=== PATIENT | male | born 1930 | race Caucasian/White ===

== ENCOUNTER 2016-12-16 13:28 | Observation (INO) | payer MEDICARE, OTHER ==
[2016-12-16 14:44] LABS: Hematocrit 40 % (42-52); Mean Corpuscular HGB Conc 32 g/dl (31-36); Mean Corpuscular Hemoglobin 30 pg (27-31); Mean Corpuscular Volume 92 fL (80-94); Mean Platelet Volume 9 um3 (7.4-10.4); Red Blood Count 4.38 10^6/ul (4.0-5.4); Red Cell Distribution Width 13 % (10.5-15); White Blood Count 8.2 10^3/ul (3.5-10.8)
[2016-12-16 14:56] LABS: Albumin 3.3 g/dL (3.2-5.2); BUN/Creatinine Ratio 30.3 (8-20); C Reactive Protein 132.52 mg/L (< 5.00); Calcium 9.1 mg/dL (8.6-10.3); EGFR African American 54.8 (>60); EGFR Non-African American 42.6 (>60); Globulin 3.4 g/dL (2-4); Magnesium 2.2 mg/dL (1.9-2.7); Potassium 4.4 mmol/L (3.5-5.0); Total Bilirubin 0.4 mg/dL (0.2-1.0); Total Protein 6.7 g/dL (6.4-8.9)
[2016-12-16 14:58] LABS: Troponin I 0.01 ng/mL (<0.04)
[2016-12-16 15:09] LABS: TSH (Thyroid Stimulating Horm) 2.35 mcIU/mL (0.34-5.60)
--- NOTE | 2016-12-16 15:25 | RAD ---
INDICATION: Bilateral shoulder pain and weakness. COMPARISON: There are no prior studies available for comparison. TECHNIQUE: A portable view of the chest was obtained. FINDINGS: Cardiac and mediastinal contours appear to be within normal limits. There is a dual-chamber transvenous pacemaker present. The lungs are hyperinflated and clear. No pleural effusion is seen. IMPRESSION: NO EVIDENCE FOR ACUTE DISEASE.
[2016-12-16] MEDS ORDERED: Dextrose 50% Syringe 50 ML* 25 GM/50 ML SYRINGE ONE (15:27)
[2016-12-16] MEDS ORDERED: Dextrose 50% Syringe 50 ML* 25 GM/50 ML SYRINGE IV PUSH ONE (15:27)
[2016-12-16 15:37] LABS: Erythrocyte Sed Rate 75 mm/Hr (0-40)
--- NOTE | 2016-12-16 16:31 | ED ---
Sohail Otero Matthew, scribed for Mckay Sanchez MD on 12/16/16 at 1433 . Complex/Multi-Sys Presentation - HPI Summary HPI Summary: An 86 y/o male presents to the ED with constant generalized weakness for the past several weeks. The patient initially developed right shoulder pain ~4 weeks ago, and was seen by his PCP who Dx him with bursitis and give him a cortisone injection. The injection did not relive his shoulder pain. The pain has since spread diffusely throughout his body for the past 3 weeks. Associated symptoms include frequency urination - 7x per night, decreased appetite, general weakness, bilateral shoulder pain, and headache. He denies fever, dysuria, SOB, abdominal pain, back pain, cough, and hip pain. Per the son, the patient is having difficulty standing and pain left buttock pain when sitting. He has no Hx of lower back pain. Per the , when the shoulder pain began the patient began to walk, sit, and sleep differently. - History Of Current Complaint Chief Complaint: EDShoulderClavicleIn Time Seen by Provider: 12/16/16 14:12 Hx Obtained From: Patient, Family/[place] - , Son Onset/Duration: Gradual Onset, Lasting Weeks, Still Present Timing: Constant Severity Currently: Moderate Severity Initially: Moderate Location: Pain At: - Diffuse Associated Signs And Symptoms: Positive: Weakness - generalized, Other - increased urination; decreased appetite; bilateral shoulder pain; diffuse body aches; headache. Negative: SOB, Cough, Chest Pain, Back Pain, Fever - Allergies/Home Medications Allergies/Adverse Reactions: Allergies Allergy/AdvReac Type Severity Reaction Status Date / Time Adhesive Tape Allergy Mild Itching Verified 11/12/16 17:29 Hydralazine Allergy Unknown Unknown Verified 11/12/16 17:29 Reaction Details Ramipril [From Altace] Allergy Unknown Unknown Verified 11/12/16 17:29 Reaction Details Simvastatin [From Zocor] Allergy Unknown Unknown Verified 11/12/16 17:29 Reaction Details Clonidine Allergy Unknown Verified 11/12/16 17:29 Reaction Details Clopidogrel [From Plavix] Allergy Unknown Verified 11/12/16 17:29 Reaction Details Latex Allergy Rash Verified 11/12/16 17:29 Nitroglycerin Allergy See Comment Verified 11/12/16 17:29 [From Nitroglycerin Transdermal System] PMH/Surg Hx/FS Hx/Imm Hx Endocrine/Hematology History: Reports: Hx Blood Disorders - ITP, Hx Diabetes, Other Endocrine/Hematological Disorders - 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, 2001 Denies: Hx Anticoagulant Therapy, Hx Blood Transfusions, Hx Bone Marrow Disease, Hx Systemic Lupus Erythematosus, Hx Sickle Cell Disease, Hx Thyroid Disease, Hx Anemia, Hx Unexplained Bleeding Cardiovascular History: Reports: Hx Angina, Hx Angioplasty, Hx Auto Implanted Cardiovert Defib, Hx Coronary Artery Disease, Hx Hypercholesterolemia, Hx Hypertension, Hx Pacemaker/ICD, Other Cardiovascular Problems/Disorders Denies: Hx Aneurysm, Hx Cardiac Arrest, Hx Cardiomegaly, Hx Congenital Heart Disease, Hx Congestive Heart Failure, Hx Deep Vein Thrombosis, Hx Embolism, Hx Hypotension, Hx Peripheral Vascular Disease, Hx Rheumatic Fever, Hx Syncope, Hx Valvular Heart Disease Respiratory History: Reports: Hx Chronic Obstructive Pulmonary Disease (COPD), Hx Sleep Apnea, Other Respiratory Problems/Disorders - on home O2 Denies: Hx Asthma GI History: Reports: Hx Hiatal Hernia Denies: Hx Ulcer History: Reports: Hx Chronic Renal Failure - CKD stage 3, Hx Renal Disease Musculoskeletal History: Reports: Hx Gout - knee, Hx Orthopedic Injury - L ankle Fx, consequent unsteady gait Denies: Hx Arthritis, Hx Back Problems, Hx Bursitis, Hx Congenital Bone Abnormalities, Hx Fibromyalgia, Hx Osteoporosis, Hx Scoliosis, Hx Tendonitis, Other Musculoskeletal History Sensory History: Reports: Hx Cataracts, Hx Contacts or Glasses Denies: Hx Eye Injury, Hx Eye Prosthesis, Hx Glaucoma, Hx Legally Blind, Hx Macular Degeneration, Hx Vision Problem, Hx Deafness, Hx Hearing Aid, Hx Hearing Problem, Other Sensory Impairments Opthamlomology History: Reports: Hx Cataracts, Hx Contacts or Glasses Denies: Hx Eye Injury, Hx Eye Prosthesis, Hx Glaucoma, Hx Legally Blind, Hx Macular Degeneration, Hx Vision Problem, Other Sensory Impairments Neurological History: Reports: Other Neuro Impairments/Disorders - per family: short-term memory loss Denies: Hx Dementia, Hx Seizures Psychiatric History: Denies: Hx Substance Abuse - Cancer History Cancer Type, Location and Year: 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 5 cardiac stents, cataract surgery, pacer/ICD implant Hx Anesthesia Reactions: No - Immunization History Date of Tetanus Vaccine: unknown Infectious Disease History: No Infectious Disease History: Denies: Hx Hepatitis, Hx Human Immunodeficiency Virus (HIV), Traveled Outside the [place] in Last 30 Days - Family History Known Family History: Positive: Cardiac Disease, Hypertension, Diabetes - Social History Alcohol Use: Rare Substance Use Type: Reports: None Hx Tobacco Use: Yes Smoking Status (MU): Former Smoker Type: Cigarettes Amount Used/How Often: 3 PPD X 40 YEARS Have You Smoked in the Last Year: No Review of Systems Constitutional: Other - decreased appetite Negative: Fever, Chills Eyes: Negative ENT: Negative Cardiovascular: Negative Negative: Chest Pain Respiratory: Negative Negative: Shortness Of Breath, Cough Gastrointestinal: Negative Negative: Abdominal Pain Positive: frequency - increased Positive: Myalgia - bilateral shoulder pain; diffuse body aches Skin: Negative Positive: Headache Psychological: Normal All Other Systems Reviewed And Are Negative: Yes Physical Exam Triage Information Reviewed: Yes Vital Signs On Initial Exam: Initial Vitals Temp Pulse Resp BP Pulse Ox 98.3 F 62 18 161/70 97 12/16/16 13:45 12/16/16 13:45 12/16/16 13:45 12/16/16 13:45 12/16/16 13:45 Vital Signs Reviewed: Yes Appearance: Positive: No Pain Distress Skin: Positive: Warm, Skin Color Reflects Adequate Perfusion, Dry Head/Face: Positive: Normal Head/Face Inspection Eyes: Positive: EOMI, DONTE ENT: Positive: Normal ENT inspection Neck: Positive: Supple, Nontender Respiratory/Lung Sounds: Positive: Clear to Auscultation, Breath Sounds Present Cardiovascular: Positive: RRR Abdomen Description: Positive: Nontender, Soft Bowel Sounds: Positive: Present Musculoskeletal: Positive: Normal, Strength/ROM Intact, Other - Discomfort with movement of the shoulders bilaterally Neurological: Positive: Normal, Sensory/Motor Intact, Alert, Oriented to Person Place, Time Diagnostics - Vital Signs Vital Signs Temp Pulse Resp BP Pulse Ox 12/16/16 13:45 98.3 F 62 18 161/70 97 - Laboratory Lab Results: Lab Results 12/16/16 12/16/16 12/16/16 Range/Units 14:14 14:14 14:14 WBC 8.2 (3.5-10.8) 10^3/ul RBC 4.38 (4.0-5.4) 10^6/ul Hgb 13.0 L (14.0-18.0) g/dl Hct 40 L (42-52) % MCV 92 (80-94) fL MCH 30 (27-31) pg MCHC 32 (31-36) g/dl RDW 13 (10.5-15) % Plt Count 129 L (150-450) 10^3/ul MPV 9 (7.4-10.4) um3 Neut % (Auto) 70.1 (38-83) % Lymph % (Auto) 11.3 L (25-47) % [place] % (Auto) 15.8 H (1-9) % Eos % (Auto) 2.2 (0-6) % Baso % (Auto) 0.6 (0-2) % Absolute Neuts (auto) 5.7 (1.5-7.7) 10^3/ul Absolute Lymphs (auto) 0.9 L (1.0-4.8) 10^3/ul Absolute Monos (auto) 1.3 H (0-0.8) 10^3/ul Absolute Eos (auto) 0.2 (0-0.6) 10^3/ul Absolute Basos (auto) 0 (0-0.2) 10^3/ul Absolute Nucleated RBC 0 10^3/ul Nucleated RBC % 0 ESR 75 H (0-40) mm/Hr INR (Anticoag Therapy) 1.06 (0.89-1.11) APTT 30.4 (26.0-36.3) seconds D-Dimer, Quantitative 565 H (Less Than 230) ng/mL Sodium 137 (133-145) mmol/L Potassium 4.4 (3.5-5.0) mmol/L Chloride 102 (101-111) mmol/L Carbon Dioxide 31 (22-32) mmol/L Anion Gap 4 (2-11) mmol/L BUN 47 H (6-24) mg/dL Creatinine 1.55 H (0.67-1.17) mg/dL Est GFR ( Amer) 54.8 (>60) Est GFR (Non-Af Amer) 42.6 (>60) BUN/Creatinine Ratio 30.3 H (8-20) Glucose 46 L (70-100) mg/dL POC Glucose (mg/dL) (74-106) mg/dL Lactic Acid (0.5-2.0) mmol/L Calcium 9.1 (8.6-10.3) mg/dL Magnesium 2.2 (1.9-2.7) mg/dL Total Bilirubin 0.40 (0.2-1.0) mg/dL AST 25 (13-39) U/L ALT 22 (7-52) U/L Alkaline Phosphatase 72 (34-104) U/L Total Creatine Kinase 31 (10-223) U/L CK-MB (CK-2) 2.3 (0.6-6.3) ng/mL Troponin I 0.01 (<0.04) ng/mL C-Reactive Protein 132.52 H (< 5.00) mg/L B-Natriuretic Peptide ( - 100) pg/mL Total Protein 6.7 (6.4-8.9) g/dL Albumin 3.3 (3.2-5.2) g/dL Globulin 3.4 (2-4) g/dL Albumin/Globulin Ratio 1.0 (1-3) Lipase 20 (11.0-82.0) U/L TSH 2.35 (0.34-5.60) mcIU/mL 12/16/16 12/16/16 12/16/16 Range/Units 14:14 14:14 15:35 WBC (3.5-10.8) 10^3/ul RBC (4.0-5.4) 10^6/ul Hgb (14.0-18.0) g/dl Hct (42-52) % MCV (80-94) fL MCH (27-31) pg MCHC (31-36) g/dl RDW (10.5-15) % Plt Count (150-450) 10^3/ul MPV (7.4-10.4) um3 Neut % (Auto) (38-83) % Lymph % (Auto) (25-47) % [place] % (Auto) (1-9) % Eos % (Auto) (0-6) % Baso % (Auto) (0-2) % Absolute Neuts (auto) (1.5-7.7) 10^3/ul Absolute Lymphs (auto) (1.0-4.8) 10^3/ul Absolute Monos (auto) (0-0.8) 10^3/ul Absolute Eos (auto) (0-0.6) 10^3/ul Absolute Basos (auto) (0-0.2) 10^3/ul Absolute Nucleated RBC 10^3/ul Nucleated RBC % ESR (0-40) mm/Hr INR (Anticoag Therapy) (0.89-1.11) APTT (26.0-36.3) seconds D-Dimer, Quantitative (Less Than 230) ng/mL Sodium (133-145) mmol/L Potassium (3.5-5.0) mmol/L Chloride (101-111) mmol/L Carbon Dioxide (22-32) mmol/L Anion Gap (2-11) mmol/L BUN (6-24) mg/dL Creatinine (0.67-1.17) mg/dL Est GFR ( Amer) (>60) Est GFR (Non-Af Amer) (>60) BUN/Creatinine Ratio (8-20) Glucose (70-100) mg/dL POC Glucose (mg/dL) 244 H (74-106) mg/dL Lactic Acid 0.6 (0.5-2.0) mmol/L Calcium (8.6-10.3) mg/dL Magnesium (1.9-2.7) mg/dL Total Bilirubin (0.2-1.0) mg/dL AST (13-39) U/L ALT (7-52) U/L Alkaline Phosphatase (34-104) U/L Total Creatine Kinase (10-223) U/L CK-MB (CK-2) (0.6-6.3) ng/mL Troponin I (<0.04) ng/mL C-Reactive Protein (< 5.00) mg/L B-Natriuretic Peptide 74 ( - 100) pg/mL Total Protein (6.4-8.9) g/dL Albumin (3.2-5.2) g/dL Globulin (2-4) g/dL Albumin/Globulin Ratio (1-3) Lipase (11.0-82.0) U/L TSH (0.34-5.60) mcIU/mL 12/16/16 12/16/16 Range/Units 15:37 15:59 WBC (3.5-10.8) 10^3/ul RBC (4.0-5.4) 10^6/ul Hgb (14.0-18.0) g/dl Hct (42-52) % MCV (80-94) fL MCH (27-31) pg MCHC (31-36) g/dl RDW (10.5-15) % Plt Count (150-450) 10^3/ul MPV (7.4-10.4) um3 Neut % (Auto) (38-83) % Lymph % (Auto) (25-47) % [place] % (Auto) (1-9) % Eos % (Auto) (0-6) % Baso % (Auto) (0-2) % Absolute Neuts (auto) (1.5-7.7) 10^3/ul Absolute Lymphs (auto) (1.0-4.8) 10^3/ul Absolute Monos (auto) (0-0.8) 10^3/ul Absolute Eos (auto) (0-0.6) 10^3/ul Absolute Basos (auto) (0-0.2) 10^3/ul Absolute Nucleated RBC 10^3/ul Nucleated RBC % ESR (0-40) mm/Hr INR (Anticoag Therapy) (0.89-1.11) APTT (26.0-36.3) seconds D-Dimer, Quantitative (Less Than 230) ng/mL Sodium (133-145) mmol/L Potassium (3.5-5.0) mmol/L Chloride (101-111) mmol/L Carbon Dioxide (22-32) mmol/L Anion Gap (2-11) mmol/L BUN (6-24) mg/dL Creatinine (0.67-1.17) mg/dL Est GFR ( Amer) (>60) Est GFR (Non-Af Amer) (>60) BUN/Creatinine Ratio (8-20) Glucose (70-100) mg/dL POC Glucose (mg/dL) 209 H 137 H (74-106) mg/dL Lactic Acid (0.5-2.0) mmol/L Calcium (8.6-10.3) mg/dL Magnesium (1.9-2.7) mg/dL Total Bilirubin (0.2-1.0) mg/dL AST (13-39) U/L ALT (7-52) U/L Alkaline Phosphatase (34-104) U/L Total Creatine Kinase (10-223) U/L CK-MB (CK-2) (0.6-6.3) ng/mL Troponin I (<0.04) ng/mL C-Reactive Protein (< 5.00) mg/L B-Natriuretic Peptide ( - 100) pg/mL Total Protein (6.4-8.9) g/dL Albumin (3.2-5.2) g/dL Globulin (2-4) g/dL Albumin/Globulin Ratio (1-3) Lipase (11.0-82.0) U/L TSH (0.34-5.60) mcIU/mL Result Diagrams: 12/16/16 14:14 12/16/16 14:14 Lab Statement: Any lab studies that have been ordered have been reviewed, and results considered in the medical decision making process. - Radiology CXR Xray Interpretation: No Acute Changes - IMPRESSION: NO EVIDENCE FOR ACUTE DISEASE. Radiology Interpretation Completed By: Radiologist Complex Multi-Symp Course/Dx Assessment/Plan: BLOOD SUGARS CONTINUE TO DROP IN ED. ADMIT HOSPITALIST STABLE. - Diagnoses Provider Diagnoses: Weakness, Hypoglycemia due to insulin Discharge - Discharge Plan Condition: Stable Disposition: ADMITTED TO [facility] The documentation as recorded by the Sohail webb Matthew accurately reflects the service I personally performed and the decisions made by , Mckay Sanchez MD.
[2016-12-16] MEDS ORDERED: Nitroglycerin TAB 0.4 MG* 0.4 MG TAB PO PRN (17:06)
[2016-12-16] MEDS ORDERED: Polyethylene Glycol 3350* 17 GM PACKET PO PRN (17:06)
[2016-12-16] MEDS ORDERED: Dextrose 50% Syringe 50 ML* 25 GM/50 ML SYRINGE IV PUSH PRN (17:13)
[2016-12-16] MEDS: Insulin LISPRO* 1 UNITS UNIT SUBCUT SCH ×2 (17:21→21:48)
[2016-12-16 17:23] LABS: Urine Bacteria Absent (Absent); Urine Bilirubin Negative (Negative); Urine Glucose Negative (Negative); Urine Nitrite Negative (Negative)
--- NOTE | 2016-12-16 17:23 | ADMNOTE ---
Subjective Date of Service: 12/16/16 Interval History: ADMISSION HISTORY AND PHYSICAL EXAM: Allergies Allergy/AdvReac Type Severity Reaction Status Date / Time Adhesive Tape Allergy Mild Itching Verified 11/12/16 17:29 Hydralazine Allergy Unknown Unknown Verified 11/12/16 17:29 Reaction Details Ramipril [From Altace] Allergy Unknown Unknown Verified 11/12/16 17:29 Reaction Details Simvastatin [From Zocor] Allergy Unknown Unknown Verified 11/12/16 17:29 Reaction Details Clonidine Allergy Unknown Verified 11/12/16 17:29 Reaction Details Clopidogrel [From Plavix] Allergy Unknown Verified 11/12/16 17:29 Reaction Details Latex Allergy Rash Verified 11/12/16 17:29 Nitroglycerin Allergy See Comment Verified 11/12/16 17:29 [From Nitroglycerin Transdermal System] Home Medications Medication Instructions Recorded Confirmed Type Aspirin Low Dose CHEW TAB* 81 mg PO BEDTIME 12/20/14 11/12/16 History [Aspirin Low Dose TAB*] Diltiazem CD CAP* [Cardizem CD 120 mg PO BID 12/20/14 11/12/16 History CAP*] Donepezil TAB* [Aricept TAB*] 10 mg PO BEDTIME 12/20/14 11/12/16 History Insulin Aspart PEN(NF) [Novolog 2 - 10 units SUBCUT AC 12/20/14 11/12/16 History Flexpen(NF)] Nitroglycerin TAB 0.4 MG* 0.4 mg PO Q5M PRN 12/20/14 11/12/16 History Rosuvastatin (NF) [Crestor (NF)] 5 mg PO BEDTIME 12/20/14 11/12/16 History zzInsulin GLARGINE(*) [zzLantus(*)] 55 - 60 unit SUBCUT QAM 12/20/14 11/12/16 History Levalbuterol 0.63MG/3ML NEB* 0.31 mg INH QAM 07/19/15 11/12/16 History [Xopenex 0.63MG/3ML NEB*] Carvedilol TAB* [Coreg TAB*] 12.5 mg PO BID 07/10/16 11/12/16 History HPI: Patient has not gotten out of bed in past few days except to go to the bathroom. This AM he was too weak to get to the car so his son called 911. He has eaten little for the past few days. He has lost 8 lbs since Dec 01. He saw an orthopedist for bilateral shoulder pain R>L. He was given a steroid injection in his R shoulder and prescribed PT. He only went once to PT, did not want to go after that. No benefit from either intervention. Family History: Findings - unremarkable Social History: Findings - Smoked many years ago. No alcohol abuse. Lives with his who is his SDM. Past Medical History: Findings - Atrial fib, CAD with 5 stents, PPM, adrenalectomy, COPD, CKD, DM, PRETTY. Review of Systems - Measurements Intake and Output: Intake and Output Last 24 Hours 12/14/16 12/15/16 12/16/16 12/17/16 06:59 06:59 06:59 06:59 Intake Total 240 Output Total 120 Balance 120 Weight 210 lb Intake: Oral 240 Output: Urine 120 - Review of Systems Constitutional Symptoms: Positive: Weight Gain - 8 lbs in past 2 weeks. Dermatology: Positive: Normal HEENT: Positive: Normal Eyes: Positive: Normal Thyroid: Positive: Normal Pulmonary: Positive: COPD Cardiology: Positive: Other - CAD Gastroenterology: Positive: Anorexia Genital - Urinary: Positive: Nocturia - up to 7-8 times. Musculoskeletal: Positive: Joint Pain - both shoulders Endocrinology: Positive: Diabetes Mellitus Hematologic/Lymphatic: Negative: Anemia, Easy Brusing, Hx Leukemia, Hx Lymphoma, Use of Anticoagulant, Use of Antiplatelet Drugs, Other Neurology: Positive: Change in Memory Psychiatry: Positive: Normal Allergic/Immunologic: Negative: Hx Anaphylaxis, Hx Angioedema, Hx Environmental, Hx Seasonal, Athsma, Hx HIV, Immunocompromise, Swollen Glands LymphNodes, Other Objective Active Medications: Acetaminophen (Tylenol Tab*) 650 mg PO TID [facility] Aspirin (Aspirin Low Dose Tab*) 81 mg PO BEDTIME [facility] Carvedilol (Coreg Tab*) 12.5 mg PO BID [facility] Dextrose (D50w Syringe 50 Ml*) 12.5 gm IV PUSH .FOR FS < 60 - SS PRN PRN Reason: FS < 60 Diltiazem HCl (Cardizem Cd Cap*) 120 mg PO BID [facility] Donepezil HCl (Aricept Tab*) 10 mg PO BEDTIME [facility] Insulin Glargine (Lantus(*)) 30 units SUBCUT Q24H [facility] Insulin Human Lispro (Humalog*) 0 units SUBCUT Q4HR [facility] PRN Reason: Protocol Nitroglycerin (Nitroglycerin Tab 0.4 Mg*) 0.4 mg PO Q5M PRN PRN Reason: PAIN - CHEST Polyethylene Glycol/Electrolytes (Miralax*) 17 gm PO DAILY PRN PRN Reason: CONSTIPATION Prednisone (Deltasone Tab*) 20 mg PO DAILY [facility] Vital Signs 12/16/16 12/16/16 12/16/16 13:45 14:15 15:00 Temperature 98.3 F Pulse Rate 62 60 60 Respiratory 18 18 Rate Blood Pressure 161/70 137/43 (mmHg) O2 Sat by Pulse 97 97 97 Oximetry 12/16/16 12/16/16 12/16/16 15:30 16:00 16:30 Temperature Pulse Rate 63 64 59 Respiratory 17 17 21 Rate Blood Pressure 127/65 142/48 143/56 (mmHg) O2 Sat by Pulse 98 98 98 Oximetry 12/16/16 17:00 Temperature Pulse Rate 65 Respiratory 23 Rate Blood Pressure 161/60 (mmHg) O2 Sat by Pulse 98 Oximetry Oxygen Devices in Use Now: Nasal Cannula Appearance: Alert, partly up in bed. Neutral affect, passive but cooperative. Looks comfortable at rest. Eyes: No Scleral Icterus Ears/Nose/Mouth/Throat: Clear Oropharnyx, Mucous Membranes Moist Neck: NL Appearance and Movements; NL JVP, No Thyroid Enlargement, Masses Respiratory: Symmetrical Chest Expansion and Respiratory Effort, Clear to Auscultation, Clear to Percussion Cardiovascular: NL Sounds; No Murmurs; No JVD, No Edema, - - irreg Extremities: No Edema, No Clubbing, Cyanosis, - - Pain both shoulders with elevation, R>>L. Skin: No Rash or Ulcers, No Nodules or Sclerosis, - Neurological: NL Sensation - Knows his age, thought it was 2016, could not guess the present month. No tremor. Result Diagrams: 12/16/16 14:14 12/16/16 14:14 Additional Lab and Data: Lab Results 12/16/16 12/16/16 12/16/16 Range/Units 14:14 14:14 14:14 WBC 8.2 (3.5-10.8) 10^3/ul RBC 4.38 (4.0-5.4) 10^6/ul Hgb 13.0 L (14.0-18.0) g/dl Hct 40 L (42-52) % MCV 92 (80-94) fL MCH 30 (27-31) pg MCHC 32 (31-36) g/dl RDW 13 (10.5-15) % Plt Count 129 L (150-450) 10^3/ul MPV 9 (7.4-10.4) um3 Neut % (Auto) 70.1 (38-83) % Lymph % (Auto) 11.3 L (25-47) % [place] % (Auto) 15.8 H (1-9) % Eos % (Auto) 2.2 (0-6) % Baso % (Auto) 0.6 (0-2) % Absolute Neuts (auto) 5.7 (1.5-7.7) 10^3/ul Absolute Lymphs (auto) 0.9 L (1.0-4.8) 10^3/ul Absolute Monos (auto) 1.3 H (0-0.8) 10^3/ul Absolute Eos (auto) 0.2 (0-0.6) 10^3/ul Absolute Basos (auto) 0 (0-0.2) 10^3/ul Absolute Nucleated RBC 0 10^3/ul Nucleated RBC % 0 ESR 75 H (0-40) mm/Hr INR (Anticoag Therapy) 1.06 (0.89-1.11) APTT 30.4 (26.0-36.3) seconds D-Dimer, Quantitative 565 H (Less Than 230) ng/mL Sodium 137 (133-145) mmol/L Potassium 4.4 (3.5-5.0) mmol/L Chloride 102 (101-111) mmol/L Carbon Dioxide 31 (22-32) mmol/L Anion Gap 4 (2-11) mmol/L BUN 47 H (6-24) mg/dL Creatinine 1.55 H (0.67-1.17) mg/dL Est GFR ( Amer) 54.8 (>60) Est GFR (Non-Af Amer) 42.6 (>60) BUN/Creatinine Ratio 30.3 H (8-20) Glucose 46 L (70-100) mg/dL POC Glucose (mg/dL) (74-106) mg/dL Lactic Acid (0.5-2.0) mmol/L Calcium 9.1 (8.6-10.3) mg/dL Magnesium 2.2 (1.9-2.7) mg/dL Total Bilirubin 0.40 (0.2-1.0) mg/dL AST 25 (13-39) U/L ALT 22 (7-52) U/L Alkaline Phosphatase 72 (34-104) U/L Total Creatine Kinase 31 (10-223) U/L CK-MB (CK-2) 2.3 (0.6-6.3) ng/mL Troponin I 0.01 (<0.04) ng/mL C-Reactive Protein 132.52 H (< 5.00) mg/L B-Natriuretic Peptide ( - 100) pg/mL Total Protein 6.7 (6.4-8.9) g/dL Albumin 3.3 (3.2-5.2) g/dL Globulin 3.4 (2-4) g/dL Albumin/Globulin Ratio 1.0 (1-3) Lipase 20 (11.0-82.0) U/L TSH 2.35 (0.34-5.60) mcIU/mL 12/16/16 12/16/16 12/16/16 Range/Units 14:14 14:14 15:35 WBC (3.5-10.8) 10^3/ul RBC (4.0-5.4) 10^6/ul Hgb (14.0-18.0) g/dl Hct (42-52) % MCV (80-94) fL MCH (27-31) pg MCHC (31-36) g/dl RDW (10.5-15) % Plt Count (150-450) 10^3/ul MPV (7.4-10.4) um3 Neut % (Auto) (38-83) % Lymph % (Auto) (25-47) % [place] % (Auto) (1-9) % Eos % (Auto) (0-6) % Baso % (Auto) (0-2) % Absolute Neuts (auto) (1.5-7.7) 10^3/ul Absolute Lymphs (auto) (1.0-4.8) 10^3/ul Absolute Monos (auto) (0-0.8) 10^3/ul Absolute Eos (auto) (0-0.6) 10^3/ul Absolute Basos (auto) (0-0.2) 10^3/ul Absolute Nucleated RBC 10^3/ul Nucleated RBC % ESR (0-40) mm/Hr INR (Anticoag Therapy) (0.89-1.11) APTT (26.0-36.3) seconds D-Dimer, Quantitative (Less Than 230) ng/mL Sodium (133-145) mmol/L Potassium (3.5-5.0) mmol/L Chloride (101-111) mmol/L Carbon Dioxide (22-32) mmol/L Anion Gap (2-11) mmol/L BUN (6-24) mg/dL Creatinine (0.67-1.17) mg/dL Est GFR ( Amer) (>60) Est GFR (Non-Af Amer) (>60) BUN/Creatinine Ratio (8-20) Glucose (70-100) mg/dL POC Glucose (mg/dL) 244 H (74-106) mg/dL Lactic Acid 0.6 (0.5-2.0) mmol/L Calcium (8.6-10.3) mg/dL Magnesium (1.9-2.7) mg/dL Total Bilirubin (0.2-1.0) mg/dL AST (13-39) U/L ALT (7-52) U/L Alkaline Phosphatase (34-104) U/L Total Creatine Kinase (10-223) U/L CK-MB (CK-2) (0.6-6.3) ng/mL Troponin I (<0.04) ng/mL C-Reactive Protein (< 5.00) mg/L B-Natriuretic Peptide 74 ( - 100) pg/mL Total Protein (6.4-8.9) g/dL Albumin (3.2-5.2) g/dL Globulin (2-4) g/dL Albumin/Globulin Ratio (1-3) Lipase (11.0-82.0) U/L TSH (0.34-5.60) mcIU/mL 12/16/16 12/16/16 Range/Units 15:37 15:59 WBC (3.5-10.8) 10^3/ul RBC (4.0-5.4) 10^6/ul Hgb (14.0-18.0) g/dl Hct (42-52) % MCV (80-94) fL MCH (27-31) pg MCHC (31-36) g/dl RDW (10.5-15) % Plt Count (150-450) 10^3/ul MPV (7.4-10.4) um3 Neut % (Auto) (38-83) % Lymph % (Auto) (25-47) % [place] % (Auto) (1-9) % Eos % (Auto) (0-6) % Baso % (Auto) (0-2) % Absolute Neuts (auto) (1.5-7.7) 10^3/ul Absolute Lymphs (auto) (1.0-4.8) 10^3/ul Absolute Monos (auto) (0-0.8) 10^3/ul Absolute Eos (auto) (0-0.6) 10^3/ul Absolute Basos (auto) (0-0.2) 10^3/ul Absolute Nucleated RBC 10^3/ul Nucleated RBC % ESR (0-40) mm/Hr INR (Anticoag Therapy) (0.89-1.11) APTT (26.0-36.3) seconds D-Dimer, Quantitative (Less Than 230) ng/mL Sodium (133-145) mmol/L Potassium (3.5-5.0) mmol/L Chloride (101-111) mmol/L Carbon Dioxide (22-32) mmol/L Anion Gap (2-11) mmol/L BUN (6-24) mg/dL Creatinine (0.67-1.17) mg/dL Est GFR ( Amer) (>60) Est GFR (Non-Af Amer) (>60) BUN/Creatinine Ratio (8-20) Glucose (70-100) mg/dL POC Glucose (mg/dL) 209 H 137 H (74-106) mg/dL Lactic Acid (0.5-2.0) mmol/L Calcium (8.6-10.3) mg/dL Magnesium (1.9-2.7) mg/dL Total Bilirubin (0.2-1.0) mg/dL AST (13-39) U/L ALT (7-52) U/L Alkaline Phosphatase (34-104) U/L Total Creatine Kinase (10-223) U/L CK-MB (CK-2) (0.6-6.3) ng/mL Troponin I (<0.04) ng/mL C-Reactive Protein (< 5.00) mg/L B-Natriuretic Peptide ( - 100) pg/mL Total Protein (6.4-8.9) g/dL Albumin (3.2-5.2) g/dL Globulin (2-4) g/dL Albumin/Globulin Ratio (1-3) Lipase (11.0-82.0) U/L TSH (0.34-5.60) mcIU/mL Assess/Plan/Problems-Billing Assessment: - Patient Problems (1) Hypoglycemia Current Visit: Yes Status: Acute Code(s): E16.2 - HYPOGLYCEMIA, UNSPECIFIED SNOMED Code(s): 222835448 Comment: Eating less, lost 8 lbs. Trial Lantus 30 U start 12/17. FS q 4 hr tonight. (2) Atrial fibrillation Current Visit: No Status: Chronic Code(s): I48.91 - UNSPECIFIED ATRIAL FIBRILLATION SNOMED Code(s): 88436994 Comment: Rate controlled. Continue Carvedilol and Diltiazem. Pt is not anticoagulated, family feels benefit doesn't out weight the risks. (3) COPD (chronic obstructive pulmonary disease) Current Visit: Yes Status: Acute Code(s): J44.9 - CHRONIC OBSTRUCTIVE PULMONARY DISEASE, UNSPECIFIED SNOMED Code(s): 65653613 (4) Dementia Current Visit: Yes Status: Acute Code(s): F03.90 - UNSPECIFIED DEMENTIA WITHOUT BEHAVIORAL DISTURBANCE SNOMED Code(s): 18051530 Comment: His underlyng problem, likely causing his decreased eating. I discussed this with and son. (5) Shoulder pain Current Visit: Yes Status: Acute Code(s): M25.519 - PAIN IN UNSPECIFIED SHOULDER SNOMED Code(s): 42691877 Comment: ESR 75. Trial prednisone 20 mg daily for possible PMR. Also start scheduled APAP 650 mg tid. (6) CAD (coronary artery disease) Current Visit: Yes Status: Acute Code(s): I25.10 - ATHSCL HEART DISEASE OF [place] CORONARY ARTERY W/O ANG PCTRS SNOMED Code(s): 93548299 Comment: Resume rosuvastatin at home.
[2016-12-16] MEDS ORDERED: Donepezil TAB* 5 MG PO SCH (21:00)
[2016-12-16] MEDS ORDERED: Aspirin Low Dose CHEW TAB* 81 MG PO SCH (21:00)
[2016-12-16] MEDS: Acetaminophen TAB* 325 MG PO SCH (21:48)
[2016-12-16] MEDS: predniSONE TAB* 20 MG PO SCH (21:48)
[2016-12-16] MEDS: Diltiazem CD CAP* 120 MG PO SCH (21:48)
[2016-12-16] MEDS: Carvedilol TAB* 6.25 MG PO SCH (21:48)
[2016-12-17] MEDS: Insulin LISPRO* 1 UNITS UNIT SUBCUT SCH ×2 (00:54→04:57)
[2016-12-17] MEDS ORDERED: Insulin GLARGINE(*) 1 UNITS UNIT SUBCUT SCH ×2 (09:00→13:00)
--- NOTE | 2016-12-17 09:28 | DCNOTE ---
Subjective Date of Service: 12/17/16 Interval History: No c/o. When asked, his shoulder pain is better. Family History: Findings - unremarkable Social History: Findings - Smoked many years ago. No alcohol abuse. Lives with his who is his SDM. Past Medical History: Findings - Atrial fib, CAD with 5 stents, PPM, adrenalectomy, COPD, CKD, DM, PRETTY. Objective Active Medications: Acetaminophen (Tylenol Tab*) 650 mg PO TID [facility] Last Admin: 12/16/16 21:48 Dose: 650 mg Aspirin (Aspirin Low Dose Tab*) 81 mg PO BEDTIME [facility] Last Admin: 12/16/16 21:48 Dose: 81 mg Carvedilol (Coreg Tab*) 12.5 mg PO BID [facility] Last Admin: 12/16/16 21:48 Dose: 12.5 mg Dextrose (D50w Syringe 50 Ml*) 12.5 gm IV PUSH .FOR FS < 60 - SS PRN PRN Reason: FS < 60 Diltiazem HCl (Cardizem Cd Cap*) 120 mg PO BID [facility] Last Admin: 12/16/16 21:48 Dose: 120 mg Donepezil HCl (Aricept Tab*) 10 mg PO BEDTIME [facility] Last Admin: 12/16/16 21:48 Dose: 10 mg Insulin Glargine (Lantus(*)) 30 units SUBCUT Q24H [facility] Insulin Human Lispro (Humalog*) 0 units SUBCUT ACHS [facility] PRN Reason: Protocol Nitroglycerin (Nitroglycerin Tab 0.4 Mg*) 0.4 mg PO Q5M PRN PRN Reason: PAIN - CHEST Polyethylene Glycol/Electrolytes (Miralax*) 17 gm PO DAILY PRN PRN Reason: CONSTIPATION Prednisone (Deltasone Tab*) 20 mg PO DAILY [facility] Last Admin: 12/16/16 21:48 Dose: 20 mg Vital Signs 12/16/16 12/16/16 12/16/16 17:30 17:34 18:38 Temperature 97.7 F 97.9 F Pulse Rate 60 65 Respiratory 18 22 Rate Blood Pressure 164/60 151/55 (mmHg) O2 Sat by Pulse 100 95 Oximetry 12/17/16 12/17/16 12/17/16 00:24 03:57 07:45 Temperature 98.2 F 98.0 F 98.6 F Pulse Rate 61 60 72 Respiratory 16 16 Rate Blood Pressure 169/55 151/53 152/51 (mmHg) O2 Sat by Pulse 98 99 92 Oximetry Oxygen Devices in Use Now: None Appearance: Alert, sitting on the edge of his bed. In good spirits. Looks comfortable. Eyes: No Scleral Icterus Skin: No Rash or Ulcers, No Nodules or Sclerosis, - Neurological: NL Sensation - More animated today. No tremor. Good verbal skills. He phoned his this AM. Result Diagrams: 12/16/16 14:14 12/16/16 14:14 Additional Lab and Data: Lab Results 12/16/16 12/16/16 12/16/16 Range/Units 14:14 14:14 14:14 WBC 8.2 (3.5-10.8) 10^3/ul RBC 4.38 (4.0-5.4) 10^6/ul Hgb 13.0 L (14.0-18.0) g/dl Hct 40 L (42-52) % MCV 92 (80-94) fL MCH 30 (27-31) pg MCHC 32 (31-36) g/dl RDW 13 (10.5-15) % Plt Count 129 L (150-450) 10^3/ul MPV 9 (7.4-10.4) um3 Neut % (Auto) 70.1 (38-83) % Lymph % (Auto) 11.3 L (25-47) % [place] % (Auto) 15.8 H (1-9) % Eos % (Auto) 2.2 (0-6) % Baso % (Auto) 0.6 (0-2) % Absolute Neuts (auto) 5.7 (1.5-7.7) 10^3/ul Absolute Lymphs (auto) 0.9 L (1.0-4.8) 10^3/ul Absolute Monos (auto) 1.3 H (0-0.8) 10^3/ul Absolute Eos (auto) 0.2 (0-0.6) 10^3/ul Absolute Basos (auto) 0 (0-0.2) 10^3/ul Absolute Nucleated RBC 0 10^3/ul Nucleated RBC % 0 ESR 75 H (0-40) mm/Hr INR (Anticoag Therapy) 1.06 (0.89-1.11) APTT 30.4 (26.0-36.3) seconds D-Dimer, Quantitative 565 H (Less Than 230) ng/mL Sodium 137 (133-145) mmol/L Potassium 4.4 (3.5-5.0) mmol/L Chloride 102 (101-111) mmol/L Carbon Dioxide 31 (22-32) mmol/L Anion Gap 4 (2-11) mmol/L BUN 47 H (6-24) mg/dL Creatinine 1.55 H (0.67-1.17) mg/dL Est GFR ( Amer) 54.8 (>60) Est GFR (Non-Af Amer) 42.6 (>60) BUN/Creatinine Ratio 30.3 H (8-20) Glucose 46 L (70-100) mg/dL POC Glucose (mg/dL) (74-106) mg/dL Lactic Acid (0.5-2.0) mmol/L Calcium 9.1 (8.6-10.3) mg/dL Magnesium 2.2 (1.9-2.7) mg/dL Total Bilirubin 0.40 (0.2-1.0) mg/dL AST 25 (13-39) U/L ALT 22 (7-52) U/L Alkaline Phosphatase 72 (34-104) U/L Total Creatine Kinase 31 (10-223) U/L CK-MB (CK-2) 2.3 (0.6-6.3) ng/mL Troponin I 0.01 (<0.04) ng/mL C-Reactive Protein 132.52 H (< 5.00) mg/L B-Natriuretic Peptide ( - 100) pg/mL Total Protein 6.7 (6.4-8.9) g/dL Albumin 3.3 (3.2-5.2) g/dL Globulin 3.4 (2-4) g/dL Albumin/Globulin Ratio 1.0 (1-3) Lipase 20 (11.0-82.0) U/L TSH 2.35 (0.34-5.60) mcIU/mL 12/16/16 12/16/16 12/16/16 Range/Units 14:14 14:14 15:35 WBC (3.5-10.8) 10^3/ul RBC (4.0-5.4) 10^6/ul Hgb (14.0-18.0) g/dl Hct (42-52) % MCV (80-94) fL MCH (27-31) pg MCHC (31-36) g/dl RDW (10.5-15) % Plt Count (150-450) 10^3/ul MPV (7.4-10.4) um3 Neut % (Auto) (38-83) % Lymph % (Auto) (25-47) % [place] % (Auto) (1-9) % Eos % (Auto) (0-6) % Baso % (Auto) (0-2) % Absolute Neuts (auto) (1.5-7.7) 10^3/ul Absolute Lymphs (auto) (1.0-4.8) 10^3/ul Absolute Monos (auto) (0-0.8) 10^3/ul Absolute Eos (auto) (0-0.6) 10^3/ul Absolute Basos (auto) (0-0.2) 10^3/ul Absolute Nucleated RBC 10^3/ul Nucleated RBC % ESR (0-40) mm/Hr INR (Anticoag Therapy) (0.89-1.11) APTT (26.0-36.3) seconds D-Dimer, Quantitative (Less Than 230) ng/mL Sodium (133-145) mmol/L Potassium (3.5-5.0) mmol/L Chloride (101-111) mmol/L Carbon Dioxide (22-32) mmol/L Anion Gap (2-11) mmol/L BUN (6-24) mg/dL Creatinine (0.67-1.17) mg/dL Est GFR ( Amer) (>60) Est GFR (Non-Af Amer) (>60) BUN/Creatinine Ratio (8-20) Glucose (70-100) mg/dL POC Glucose (mg/dL) 244 H (74-106) mg/dL Lactic Acid 0.6 (0.5-2.0) mmol/L Calcium (8.6-10.3) mg/dL Magnesium (1.9-2.7) mg/dL Total Bilirubin (0.2-1.0) mg/dL AST (13-39) U/L ALT (7-52) U/L Alkaline Phosphatase (34-104) U/L Total Creatine Kinase (10-223) U/L CK-MB (CK-2) (0.6-6.3) ng/mL Troponin I (<0.04) ng/mL C-Reactive Protein (< 5.00) mg/L B-Natriuretic Peptide 74 ( - 100) pg/mL Total Protein (6.4-8.9) g/dL Albumin (3.2-5.2) g/dL Globulin (2-4) g/dL Albumin/Globulin Ratio (1-3) Lipase (11.0-82.0) U/L TSH (0.34-5.60) mcIU/mL 12/16/16 12/16/16 Range/Units 15:37 15:59 WBC (3.5-10.8) 10^3/ul RBC (4.0-5.4) 10^6/ul Hgb (14.0-18.0) g/dl Hct (42-52) % MCV (80-94) fL MCH (27-31) pg MCHC (31-36) g/dl RDW (10.5-15) % Plt Count (150-450) 10^3/ul MPV (7.4-10.4) um3 Neut % (Auto) (38-83) % Lymph % (Auto) (25-47) % [place] % (Auto) (1-9) % Eos % (Auto) (0-6) % Baso % (Auto) (0-2) % Absolute Neuts (auto) (1.5-7.7) 10^3/ul Absolute Lymphs (auto) (1.0-4.8) 10^3/ul Absolute Monos (auto) (0-0.8) 10^3/ul Absolute Eos (auto) (0-0.6) 10^3/ul Absolute Basos (auto) (0-0.2) 10^3/ul Absolute Nucleated RBC 10^3/ul Nucleated RBC % ESR (0-40) mm/Hr INR (Anticoag Therapy) (0.89-1.11) APTT (26.0-36.3) seconds D-Dimer, Quantitative (Less Than 230) ng/mL Sodium (133-145) mmol/L Potassium (3.5-5.0) mmol/L Chloride (101-111) mmol/L Carbon Dioxide (22-32) mmol/L Anion Gap (2-11) mmol/L BUN (6-24) mg/dL Creatinine (0.67-1.17) mg/dL Est GFR ( Amer) (>60) Est GFR (Non-Af Amer) (>60) BUN/Creatinine Ratio (8-20) Glucose (70-100) mg/dL POC Glucose (mg/dL) 209 H 137 H (74-106) mg/dL Lactic Acid (0.5-2.0) mmol/L Calcium (8.6-10.3) mg/dL Magnesium (1.9-2.7) mg/dL Total Bilirubin (0.2-1.0) mg/dL AST (13-39) U/L ALT (7-52) U/L Alkaline Phosphatase (34-104) U/L Total Creatine Kinase (10-223) U/L CK-MB (CK-2) (0.6-6.3) ng/mL Troponin I (<0.04) ng/mL C-Reactive Protein (< 5.00) mg/L B-Natriuretic Peptide ( - 100) pg/mL Total Protein (6.4-8.9) g/dL Albumin (3.2-5.2) g/dL Globulin (2-4) g/dL Albumin/Globulin Ratio (1-3) Lipase (11.0-82.0) U/L TSH (0.34-5.60) mcIU/mL Assess/Plan/Problems-Billing Assessment: - Patient Problems (1) Hypoglycemia Current Visit: Yes Status: Acute Code(s): E16.2 - HYPOGLYCEMIA, UNSPECIFIED SNOMED Code(s): 662203953 Comment: Eating less, lost 8 lbs. Trial Lantus 30 U start 12/17. I will discuss diabetic management at home, aim for 100-200 range. (2) Atrial fibrillation Current Visit: No Status: Chronic Code(s): I48.91 - UNSPECIFIED ATRIAL FIBRILLATION SNOMED Code(s): 62772446 Comment: Rate controlled. Continue Carvedilol and Diltiazem. Pt is not anticoagulated, family feels benefit doesn't out weight the risks. (3) COPD (chronic obstructive pulmonary disease) Current Visit: Yes Status: Acute Code(s): J44.9 - CHRONIC OBSTRUCTIVE PULMONARY DISEASE, UNSPECIFIED SNOMED Code(s): 74421497 (4) Dementia Current Visit: Yes Status: Acute Code(s): F03.90 - UNSPECIFIED DEMENTIA WITHOUT BEHAVIORAL DISTURBANCE SNOMED Code(s): 18138271 Comment: His underlyng problem, likely causing his decreased eating. I discussed this with and son. He ate better today. Hypoglycemia and/or shouder pain may have depressed his appetite. (5) Shoulder pain Current Visit: Yes Status: Acute Code(s): M25.519 - PAIN IN UNSPECIFIED SHOULDER SNOMED Code(s): 54354059 Comment: ESR 75. Trial prednisone 20 mg daily for possible PMR. Also start scheduled APAP 650 mg tid. Continue both at home, change p rednisone to 10 mg daily after 3 more days of [address] mg at [address] Fup Dr. Fuentes. (6) CAD (coronary artery disease) Current Visit: Yes Status: Acute Code(s): I25.10 - ATHSCL HEART DISEASE OF [place] CORONARY ARTERY W/O ANG PCTRS SNOMED Code(s): 02382081 Comment: Resume rosuvastatin at home. Status and Disposition: Discharge now. Fup Dr. Fuentes.
[2016-12-17] MEDS: Acetaminophen TAB* 325 MG PO SCH (09:32)
[2016-12-17] MEDS: predniSONE TAB* 20 MG PO SCH (09:33)
[2016-12-17] MEDS: Diltiazem CD CAP* 120 MG PO SCH (09:33)
[2016-12-17] MEDS: Carvedilol TAB* 6.25 MG PO SCH (09:33)
[2016-12-17] MEDS ORDERED: Insulin LISPRO* 1 UNITS UNIT SUBCUT SCH (11:30)
--- NOTE | 2016-12-17 12:10 | DS ---
CC: Dr. Fuentes DISCHARGE SUMMARY: DATE OF ADMISSION: DATE OF DISCHARGE: 12/17/16 HISTORY: This 86-year-old man presented with weakness, anorexia, weight loss. In the emergency room, he was found to have a blood sugar of 46. He was given extra glucose. His blood sugar came up quite readily. It was checked every 4 hours through the night, it did not get low again. I noted he got his Lantus dose of 55 units the morning before coming to the emergency room, he had even very little breakfast. The patient also complained of shoulder pain for a few weeks, right greater than left. He had seen an orthopedist and got his steroid injection without any significant benefit. He had one physical therapy session. I noted his sed rate was 75. It is possible, the patient has polymyalgia rheumatica. He was given prednisone 20 mg p.o. in the emergency room and we continued on 20 mg daily starting the second hospital day. He did seem to have significant benefit from this. He is also more animated as his blood sugar had not dropped. His appetite seemed to improve. I also had started him on acetaminophen 650 mg t.i.d. on a scheduled basis. I am not sure which of these interventions was the most beneficial; possibly all of them contributed to his improvement. My recommendation is that he take prednisone 10 mg 2 daily for 3 more days at home, then switch to 1 daily, and be maintained on 10 mg daily for a certain period of time at the discretion of the primary care doctor, possibly he can taper to 5 mg or simply stop it to see how he responds. Following the sed rate may be a benefit as well. I instructed the family to continue at 30 units of Lantus, but to increase it to 35 if his blood sugars seemed consistently over 200. Further changes should be through telephone conversations with the primary care office. I have encouraged them to continue on the acetaminophen 650 mg t.i.d. scheduled. DISCHARGE DIAGNOSES: 1. Hypoglycemia due to insulin and poor eating. 2. Shoulder pain, consider polymyalgia rheumatica versus arthritis. 3. Diabetes. 4. Dementia. 5. Atrial fibrillation. DISCHARGE MEDICATIONS: 1. Prednisone 10 mg 2 daily for 3 days, then 1 daily, then taper or stop per PCP. 2. Acetaminophen 650 mg t.i.d. 3. Aspirin 81 mg daily. 4. Rosuvastatin 5 mg h.s. 5. NovoLog per sliding scale. 6. Omeprazole 10 mg h.s. 7. Diltiazem 120 mg b.i.d. 8. Nitroglycerin 0.4 mg sublingual p.r.n. 9. Levalbuterol inhalation every morning. 10. Carvedilol 12.5 mg b.i.d. 11. Glargine insulin 40 units every morning with titration instructions in discharge packet. [id number]/[facility] #: [id number] E.[facility] NOBLE HOSPITALRadames
[2016-12-17] MEDS ORDERED: Insulin GLARGINE(*) 1 UNITS UNIT SUBCUT ONE (12:21)
[2016-12-17 12:26] VITALS: BP 137/55
== END 2016-12-17 13:30 | disposition home or self-care (01) ==
LOC: ED 13:28 → MEDTELE 17:09 → MED 12-17 00:35
PROVIDERS: ADMIT Internal Medicine; ATTEND Internal Medicine
DX: E09.649 Drug or chemical induced diabetes mellitus with hypoglycemia without coma (principal); T38.3X5A Adverse effect of insulin and oral hypoglycemic [antidiabetic] drugs, initial encounter; Z79.4 Long term (current) use of insulin; Y92.9 Unspecified place or not applicable; M25.512 Pain in left shoulder; M25.511 Pain in right shoulder; M35.3 Polymyalgia rheumatica; J44.9 Chronic obstructive pulmonary disease, unspecified; I48.91 Unspecified atrial fibrillation; I25.10 Atherosclerotic heart disease of native coronary artery without angina pectoris; R35.0 Frequency of micturition; F03.90 Unspecified dementia, unspecified severity, without behavioral disturbance, psychotic disturbance, mood disturbance, and anxiety; Z79.899 Other long term (current) drug therapy; Z88.8 Allergy status to other drugs, medicaments and biological substances; Z87.891 Personal history of nicotine dependence
CPT/HCPCS: 36415; 71010; 80053; 81003; 81015; 82533; 82550; 82553; 82803; 82947; 83605; 83690; 83735; 83880; 84443; 84484; 85025; 85379; 85610; 85652; 85730; 86140; 87086; 96360; 96374; 99283; A9270-GY; G0378; G8978-GP-CI; G8979-GP-CI; G8980-GP-CI; J7512

== ENCOUNTER 2016-12-17 20:00 | Emergency (ER) | payer MEDICARE, OTHER ==
[2016-12-17] MEDS ORDERED: NS 0.9% 1000 ML* 1,000 ML IV ONE ×2 (20:45→22:19)
[2016-12-17] MEDS ORDERED: Insulin REGULAR(*) 1 UNITS UNIT IV ONE (20:45)
[2016-12-17 21:12] LABS: Hematocrit 37 % (42-52); Hemoglobin 11.9 g/dl (14.0-18.0); Mean Corpuscular HGB Conc 32 g/dl (31-36); Mean Corpuscular Hemoglobin 30 pg (27-31); Mean Corpuscular Volume 92 fL (80-94); Mean Platelet Volume 9 um3 (7.4-10.4); Red Cell Distribution Width 13 % (10.5-15); White Blood Count 7.8 10^3/ul (3.5-10.8)
[2016-12-17 21:18] LABS: Urine Bilirubin Negative (Negative); Urine Glucose 3+(>=500 mg/dL) (Negative); Urine Nitrite Negative (Negative)
[2016-12-17 21:27] LABS: Albumin 3.3 g/dL (3.2-5.2); BUN/Creatinine Ratio 38.7 (8-20); C Reactive Protein 78.35 mg/L (< 5.00); Calcium 8.4 mg/dL (8.6-10.3); EGFR African American 45.8 (>60); EGFR Non-African American 35.6 (>60); Globulin 3.1 g/dL (2-4); Potassium 5.3 mmol/L (3.5-5.0); Total Bilirubin 0.3 mg/dL (0.2-1.0); Total Protein 6.4 g/dL (6.4-8.9)
[2016-12-17] MEDS ORDERED: Insulin REGULAR(*) 1 UNITS UNIT IV PUSH ONE (22:20)
[2016-12-17] MEDS ORDERED: Insulin REGULAR(*) 1 UNITS UNIT ONE (22:22)
[2016-12-17 22:24] LABS: Venous Bicarbonate HCO3 20.3 mmol/L (24-28)
--- NOTE | 2016-12-17 23:34 | ED ---
Barrett Otero Billy, scribed for Abraham Araya MD on 12/17/16 at 2046 . HPI Diabetic - HPI Summary HPI Summary: Patient is an 86 year-old male coming to [facility] with his and son for complaint of hyperglycemia this evening. He was recently discharged from [facility] this morning after he was treated for a right shoulder complaint as well as hypoglycemia. He was sent home with prednisone, which has significantly improved his right shoulder pain. However, he states that when he was at home tonight, he measured BG at approximately 540. However, he states that he feels asymptomatic at this time; he denies CP, SOB, N/V/D, or abdominal pain. He takes Lantus and Humalog for DM control. - History Of Current Complaint Chief Complaint: EDDiabeticProb Time Seen by Provider: 12/17/16 20:32 Hx Obtained From: Patient Onset/Duration: Gradual Onset, Lasting Hours, Still Present Timing: Constant Severity Initially: Moderate Severity Currently: Moderate Character: Alert Aggravating: Medication Change - prednisone Alleviating: Nothing Associated Signs & Symptoms: Negative - Allergies/Home Medications Allergies/Adverse Reactions: Allergies Allergy/AdvReac Type Severity Reaction Status Date / Time Adhesive Tape Allergy Mild Itching Verified 11/12/16 17:29 Hydralazine Allergy Unknown Unknown Verified 11/12/16 17:29 Reaction Details Ramipril [From Altace] Allergy Unknown Unknown Verified 11/12/16 17:29 Reaction Details Simvastatin [From Zocor] Allergy Unknown Unknown Verified 11/12/16 17:29 Reaction Details Clonidine Allergy Unknown Verified 11/12/16 17:29 Reaction Details Clopidogrel [From Plavix] Allergy Unknown Verified 11/12/16 17:29 Reaction Details Latex Allergy Rash Verified 11/12/16 17:29 Nitroglycerin Allergy See Comment Verified 11/12/16 17:29 [From Nitroglycerin Transdermal System] PMH/Surg Hx/FS Hx/Imm Hx Endocrine/Hematology History: Reports: Hx Blood Disorders - ITP, Hx Diabetes, Other Endocrine/Hematological Disorders - 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, 2001 Denies: Hx Anticoagulant Therapy, Hx Blood Transfusions, Hx Bone Marrow Disease, Hx Systemic Lupus Erythematosus, Hx Sickle Cell Disease, Hx Thyroid Disease, Hx Anemia, Hx Unexplained Bleeding Cardiovascular History: Reports: Hx Angina, Hx Angioplasty, Hx Auto Implanted Cardiovert Defib, Hx Coronary Artery Disease, Hx Hypercholesterolemia, Hx Hypertension, Hx Pacemaker/ICD, Other Cardiovascular Problems/Disorders Denies: Hx Aneurysm, Hx Cardiac Arrest, Hx Cardiomegaly, Hx Congenital Heart Disease, Hx Congestive Heart Failure, Hx Deep Vein Thrombosis, Hx Embolism, Hx Hypotension, Hx Peripheral Vascular Disease, Hx Rheumatic Fever, Hx Syncope, Hx Valvular Heart Disease Respiratory History: Reports: Hx Chronic Obstructive Pulmonary Disease (COPD), Hx Sleep Apnea, Other Respiratory Problems/Disorders - on home O2 Denies: Hx Asthma GI History: Reports: Hx Hiatal Hernia Denies: Hx Ulcer History: Reports: Hx Chronic Renal Failure - CKD stage 3, Hx Renal Disease Musculoskeletal History: Reports: Hx Gout - knee, Hx Orthopedic Injury - L ankle Fx, consequent unsteady gait Denies: Hx Arthritis, Hx Back Problems, Hx Bursitis, Hx Congenital Bone Abnormalities, Hx Fibromyalgia, Hx Osteoporosis, Hx Scoliosis, Hx Tendonitis, Other Musculoskeletal History Sensory History: Reports: Hx Cataracts, Hx Contacts or Glasses Denies: Hx Eye Injury, Hx Eye Prosthesis, Hx Glaucoma, Hx Legally Blind, Hx Macular Degeneration, Hx Vision Problem, Hx Deafness, Hx Hearing Aid, Hx Hearing Problem, Other Sensory Impairments Opthamlomology History: Reports: Hx Cataracts, Hx Contacts or Glasses Denies: Hx Eye Injury, Hx Eye Prosthesis, Hx Glaucoma, Hx Legally Blind, Hx Macular Degeneration, Hx Vision Problem, Other Sensory Impairments Neurological History: Reports: Hx Dementia, Other Neuro Impairments/Disorders - per family: short-term memory loss Denies: Hx Seizures Psychiatric History: Denies: Hx Substance Abuse - Cancer History Cancer Type, Location and Year: 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 5 cardiac stents, cataract surgery, pacer/ICD implant Hx Anesthesia Reactions: No - Immunization History Date of Tetanus Vaccine: unknown Infectious Disease History: No Infectious Disease History: Denies: Hx Hepatitis, Hx Human Immunodeficiency Virus (HIV), Traveled Outside the US in Last 30 Days - Family History Known Family History: Positive: Cardiac Disease, Hypertension, Diabetes - Social History Alcohol Use: Rare Substance Use Type: Reports: None Hx Tobacco Use: Yes Smoking Status (MU): Former Smoker Type: Cigarettes Amount Used/How Often: 3 PPD X 40 YEARS Have You Smoked in the Last Year: No Review of Systems Positive: Other - elevated BG 540 Negative: Chest Pain Negative: Shortness Of Breath Negative: Abdominal Pain, Vomiting, Diarrhea, Nausea All Other Systems Reviewed And Are Negative: Yes Physical Exam - Summary Physical Exam Summary: VITAL SIGNS: Reviewed. GENERAL: Patient is an overweight male who is lying comfortable in the stretcher. Patient is not in any acute respiratory distress. HEAD AND FACE: No signs of trauma. No ecchymosis, hematomas or skull depressions. No sinus tenderness. EYES: PERRLA, EOMI x 2, No injected conjunctiva, no nystagmus. EARS: Hearing grossly intact. Ear canals and tympanic membranes are within normal limits. MOUTH: Oropharynx within normal limits. NECK: Supple, trachea is midline, no adenopathy, no JVD, no carotid bruit, no c- spine tenderness, neck with full ROM. CHEST: Symmetric, no tenderness at palpation LUNGS: Clear to auscultation bilaterally. No wheezing or crackles. CVS: Regular rate and rhythm, S1 and S2 present, no murmurs or gallops appreciated. ABDOMEN: Soft, non-tender. No signs of distention. No rebound no guarding, and no masses palpated. Bowel sounds are normal. EXTREMITIES: FROM in all major joints, no edema, no cyanosis or clubbing. NEURO: Alert and oriented x 3. No acute neurological deficits. Speech is normal and follows commands. SKIN: Dry and warm Triage Information Reviewed: Yes Vital Signs On Initial Exam: Initial Vitals Temp Pulse Resp BP Pulse Ox 98.2 F 60 16 180/66 98 12/17/16 20:24 12/17/16 20:24 12/17/16 20:24 12/17/16 20:24 12/17/16 20:24 Vital Signs Reviewed: Yes - Trupti Coma Scale Coma Scale Total: 15 Diagnostics - Vital Signs Vital Signs Temp Pulse Resp BP Pulse Ox 12/17/16 20:42 61 15 100 12/17/16 20:24 98.2 F 60 16 180/66 98 - Laboratory Lab Results: Lab Results 12/17/16 12/17/16 12/17/16 Range/Units 20:35 20:35 20:35 WBC 7.8 (3.5-10.8) 10^3/ul RBC 4.00 (4.0-5.4) 10^6/ul Hgb 11.9 L (14.0-18.0) g/dl Hct 37 L (42-52) % MCV 92 (80-94) fL MCH 30 (27-31) pg MCHC 32 (31-36) g/dl RDW 13 (10.5-15) % Plt Count 124 L (150-450) 10^3/ul MPV 9 (7.4-10.4) um3 Neut % (Auto) 82.1 (38-83) % Lymph % (Auto) 8.1 L (25-47) % [place] % (Auto) 9.5 H (1-9) % Eos % (Auto) 0.1 (0-6) % Baso % (Auto) 0.2 (0-2) % Absolute Neuts (auto) 6.4 (1.5-7.7) 10^3/ul Absolute Lymphs (auto) 0.6 L (1.0-4.8) 10^3/ul Absolute Monos (auto) 0.7 (0-0.8) 10^3/ul Absolute Eos (auto) 0 (0-0.6) 10^3/ul Absolute Basos (auto) 0 (0-0.2) 10^3/ul Absolute Nucleated RBC 0 10^3/ul Nucleated RBC % 0 Sodium 132 L (133-145) mmol/L Potassium 5.3 H (3.5-5.0) mmol/L Chloride 99 L (101-111) mmol/L Carbon Dioxide 26 (22-32) mmol/L Anion Gap 7 (2-11) mmol/L BUN 70 H (6-24) mg/dL Creatinine 1.81 H (0.67-1.17) mg/dL Est GFR ( Amer) 45.8 (>60) Est GFR (Non-Af Amer) 35.6 (>60) BUN/Creatinine Ratio 38.7 H (8-20) Glucose 424 H (70-100) mg/dL Calcium 8.4 L (8.6-10.3) mg/dL Total Bilirubin 0.30 (0.2-1.0) mg/dL AST 29 (13-39) U/L ALT 32 (7-52) U/L Alkaline Phosphatase 95 (34-104) U/L C-Reactive Protein 78.35 H (< 5.00) mg/L Total Protein 6.4 (6.4-8.9) g/dL Albumin 3.3 (3.2-5.2) g/dL Globulin 3.1 (2-4) g/dL Albumin/Globulin Ratio 1.1 (1-3) Urine Color Straw Urine Appearance Clear Urine pH 5.0 (5-9) Ur Specific [place] 1.010 (1.010-1.030) Urine Protein Negative (Negative) Urine Ketones Negative (Negative) Urine Blood Negative (Negative) Urine Nitrate Negative (Negative) Urine Bilirubin Negative (Negative) Urine Urobilinogen Negative (Negative) Ur Leukocyte Esterase Negative (Negative) Urine Glucose 3+(>=500 mg/dl) H (Negative) Result Diagrams: 12/17/16 20:35 12/17/16 20:35 Lab Statement: Any lab studies that have been ordered have been reviewed, and results considered in the medical decision making process. Diabetic Course/Dx - Course Assessment/Plan: Patient is an 86 year-old male coming to [facility] with his and son for complaint of hyperglycemia this evening. He was recently discharged from [facility] this morning after he was treated for a right shoulder complaint as well as hypoglycemia. He was sent home with prednisone, which has significantly improved his right shoulder pain. However, he states that when he was at home tonight, he measured BG at approximately 540. However, he states that he feels asymptomatic at this time; he denies CP, SOB, N/V/D, or abdominal pain. He takes Lantus and Humalog for DM control. Bloodwork WNL except for normocytic normochromic anemia. CMP sodium of 132 and potassium of 5.3. Glucose of 424. BUN is 70 and creatinine is 1.81. UA is negative for UTI. In the ED course, he was hydrated with IV fluids and was given a total of 18 units of insulin, and his sugar right now is 216. Therefore, at this point, he will be discharged home to follow up with PCP. He was instructed not to take any prednisone until he sees his PCP. The patient will continue monitoring his finger sticks more frequently for the next 24 hours. He is hemodynamically stable, A&Ox3. - Diagnoses Differential Dx: Diabetic Ketoacidosis, Hyperglycemia, Hyperosmolar State Provider Diagnoses: diabetic hyperglycemia Discharge - Discharge Plan Condition: Stable Disposition: HOME Patient Education Materials: Diabetic Hyperglycemia (ED) Referrals: Ngozi Fuentes MD [Primary Care Provider] - The documentation as recorded by the Barrett webb Billy accurately reflects the service I personally performed and the decisions made by me, Abraham Araya MD.
[2016-12-17 23:41] VITALS: BP 164/60
== END 2016-12-17 23:43 | disposition home or self-care (01) ==
LOC: ED 20:00
DX: E11.65 Type 2 diabetes mellitus with hyperglycemia (principal); Z87.891 Personal history of nicotine dependence; I20.9 Angina pectoris, unspecified; Z95.810 Presence of automatic (implantable) cardiac defibrillator; I10 Essential (primary) hypertension; E78.00 Pure hypercholesterolemia, unspecified; J44.9 Chronic obstructive pulmonary disease, unspecified; Z85.828 Personal history of other malignant neoplasm of skin; M25.511 Pain in right shoulder
CPT/HCPCS: 36415; 80053; 81003; 82803; 85025; 86140; 96360; 99283

== ENCOUNTER 2017-01-21 21:44 | Inpatient (IN) | payer MEDICARE, OTHER ==
[2017-01-21] MEDS ORDERED: Ondansetron INJ* 2 MG/ML VIAL IV ONE (22:05)
[2017-01-21] MEDS ORDERED: NS 0.9% 1000 ML* 1,000 ML IV ONE (22:05)
[2017-01-21] MEDS ORDERED: Morphine INJ* 2 MG/ML 1 ML CARPUJECT IV ONE (22:05)
[2017-01-21 22:53] LABS: Hematocrit 38 % (42-52); Hemoglobin 12.3 g/dl (14.0-18.0); Mean Corpuscular HGB Conc 32 g/dl (31-36); Mean Corpuscular Hemoglobin 29 pg (27-31); Mean Corpuscular Volume 90 fL (80-94); Mean Platelet Volume 8 um3 (7.4-10.4); Red Blood Count 4.28 10^6/ul (4.0-5.4); Red Cell Distribution Width 13 % (10.5-15)
--- NOTE | 2017-01-21 23:01 | RAD ---
Indication: Weakness. Single frontal view of the chest performed at 2243 hours was reviewed. Comparison is made with previous exam dated December 16, 2016. No mediastinal shift is noted. Heart is of normal size and configuration. Lung givens appear clear. Pacemaker leads are in place. IMPRESSION: NO ACTIVE CARDIOPULMONARY DISEASE IS NOTED.
[2017-01-21 23:12] LABS: Albumin 3.3 g/dL (3.2-5.2); BUN/Creatinine Ratio 39.3 (8-20); Calcium 9.3 mg/dL (8.6-10.3); EGFR African American 64.3 (>60); Globulin 3.8 g/dL (2-4); Magnesium 1.7 mg/dL (1.9-2.7); Potassium 4.8 mmol/L (3.5-5.0); Total Bilirubin 0.4 mg/dL (0.2-1.0); Total Protein 7.1 g/dL (6.4-8.9)
[2017-01-21 23:14] LABS: Urine Bacteria Absent (Absent); Urine Bilirubin Negative (Negative); Urine Glucose Negative (Negative); Urine Nitrite Negative (Negative)
[2017-01-21 23:14] LABS: Troponin I 0.01 ng/mL (<0.04)
[2017-01-21 23:21] LABS: TSH (Thyroid Stimulating Horm) 3.02 mcIU/mL (0.34-5.60)
[2017-01-21] MEDS ORDERED: Morphine INJ* 4 MG/ML 1 ML CARPUJECT IV ONE (23:25)
--- NOTE | 2017-01-22 00:44 | ED ---
abel Otero Timothy, scribed for Johnny Pacheco on 01/21/17 at 2202 . Upper Extremity Pain - HPI Summary HPI Summary: Mariano Puente is an 86 yo male presenting to [facility] with 10/10 bilateral shoulder pain since 2 weeks ago. He is also weak and unable to feed himself, per his family present in room. His family states that he was here 3 weeks ago for the same problem, at which point he was determined to have low blood sugar whoich was addressed, but the pain was not. His MHx includes CAD, SD, angina, stents x5, pacemaker, HLD, Afib, HTN, dementia, COPD, BiPAP dependent, anorexia nervosa, CKD stage 3, gout, DM, ITP, and tobacco use. - History of Current Complaint Stated Complaint: SHOULDER PAIN Time Seen by Provider: 01/21/17 21:52 Hx Obtained From: Patient, Family/Office Workforce Planner Hx From Patient Unobtainable Due To: Dementia Onset/Duration: Started Weeks Ago, Still Present, Worse Since - now Timing: Constant Severity Initially: Moderate Severity Currently: Moderate Pain Location: Shoulder Aggravating Factor(s): Movement Alleviating Factor(s): Nothing Associated Signs & Symptoms: Positive: Weakness - Allergies/Home Medications Allergies/Adverse Reactions: Allergies Allergy/AdvReac Type Severity Reaction Status Date / Time Adhesive Tape Allergy Mild Itching Verified 11/12/16 17:29 Hydralazine Allergy Unknown Unknown Verified 11/12/16 17:29 Reaction Details Ramipril [From Altace] Allergy Unknown Unknown Verified 11/12/16 17:29 Reaction Details Simvastatin [From Zocor] Allergy Unknown Unknown Verified 11/12/16 17:29 Reaction Details Clonidine Allergy Unknown Verified 11/12/16 17:29 Reaction Details Clopidogrel [From Plavix] Allergy Unknown Verified 11/12/16 17:29 Reaction Details Latex Allergy Rash Verified 11/12/16 17:29 Nitroglycerin Allergy See Comment Verified 11/12/16 17:29 [From Nitroglycerin Transdermal System] PMH/Surg Hx/FS Hx/Imm Hx Endocrine/Hematology History: Reports: Hx Blood Disorders - ITP, Hx Diabetes, Other Endocrine/Hematological Disorders - 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, 2001 Denies: Hx Anticoagulant Therapy, Hx Blood Transfusions, Hx Bone Marrow Disease, Hx Systemic Lupus Erythematosus, Hx Sickle Cell Disease, Hx Thyroid Disease, Hx Anemia, Hx Unexplained Bleeding Cardiovascular History: Reports: Hx Angina, Hx Angioplasty, Hx Auto Implanted Cardiovert Defib, Hx Coronary Artery Disease, Hx Hypercholesterolemia, Hx Hypertension, Hx Pacemaker/ICD, Other Cardiovascular Problems/Disorders Denies: Hx Aneurysm, Hx Cardiac Arrest, Hx Cardiomegaly, Hx Congenital Heart Disease, Hx Congestive Heart Failure, Hx Deep Vein Thrombosis, Hx Embolism, Hx Hypotension, Hx Peripheral Vascular Disease, Hx Rheumatic Fever, Hx Syncope, Hx Valvular Heart Disease Respiratory History: Reports: Hx Chronic Obstructive Pulmonary Disease (COPD), Hx Sleep Apnea, Other Respiratory Problems/Disorders - on home O2 Denies: Hx Asthma GI History: Reports: Hx Hiatal Hernia Denies: Hx Ulcer History: Reports: Hx Chronic Renal Failure - CKD stage 3, Hx Renal Disease Musculoskeletal History: Reports: Hx Gout - knee, Hx Orthopedic Injury - L ankle Fx, consequent unsteady gait Denies: Hx Arthritis, Hx Back Problems, Hx Bursitis, Hx Congenital Bone Abnormalities, Hx Fibromyalgia, Hx Osteoporosis, Hx Scoliosis, Hx Tendonitis, Other Musculoskeletal History Sensory History: Reports: Hx Cataracts, Hx Contacts or Glasses Denies: Hx Eye Injury, Hx Eye Prosthesis, Hx Glaucoma, Hx Legally Blind, Hx Macular Degeneration, Hx Vision Problem, Hx Deafness, Hx Hearing Aid, Hx Hearing Problem, Other Sensory Impairments Opthamlomology History: Reports: Hx Cataracts, Hx Contacts or Glasses Denies: Hx Eye Injury, Hx Eye Prosthesis, Hx Glaucoma, Hx Legally Blind, Hx Macular Degeneration, Hx Vision Problem, Other Sensory Impairments Neurological History: Reports: Hx Dementia, Other Neuro Impairments/Disorders - per family: short-term memory loss Denies: Hx Seizures Psychiatric History: Denies: Hx Substance Abuse - Cancer History Cancer Type, Location and Year: 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 5 cardiac stents, cataract surgery, pacer/ICD implant Hx Anesthesia Reactions: No - Immunization History Date of Tetanus Vaccine: unknown Infectious Disease History: Denies: Hx Hepatitis, Hx Human Immunodeficiency Virus (HIV), Traveled Outside the [place] in Last 30 Days - Family History Known Family History: Positive: Cardiac Disease, Hypertension, Diabetes - Social History Alcohol Use: Rare Substance Use Type: Reports: None Hx Tobacco Use: Yes Smoking Status (MU): Former Smoker Type: Cigarettes Amount Used/How Often: 3 PPD X 40 YEARS Have You Smoked in the Last Year: No Review of Systems Constitutional: Negative Eyes: Negative ENT: Negative Cardiovascular: Negative Respiratory: Negative Gastrointestinal: Negative Genitourinary: Negative Musculoskeletal: Other - shoulder pain Skin: Negative Positive: Weakness Psychological: Normal All Other Systems Reviewed And Are Negative: Yes Physical Exam Triage Information Reviewed: Yes Vital Signs On Initial Exam: Initial Vital Signs Temp 99.3 F 01/21/17 21:51 Pulse 73 01/21/17 21:51 Resp 16 01/21/17 21:51 BP 214/76 01/21/17 21:51 Pulse Ox 99 01/21/17 21:51 Vital Signs Reviewed: Yes Appearance: Positive: No Pain Distress, Ill-Appearing Skin: Positive: Warm, Skin Color Reflects Adequate Perfusion, Dry Head/Face: Positive: Normal Head/Face Inspection Eyes: Positive: EOMI, DONTE ENT: Positive: Normal ENT inspection, Hearing grossly normal. Negative: Muffled /hoarse voice Neck: Positive: Supple, Nontender Respiratory/Lung Sounds: Positive: Clear to Auscultation, Breath Sounds Present Cardiovascular: Positive: RRR, Pulses are Symmetrical in both Upper and Lower Extremities Abdomen Description: Positive: Nontender, Soft Bowel Sounds: Positive: Present Neurological: Positive: Normal, Sensory/Motor Intact, Alert, Oriented to Person Place, Time Psychiatric: Positive: Normal Diagnostics - Laboratory Result Diagrams: 01/21/17 22:45 01/21/17 22:45 Lab Statement: Any lab studies that have been ordered have been reviewed, and results considered in the medical decision making process. - Radiology CXR Xray Interpretation: No Acute Changes - IMPRESSION: NO ACTIVE CARDIOPULMONARY DISEASE IS NOTED. Radiology Interpretation Completed By: Radiologist - EKG 5121 Cardiac Rate: NL EKG Interpretation: NSR @ 77 BPM, no acute changes Re-Evaluation - Re-Evaluation First Eval Re-Evaluation Time: 23:39 Change: Unchanged Comment: Pt was informed of test results and decision to admit to [facility]. Course/Dx - Course Assessment/Plan: Mariano Puente is an 86 yo male presenting to [facility] with bilateral shoulder pain for the past 2 weeks. After review of his imaging studies, EKG, and lab work, and discussion with Dr. Petty, he will be admitted to [facility]. - Diagnoses Provider Diagnoses: Generalized weakness, Chronic renal failure, Unable to ambulate - Physician Notifications Discussed Care Of Patient With: 2302 - Dr. Petty (hospitalist) - discussed Pt condition, recommends further review of lab results as they are processed. 2333 - Dr. Petty (hospitalist) - discussed Pt condition, agrees to admit Pt. Discharge - Discharge Plan Condition: Stable Disposition: ADMITTED TO [facility] Referrals: Ngozi Fuentes MD [Primary Care Provider] - The documentation as recorded by the abel webb Timothy accurately reflects the service I personally performed and the decisions made by , Johnny Pacheco.
[2017-01-22] MEDS ORDERED: Nitroglycerin TAB 0.4 MG* 0.4 MG TAB PO PRN (02:32)
[2017-01-22] MEDS ORDERED: Acetaminophen SUPP* 650 MG SUPP PR PRN (02:34)
[2017-01-22] MEDS ORDERED: Dextrose 50% Syringe 50 ML* 25 GM/50 ML SYRINGE IV PUSH PRN (02:37)
[2017-01-22 02:49] LABS: Erythrocyte Sed Rate 85 mm/Hr (0-40)
[2017-01-22] MEDS ORDERED: HYDROmorphone INJ* 1 MG/ML CARPUJECT SYRINGE ONE (02:51)
[2017-01-22] MEDS: HYDROmorphone INJ* 1 MG/ML CARPUJECT SYRINGE IV SLOW PU PRN ×3 (02:55→20:18)
[2017-01-22] MEDS: Acetaminophen TAB* 325 MG PO PRN (03:34)
[2017-01-22] MEDS: methylPREDNISolone SOD 40 MG* 1 ML VIAL IV SCH (03:35)
[2017-01-22] MEDS: oxyCODONE/Acetamin 5/325 MG* TAB PO PRN ×2 (05:06→09:12)
[2017-01-22] MEDS: Heparin VIAL(*) 5000 UNITS/ML VIAL (FIVE THOUSAND) SUBCUT SCH ×3 (05:08→21:44)
[2017-01-22] MEDS ORDERED: Insulin LISPRO* 1 UNITS UNIT SUBCUT SCH (06:00)
[2017-01-22] MEDS: Insulin LISPRO* 1 UNITS UNIT SUBCUT SCH ×4 (07:32→20:21)
--- NOTE | 2017-01-22 08:48 | HP ---
HISTORY AND PHYSICAL: DATE OF ADMISSION: 01/22/17 CHIEF COMPLAINT: Shoulder pain. HISTORY OF PRESENT ILLNESS: The patient is an 86-year-old gentleman who presents at the [facility] with a chief complaint of bilateral shoulder pain. It has been going on for several weeks. The pain goes from his arms down to his hands. It has gotten to the point where it's excruciating and he can no longer function. In fact, he went to the construction recruiter earlier today and had some blood tests done and is waiting information from them before he begins treatment. He has no problems with his vision, no headache, no jaw claudication. The pain is fairly constant and it is 10/10 in severity. PAST MEDICAL HISTORY: Significant for: 1. Dementia. 2. Insulin-dependent diabetes. 3. Obstructive sleep apnea. 4. Coronary artery disease, status post two prior cardiac catheterizations and five stents. 5. History of ITP. 6. Chronic respiratory failure secondary to COPD, on supplemental home oxygen. 7. Stage 3 chronic kidney disease. 8. Sick sinus syndrome, status post pacemaker placement. 9. AFib, but currently on anticoagulation. PAST SURGICAL HISTORY: 1. Pacemaker placement. 2. Adrenalectomy. 3. Cataracts bilaterally. CURRENT HOME MEDICATIONS: 1. Nitroglycerin 0.4 mg sublingual q.5 minutes as needed for chest pain. 2. Xopenex 0.31 mg inhaled q.a.m. 3. Aspartate insulin subcu a.c. 4. Donepezil 10 mg at bedtime. 5. Diltiazem CD 120 mg twice daily. 6. Torsemide 20 mg daily, Friday, Friday, , and Friday; 10 mg daily Friday, Friday, and Friday. 7. Carvedilol 12.5 mg twice daily. 8. Aspirin 81 mg daily. 9. Tylenol 650 mg 3 times a day. 10. Rosuvastatin 5 mg at bedtime. 11. Lantus insulin 55 units subcu q.a.m. ALLERGIES: He has allergy/adverse reactions to ADHESIVE TAPE, HYDRALAZINE, RAMIPRIL, SIMVASTATIN, CLONIDINE, PLAVIX, LATEX, and NITROGLYCERIN. FAMILY HISTORY: Father had heart disease. Mother of bone cancer. SOCIAL HISTORY: The patient is . Lives at home with his . He does not smoke; he quit 35 years ago. No alcohol or recreational drug use. His son is also involved with his care. His is his health care proxy. REVIEW OF SYSTEMS: A 14-point review of systems is completed with the patient. All pertinent positives and negatives are in the history of present illness, otherwise it is negative. PHYSICAL EXAMINATION GENERAL: A pleasant gentleman sitting up in bed, in no acute distress. VITAL SIGNS: Temperature 99.3, heart rate 80 beats per minute, respiratory rate 20 breaths per minute, pulse ox 97%, blood pressure 170/55. HEENT: Normocephalic and atraumatic. Pupils are equal, round and reactive to light. Moist mucous membranes. NECK: Supple. No JVD, bruits, palpable thyroid or lymphadenopathy. CHEST: Clear to auscultation and percussion bilaterally. CARDIOVASCULAR: S1, S2 appreciated. Regular rate and rhythm. ABDOMEN: Positive bowel sounds in all 4 quadrants. Soft, nontender, and nondistended. EXTREMITIES: No cyanosis, clubbing, but he's got some edema especially in his hands. There is tenderness to palpation along his shoulders extending all the way down to his hands. NEUROLOGIC: Alert and oriented x3. Moves all extremities, but very difficult moving his arms with intense pain. SKIN: No rashes or abnormalities. LABORATORY DATA: White count 12.0, hemoglobin 12.3, hematocrit 38, platelets 134. Sodium 135, potassium 4.8, chloride 102, CO2 29, BUN 53, creatinine 1.35, glucose 80, sedimentation rate 85, INR 0.40. Urinalysis is +1 RBCs. Chest x-ray was interpreted by Radiology as no active cardiopulmonary disease as noted. EKG shows normal sinus rhythm at a rate of 76 beats per minute, normal axis, no acute ST-T wave changes. ASSESSMENT AND PLAN: 1. Polymyalgia rheumatica. I believe this is the most likely diagnosis. I will start him on Solu-Medrol 20 mg IV q. day. I will give him intermittent pain medication with Dilaudid. I expect the pain to start improving with the next 48 to 72 hours. 2. Diabetes mellitus. The last time he did get prednisone; but, unfortunately , his sugars jumped so high the family stopped it immediately. His family is cautioned not to and we'll adjust his insulin accordingly. 3. Hypertension. Poorly controlled right now. Continue current regimen and adjust medications accordingly. 4. Dementia. Stable, continue Aricept. 5. COPD. Continue nebulizer. 6. FEN. Consistent carb diet. 7. DVT prophylaxis. Heparin subcu. 8. The patient is a full code. TIME SPENT: Over 75 minutes were spent on this H and P, more than 40 minutes of which were spent in direct [id number] contact with the patient in evaluation, physical exam, counseling, and coordination of care. CC: Dr. Fuentes; Dr. Cuba* [id number]/CPS #: [id number] MTDD
[2017-01-22] MEDS ORDERED: Acetaminophen TAB* 325 MG PO SCH (09:00)
[2017-01-22] MEDS ORDERED: Torsemide TAB* 20 MG PO SCH ×2 (09:00)
[2017-01-22] MEDS: Insulin GLARGINE(*) 1 UNITS UNIT SUBCUT SCH (09:12)
[2017-01-22] MEDS: Carvedilol TAB* 6.25 MG PO SCH ×2 (09:12→20:21)
[2017-01-22] MEDS: Diltiazem CD CAP* 120 MG PO SCH ×2 (09:12→20:20)
[2017-01-22] MEDS: Levalbuterol 0.63MG/3ML NEB INH SCH (10:11)
[2017-01-22] MEDS: Torsemide TAB* 20 MG PO SCH (14:33)
--- NOTE | 2017-01-22 18:30 | PN ---
Subjective Date of Service: 01/22/17 Interval History: Patient seen and examined at bedside. Pt continues to have pain in his left hip , bilateral shoulders and knees. Pt states that the pain in his shoulder is improving and he is able to move his arms more today without pain. Pt also complains of bilateral hand pain. Denies fever, chills, shortness of breath, chest discomfort, N/V/D. Pt was noted to have a fever of 101.3 overnight, afebrile since. Family History: Unchanged from Admission Social History: Unchanged from Admission Past Medical History: Unchanged from Admission Objective Active Medications: Acetaminophen (Tylenol Supp*) 650 mg AL Q4H PRN Reason: FEVER/PAIN Acetaminophen (Tylenol Tab*) 650 mg PO Q4H PRN Reason: FEVER/PAIN Aspirin (Aspirin Low Dose Tab*) 81 mg PO BEDTIME [facility] Atorvastatin Calcium (Lipitor*) 10 mg PO BEDTIME [facility] Reason: Protocol Carvedilol (Coreg Tab*) 12.5 mg PO BID [facility] Dextrose (D50w Syringe 50 Ml*) 12.5 gm IV PUSH .FOR FS < 60 - SS PRN Reason: FS < 60 Diltiazem HCl (Cardizem Cd Cap*) 120 mg PO BID [facility] Donepezil HCl (Aricept Tab*) 10 mg PO BEDTIME [facility] Heparin Sodium (Porcine) (Heparin Vial(*)) 5,000 units SUBCUT Q8HR [facility] Hydromorphone HCl (Dilaudid Iv*) 1 mg IV SLOW PU Q4H PRN Reason: PAIN Insulin Glargine (Lantus(*)) 55 units SUBCUT QAM [facility] Insulin Human Lispro (Humalog*) 0 units SUBCUT ACHS [facility] Levalbuterol HCl (Xopenex 0.63mg/3ml Neb*) 0.31 mg INH QAM [facility] Methylprednisolone Sodium Succinate (Solu-Medrol*) 20 mg IV 0900 [facility] Nitroglycerin (Nitroglycerin Tab 0.4 Mg*) 0.4 mg PO Q5M PRN Reason: PAIN - CHEST Oxycodone/Acetaminophen (Percocet 5/325 Tab*) 1 tab PO Q4H PRN Reason: PAIN Torsemide (Demadex*) 10 mg PO SuMoFr@0900 [facility] Torsemide (Demadex*) 20 mg PO TuWeThSa@0900,1400 [facility] Vital Signs 01/22/17 01/22/17 01/22/17 02:55 03:00 03:07 Temperature Pulse Rate Respiratory 19 21 21 Rate Blood Pressure 187/57 (mmHg) O2 Sat by Pulse Oximetry 01/22/17 01/22/17 01/22/17 03:20 03:35 03:55 Temperature 101.3 F Pulse Rate Respiratory 20 20 Rate Blood Pressure (mmHg) O2 Sat by Pulse Oximetry 01/22/17 01/22/17 01/22/17 04:00 04:35 04:45 Temperature 99.3 F Pulse Rate 80 Respiratory 20 20 20 Rate Blood Pressure 170/55 (mmHg) O2 Sat by Pulse 97 Oximetry 01/22/17 01/22/17 01/22/17 08:10 08:33 09:12 Temperature 99.1 F Pulse Rate 87 91 Respiratory 16 16 Rate Blood Pressure 219/59 154/59 (mmHg) O2 Sat by Pulse 97 Oximetry 01/22/17 01/22/17 01/22/17 10:14 11:12 11:45 Temperature 100.0 F Pulse Rate 80 76 Respiratory 22 16 14 Rate Blood Pressure 139/52 (mmHg) O2 Sat by Pulse 89 99 Oximetry 01/22/17 15:49 Temperature 98.0 F Pulse Rate 74 Respiratory 18 Rate Blood Pressure 156/46 (mmHg) O2 Sat by Pulse 98 Oximetry Oxygen Devices in Use Now: Nasal Cannula - 3L Appearance: NAD, laying in bed Eyes: No Scleral Icterus, PERRLA Ears/Nose/Mouth/Throat: NL Teeth, Lips, Gums, Mucous Membranes Moist Neck: NL Appearance and Movements; NL JVP, Trachea Midline Respiratory: Symmetrical Chest Expansion and Respiratory Effort, Clear to Auscultation Cardiovascular: NL Sounds; No Murmurs; No JVD, RRR Abdominal: NL Sounds; No Tenderness; No Distention Extremities: No Edema, - - Moves all extremities, but has decreased ROM in UE due to pain with movement Skin: No Rash or Ulcers Neurological: Alert and Oriented x 3, NL Muscle Strength and Tone Lines/Tubes/Other Access: Clean, Dry and Intact Peripheral IV - site benign Nutrition: Taking PO's Result Diagrams: 01/21/17 22:45 01/21/17 22:45 Assess/Plan/Problems-Billing Assessment: Mr. Puente is an 86 yo male with PMH significant for dementia, DM, PRETTY, CAD, ITP, chronic respiratory failure secondary to COPD, CKD, and afib who presented to the emergency room with complaints of bilateral shoulder pain. - Patient Problems (1) PMR (polymyalgia rheumatica) Code(s): M35.3 - POLYMYALGIA RHEUMATICA SNOMED Code(s): 43384000 Comment: - Continue Solu-Medrol - Continue pain medications PRN - Plan to follow with Rheumatology as an outpatient (2) Hypertension Code(s): I10 - ESSENTIAL (PRIMARY) HYPERTENSION SNOMED Code(s): 32990942 Comment: - SBP 130-210's - Suspect elevated SBP related to pain - Continue Carvedilol, Diltiazem and Torsemide - Will adjust medications if continues to have elevated BPs (3) Diabetes mellitus type 2 Code(s): E11.9 - TYPE 2 DIABETES MELLITUS WITHOUT COMPLICATIONS SNOMED Code(s) : 81314888 Comment: - Glucose 300-380's - Suspect elevated d/t steroids - Continue Lantus, Lispro slding scale and glucose checks - Will add Lispro for carb coverage with meals (4) CAD (coronary artery disease) Code(s): I25.10 - ATHSCL HEART DISEASE OF [place] CORONARY ARTERY W/O ANG PCTRS SNOMED Code(s): 77946585 Comment: - Stable - Continue statin, B darryl and ASA (5) COPD (chronic obstructive pulmonary disease) Code(s): J44.9 - CHRONIC OBSTRUCTIVE PULMONARY DISEASE, UNSPECIFIED SNOMED Code(s): 96815128 Comment: - Continue supplemental O2 (6) Dementia Code(s): F03.90 - UNSPECIFIED DEMENTIA WITHOUT BEHAVIORAL DISTURBANCE SNOMED Code(s): 97098150 Comment: - Continue Aricept (7) PRETTY (obstructive sleep apnea) Code(s): G47.33 - OBSTRUCTIVE SLEEP APNEA (ADULT) (PEDIATRIC) SNOMED Code(s): 14189913 Comment: - Continue CPAP (8) DVT prophylaxis Code(s): TEO6951 - SNOMED Code(s): 280262736 Comment: - Continue SQ heparin (9) Full code status Code(s): Z78.9 - OTHER SPECIFIED HEALTH STATUS SNOMED Code(s): 564161594 Status and Disposition: Inpatient. Discharge to home when medically stable.
[2017-01-22] MEDS: Donepezil TAB* 5 MG PO SCH (20:20)
[2017-01-22] MEDS: Atorvastatin* 10 MG TAB PO SCH (20:20)
[2017-01-22] MEDS: Aspirin Low Dose CHEW TAB* 81 MG PO SCH (20:20)
[2017-01-23] MEDS: Heparin VIAL(*) 5000 UNITS/ML VIAL (FIVE THOUSAND) SUBCUT SCH ×3 (05:53→22:35)
[2017-01-23 06:09] LABS: Hematocrit 32 % (42-52); Hemoglobin 10.4 g/dl (14.0-18.0); Mean Corpuscular HGB Conc 33 g/dl (31-36); Mean Corpuscular Hemoglobin 30 pg (27-31); Mean Corpuscular Volume 90 fL (80-94); Mean Platelet Volume 8 um3 (7.4-10.4); Red Cell Distribution Width 13 % (10.5-15); White Blood Count 9.1 10^3/ul (3.5-10.8)
[2017-01-23] MEDS: Insulin LISPRO* 1 UNITS UNIT SUBCUT SCH ×7 (07:44→20:33)
[2017-01-23] MEDS: Levalbuterol 0.63MG/3ML NEB INH SCH (09:19)
[2017-01-23] MEDS: Insulin GLARGINE(*) 1 UNITS UNIT SUBCUT SCH (09:26)
[2017-01-23] MEDS: Diltiazem CD CAP* 120 MG PO SCH ×2 (09:27→20:22)
[2017-01-23] MEDS: methylPREDNISolone SOD 40 MG* 1 ML VIAL IV SCH (09:27)
[2017-01-23] MEDS: Torsemide TAB* 20 MG PO SCH ×2 (09:27→13:08)
[2017-01-23] MEDS: Carvedilol TAB* 6.25 MG PO SCH ×2 (09:27→20:23)
[2017-01-23] MEDS: Acetaminophen TAB* 325 MG PO PRN (09:40)
--- NOTE | 2017-01-23 15:29 | PN ---
Subjective Date of Service: 01/23/17 Interval History: Pt is feeling better. He states he is now able to feed himself some. His pain has improved but is still present. He has not ambulated at all. Objective Active Medications: Acetaminophen (Tylenol Supp*) 650 mg [place] Q4H PRN PRN Reason: FEVER/PAIN Acetaminophen (Tylenol Tab*) 650 mg PO Q4H PRN PRN Reason: FEVER/PAIN Last Admin: 01/23/17 09:40 Dose: 650 mg Aspirin (Aspirin Low Dose Tab*) 81 mg PO BEDTIME [facility] Last Admin: 01/22/17 20:20 Dose: 81 mg Atorvastatin Calcium (Lipitor*) 10 mg PO BEDTIME [facility] PRN Reason: Protocol Last Admin: 01/22/17 20:20 Dose: 10 mg Carvedilol (Coreg Tab*) 12.5 mg PO BID [facility] Last Admin: 01/23/17 09:27 Dose: 12.5 mg Dextrose (D50w Syringe 50 Ml*) 12.5 gm IV PUSH .FOR FS < 60 - SS PRN PRN Reason: FS < 60 Diltiazem HCl (Cardizem Cd Cap*) 120 mg PO BID [facility] Last Admin: 01/23/17 09:27 Dose: 120 mg Donepezil HCl (Aricept Tab*) 10 mg PO BEDTIME [facility] Last Admin: 01/22/17 20:20 Dose: 10 mg Heparin Sodium (Porcine) (Heparin Vial(*)) 5,000 units SUBCUT Q8HR [facility] Last Admin: 01/23/17 13:06 Dose: 5,000 units Hydromorphone HCl (Dilaudid Iv*) 1 mg IV SLOW PU Q4H PRN PRN Reason: PAIN Last Admin: 01/22/17 20:18 Dose: 1 mg Insulin Glargine (Lantus(*)) 55 units SUBCUT QAM [facility] Last Admin: 01/23/17 09:26 Dose: 55 units Insulin Human Lispro (Humalog*) 0 units SUBCUT ACHS [facility] PRN Reason: Protocol Last Admin: 01/23/17 13:07 Dose: 9 units Insulin Human Lispro (Humalog*) 0 units SUBCUT AC [facility] PRN Reason: Protocol Last Admin: 01/23/17 13:07 Dose: 15 units Levalbuterol HCl (Xopenex 0.63mg/3ml Neb*) 0.31 mg INH QAM [facility] Last Admin: 01/23/17 09:19 Dose: 0.31 mg Methylprednisolone Sodium Succinate (Solu-Medrol*) 20 mg IV 0900 [facility] Last Admin: 01/23/17 09:27 Dose: 20 mg Nitroglycerin (Nitroglycerin Tab 0.4 Mg*) 0.4 mg PO Q5M PRN PRN Reason: PAIN - CHEST Oxycodone/Acetaminophen (Percocet 5/325 Tab*) 1 tab PO Q4H PRN PRN Reason: PAIN Last Admin: 01/22/17 09:12 Dose: 1 tab Torsemide (Demadex*) 10 mg PO SuMoFr@0900 [facility] Torsemide (Demadex*) 20 mg PO TuWeThSa@0900,1400 [facility] Last Admin: 01/23/17 13:08 Dose: 20 mg Vital Signs 01/22/17 01/22/17 01/22/17 15:49 19:35 20:00 Temperature 98.0 F 98.7 F Pulse Rate 74 66 Respiratory 18 16 22 Rate Blood Pressure 156/46 174/43 (mmHg) O2 Sat by Pulse 98 100 Oximetry 01/22/17 01/22/17 01/22/17 20:18 21:18 23:43 Temperature 97.9 F Pulse Rate 60 Respiratory 22 18 16 Rate Blood Pressure 141/47 (mmHg) O2 Sat by Pulse 97 Oximetry 01/23/17 01/23/17 01/23/17 04:10 05:32 07:40 Temperature 97.3 F 97.6 F Pulse Rate 60 61 60 Respiratory 18 16 17 Rate Blood Pressure 147/54 158/58 (mmHg) O2 Sat by Pulse 98 98 98 Oximetry 01/23/17 01/23/17 01/23/17 08:00 09:21 14:48 Temperature 98.1 F Pulse Rate 76 64 Respiratory 20 14 16 Rate Blood Pressure 139/42 (mmHg) O2 Sat by Pulse 98 97 Oximetry Oxygen Devices in Use Now: Nasal Cannula - 97%-3L Appearance: Elderly male sitting in a chair, NAD Eyes: No Scleral Icterus Ears/Nose/Mouth/Throat: Mucous Membranes Moist Respiratory: Symmetrical Chest Expansion and Respiratory Effort, Clear to Auscultation - anteriorly Cardiovascular: NL Sounds; No Murmurs; No JVD, RRR, No Edema Abdominal: NL Sounds; No Tenderness; No Distention Extremities: No Clubbing, Cyanosis, - - pt is able to lift hands to face but still limited in ROM Skin: No Rash or Ulcers, No Nodules or Sclerosis Neurological: Alert and Oriented x 3 Result Diagrams: 01/23/17 05:48 01/21/17 22:45 Assess/Plan/Problems-Billing Mr. Puente is an 86 yo male with PMHx significant for dementia, DM, PRETTY, CAD, ITP, chronic respiratory failure secondary to COPD, CKD, and afib who presented to the emergency room with complaints of bilateral shoulder pain. - Patient Problems (1) PMR (polymyalgia rheumatica) Current Visit: Yes Status: Acute Code(s): M35.3 - POLYMYALGIA RHEUMATICA SNOMED Code(s): 35610533 Comment: Pt is feeling improved since admission but still not fully able to complete all tasks. He was seen by Dr. Cuba as an outpatient on 01/17/17 and it was felt he possibly had inflammatory polyarthropathy. Will ask Dr. Cuba to follow up in the hospital after steroids were initiated. The biggest issue with steroids is the patient blood sugars have been out of control. Will need to adjust his diabetes regimen for optimal control. (2) Hypertension Current Visit: Yes Status: Acute Code(s): I10 - ESSENTIAL (PRIMARY) HYPERTENSION SNOMED Code(s): 11050332 Comment: BP is moderately elevated. Continue coreg, diltiazem and torsemide. Will start losartan 25mg daily and monitor his BP. (3) Diabetes mellitus type 2 Current Visit: Yes Status: Chronic Code(s): E11.9 - TYPE 2 DIABETES MELLITUS WITHOUT COMPLICATIONS SNOMED Code(s): 94889794 Comment: Sugars are markedly elevated though his AM sugar is in good range. He has been getting his lantus in the AM. Increase lantus to 60units SQ daily and continue with the sliding scale in insulin to carb ratio. (4) Atrial fibrillation Current Visit: No Status: Chronic Code(s): I48.91 - UNSPECIFIED ATRIAL FIBRILLATION SNOMED Code(s): 10324169 Comment: Rate is controlled. Continue coreg and diltiazem. Pt is not anticoagulated chronically. (5) CAD (coronary artery disease) Current Visit: Yes Status: Acute Code(s): I25.10 - ATHSCL HEART DISEASE OF [place] CORONARY ARTERY W/O ANG PCTRS SNOMED Code(s): 69548571 Comment: No complaints of chest pain. Continue lipitor, coreg and ASA. (6) COPD (chronic obstructive pulmonary disease) Current Visit: Yes Status: Acute Code(s): J44.9 - CHRONIC OBSTRUCTIVE PULMONARY DISEASE, UNSPECIFIED SNOMED Code(s): 88044436 Comment: No signs of exacerbation. Try to wean off O2. (7) Chronic kidney disease Current Visit: Yes Status: Chronic Code(s): N18.9 - CHRONIC KIDNEY DISEASE, UNSPECIFIED SNOMED Code(s): 761000776 Comment: Stage III, Creatinine is at baseline. (8) Dementia Current Visit: Yes Status: Acute Code(s): F03.90 - UNSPECIFIED DEMENTIA WITHOUT BEHAVIORAL DISTURBANCE SNOMED Code(s): 06789993 Comment: Continue Aricept. (9) DVT prophylaxis Current Visit: Yes Status: Acute Onset Date: 12/21/14 Code(s): KFI5374 - SNOMED Code(s): 485454609 Comment: SQ heparin (10) Full code status Current Visit: Yes Status: Acute Priority: Medium Onset Date: 12/21/14 Code(s): Z78.9 - OTHER SPECIFIED HEALTH STATUS SNOMED Code(s): 895365255 Status and Disposition: .
[2017-01-23] MEDS ORDERED: HYDROcodone/ACETAMIN 5-325 MG* 1 TAB PO PRN (15:33)
--- NOTE | 2017-01-23 18:26 | CONSULT ---
Consult Consult: Mr. Puente was admitted with increased shoulder pain and restriction; workup revealed elevated ESR; he has had an improvement with IV Solumedrol. Assessment ) PMR If he is doing well tomorrow, consider changing prednisone to 40mg daily (as he has a severe flare), and then tapering gradually to 10mg daily. Will follow CRP inflammatory markers Consider Bedside PT 2) Elevated ESR Per dictated note
--- NOTE | 2017-01-23 19:22 | CONS ---
CONSULTATION NOTE: DATE OF CONSULT: 01/23/17 CONSULTING PHYSICIAN: Dr. Hahn. REASON FOR CONSULTATION: Evaluate for polymyalgia rheumatica. CHIEF COMPLAINT: Shoulder pain. HISTORY OF PRESENT ILLNESS: The patient is an 86-year-old male with a longstanding history of insulin-dependent diabetes mellitus. He was admitted with progressive shoulder pain, discomfort, and restriction that has worsened over the last several weeks. Workup was notable for elevated inflammatory markers. He was felt to possibly have polymyalgia rheumatica but a workup was being done as an outpatient for possible other causes of inflammatory arthritis , especially given his underlying diabetes. He also has a history of longstanding renal insufficiency. In terms of his symptoms, he noted that the pain went down from his shoulders to his arms to his hands and it was involving the biceps region. It progressed to the point where it was so excruciating he could no longer function and he had some recent blood tests done, some of them are pending but because of the progressive discomfort, it was felt that he was significantly disabled. His elevated inflammatory markers and age as well as symptoms supported the diagnosis of polymyalgia rheumatica. He was started on Solu-Medrol. He has noted a significant improvement in the discomfort and pain that he has been having in his shoulders, although they remain slightly restricted. He denied any headache, changes in his vision, and no jaw pain. The pain initially was 10/10. Since the initiation of Solu-Medrol, the symptoms have definitely improved. Symptoms are worse as the day goes on, lasting several hours, relieved a little bit with rest with no other qualifying or alleviating factors. PAST MEDICAL HISTORY: Includes: 1. Dementia. 2. Insulin-dependent diabetes. He does have a supportive who takes care of him, who monitors his blood sugar. 3. Obstructive sleep apnea. 4. Coronary artery disease, status post 2 prior cardiac catheterizations and prior stents. 5. History of thrombocytopenia. 6. History of chronic respiratory failure secondary to COPD. 7. Chronic stage 3 renal disease. 8. Sick sinus syndrome, status post pacemaker placement. 9. Atrial fibrillation, currently on anticoagulation. PAST SURGICAL HISTORY: Includes: 1. Pacemaker placement. 2. Adrenalectomy. 3. Cataract surgery. MEDICATIONS: At home include: 1. Nitroglycerin 0.4 mg as needed. 2. Xopenex 0.3 mg inhaled every morning. 3. Aspart insulin subcutaneous a.c. 4. Donepezil 10 mg at bedtime. 5. Diltiazem 120 mg b.i.d. 6. Torsemide 20 mg Friday, , Friday, and Friday and 10 mg Friday , Friday, and Friday. 7. Carvedilol 12.5 mg b.i.d. 8. Aspirin 81 mg daily. 9. Tylenol 650 mg daily. 10. Rosuvastatin 5 mg at bedtime. 11. Lantus insulin. ALLERGIES: Include ADHESIVE TAPE, HYDRALAZINE, RAMIPRIL, SIMVASTATIN, CLONIDINE , PLAVIX, LATEX, and NITROGLYCERIN. FAMILY HISTORY: Notable for arthritis, but no rheumatoid arthritis or gout in the family. SOCIAL HISTORY: He does not smoke or drink any alcohol. He has a supportive at home. REVIEW OF SYSTEMS: In general, he complains of generalized shoulder pain and discomfort. HEENT: Denies changes in vision. Pulmonary: Denies acute shortness of breath. Cardiac: Denies chest wall pain. He does have a history of an arrhythmia. GI: Denies nausea or vomiting. : Denies blood in the urine or stool. Skin: Denies any new rash. Endocrine: No glandular swelling. Hematologic: No bruising or bleeding. Other 14-point review of systems were reviewed and were otherwise negative. PHYSICAL EXAM: Temperature is 98, blood pressure 156/46 to 174/43, O2 sat is 97 %, and pulse is 60 irregularly. In general, he is pleasant in no acute distress , sitting up in bed and his was assisting with his eating. Eyes: No scleral icterus. Pupils equal, round, reactive to light and accommodate. Mucous membranes are moist. Respiratory revealed symmetric chest expansion and respiratory effort. Clear to auscultation anteriorly. Cardiovascular exam revealed slight ectopic beats, but otherwise regular. No edema. No murmurs. Normal breath sounds. Abdomen: Positive bowel sounds. No organomegaly. No hepatosplenomegaly. No deep tenderness. Extremities: No cyanosis or clubbing. He had minimal edema in the lower extremities with venous stasis changes. Skin: No rash or ulcers. No nodules or sclerosis. Neurologic: He is alert, but oriented only to place. On musculoskeletal exam, he had mild osteoarthritic deformities in the knees. He had mild restriction of both shoulders, but no synovitis and no warmth of the shoulders. DIAGNOSTIC STUDIES/LAB DATA: On labs, he had a white count of 9.1, hemoglobin of 10.4, BUN 53, creatinine 1.35. ASSESSMENT: He has polymyalgia rheumatica. He is currently on IV Solu-Medrol. He is noticing an improvement in his symptoms. We can follow his inflammatory markers, but his sed rate was 85 and this should improve as we reduce the inflammation. He is currently on methylprednisolone 20 mg daily. I would consider tomorrow if he is doing well, switching to 40 mg daily and then titrating it slowly. We will need to watch his blood sugars closely and continue proton pump inhibitor for GI protection. Also consider bedside physical therapy as he would benefit from bedside mobility and exercises. Would follow the inflammatory markers, especially with C-reactive protein which should waste/materials exchange specialist time and also check vitamin D levels. TIME SPENT: Time spent with the patient and his was greater than 60 minutes with greater than 50% of the time spent counseling the patient and his . [id number]/[facility] #: [id number] DELON
[2017-01-23 19:49] LABS: C Reactive Protein 140.1 mg/L (< 5.00)
[2017-01-23] MEDS: Donepezil TAB* 5 MG PO SCH (20:22)
[2017-01-23] MEDS: Atorvastatin* 10 MG TAB PO SCH (20:22)
[2017-01-23] MEDS: Aspirin Low Dose CHEW TAB* 81 MG PO SCH (20:23)
--- NOTE | 2017-01-23 20:30 | CONS ---
CONSULTATION REPORT: DATE OF CONSULT: 01/23/17 CONSULTING PHYSICIAN: Sera Hahn DO REASON FOR CONSULT: Evaluate for polymyalgia rheumatica. HISTORY OF PRESENT ILLNESS: Mr. Puente is a pleasant 86-year-old male with a history of insulin-dependent diabetes, who has history of elevated inflammatory markers and progressive joint pain and stiffness. In particular, he was admitted with progressive disability with increasing bilateral shoulder discomfort. I had seen him as an initial visit as an outpatient . DICTATION ENDS ABRUPTLY AT THIS POINT [id number]/[facility] #: [id number] MTDD
[2017-01-24] MEDS: Heparin VIAL(*) 5000 UNITS/ML VIAL (FIVE THOUSAND) SUBCUT SCH ×3 (06:03→21:11)
[2017-01-24 06:53] LABS: BUN/Creatinine Ratio 51.9 (8-20); Calcium 8.6 mg/dL (8.6-10.3); EGFR African American 52.1 (>60); EGFR Non-African American 40.5 (>60); Potassium 5.3 mmol/L (3.5-5.0)
[2017-01-24] MEDS ORDERED: Insulin GLARGINE(*) 1 UNITS UNIT SUBCUT SCH (09:00)
[2017-01-24] MEDS: Levalbuterol 0.63MG/3ML NEB INH SCH (09:09)
[2017-01-24] MEDS: Insulin LISPRO* 1 UNITS UNIT SUBCUT SCH ×7 (09:34→21:30)
[2017-01-24] MEDS: methylPREDNISolone SOD 40 MG* 1 ML VIAL IV SCH (09:35)
[2017-01-24] MEDS: Carvedilol TAB* 6.25 MG PO SCH ×2 (09:45→21:06)
[2017-01-24] MEDS: Diltiazem CD CAP* 120 MG PO SCH ×2 (09:45→21:07)
[2017-01-24] MEDS: Torsemide TAB* 20 MG PO SCH (09:45)
--- NOTE | 2017-01-24 15:10 | PN ---
Subjective Date of Service: 01/24/17 Interval History: Pt is feeling better. He ambulated much better than he has in quite a while. He is able to feed himself without difficulty. He had no issues wiping after having BM. Objective Active Medications: Acetaminophen (Tylenol Tab*) 650 mg PO Q4H PRN PRN Reason: FEVER/PAIN Last Admin: 01/23/17 09:40 Dose: 650 mg Aspirin (Aspirin Low Dose Tab*) 81 mg PO BEDTIME [facility] Last Admin: 01/23/17 20:23 Dose: 81 mg Atorvastatin Calcium (Lipitor*) 10 mg PO BEDTIME [facility] PRN Reason: Protocol Last Admin: 01/23/17 20:22 Dose: 10 mg Carvedilol (Coreg Tab*) 12.5 mg PO BID [facility] Last Admin: 01/24/17 09:45 Dose: 12.5 mg Dextrose (D50w Syringe 50 Ml*) 12.5 gm IV PUSH .FOR FS < 60 - SS PRN PRN Reason: FS < 60 Diltiazem HCl (Cardizem Cd Cap*) 120 mg PO BID [facility] Last Admin: 01/24/17 09:45 Dose: 120 mg Donepezil HCl (Aricept Tab*) 10 mg PO BEDTIME [facility] Last Admin: 01/23/17 20:22 Dose: 10 mg Heparin Sodium (Porcine) (Heparin Vial(*)) 5,000 units SUBCUT Q8HR [facility] Last Admin: 01/24/17 13:03 Dose: 5,000 units Insulin Glargine (Lantus(*)) 60 units SUBCUT QAM [facility] Last Admin: 01/24/17 09:33 Dose: 60 units Insulin Human Lispro (Humalog*) 0 units SUBCUT ACHS [facility] PRN Reason: Protocol Last Admin: 01/24/17 13:04 Dose: 6 units Insulin Human Lispro (Humalog*) 5 units SUBCUT AC [facility] Levalbuterol HCl (Xopenex 0.63mg/3ml Neb*) 0.31 mg INH QAM [facility] Last Admin: 01/24/17 09:09 Dose: 0.31 mg Nitroglycerin (Nitroglycerin Tab 0.4 Mg*) 0.4 mg PO Q5M PRN PRN Reason: PAIN - CHEST Oxycodone/Acetaminophen (Percocet 5/325 Tab*) 1 tab PO Q4H PRN PRN Reason: PAIN Last Admin: 01/22/17 09:12 Dose: 1 tab Torsemide (Demadex*) 10 mg PO SuMoFr@0900 [facility] Last Admin: 01/24/17 09:45 Dose: 10 mg Torsemide (Demadex*) 20 mg PO TuWeThSa@0900,1400 [facility] Last Admin: 01/23/17 13:08 Dose: 20 mg Vital Signs 01/23/17 01/23/17 01/23/17 19:13 19:53 23:30 Temperature 98.0 F 98.3 F Pulse Rate 65 59 Respiratory 16 18 16 Rate Blood Pressure 165/49 (mmHg) O2 Sat by Pulse 97 100 Oximetry 01/24/17 01/24/17 01/24/17 00:32 02:12 07:43 Temperature 97.6 F Pulse Rate 60 60 Respiratory 16 Rate Blood Pressure 146/53 (mmHg) O2 Sat by Pulse 100 93 Oximetry 01/24/17 01/24/17 08:00 09:10 Temperature Pulse Rate 60 Respiratory 18 14 Rate Blood Pressure (mmHg) O2 Sat by Pulse 98 Oximetry Oxygen Devices in Use Now: Nasal Cannula - 2L-98% Appearance: Elderly male sitting in a chair, NAD Eyes: No Scleral Icterus Ears/Nose/Mouth/Throat: Mucous Membranes Moist Respiratory: Symmetrical Chest Expansion and Respiratory Effort, Clear to Auscultation Cardiovascular: NL Sounds; No Murmurs; No JVD, RRR, No Edema Abdominal: NL Sounds; No Tenderness; No Distention Extremities: No Clubbing, Cyanosis, - - able to abduct shoulders to 90 degrees bilaterally Skin: No Rash or Ulcers, No Nodules or Sclerosis Neurological: Alert and Oriented x 3 Result Diagrams: 01/23/17 05:48 01/24/17 06:02 Assess/Plan/Problems-Billing Mr. Puente is an 86 yo male with PMHx significant for dementia, DM, PRETTY, CAD, ITP, chronic respiratory failure secondary to COPD, CKD, and afib who presented to the emergency room with complaints of bilateral shoulder pain. - Patient Problems (1) PMR (polymyalgia rheumatica) Current Visit: Yes Status: Acute Code(s): M35.3 - POLYMYALGIA RHEUMATICA SNOMED Code(s): 49192322 Comment: Pt much improved from admission. Appreciate Dr. Cuba's input. Will start prednisone 40mg tomorrow. He will need a slow taper directed by Dr. Cuba as an outpatient. His mobility is much improved and I think he is ready for d/c home however I would like to adjust his insulin regimen for better control of his sugars prior to going home. Likely ready for home tomorrow. (2) Hypertension Current Visit: Yes Status: Acute Code(s): I10 - ESSENTIAL (PRIMARY) HYPERTENSION SNOMED Code(s): 93011932 Comment: BP is under better control though I do not have many data points after initiating losartan. Continue to monitor. (3) Diabetes mellitus type 2 Current Visit: Yes Status: Chronic Code(s): E11.9 - TYPE 2 DIABETES MELLITUS WITHOUT COMPLICATIONS SNOMED Code(s): 91883805 Comment: Sugars are somewhat improved today but still quite elevated. The patient's believes carb counting will be too difficult at home so will start lispro 5 units standing with meals in addition to sliding scale and lantus 60 units SQ daily. (4) Atrial fibrillation Current Visit: Yes Status: Chronic Code(s): I48.91 - UNSPECIFIED ATRIAL FIBRILLATION SNOMED Code(s): 81892522 Comment: Rate is controlled. Continue coreg and diltiazem. Pt is not anticoagulated chronically. (5) CAD (coronary artery disease) Current Visit: Yes Status: Acute Code(s): I25.10 - ATHSCL HEART DISEASE OF [place] CORONARY ARTERY W/O ANG PCTRS SNOMED Code(s): 14417457 Comment: No complaints of chest pain. Continue lipitor, coreg and ASA. (6) COPD (chronic obstructive pulmonary disease) Current Visit: Yes Status: Acute Code(s): J44.9 - CHRONIC OBSTRUCTIVE PULMONARY DISEASE, UNSPECIFIED SNOMED Code(s): 39887875 Comment: No signs of exacerbation. Pt states he uses O2 at home continuously though at times it appears he does not need the supplemental O2. (7) Chronic kidney disease Current Visit: Yes Status: Chronic Code(s): N18.9 - CHRONIC KIDNEY DISEASE, UNSPECIFIED SNOMED Code(s): 989748953 Comment: Stage III, Creatinine is at baseline. (8) Dementia Current Visit: Yes Status: Acute Code(s): F03.90 - UNSPECIFIED DEMENTIA WITHOUT BEHAVIORAL DISTURBANCE SNOMED Code(s): 52329454 Comment: Continue Aricept. (9) DVT prophylaxis Current Visit: Yes Status: Acute Onset Date: 12/21/14 Code(s): ABG3592 - SNOMED Code(s): 443546632 Comment: SQ heparin (10) Full code status Current Visit: Yes Status: Acute Priority: Medium Onset Date: 12/21/14 Code(s): Z78.9 - OTHER SPECIFIED HEALTH STATUS SNOMED Code(s): 156050489 Status and Disposition: .
--- NOTE | 2017-01-24 15:28 | CONSULT ---
Consult Consult: Consult Note Date of note 01/24/2017 Reason for follow up and chief complaint: polymyalgia rheumatica Patient: VANE PUENTE /Age: 07 1930 86 Medical Record#: [id number] Admission Date: 01/22/17 Provider: Dr. Cuba Subjective Date of Service: 01/24/17 Interval History: Mr. Puente overall feels that his shoulders are improving; he has only mild discomfort; but he is able to raise his shoulders and he is feeling better. He ambulated much better than he has in quite a while. He is able to feed himself without difficulty. He has been able to ambulate Objective Active Medications: Acetaminophen (Tylenol Tab*) 650 mg PO Q4H PRN PRN Reason: FEVER/PAIN Last Admin: 01/23/17 09:40 Dose: 650 mg Aspirin (Aspirin Low Dose Tab*) 81 mg PO BEDTIME [facility] Last Admin: 01/23/17 20:23 Dose: 81 mg Atorvastatin Calcium (Lipitor*) 10 mg PO BEDTIME [facility] PRN Reason: Protocol Last Admin: 01/23/17 20:22 Dose: 10 mg Carvedilol (Coreg Tab*) 12.5 mg PO BID [facility] Last Admin: 01/24/17 09:45 Dose: 12.5 mg Dextrose (D50w Syringe 50 Ml*) 12.5 gm IV PUSH .FOR FS < 60 - SS PRN PRN Reason: FS < 60 Diltiazem HCl (Cardizem Cd Cap*) 120 mg PO BID [facility] Last Admin: 01/24/17 09:45 Dose: 120 mg Donepezil HCl (Aricept Tab*) 10 mg PO BEDTIME [facility] Last Admin: 01/23/17 20:22 Dose: 10 mg Heparin Sodium (Porcine) (Heparin Vial(*)) 5,000 units SUBCUT Q8HR [facility] Last Admin: 01/24/17 13:03 Dose: 5,000 units Insulin Glargine (Lantus(*)) 60 units SUBCUT QAM [facility] Last Admin: 01/24/17 09:33 Dose: 60 units Insulin Human Lispro (Humalog*) 0 units SUBCUT ACHS [facility] PRN Reason: Protocol Last Admin: 01/24/17 13:04 Dose: 6 units Insulin Human Lispro (Humalog*) 5 units SUBCUT AC [facility] Levalbuterol HCl (Xopenex 0.63mg/3ml Neb*) 0.31 mg INH QAM [facility] Last Admin: 01/24/17 09:09 Dose: 0.31 mg Nitroglycerin (Nitroglycerin Tab 0.4 Mg*) 0.4 mg PO Q5M PRN PRN Reason: PAIN - CHEST Progress Note VANE PUENTE [id number] 01/22/17 Oxycodone/Acetaminophen (Percocet 5/325 Tab*) 1 tab PO Q4H PRN PRN Reason: PAIN Last Admin: 01/22/17 09:12 Dose: 1 tab Torsemide (Demadex*) 10 mg PO SuMoFr@0900 [facility] Last Admin: 01/24/17 09:45 Dose: 10 mg Torsemide (Demadex*) 20 mg PO TuWeThSa@0900,1400 [facility] Last Admin: 01/23/17 13:08 Dose: 20 mg Vital Signs 01/23/17 01/23/17 19:13 19:53 23:30 Temperature 98.0 F 98.3 F Pulse Rate 65 59 Respiratory 16 18 16 Rate Blood Pressure 165/49 (mmHg) O2 Sat by Pulse 97 100 Oximetry 01/24/17 01/24/17 00:32 02:12 07:43 Temperature 97.6 F Pulse Rate 60 60 Respiratory 16 Rate Blood Pressure 146/53 (mmHg) O2 Sat by Pulse 100 93 Oximetry 01/24/17 01/24/17 08:00 09:10 Temperature Pulse Rate 60 Respiratory 18 14 Rate Blood Pressure (mmHg) O2 Sat by Pulse 98 Oximetry Oxygen Devices in Use Now: Nasal Cannula - 2L-98% Appearance: Elderly male sitting in a chair, NAD Eyes: No Scleral Icterus Ears/Nose/Mouth/Throat: Mucous Membranes Moist Respiratory: Symmetrical Chest Expansion and Respiratory Effort, Clear to Auscultation Cardiovascular: NL Sounds; No Murmurs; No JVD, RRR, No Edema with occasional ectopic beats Abdominal: NL Sounds; No Tenderness; No Distention Extremities: No Clubbing, Cyanosis, - - able to abduct shoulders to 90 degrees bilaterally Skin: No Rash or Ulcers, No Nodules or Sclerosis Neurological: Alert and conversative Result Diagrams: Creatinine 1.62 and hemoglobin of 10.4 Assess/Plan/Problems-Billing Mr. Puente is an 86 yo male with PMHx significant for dementia, DM, PRETTY, CAD, ITP, chronic respiratory failure secondary to COPD, CKD, and afib who presented to the emergency room with complaints of bilateral shoulder pain. He was started on steroids for a flare of polymyalgia rheumatica and he is improved. - Patient Problems (1) PMR (polymyalgia rheumatica) Comment: He is much improved from admission. I agree with starting prednisone 40mg tomorrow. He will need close monitoring as his steroids are tapered and there will be an adjustment of his insulin regimen for better control of his sugars prior to going home. Consider bedside PT. (2) Elevated ESR: likely due to the above as well as renal insufficiency; markedly elevated CRP supports an inflammatory process; continue losartan. Continue to monitor. (3) OA Continue quad exercises
[2017-01-24] MEDS: Aspirin Low Dose CHEW TAB* 81 MG PO SCH (21:05)
[2017-01-24] MEDS: Atorvastatin* 10 MG TAB PO SCH (21:06)
[2017-01-24] MEDS: Donepezil TAB* 5 MG PO SCH (21:14)
[2017-01-25] MEDS: Heparin VIAL(*) 5000 UNITS/ML VIAL (FIVE THOUSAND) SUBCUT SCH ×3 (06:15→21:35)
[2017-01-25 07:12] LABS: BUN/Creatinine Ratio 56.3 (8-20); Calcium 8.8 mg/dL (8.6-10.3); EGFR African American 59.7 (>60); EGFR Non-African American 46.4 (>60); Potassium 5.4 mmol/L (3.5-5.0)
[2017-01-25] MEDS: Insulin LISPRO* 1 UNITS UNIT SUBCUT SCH ×7 (08:51→20:51)
[2017-01-25] MEDS: Insulin GLARGINE(*) 1 UNITS UNIT SUBCUT SCH (08:51)
[2017-01-25] MEDS: Carvedilol TAB* 6.25 MG PO SCH ×2 (08:53→20:48)
[2017-01-25] MEDS: Diltiazem CD CAP* 120 MG PO SCH ×2 (08:54→20:49)
[2017-01-25] MEDS: Torsemide TAB* 20 MG PO SCH ×2 (09:01→13:49)
[2017-01-25] MEDS: Levalbuterol 0.63MG/3ML NEB INH SCH (09:15)
--- NOTE | 2017-01-25 16:14 | PN ---
Subjective Date of Service: 01/25/17 Interval History: Patient has been able to walk to bathroom. Eating OK, and moving bowels. Denies significant muscle pain or weakness. Lives at home with . Family History: Unchanged from Admission Social History: Unchanged from Admission Past Medical History: Unchanged from Admission Objective Active Medications: Acetaminophen (Tylenol Tab*) 650 mg PO Q4H PRN PRN Reason: FEVER/PAIN Last Admin: 01/23/17 09:40 Dose: 650 mg Aspirin (Aspirin Low Dose Tab*) 81 mg PO BEDTIME [facility] Last Admin: 01/24/17 21:05 Dose: 81 mg Atorvastatin Calcium (Lipitor*) 10 mg PO BEDTIME [facility] PRN Reason: Protocol Last Admin: 01/24/17 21:06 Dose: 10 mg Carvedilol (Coreg Tab*) 12.5 mg PO BID [facility] Last Admin: 01/25/17 08:53 Dose: 12.5 mg Dextrose (D50w Syringe 50 Ml*) 12.5 gm IV PUSH .FOR FS < 60 - SS PRN PRN Reason: FS < 60 Diltiazem HCl (Cardizem Cd Cap*) 120 mg PO BID [facility] Last Admin: 01/25/17 08:54 Dose: 120 mg Donepezil HCl (Aricept Tab*) 10 mg PO BEDTIME [facility] Last Admin: 01/24/17 21:14 Dose: 10 mg Heparin Sodium (Porcine) (Heparin Vial(*)) 5,000 units SUBCUT Q8HR [facility] Last Admin: 01/25/17 14:14 Dose: 5,000 units Insulin Glargine (Lantus(*)) 62 units SUBCUT QAM [facility] Last Admin: 01/25/17 08:51 Dose: 62 units Insulin Human Lispro (Humalog*) 0 units SUBCUT ACHS [facility] PRN Reason: Protocol Last Admin: 01/25/17 14:12 Dose: Not Given Insulin Human Lispro (Humalog*) 5 units SUBCUT AC [facility] Last Admin: 01/25/17 14:12 Dose: Not Given Levalbuterol HCl (Xopenex 0.63mg/3ml Neb*) 0.31 mg INH QAM [facility] Last Admin: 01/25/17 09:15 Dose: 0.31 mg Nitroglycerin (Nitroglycerin Tab 0.4 Mg*) 0.4 mg PO Q5M PRN PRN Reason: PAIN - CHEST Oxycodone/Acetaminophen (Percocet 5/325 Tab*) 1 tab PO Q4H PRN PRN Reason: PAIN Last Admin: 01/22/17 09:12 Dose: 1 tab Torsemide (Demadex*) 10 mg PO SuMoFr@0900 [facility] Last Admin: 01/24/17 09:45 Dose: 10 mg Torsemide (Demadex*) 20 mg PO TuWeThSa@0900,1400 [facility] Last Admin: 01/25/17 13:49 Dose: 20 mg Vital Signs 01/25/17 01/25/17 01/25/17 08:00 09:00 09:17 Temperature 36.4 C Pulse Rate 63 62 Respiratory 16 18 16 Rate Blood Pressure 179/62 (mmHg) O2 Sat by Pulse 91 96 Oximetry 01/25/17 14:24 Temperature 36.4 C Pulse Rate 62 Respiratory 18 Rate Blood Pressure 157/58 (mmHg) O2 Sat by Pulse 100 Oximetry Oxygen Devices in Use Now: Nasal Cannula - 2L-98% Eyes: No Scleral Icterus Ears/Nose/Mouth/Throat: Clear Oropharnyx Neck: No Thyroid Enlargement, Masses Respiratory: Symmetrical Chest Expansion and Respiratory Effort, Clear to Auscultation Cardiovascular: NL Sounds; No Murmurs; No JVD Abdominal: NL Sounds; No Tenderness; No Distention, No Hepatosplenomegaly Neurological: Alert and Oriented x 3 Lines/Tubes/Other Access: Clean, Dry and Intact Peripheral IV Result Diagrams: 01/23/17 05:48 01/25/17 06:05 Assess/Plan/Problems-Billing Mr. Puente is an 86 yo male with PMHx significant for dementia, DM, PRETTY, CAD, ITP, chronic respiratory failure secondary to COPD, CKD, and afib who presented to the emergency room with complaints of bilateral shoulder pain, found to have polymyalgia. - Patient Problems (1) PMR (polymyalgia rheumatica) Current Visit: Yes Status: Acute Priority: High Code(s): M35.3 - POLYMYALGIA RHEUMATICA SNOMED Code(s): 54139349 Comment: Patient clearly improved from admission. Appreciate Dr. Cuba's input. Tolerating PO prednisone. His mobility is much improved. Will plan discharge tomorrow. (2) Diabetes type 2, controlled Current Visit: Yes Status: Acute Priority: Medium Code(s): E11.9 - TYPE 2 DIABETES MELLITUS WITHOUT COMPLICATIONS SNOMED Code(s): 35924769 Comment: Sugars have improved, will plan to send home on current regimen. (3) Hypertension Current Visit: Yes Status: Acute Priority: Medium Code(s): I10 - ESSENTIAL (PRIMARY) HYPERTENSION SNOMED Code(s): 22158629 Comment: BP not controlled on carvedilol, CCB, diuretic. Will add losartan, as mentioned but not ordered by Dr. Hahn. (4) DVT prophylaxis Current Visit: Yes Status: Acute Priority: Low Onset Date: 12/21/14 Code (s): IKS8436 - SNOMED Code(s): 040611153 Comment: SQ heparin Status and Disposition: Likely discharge tomorrow if continues to improve.
[2017-01-25] MEDS: Losartan TAB* 25 MG PO SCH (18:23)
[2017-01-25] MEDS: Aspirin Low Dose CHEW TAB* 81 MG PO SCH (20:49)
[2017-01-25] MEDS: Atorvastatin* 10 MG TAB PO SCH (20:49)
[2017-01-25] MEDS: Donepezil TAB* 5 MG PO SCH (20:49)
[2017-01-26] MEDS: Heparin VIAL(*) 5000 UNITS/ML VIAL (FIVE THOUSAND) SUBCUT SCH (05:21)
--- NOTE | 2017-01-26 08:18 | PN ---
Progress Note - Progress Note Note: Cross coverage note: Called this AM for rectal temp 93F Pt seen. Has no complaints OP clear, dry MM rrr, no mrg lung w/distant BS but clear abd soft, Nt, ND ext warm with 2+ peripheral pulses AOX3 Radha hugger blanket placed with no change in core temp after 30 minutes CXR, UA, CBC, blood cultures ordered Additional blankets placed. Holding on med changes until results of above
[2017-01-26 08:33] LABS: Calcium 8.8 mg/dL (8.6-10.3); EGFR African American 64.3 (>60); Potassium 4.6 mmol/L (3.5-5.0)
--- NOTE | 2017-01-26 08:35 | RAD ---
INDICATION: Hypothermia COMPARISON: December 16, 2016 TECHNIQUE: An AP portable view obtained at 0818 hours is submitted. FINDINGS: Bones/Soft Tissues: There are no acute bony findings. There is a left-sided cardiac pacemaker. Cardiomediastinal: The cardiomediastinal silhouette is normal. Lungs: There are no infiltrates. Pleura: There are no pleural effusions. Other: None IMPRESSION: NO ACTIVE DISEASE.
[2017-01-26 09:02] VITALS: BP 152/71
[2017-01-26 09:19] LABS: Hematocrit 36 % (42-52); Hemoglobin 11.8 g/dl (14.0-18.0); Mean Corpuscular HGB Conc 33 g/dl (31-36); Mean Corpuscular Hemoglobin 30 pg (27-31); Mean Corpuscular Volume 90 fL (80-94); Mean Platelet Volume 8 um3 (7.4-10.4); Red Blood Count 3.99 10^6/ul (4.0-5.4); Red Cell Distribution Width 13 % (10.5-15); White Blood Count 6.1 10^3/ul (3.5-10.8)
[2017-01-26] MEDS: Levalbuterol 0.63MG/3ML NEB INH SCH (09:23)
[2017-01-26] MEDS ORDERED: Insulin GLARGINE(*) 1 UNITS UNIT SUBCUT SCH (09:30)
[2017-01-26 10:01] LABS: C Reactive Protein 26.58 mg/L (< 5.00)
[2017-01-26] MEDS: Insulin LISPRO* 1 UNITS UNIT SUBCUT SCH ×2 (10:15)
[2017-01-26 10:41] LABS: Erythrocyte Sed Rate 50 mm/Hr (0-40)
[2017-01-26] MEDS: Torsemide TAB* 20 MG PO SCH (10:45)
[2017-01-26] MEDS: Carvedilol TAB* 6.25 MG PO SCH (10:47)
[2017-01-26] MEDS: Losartan TAB* 25 MG PO SCH (10:47)
[2017-01-26] MEDS: Diltiazem CD CAP* 120 MG PO SCH (10:47)
[2017-01-26] MEDS: Insulin GLARGINE(*) 1 UNITS UNIT SUBCUT SCH (10:52)
--- NOTE | 2017-01-26 21:38 | DS ---
DISCHARGE SUMMARY: DATE OF ADMISSION: 01/22/17 DATE OF DISCHARGE: 01/26/17 PRIMARY DIAGNOSIS: Polymyalgia rheumatica. SECONDARY DIAGNOSES: 1. Type 2 diabetes with poor control due to initiation of corticosteroids. 2. Dementia. 3. Obstructive sleep apnea. 4. Coronary artery disease with history of stenting. 5. History of idiopathic thrombocytopenic purpura. 6. Chronic respiratory failure due to chronic obstructive pulmonary disease, on supplemental oxygen. 7. Chronic kidney disease stage 3. 8. Sick sinus syndrome with pacemaker placement. 9. Atrial fibrillation with rate controlled on anticoagulation. MEDICATIONS ON DISCHARGE: 1. Torsemide 20 mg p.o. b.i.d. on Friday, Friday, and Friday. 2. Torsemide 10 mg daily on Friday, Friday, and Friday. 3. Nitroglycerin sublingual 0.4 mg q.5 minutes x3 p.r.n. 4. Xopenex nebulizer 0.31 mg inhaled daily p.r.n. 5. Insulin NovoLog 2 to 12 units subcutaneous q.a.c. based on sliding scale. 6. Aricept 10 mg p.o. q.h.s. 7. Diltiazem CD 120 mg p.o. b.i.d. 8. Carvedilol 12.5 mg p.o. b.i.d. 9. Aspirin 81 mg p.o. daily. 10. Acetaminophen 650 mg p.o. t.i.d. p.r.n. 11. Crestor 5 mg p.o. q.h.s. 12. Lantus insulin 55 units subcutaneous q.a.m. 13. Prednisone 40 mg p.o. daily 14. Oxycodone 1 tab p.o. q.4 hours p.r.n. for severe shoulder pain. 15. Losartan 50 mg p.o. daily HOSPITAL COURSE: The patient was admitted to the emergency department with bilateral shoulder pain. He had been diagnosed with polymyalgia prior to admission and sent home, but he had hyperglycemia, returned to the emergency department. The patient do not have any signs of temporal arteritis such as visual changes, headache or jaw claudication, but his pain in the shoulder was 10/10. He was seen by Dr. Cuba in consultation who initiated IV Solu-Medrol. The patient had a good response to steroids and was switched over to oral prednisone 40 mg daily on discharge. It was explained to the and son that he will require long taper of prednisone from 40 to 30 to 20 over many weeks or months. He will need to be seen with Dr. Cuba in the next 2 weeks. The patient's diabetes was affected by the initiation of steroids. He has had sugars as high as greater than 444 on the . His Lantus was increased to 62 units per day and his basal bolus insulin was 5 units plus sliding scale with meals. Unfortunately on the morning prior to discharge, his blood sugar was 42 and 39 and he had some stumbling in the bathroom without a fall. The patient was treated with a quarter amp of D50 and delaying his morning Lantus and his sugars have been 160 in the morning, afternoon later on the day of discharge. He also was hypothermic with a rectal temperature down to 34.8 due to hyperglycemia. Other labs tests of interest during the hospital stay are C-reactive protein of 26.6, lactic acid was 0.7, hemoglobin A1c was 9.2. White count was initially 12.0, but decreased to 6.1. Hemoglobin was 38 on admission, 36 on discharge. His sedimentation rate was 85 on admission and 50 on discharge. Chest x-ray was completed on the day of discharge, showed no active disease. DISPOSITION: Home with his . ACTIVITY: As tolerated. DIET: Should be diabetic. The patient was instructed to see Dr. Fuentes within the next 4 to 5 days and should call the nurse if the blood sugars are over 350 to have further titration of insulin over the phone. [id number]/[facility] #: [id number] DELON
[2017-01-27] MEDS ORDERED: predniSONE TAB* 20 MG PO SCH (09:00)
[2017-01-27] MEDS ORDERED: Insulin GLARGINE(*) 1 UNITS UNIT SUBCUT SCH (09:00)
[2017-01-27] MEDS ORDERED: predniSONE TAB* 10 MG PO SCH (09:00)
== END 2017-01-26 16:35 | disposition home or self-care (01) | DRG 546 ==
LOC: ED 21:44 → MED 01-22 02:47
PROVIDERS: ADMIT Internal Medicine; ATTEND Internal Medicine
DX: M35.3 Polymyalgia rheumatica (principal); J96.10 Chronic respiratory failure, unspecified whether with hypoxia or hypercapnia; E11.22 Type 2 diabetes mellitus with diabetic chronic kidney disease; E11.65 Type 2 diabetes mellitus with hyperglycemia; F03.90 Unspecified dementia, unspecified severity, without behavioral disturbance, psychotic disturbance, mood disturbance, and anxiety; I49.5 Sick sinus syndrome; Z99.81 Dependence on supplemental oxygen; I13.10 Hypertensive heart and chronic kidney disease without heart failure, with stage 1 through stage 4 chronic kidney disease, or unspecified chronic kidney disease; N18.3 Chronic kidney disease, stage 3 (moderate); I25.10 Atherosclerotic heart disease of native coronary artery without angina pectoris; G47.33 Obstructive sleep apnea (adult) (pediatric); J44.9 Chronic obstructive pulmonary disease, unspecified; I48.91 Unspecified atrial fibrillation; Z79.01 Long term (current) use of anticoagulants; Z95.5 Presence of coronary angioplasty implant and graft; Z95.0 Presence of cardiac pacemaker; Z79.1 Long term (current) use of non-steroidal anti-inflammatories (NSAID); Z79.82 Long term (current) use of aspirin; Z79.4 Long term (current) use of insulin; Z79.899 Other long term (current) drug therapy; Z91.040 Latex allergy status; Z88.8 Allergy status to other drugs, medicaments and biological substances; Z91.048 Other nonmedicinal substance allergy status; Z82.49 Family history of ischemic heart disease and other diseases of the circulatory system; Z80.8 Family history of malignant neoplasm of other organs or systems; Z87.891 Personal history of nicotine dependence
CPT/HCPCS: 36415; 71010; 72170; 80048; 80053; 81003; 81015; 82030; 82164; 82550; 82607; 82746; 82947; 83036; 83516; 83605; 83735; 83880; 84443; 84484; 84550; 85025; 85610; 85652; 85730; 86038; 86060; 86140; 86431; 86618; 86812; 87040; 87086; 93005; 94640; 94660; 94760; A9270-GY; J1170; J1644; J2270; J2405; J2920

== ENCOUNTER 2017-08-07 20:47 | Emergency (ER) | payer MEDICARE, OTHER ==
[2017-08-07 21:25] VITALS: BP 132/60
--- NOTE | 2017-08-07 22:07 | UC ---
Dizzy HPI HPI Summary: 87 yo male brought to to [facility] because son and were unable to obtain a BP on him He states he currently feels fine They say he was lethargic for a little bit he denies f/c no cp or sob no palpitations - History Of Current Complaint Chief Complaint: UCGeneralIllness Stated Complaint: NEEDS BLOOD PRESSURE READ Time Seen by Provider: 08/07/17 21:16 Hx Obtained From: Patient, Family/Gate Attendant - son and Onset/Duration: Sudden Onset, Lasting Minutes Timing: Constant Severity Initially: Moderate Severity Currently: None Pain Intensity: 0 Pain Scale Used: 0-10 Numeric Aggravating Factor(s): Nothing Alleviating Factor(s): Nothing Associated Signs And Symptoms: Positive: Negative - Allergies/Home Medications Allergies/Adverse Reactions: Allergies Allergy/AdvReac Type Severity Reaction Status Date / Time Adhesive Tape Allergy Mild Itching Verified 11/12/16 17:29 Hydralazine Allergy Unknown Unknown Verified 11/12/16 17:29 Reaction Details Ramipril [From Altace] Allergy Unknown Unknown Verified 11/12/16 17:29 Reaction Details Simvastatin [From Zocor] Allergy Unknown Unknown Verified 11/12/16 17:29 Reaction Details Clonidine Allergy Unknown Verified 11/12/16 17:29 Reaction Details Clopidogrel [From Plavix] Allergy Unknown Verified 11/12/16 17:29 Reaction Details Latex Allergy Rash Verified 11/12/16 17:29 Nitroglycerin Allergy See Comment Verified 08/07/17 21:07 [From Nitroglycerin Transdermal System] PMH/Surg Hx/FS Hx/Imm Hx Endocrine History: Diabetes, Dyslipidemia Cardiovascular History: Cardiac Disease, Hypertension, Pacemaker/ICD Other History Of: Negative For: Anticoagulant Therapy - Surgical History Surgical History: Yes Surgery Procedure, Year, and Place: adrenal gland 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 5 cardiac stents, cataract surgery, pacer/ICD implant - Family History Known Family History: Positive: Cardiac Disease, Hypertension, Diabetes - Social History Alcohol Use: Rare Substance Use Type: None Smoking Status (MU): Former Smoker Type: Cigarettes Amount Used/How Often: 3 PPD X 40 YEARS Have You Smoked in the Last Year: No When Did the Patient Quit Smoking/Using Tobacco: 40 YEARS AGO - Immunization History Most Recent Influenza Vaccination: Fall 2015 Most Recent Tetanus Shot: 08/30/2012 Most Recent Pneumonia Vaccination: 09/29/2001 Review of Systems Constitutional: Negative Skin: Negative Eyes: Negative ENT: Negative Respiratory: Negative Cardiovascular: Negative Gastrointestinal: Negative Genitourinary: Negative Motor: Negative Neurovascular: Negative Musculoskeletal: Negative Neurological: Negative Psychological: Negative Is Patient Immunocompromised?: No All Other Systems Reviewed And Are Negative: Yes Physical Exam Triage Information Reviewed: Yes Appearance: Well-Appearing, No Pain Distress, Well-Nourished Vital Signs: Initial Vital Signs Temp 98.2 F 08/07/17 21:09 Pulse 56 08/07/17 21:09 Resp 16 08/07/17 21:09 BP 132/60 08/07/17 21:09 Pulse Ox 96 08/07/17 21:09 Vital Signs Reviewed: Yes Eyes: Positive: Conjunctiva Clear ENT: Positive: Hearing grossly normal Neck: Positive: Supple, Nontender, No Lymphadenopathy Respiratory: Positive: Lungs clear, Normal breath sounds, No respiratory distress, No accessory muscle use Cardiovascular: Positive: RRR, No Murmur Abdomen Description: Positive: Nontender, No Organomegaly Bowel Sounds: Positive: Present Neurological: Positive: Alert Psychological Exam: Normal Skin Exam: Normal Dizzy Course/Dx - Course Course Of Treatment: Udip-protein. BS 200. He and family refused EKG - Differential Dx/Diagnosis Provider Diagnoses: hypotensive episode of uncertain cause Discharge - Discharge Plan Condition: Stable Disposition: HOME Patient Education Materials: Hypotension (ED) Referrals: Ngozi Fuentes MD [Primary Care Provider] - Additional Instructions: I am unsure of what caused tonight's spell I suggest you get rechecked tomorrow To er if symptoms recur
== END 2017-08-07 22:03 | disposition home or self-care (01) ==
LOC: UCEAST 20:47
DX: I95.9 Hypotension, unspecified (principal); R53.83 Other fatigue; E11.9 Type 2 diabetes mellitus without complications; E78.5 Hyperlipidemia, unspecified; I10 Essential (primary) hypertension; I51.9 Heart disease, unspecified; Z95.5 Presence of coronary angioplasty implant and graft; Z95.0 Presence of cardiac pacemaker; Z88.8 Allergy status to other drugs, medicaments and biological substances; Z91.040 Latex allergy status; Z87.891 Personal history of nicotine dependence; Z91.048 Other nonmedicinal substance allergy status
CPT/HCPCS: 81003; 87086; 99211; G0463

== ENCOUNTER 2017-08-10 09:13 | Inpatient (IN) | payer MEDICARE, OTHER ==
[2017-08-10] MEDS ORDERED: NS 0.9% 1000 ML* 1,000 ML IV SCH ×2 (09:30→11:45)
--- NOTE | 2017-08-10 09:53 | RAD ---
Indication: Shortness of breath. Hypertension, chronic obstructive pulmonary disease. Comparison: No relevant prior exams available on the [facility] [place] PACS for comparison. Technique: Upright AP 0930 hours Report: Elevated lung volumes and both diffuse mild prominence of the interstitial markings and patchy rarefaction of the mid to upper lung zone interstitial markings. Alveolar consolidation at the RIGHT lung base extending to the periphery. Negative for pleural effusion or pneumothorax. Mild cardiomegaly. RIGHT atrial and RIGHT ventricular level pacemaker leads. Prominent central pulmonary vasculature with peripheral attenuation. IMPRESSION: 1. Stigmata of chronic obstructive pulmonary disease and probable pulmonary arterial hypertension. No compelling evidence for pulmonary edema. 2. Mild alveolar consolidation at the RIGHT lung base which may represent atelectasis or pneumonia.
[2017-08-10 10:02] LABS: Hematocrit 32 % (42-52); Hemoglobin 10.4 g/dl (14.0-18.0); Mean Corpuscular HGB Conc 32 g/dl (31-36); Mean Corpuscular Hemoglobin 29 pg (27-31); Mean Corpuscular Volume 89 fL (80-94); Mean Platelet Volume 8 um3 (7.4-10.4); Red Blood Count 3.63 10^6/ul (4.0-5.4); Red Cell Distribution Width 14 % (10.5-15); White Blood Count 8.7 10^3/ul (3.5-10.8)
[2017-08-10] MEDS ORDERED: Albuterol/Ipratropium NEB.SOL* Albuterol 2.5 MG/Ipratropium 0.5 MG 3 ML INH ONE (10:10)
[2017-08-10] MEDS ORDERED: Azithromycin IV(*) 500 MG in NS 0.9% 250 ML* 250 ML IVPB ONE (10:11)
[2017-08-10] MEDS ORDERED: cefTRIAXone(*) 1 GM in NS 0.9% 50 ML* 50 ML IVPB ONE (10:11)
[2017-08-10] MEDS ORDERED: methylPREDNISolone 125 MG* 2 ML VIAL IV ONE (10:12)
[2017-08-10 10:18] LABS: Ammonia 35 mol/L (16-53)
[2017-08-10] MEDS ORDERED: cefTRIAXone(*) 1 GM ADVAN ONE (10:19)
[2017-08-10] MEDS ORDERED: Azithromycin IV* 500 MG ADVAN VIAL IVPB ONE (10:19)
[2017-08-10 10:20] LABS: ALT 44 U/L (7-52); AST 29 U/L (13-39); Albumin 3.2 g/dL (3.2-5.2); Alkaline Phosphatase 68 U/L (34-104); Anion Gap 5 mmol/L (2-11); BUN/Creatinine Ratio 44.1 (8-20); Blood Urea Nitrogen 109 mg/dL (6-24); C Reactive Protein 202.44 mg/L (< 5.00); CO2 Carbon Dioxide 31 mmol/L (22-32); Calcium 8.6 mg/dL (8.6-10.3); Chloride 96 mmol/L (101-111); Creatine Kinase 24 U/L (10-223); EGFR African American 31.9 (>60); EGFR Non-African American 24.8 (>60); Globulin 3.3 g/dL (2-4); Glucose 256 mg/dL (70-100); Lipase 13 U/L (11.0-82.0); Magnesium 2.3 mg/dL (1.9-2.7); Potassium 5.3 mmol/L (3.5-5.0); Sodium 132 mmol/L (133-145); Total Protein 6.5 g/dL (6.4-8.9)
[2017-08-10 10:22] LABS: Troponin I 0.01 ng/mL (<0.04)
[2017-08-10 10:24] LABS: B Type Natriuretic Peptide 350 pg/mL
[2017-08-10 10:36] LABS: Acetaminophen < 15 mcg/mL; Alcohol < 10 mg/dL (<10)
[2017-08-10 10:42] LABS: PCO2 Arterial 68 mmHg (35-45)
[2017-08-10 10:46] LABS: TSH (Thyroid Stimulating Horm) 2.64 mcIU/mL (0.34-5.60)
[2017-08-10] MEDS ORDERED: Ondansetron INJ* 2 MG/ML VIAL IV PRN (11:34)
[2017-08-10] MEDS ORDERED: Acetaminophen TAB* 325 MG PO PRN (11:34)
[2017-08-10] MEDS ORDERED: Dextrose 50% Syringe 50 ML* 25 GM/50 ML SYRINGE IV PUSH PRN (11:38)
[2017-08-10] MEDS ORDERED: Albuterol 2.5 MG/3 ML NEB.SOL* (0.083%) INH PRN (11:41)
[2017-08-10] MEDS: NS 0.9% 1000 ML* 2,000 ML IV ONE ×2 (11:42→14:04)
[2017-08-10] MEDS ORDERED: Albuterol/Ipratropium NEB.SOL* Albuterol 2.5 MG/Ipratropium 0.5 MG 3 ML INH SCH (12:00)
[2017-08-10] MEDS ORDERED: Diltiazem TAB* 60 MG PO SCH (12:00)
[2017-08-10] MEDS ORDERED: Carvedilol TAB* 6.25 MG PO SCH ×2 (12:00)
[2017-08-10 12:19] LABS: Urine Bacteria Absent (Absent)
[2017-08-10 12:21] LABS: Urine Bilirubin Negative (Negative); Urine Glucose Negative (Negative); Urine Nitrite Negative (Negative)
[2017-08-10] MEDS: Insulin LISPRO* 1 UNITS UNIT SUBCUT SCH ×2 (13:10→17:10)
[2017-08-10] MEDS: Heparin VIAL(*) 5000 UNITS/ML VIAL (FIVE THOUSAND) SUBCUT SCH ×2 (14:14→20:57)
--- NOTE | 2017-08-10 14:44 | ED ---
Marry Otero Edward, scribed for Mckay Sanchez MD on 08/10/17 at 0916 . Shortness of Breath - HPI Summary HPI Summary: 87 y/o male BIBA c/o increased SOB for the past three days and acute SOB this morning. The SOB is alleviated with oxygen. Pt denies he has SOB - he supposes he is breathing fine now. Three days ago the pt's HR was 47, per pt's son, and was taken to [facility]. Pt has had increased confusion and has been constantly falling asleep for the past few days as well, per pt's son. Associated sx: severe lower back pain, pedal edema and dry cough (per son). Pt is on home O2 3 L at night 1.5 L during the day for COPD. PMHx HTN, atrial flutter. Pt's son called the ambulance. - History of Current Complaint Chief Complaint: EDShortnessOfBreath Hx Obtained From: Patient Onset/Duration: Lasting Days, Still Present, Worse Since - This morning Alleviating Factors: Oxygen Associated Signs & Symptoms: Cough (Nonproductive), Edema - Allergy/Home Medications Allergies/Adverse Reactions: Allergies Allergy/AdvReac Type Severity Reaction Status Date / Time Adhesive Tape Allergy Mild Itching Verified 08/10/17 10:10 Hydralazine Allergy Unknown Unknown Verified 08/10/17 10:10 Reaction Details Ramipril [From Altace] Allergy Unknown Unknown Verified 08/10/17 10:10 Reaction Details Simvastatin [From Zocor] Allergy Unknown Unknown Verified 08/10/17 10:10 Reaction Details Clonidine Allergy Unknown Verified 08/10/17 10:10 Reaction Details Clopidogrel [From Plavix] Allergy Unknown Verified 08/10/17 10:10 Reaction Details Latex Allergy Rash Verified 08/10/17 10:10 Nitroglycerin Allergy See Comment Verified 08/10/17 10:10 [From Nitroglycerin Transdermal System] PMH/Surg Hx/FS Hx/Imm Hx Previously Healthy: No Endocrine/Hematology History: Reports: Hx Blood Disorders - ITP, Hx Diabetes, Other Endocrine/Hematological Disorders - 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, 2001 Denies: Hx Anticoagulant Therapy, Hx Blood Transfusions, Hx Bone Marrow Disease, Hx Systemic Lupus Erythematosus, Hx Sickle Cell Disease, Hx Thyroid Disease, Hx Anemia, Hx Unexplained Bleeding Cardiovascular History: Reports: Hx Angina, Hx Angioplasty, Hx Auto Implanted Cardiovert Defib, Hx Coronary Artery Disease, Hx Hypercholesterolemia, Hx Hypertension, Hx Pacemaker/ICD, Other Cardiovascular Problems/Disorders Denies: Hx Aneurysm, Hx Cardiac Arrest, Hx Cardiomegaly, Hx Congenital Heart Disease, Hx Congestive Heart Failure, Hx Deep Vein Thrombosis, Hx Embolism, Hx Hypotension, Hx Peripheral Vascular Disease, Hx Rheumatic Fever, Hx Syncope, Hx Valvular Heart Disease Respiratory History: Reports: Hx Chronic Obstructive Pulmonary Disease (COPD), Hx Sleep Apnea - CPAP, Other Respiratory Problems/Disorders - Home O2: 1.5L during day, 3L at night with CPAP Denies: Hx Asthma GI History: Reports: Hx Hiatal Hernia Denies: Hx Ulcer History: Reports: Hx Chronic Renal Failure - CKD stage 3, Hx Renal Disease Musculoskeletal History: Reports: Hx Gout - knee, Hx Orthopedic Injury - L ankle Fx, consequent unsteady gait Denies: Hx Arthritis, Hx Back Problems, Hx Bursitis, Hx Congenital Bone Abnormalities, Hx Fibromyalgia, Hx Osteoporosis, Hx Scoliosis, Hx Tendonitis, Other Musculoskeletal History Sensory History: Reports: Hx Cataracts, Hx Contacts or Glasses Denies: Hx Eye Injury, Hx Eye Prosthesis, Hx Glaucoma, Hx Legally Blind, Hx Macular Degeneration, Hx Vision Problem, Hx Deafness, Hx Hearing Aid, Hx Hearing Problem, Other Sensory Impairments Opthamlomology History: Reports: Hx Cataracts, Hx Contacts or Glasses Denies: Hx Eye Injury, Hx Eye Prosthesis, Hx Glaucoma, Hx Legally Blind, Hx Macular Degeneration, Hx Vision Problem, Other Sensory Impairments Neurological History: Reports: Hx Dementia, Other Neuro Impairments/Disorders - per family: short-term memory loss Denies: Hx Seizures Psychiatric History: Reports: Hx Eating Disorder Denies: Hx Substance Abuse - Cancer History Cancer Type, Location and Year: 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 5 cardiac stents, cataract surgery, pacer/ICD implant Hx Anesthesia Reactions: No - Immunization History Date of Tetanus Vaccine: unknown Infectious Disease History: Denies: Hx Clostridium Difficile, Hx Hepatitis, Hx Human Immunodeficiency Virus (HIV), Hx of Known/Suspected MRSA, Hx Shingles, Hx Tuberculosis, Hx Known/ Suspected VRE, Hx Known/Suspected VRSA, History Other Infectious Disease, Traveled Outside the [place] in Last 30 Days - Family History Known Family History: Positive: Cardiac Disease, Hypertension, Diabetes - Social History Alcohol Use: Rare Substance Use Type: Reports: None Hx Tobacco Use: Yes Smoking Status (MU): Former Smoker Type: Cigarettes Amount Used/How Often: 3 PPD X 40 YEARS Have You Smoked in the Last Year: No Review of Systems Positive: Fatigue - Constantly falling asleep Eyes: Negative ENT: Negative Cardiovascular: Negative Positive: Shortness Of Breath, Cough Gastrointestinal: Negative Genitourinary: Negative Positive: Myalgia - Lower back pain, Edema Skin: Negative Neurological: Other - Increased confusion Psychological: Normal All Other Systems Reviewed And Are Negative: Yes Physical Exam Triage Information Reviewed: Yes Vital Signs On Initial Exam: Initial Vitals Temp Pulse Resp BP Pulse Ox 98.9 F 124 24 148/84 100 08/10/17 09:14 08/10/17 09:14 08/10/17 09:14 08/10/17 09:14 08/10/17 09:14 Vital Signs Reviewed: Yes Appearance: Positive: Well-Appearing, No Pain Distress Skin: Positive: Warm, Skin Color Reflects Adequate Perfusion, Dry Head/Face: Positive: Normal Head/Face Inspection Eyes: Positive: EOMI, DONTE ENT: Positive: Normal ENT inspection Neck: Positive: Supple, Nontender Respiratory/Lung Sounds: Positive: Clear to Auscultation, Breath Sounds Present Cardiovascular: Positive: Tachycardia Abdomen Description: Positive: Nontender, Soft Bowel Sounds: Positive: Present Musculoskeletal: Positive: Strength/ROM Intact, Other - Mild pedal edema Neurological: Positive: Normal, Sensory/Motor Intact, Alert, Oriented to Person Place, Time Psychiatric: Positive: Affect/Mood Appropriate, Other - Pt appears difficulty with memory. Diagnostics - Vital Signs Vital Signs Temp Pulse Resp BP Pulse Ox 08/10/17 11:00 124 97 08/10/17 10:20 123 18 96 08/10/17 10:00 124 96 08/10/17 09:30 133/74 08/10/17 09:24 99 08/10/17 09:18 124 17 100 08/10/17 09:16 145/79 08/10/17 09:14 98.9 F 124 24 148/84 100 - Laboratory Lab Results: Lab Results 08/10/17 08/10/17 08/10/17 Range/Units 09:48 09:48 09:48 WBC (3.5-10.8) 10^3/ul RBC (4.0-5.4) 10^6/ul Hgb (14.0-18.0) g/dl Hct (42-52) % MCV (80-94) fL MCH (27-31) pg MCHC (31-36) g/dl RDW (10.5-15) % Plt Count (150-450) 10^3/ul MPV (7.4-10.4) um3 Neut % (Auto) (38-83) % Lymph % (Auto) (25-47) % Guthrie % (Auto) (1-9) % Eos % (Auto) (0-6) % Baso % (Auto) (0-2) % Absolute Neuts (auto) (1.5-7.7) 10^3/ul Absolute Lymphs (auto) (1.0-4.8) 10^3/ul Absolute Monos (auto) (0-0.8) 10^3/ul Absolute Eos (auto) (0-0.6) 10^3/ul Absolute Basos (auto) (0-0.2) 10^3/ul Absolute Nucleated RBC 10^3/ul Nucleated RBC % INR (Anticoag Therapy) 1.12 H (0.89-1.11) APTT 29.1 (26.0-36.3) seconds D-Dimer, Quantitative 498 H (Less Than 230) ng/mL ABG pH (7.35-7.45) ABG pCO2 (35-45) mmHg ABG pO2 (80-100) mmHg ABG HCO3 (19-31) mmol/L ABG O2 Saturation (95-98) % ABG Base Excess (-2.0-2.0) Sodium 132 L (133-145) mmol/L Potassium 5.3 H (3.5-5.0) mmol/L Chloride 96 L (101-111) mmol/L Carbon Dioxide 31 (22-32) mmol/L Anion Gap 5 (2-11) mmol/L BUN 109 H (6-24) mg/dL Creatinine 2.47 H (0.67-1.17) mg/dL Est GFR ( Amer) 31.9 (>60) Est GFR (Non-Af Amer) 24.8 (>60) BUN/Creatinine Ratio 44.1 H (8-20) Glucose 256 H (70-100) mg/dL Lactic Acid (0.5-2.0) mmol/L Calcium 8.6 (8.6-10.3) mg/dL Magnesium 2.3 (1.9-2.7) mg/dL Total Bilirubin 0.40 (0.2-1.0) mg/dL AST 29 (13-39) U/L ALT 44 (7-52) U/L Alkaline Phosphatase 68 (34-104) U/L Ammonia 35 (16-53) mol/L Total Creatine Kinase 24 (10-223) U/L CK-MB (CK-2) 2.8 (0.6-6.3) ng/mL Troponin I 0.01 (<0.04) ng/mL C-Reactive Protein 202.44 H (< 5.00) mg/L B-Natriuretic Peptide 350 H ( - 100) pg/mL Total Protein 6.5 (6.4-8.9) g/dL Albumin 3.2 (3.2-5.2) g/dL Globulin 3.3 (2-4) g/dL Albumin/Globulin Ratio 1.0 (1-3) Lipase 13 (11.0-82.0) U/L TSH 2.64 (0.34-5.60) mcIU/mL Acetaminophen < 15 mcg/mL Serum Alcohol < 10 (<10) mg/dL 08/10/17 08/10/17 08/10/17 Range/Units 09:48 09:48 10:35 WBC 8.7 (3.5-10.8) 10^3/ul RBC 3.63 L (4.0-5.4) 10^6/ul Hgb 10.4 L (14.0-18.0) g/dl Hct 32 L (42-52) % MCV 89 (80-94) fL MCH 29 (27-31) pg MCHC 32 (31-36) g/dl RDW 14 (10.5-15) % Plt Count 119 L (150-450) 10^3/ul MPV 8 (7.4-10.4) um3 Neut % (Auto) 75.8 (38-83) % Lymph % (Auto) 6.9 L (25-47) % Guthrie % (Auto) 16.4 H (1-9) % Eos % (Auto) 0.6 (0-6) % Baso % (Auto) 0.3 (0-2) % Absolute Neuts (auto) 6.6 (1.5-7.7) 10^3/ul Absolute Lymphs (auto) 0.6 L (1.0-4.8) 10^3/ul Absolute Monos (auto) 1.4 H (0-0.8) 10^3/ul Absolute Eos (auto) 0.1 (0-0.6) 10^3/ul Absolute Basos (auto) 0 (0-0.2) 10^3/ul Absolute Nucleated RBC 0.01 10^3/ul Nucleated RBC % 0.1 INR (Anticoag Therapy) (0.89-1.11) APTT (26.0-36.3) seconds D-Dimer, Quantitative (Less Than 230) ng/mL ABG pH 7.27 L (7.35-7.45) ABG pCO2 68 H (35-45) mmHg ABG pO2 89 (80-100) mmHg ABG HCO3 27.2 (19-31) mmol/L ABG O2 Saturation 96.1 (95-98) % ABG Base Excess 3.0 H (-2.0-2.0) Sodium (133-145) mmol/L Potassium (3.5-5.0) mmol/L Chloride (101-111) mmol/L Carbon Dioxide (22-32) mmol/L Anion Gap (2-11) mmol/L BUN (6-24) mg/dL Creatinine (0.67-1.17) mg/dL Est GFR ( Amer) (>60) Est GFR (Non-Af Amer) (>60) BUN/Creatinine Ratio (8-20) Glucose (70-100) mg/dL Lactic Acid 0.4 L (0.5-2.0) mmol/L Calcium (8.6-10.3) mg/dL Magnesium (1.9-2.7) mg/dL Total Bilirubin (0.2-1.0) mg/dL AST (13-39) U/L ALT (7-52) U/L Alkaline Phosphatase (34-104) U/L Ammonia (16-53) mol/L Total Creatine Kinase (10-223) U/L CK-MB (CK-2) (0.6-6.3) ng/mL Troponin I (<0.04) ng/mL C-Reactive Protein (< 5.00) mg/L B-Natriuretic Peptide ( - 100) pg/mL Total Protein (6.4-8.9) g/dL Albumin (3.2-5.2) g/dL Globulin (2-4) g/dL Albumin/Globulin Ratio (1-3) Lipase (11.0-82.0) U/L TSH (0.34-5.60) mcIU/mL Acetaminophen mcg/mL Serum Alcohol (<10) mg/dL Result Diagrams: 08/10/17 09:48 08/10/17 09:48 Lab Statement: Any lab studies that have been ordered have been reviewed, and results considered in the medical decision making process. - Radiology CXR Xray Interpretation: Positive (See Comments) - 1. Stigmata of chronic obstructive pulmonary disease and probable pulmonary arterial hypertension. No compelling evidence for pulmonary edema. 2. Mild alveolar consolidation at the RIGHT lung base which may represent atelectasis or pneumonia. ED PHYSICIAN AGREEABLE Radiology Interpretation Completed By: Radiologist - Additional Comments Diagnostic Additional Comments: EKG - 09:53 - SINUS TACHYCARDIA @ 123 BPM. R AXIS DEVIATION. NONSPECIFIC T ABNORMALITIES. Course/Dx - Course Course Of Treatment: ADMIT HOSPITALIST. CRITICAL CARE TIME LESS THAN 30 MINUTES. - Diagnoses Provider Diagnoses: Pneumonia, COPD (chronic obstructive pulmonary disease), Hypoxia, Confusion - Physician Notifications Discussed Care of Patient With: Sera Hahn Time Discussed With Above Provider: 10:24 Instructed by Provider To: Admit As Inpatient Discharge - Discharge Plan Condition: Fair Disposition: ADMITTED TO [facility] The documentation as recorded by the Marry webb Edward accurately reflects the service I personally performed and the decisions made by me, Mckay Sanchez MD.
[2017-08-10] MEDS: Albuterol/Ipratropium NEB.SOL* Albuterol 2.5 MG/Ipratropium 0.5 MG 3 ML INH SCH ×3 (14:59→23:20)
--- NOTE | 2017-08-10 16:59 | HP ---
CC: Dr. Ngozi Fuentes * HISTORY AND PHYSICAL: DATE OF ADMISSION: 08/10/17 PRIMARY CARE PROVIDER: Dr. Ngozi Fuentes. ATTENDING PHYSICIAN WHILE IN THE HOSPITAL: Sera Hahn DO * (report dictated by Declan Coleman NP). CHIEF COMPLAINT: 1. Altered mental status. 2. Cough. 3. Back pain. HISTORY OF PRESENTING ILLNESS: Mr. Puente is an 87-year-old male patient. I would like to preface the report by saying that he has a significant amount of underlying dementia and he is really unable to give much history. He comes in today; according to the family, they have noticed the last couple of days he did have progressive worsening shortness of breath. He has been clearing his throat more. There has been no complaints of rhinorrhea or sore throat, but there has been certainly complaints of him having some lower back pain since yesterday and today. This morning, he woke up and he was drenched in sweat, according to the ; he has been more confused. They have noticed that since Friday, his heart rates have been in the 120s. He actually went to the armored cable machine operator's office over the end of the week to be evaluated, but today, he just was not getting any better and they sent him in to the ED. He has been clearing his throat and a cough; it has been productive at times. They do not know what the color of mucus is. There has been no documented fevers. There has been no vomiting or diarrhea. No abdominal pain and no chest pain. There has been no recent trips or travel. He has chronic lower extremity swelling for which he is on diuretics, which he has been taking right along, and his appetite has been down and that was a big clue that there is something was going on with the patient. According to the family, they state his appetite was down and he was not acting himself, so they brought him into the ED. It was noted that his CRP was in the 200s and in addition to this, it was noted that on x-ray he might have had pneumonia. So, the hospitalist service was asked to evaluate for admission. PAST MEDICAL HISTORY: Significant for: 1. Dementia. 2. Diabetes. 3. PRETTY. 4. CAD. 5. ITP. 6. COPD. 7. CKD stage 3. 8. Sick sinus syndrome. 9. AFib. 10. Hypertension. 11. Hyperlipidemia. 12. History of skin cancer. PAST SURGICAL HISTORY: 1. Patient has had a heart catheterization with stents. 2. Pacemaker. 3. Cataracts. 4. He has had adrenalectomy on the right side. HOME MEDICATIONS: According to list that was provided, includes: 1. Coreg 12.5 mg p.o. b.i.d. 2. Aspirin 81 mg daily. 3. Xopenex 0.31 mg inhaled in the morning. 4. NovoLog 2 to 10 units sliding scale a.c. subcu. 5. Aricept 10 mg at bedtime. 6. Diltiazem CD 120 mg p.o. b.i.d. 7. Crestor 5 mg at bedtime. 8. Demadex 20 mg p.o. b.i.d., Friday, Friday, , Friday, and Friday. 9. Demadex 10 mg daily on Friday and Friday. 10. Lantus 55 units subcu daily. 11. Prednisone 40 mg daily. ALLERGIES TO MEDICATIONS: Include TAPE, HYDRALAZINE, RAMIPRIL, SIMVASTATIN, CLONIDINE, PLAVIX, LATEX, and NITRO. FAMILY HISTORY: His mother had a history of bone cancer. Father had a history of heart disease. SOCIAL HISTORY: He is a former smoker, he quit about 40 years ago. Lives with his family. Surrogate decision maker is his . REVIEW OF SYSTEMS: Again, no documented fevers. No significant weight change. No double vision. No ear discharge. No rhinorrhea. No sore throat. No thyroid enlargement. Denied having any chest pain. No orthopnea, no nocturnal dyspnea. There is no abdominal pain, no nausea, no vomiting. There was dyspnea on exertion. No shortness of breath at rest. No dysuria, no frequency. No loss of consciousness. No pruritus and no skin ulceration. Review of 14 systems completed, all others negative. PHYSICAL EXAMINATION GENERAL: At this time, Mr. Puente is an 87-year-old male patient. He appears to be well nourished, well developed. He is sitting on the ER stretcher. He does not appear to be in any acute distress. VITAL SIGNS: Blood pressure 133/74, pulse 124, respirations 18, O2 sat 96% on 3 L, temperature when he came in was 98.9. HEENT: Head is atraumatic. Eyes: EOMs are intact. Sclerae anicteric. Throat : Oral mucosa appears to be dry. No oropharyngeal erythema. NECK: Supple. LUNGS: Diminished at the bases. No wheezes, rales or rhonchi. HEART: Sounds S1 and S2. He is tachycardic, with a regular rate. ABDOMEN: Soft, flat. Nontender. Bowel sounds present. EXTREMITIES: Pulses were 2+ throughout. He had +2 pitting edema bilaterally. NEUROLOGIC: He is drowsy, but he awakens. He does not know the month. He awakens, he follows all commands. He is moving all 4 extremities. His speech is clear. His tongue is midline. He is awake to himself. Oriented to himself and to place, but confused at time. He does not know the month. SKIN: Intact. DIAGNOSTIC STUDIES/LAB DATA: Revealed a WBC of 8.7, RBC of 3.62, hemoglobin of 10.4, hematocrit of 32, platelet count 119. INR of 1.12, PTT at 29.1. D- dimer 498. PH is 7.27 and pCO2 was 68, his bicarb was 27. Sodium is 132, potassium of 5.3, chloride of 96, bicarb of 31, BUN 109, his creatinine was 2.47 , his baseline appears to be right around 1.4 to 1.6. His glucose was 256. His lactic was 0.4, calcium 8.6, total bili 0.4, mag 2.3, AST 29, ALT 44, alk phos 68. Ammonia was 35. CK was 24. His CK-MB was 2.8. Troponin was 0.01 and CRP was 202. His BNP was 350. His albumin was 3.2. TSH was normal. Toxicology was negative. He did have a chest x-ray obtained today and on my review it appears on the right that he has what appears to be infiltrate. Radiology read as stigmata of COPD and probable pulmonary arterial hypertension. No evidence of pulmonary edema. Mild alveolar consolidation at the right lung base, which may represent atelectasis or pneumonia. EKG obtained today shows sinus tachycardia. He has no ST elevation or T-wave inversion. He has a significant amount of artifact, but no significant signs of ischemia were noted. Rate of 123. Previous EKG is similar, but the rate is now new. Old medical records reviewed. He had an EF on an echo a year ago at 55%. ASSESSMENT AND PLAN: Mr. Puente is an 87-year-old male patient coming into the ER today with complaints of cough, worsening back pain, confusion, on evaluation was found to have possible pneumonia. We were asked to evaluate for admission. He will be admitted under inpatient status for: 1. Altered mental status and delirium: I suspect this is related to pneumonia. His CRP is 200. I do note that he does not have a white count, but he is tachycardic. He has clinical signs and x-ray that is concerning. My plan at this point is to put him on Rocephin and azithromycin. Check legionella and Strep pneumo antigen. I am also going to check him for the flu. We will get blood cultures and we will give him 2 L of fluid upfront right now and continue to follow him. 2. Tachycardia: Again, probably secondary to dehydration. He has been taking his Demadex right along. I would like to get a urine on him. His BUN and creatinine are significantly elevated from his baseline. We will get a FENa workup on this and we will hydrate him and hopefully the tachycardia will improve after hydration. 3. Acute on chronic kidney disease: He does have acute kidney injury. I am holding his Demadex. I will get a FENa. We will hydrate him and we will continue to follow this closely and I am placing a Marie as well to monitor his I's and O's closely in the setting of an acute kidney injury. 4. Obstructive sleep apnea: I did order a CPAP. 5. Elevated D-dimer and this was a gradual progression. His Wells' criteria is low. He has no recent surgery. He has swelling on both legs, but this is chronic. He has no recent trips or travel. He is tachycardic, but I have other reasons to suspect that he could be tachycardic. I think at this point, the D- dimer is probably elevated related to other things like his acute renal failure , possibly his pneumonia and an infection. Our plan is to try antibiotics, if he does not improve in 2 to 3 days, then I will consider a V/Q scan, but at this point, I have other causes to explain his shortness of breath and breathing. I do not think we need to francisco javier the D-dimer and frankly he can have a CTA right now, and if we did do a V/Q scan, with the way his chest x-ray looks , we may not have a good quality image anyway and, again, I suspect that this is probably pneumonia and not a pulmonary embolism. 6. Dementia with acute delirium: Continue with supportive care. Treat underlying cause. It appears that he has an infection, probably pneumonia. We will check in the urine as well. 7. Diabetes: Put on lispro sliding scale. I have cut back on his Lantus for the time being as he has not been taking good p.o. and his sugars have been low , in the 60s to 70s, per the family. We can get him back on his home dose when he is more awake and taking better p.o. 8. Coronary artery disease: Continue his aspirin, statin, and beta darryl. 9. History of idiopathic thrombocytopenic purpura: We will monitor this. He does not appear to have any evidence, so I am getting him on heparin and we will just follow the platelet count closely. 10. Chronic obstructive pulmonary disease: Again, I did put him on nebs, standing Dulera and prednisone, particularly in the setting of pneumonia. 11. History of atrial fibrillation: He appears to be in sinus rhythm, we will follow. 12. Hyperlipidemia: Continue statin therapy. 13. Hypertension: Continue his beta darryl and diltiazem with hold parameters. 14. DVT prophylaxis: He is high risk. We will place him on heparin subcu. 15. Code status: He is full code. 16. Fluid, electrolyte, and nutrition: He can have a consistent carb diet. TIME SPENT: Time spent on the admission was 60 minutes, greater than half the time was spent [id number] with the patient obtaining my history and physical, the other half of the time was spent on going over the plan of care with the patient and implementing the place of care. I did discuss the plan of care with my attending, Dr. Hahn, she is in agreement. DECLAN COLEMAN, NEELA [id number]/[facility] #: [id number] DELON
[2017-08-10] MEDS: Diltiazem TAB* 60 MG PO SCH ×2 (18:00→23:56)
[2017-08-10] MEDS: Mometasone/Formoter 200/5 MDI INH SCH (19:21)
[2017-08-10] MEDS: CMC:Rosuvastatin (NF) 5 MG TAB PO SCH (20:53)
[2017-08-10] MEDS: Donepezil TAB* 5 MG PO SCH (20:56)
[2017-08-10] MEDS: Aspirin Low Dose CHEW TAB* 81 MG PO SCH (20:56)
[2017-08-10] MEDS: Carvedilol TAB* 6.25 MG PO SCH (20:56)
[2017-08-11] MEDS: Albuterol/Ipratropium NEB.SOL* Albuterol 2.5 MG/Ipratropium 0.5 MG 3 ML INH SCH ×3 (02:49→11:16)
[2017-08-11 05:44] LABS: Hematocrit 31 % (42-52); Mean Corpuscular HGB Conc 32 g/dl (31-36); Mean Corpuscular Hemoglobin 29 pg (27-31); Mean Corpuscular Volume 90 fL (80-94); Mean Platelet Volume 9 um3 (7.4-10.4); Red Blood Count 3.49 10^6/ul (4.0-5.4); Red Cell Distribution Width 14 % (10.5-15)
[2017-08-11] MEDS: Heparin VIAL(*) 5000 UNITS/ML VIAL (FIVE THOUSAND) SUBCUT SCH ×3 (06:00→21:43)
[2017-08-11] MEDS: Diltiazem TAB* 60 MG PO SCH ×3 (06:00→18:49)
[2017-08-11 06:02] LABS: BUN/Creatinine Ratio 44.6 (8-20); Calcium 8.4 mg/dL (8.6-10.3); EGFR African American 30.1 (>60); EGFR Non-African American 23.4 (>60); Potassium 5.7 mmol/L (3.5-5.0)
[2017-08-11] MEDS: Mometasone/Formoter 200/5 MDI INH SCH ×2 (08:13→21:23)
[2017-08-11] MEDS ORDERED: Insulin GLARGINE(*) 1 UNITS UNIT SUBCUT SCH ×2 (09:00)
[2017-08-11] MEDS ORDERED: predniSONE TAB* 20 MG PO SCH (09:00)
[2017-08-11] MEDS: Insulin LISPRO* 1 UNITS UNIT SUBCUT SCH ×3 (09:23→22:07)
[2017-08-11] MEDS: Carvedilol TAB* 6.25 MG PO SCH ×2 (09:24→21:16)
[2017-08-11] MEDS: cefTRIAXone VIAL(*) 1,000 MG in NS 0.9% 50 ML* 50 ML IVPB SCH (12:35)
[2017-08-11] MEDS: Azithromycin IV(*) 500 MG in NS 0.9% 250 ML* 250 ML IVPB SCH (13:17)
[2017-08-11] MEDS ORDERED: Dextrose 50% Syringe 50 ML* 25 GM/50 ML SYRINGE IV PUSH PRN (13:42)
[2017-08-11] MEDS ORDERED: Insulin LISPRO* 1 UNITS UNIT SUBCUT ONE ×3 (13:42→22:00)
[2017-08-11] MEDS ORDERED: Insulin LISPRO* 1 UNITS UNIT SUBCUT SCH (13:43)
[2017-08-11] MEDS ORDERED: NS 0.9% 1000 ML* 1,000 ML IV SCH (13:45)
--- NOTE | 2017-08-11 14:27 | PN ---
Subjective Date of Service: 08/11/17 Interval History: Patient seen this afternoon with present. He admits to having some memory problems. Says he does not feel SOB at the moment, not much of a cough. Remembers he is in the hospital but cannot recall why. states he had been having significant SOB at home, constantly clearing his throat. Family History: Unchanged from Admission Social History: Unchanged from Admission Past Medical History: Unchanged from Admission Objective Active Medications: Acetaminophen (Tylenol Tab*) 650 mg PO Q4H PRN Albuterol (Ventolin 2.5 Mg/3 Ml Neb.Suha*) 2.5 mg INH Q2H PRN Albuterol/Ipratropium (Duoneb (Albuterol 2.5 Mg/Ipratropium 0.5 Mg)) 1 neb INH Q4H [facility] Aspirin (Aspirin Low Dose Tab*) 81 mg PO BEDTIME [facility] Carvedilol (Coreg Tab*) 12.5 mg PO BID [facility] Dextrose (D50w Syringe 50 Ml*) 12.5 gm IV PUSH .FOR FS < 60 - SS PRN Diltiazem HCl (Cardizem Tab*) 60 mg PO Q6H [facility] Donepezil HCl (Aricept Tab*) 10 mg PO BEDTIME [facility] Heparin Sodium (Porcine) (Heparin Vial(*)) 5,000 units SUBCUT Q8HR [facility] Ceftriaxone Sodium 1,000 mg/ (Sodium Chloride) 50 mls @ 200 mls/hr IVPB Q24H [facility] Azithromycin 500 mg/ Sodium (Chloride) 250 mls @ 250 mls/hr IVPB Q24H [facility] Sodium Chloride (Ns 0.9% 1000 Ml*) 1,000 mls @ 100 mls/hr IV PER RATE [facility] Insulin Glargine (Lantus(*)) 35 units SUBCUT QAM [facility] Insulin Human Lispro (Humalog*) 0 units SUBCUT AC [facility] Mometasone Furoate/Formoterol Fumar (Dulera 200/5 Mdi*) 2 puff INH BID [facility] Ondansetron HCl (Zofran Inj*) 4 mg IV Q6H PRN Prednisone (Deltasone Tab*) 40 mg PO DAILY [facility] Rosuvastatin Calcium (Crestor (Nf)) 5 mg PO BEDTIME [facility] Vital Signs 08/10/17 08/10/17 08/10/17 15:52 19:24 19:50 Temperature 97.9 F 98.6 F Pulse Rate 36 113 118 Respiratory 16 16 20 Rate Blood Pressure 122/70 131/72 (mmHg) O2 Sat by Pulse 93 93 95 Oximetry 08/10/17 08/11/17 08/11/17 23:52 03:07 07:30 Temperature 97.6 F 98.2 F 96.4 F Pulse Rate 27 109 112 Respiratory 16 20 20 Rate Blood Pressure 115/62 116/59 125/68 (mmHg) O2 Sat by Pulse 93 96 92 Oximetry 08/11/17 08/11/17 08/11/17 07:57 08:15 11:18 Temperature 97.3 F Pulse Rate 105 113 Respiratory 20 16 20 Rate Blood Pressure 132/67 (mmHg) O2 Sat by Pulse 93 96 Oximetry Oxygen Devices in Use Now: Nasal Cannula - 3L Appearance: Elderly, M, sitting in chair in NAD Eyes: No Scleral Icterus Ears/Nose/Mouth/Throat: - - Dry MM Neck: NL Appearance and Movements; NL JVP Respiratory: Symmetrical Chest Expansion and Respiratory Effort, Clear to Auscultation Cardiovascular: - - Tachycardia, no m/g/r Abdominal: NL Sounds; No Tenderness; No Distention Lymphatic: No Cervical Adenopathy Extremities: - - Trace LE edema Skin: No Rash or Ulcers Neurological: - - Alert, oriented, no focal deficits Result Diagrams: 08/11/17 04:41 08/11/17 12:55 Additional Lab and Data: Lab Results 08/10/17 08/10/17 08/10/17 Range/Units 09:48 09:48 09:48 WBC (3.5-10.8) 10^3/ul RBC (4.0-5.4) 10^6/ul Hgb (14.0-18.0) g/dl Hct (42-52) % MCV (80-94) fL MCH (27-31) pg MCHC (31-36) g/dl RDW (10.5-15) % Plt Count (150-450) 10^3/ul MPV (7.4-10.4) um3 Neut % (Auto) (38-83) % Lymph % (Auto) (25-47) % [place]as[place] % (Auto) (1-9) % Eos % (Auto) (0-6) % Baso % (Auto) (0-2) % Absolute Neuts (auto) (1.5-7.7) 10^3/ul Absolute Lymphs (auto) (1.0-4.8) 10^3/ul Absolute Monos (auto) (0-0.8) 10^3/ul Absolute Eos (auto) (0-0.6) 10^3/ul Absolute Basos (auto) (0-0.2) 10^3/ul Absolute Nucleated RBC 10^3/ul Nucleated RBC % INR (Anticoag Therapy) 1.12 H (0.89-1.11) APTT 29.1 (26.0-36.3) seconds D-Dimer, Quantitative 498 H (Less Than 230) ng/mL ABG pH (7.35-7.45) ABG pCO2 (35-45) mmHg ABG pO2 (80-100) mmHg ABG HCO3 (19-31) mmol/L ABG O2 Saturation (95-98) % ABG Base Excess (-2.0-2.0) Sodium 132 L (133-145) mmol/L Potassium 5.3 H (3.5-5.0) mmol/L Chloride 96 L (101-111) mmol/L Carbon Dioxide 31 (22-32) mmol/L Anion Gap 5 (2-11) mmol/L BUN 109 H (6-24) mg/dL Creatinine 2.47 H (0.67-1.17) mg/dL Est GFR ( Amer) 31.9 (>60) Est GFR (Non-Af Amer) 24.8 (>60) BUN/Creatinine Ratio 44.1 H (8-20) Glucose 256 H (70-100) mg/dL Lactic Acid (0.5-2.0) mmol/L Calcium 8.6 (8.6-10.3) mg/dL Magnesium 2.3 (1.9-2.7) mg/dL Total Bilirubin 0.40 (0.2-1.0) mg/dL AST 29 (13-39) U/L ALT 44 (7-52) U/L Alkaline Phosphatase 68 (34-104) U/L Ammonia 35 (16-53) mol/L Total Creatine Kinase 24 (10-223) U/L CK-MB (CK-2) 2.8 (0.6-6.3) ng/mL Troponin I 0.01 (<0.04) ng/mL C-Reactive Protein 202.44 H (< 5.00) mg/L B-Natriuretic Peptide 350 H ( - 100) pg/mL Total Protein 6.5 (6.4-8.9) g/dL Albumin 3.2 (3.2-5.2) g/dL Globulin 3.3 (2-4) g/dL Albumin/Globulin Ratio 1.0 (1-3) Lipase 13 (11.0-82.0) U/L TSH 2.64 (0.34-5.60) mcIU/mL Acetaminophen < 15 mcg/mL Serum Alcohol < 10 (<10) mg/dL 08/10/17 08/10/17 08/10/17 Range/Units 09:48 09:48 10:35 WBC 8.7 (3.5-10.8) 10^3/ul RBC 3.63 L (4.0-5.4) 10^6/ul Hgb 10.4 L (14.0-18.0) g/dl Hct 32 L (42-52) % MCV 89 (80-94) fL MCH 29 (27-31) pg MCHC 32 (31-36) g/dl RDW 14 (10.5-15) % Plt Count 119 L (150-450) 10^3/ul MPV 8 (7.4-10.4) um3 Neut % (Auto) 75.8 (38-83) % Lymph % (Auto) 6.9 L (25-47) % [place]as[place] % (Auto) 16.4 H (1-9) % Eos % (Auto) 0.6 (0-6) % Baso % (Auto) 0.3 (0-2) % Absolute Neuts (auto) 6.6 (1.5-7.7) 10^3/ul Absolute Lymphs (auto) 0.6 L (1.0-4.8) 10^3/ul Absolute Monos (auto) 1.4 H (0-0.8) 10^3/ul Absolute Eos (auto) 0.1 (0-0.6) 10^3/ul Absolute Basos (auto) 0 (0-0.2) 10^3/ul Absolute Nucleated RBC 0.01 10^3/ul Nucleated RBC % 0.1 INR (Anticoag Therapy) (0.89-1.11) APTT (26.0-36.3) seconds D-Dimer, Quantitative (Less Than 230) ng/mL ABG pH 7.27 L (7.35-7.45) ABG pCO2 68 H (35-45) mmHg ABG pO2 89 (80-100) mmHg ABG HCO3 27.2 (19-31) mmol/L ABG O2 Saturation 96.1 (95-98) % ABG Base Excess 3.0 H (-2.0-2.0) Sodium (133-145) mmol/L Potassium (3.5-5.0) mmol/L Chloride (101-111) mmol/L Carbon Dioxide (22-32) mmol/L Anion Gap (2-11) mmol/L BUN (6-24) mg/dL Creatinine (0.67-1.17) mg/dL Est GFR ( Amer) (>60) Est GFR (Non-Af Amer) (>60) BUN/Creatinine Ratio (8-20) Glucose (70-100) mg/dL Lactic Acid 0.4 L (0.5-2.0) mmol/L Calcium (8.6-10.3) mg/dL Magnesium (1.9-2.7) mg/dL Total Bilirubin (0.2-1.0) mg/dL AST (13-39) U/L ALT (7-52) U/L Alkaline Phosphatase (34-104) U/L Ammonia (16-53) mol/L Total Creatine Kinase (10-223) U/L CK-MB (CK-2) (0.6-6.3) ng/mL Troponin I (<0.04) ng/mL C-Reactive Protein (< 5.00) mg/L B-Natriuretic Peptide ( - 100) pg/mL Total Protein (6.4-8.9) g/dL Albumin (3.2-5.2) g/dL Globulin (2-4) g/dL Albumin/Globulin Ratio (1-3) Lipase (11.0-82.0) U/L TSH (0.34-5.60) mcIU/mL Acetaminophen mcg/mL Serum Alcohol (<10) mg/dL Microbiology and Other Data: Microbiology 08/10/17 13:22 Aerobic Blood Culture - Preliminary Blood Venous No Growth Day 1 Anaerobic Blood Culture - Preliminary No Growth Day 1 08/10/17 13:17 Aerobic Blood Culture - Preliminary Blood Venous No Growth Day 1 Anaerobic Blood Culture - Preliminary No Growth Day 1 08/10/17 11:54 Urine Culture - Final Urine Legionella Urinary Antigen - Final Negative Legionella Streptococcus pneumoniae Ag Screen - Final Negative S. pneumo Antigen 08/10/17 11:56 Influenza Types A,B Antigen (JESSICA) - Final Nasal Specimen received for Influenza A/B Molecular testing Assess/Plan/Problems-Billing Assessment: CAP, DIONICIO on CKD in an 87 yo M with hx of HTN, HLD, CAD, CKD3, dementia, DM, SSS s/p PPM - Patient Problems (1) CAP (community acquired pneumonia) Current Visit: Yes Comment: Continue CTX/Azithromycin. Urine antigens negative. Continue supplemental O2. Continues to have tachycardia, continue IVF. (2) DIONICIO (acute kidney injury) Current Visit: Yes Comment: on CKD3. Likely due to continue diuretics as outpatient with poor PO intake. FeNa 0.5%. Will give additional IVF, recheck BMP this evening and tomorrow AM. If hyperkalemia worse will get additional EKG and treat. Continue to hold nephrotoxic medications. (3) Diabetes mellitus type 2 Current Visit: No Comment: BGs uncontrolled, likely due to prednisone. Patient is on 4 mg alternative with 3 mg at home, will resume this. Lantus increased to 35 units (still lower than home dose) and HISS increased. Monitor closely. (4) COPD (chronic obstructive pulmonary disease) Current Visit: No Comment: Stop increased steroid dose. Continue Dulera, make nebs prn. (5) Atrial fibrillation Current Visit: No Comment: Rate is rapid. Continue coreg and diltiazem. Pt is not anticoagulated chronically. Has PPM. (6) Hypertension Current Visit: No Comment: Continue Coreg and Diltiazem (7) PMR (polymyalgia rheumatica) Current Visit: No Comment: Continue home prednisone, on long taper (8) DVT prophylaxis Current Visit: No Comment: SQ heparin
[2017-08-11] MEDS ORDERED: Albuterol/Ipratropium NEB.SOL* Albuterol 2.5 MG/Ipratropium 0.5 MG 3 ML INH PRN (14:35)
[2017-08-11 15:23] LABS: BUN/Creatinine Ratio 45.8 (8-20); EGFR African American 29.6 (>60); Potassium 5.7 mmol/L (3.5-5.0)
[2017-08-11] MEDS: Aspirin Low Dose CHEW TAB* 81 MG PO SCH (21:16)
[2017-08-11] MEDS: Donepezil TAB* 5 MG PO SCH (21:16)
[2017-08-11] MEDS: CMC:Rosuvastatin (NF) 5 MG TAB PO SCH (21:16)
[2017-08-12] MEDS: Diltiazem TAB* 60 MG PO SCH ×4 (00:28→18:26)
[2017-08-12 05:10] LABS: Calcium 8.3 mg/dL (8.6-10.3); EGFR Non-African American 18.7 (>60); Magnesium 2.5 mg/dL (1.9-2.7); Potassium 5.8 mmol/L (3.5-5.0)
[2017-08-12 05:53] LABS: BUN/Creatinine Ratio 42.7 (8-20)
[2017-08-12] MEDS: Heparin VIAL(*) 5000 UNITS/ML VIAL (FIVE THOUSAND) SUBCUT SCH ×3 (05:53→22:45)
[2017-08-12] MEDS: Insulin LISPRO* 1 UNITS UNIT SUBCUT SCH ×4 (07:59→20:44)
[2017-08-12] MEDS: Insulin GLARGINE(*) 1 UNITS UNIT SUBCUT SCH (08:00)
[2017-08-12] MEDS: Carvedilol TAB* 6.25 MG PO SCH ×3 (08:00→20:44)
[2017-08-12] MEDS ORDERED: Sodium Polystyrene ORAL.SOL* 15 GM/60 ML BTL PO ONE (08:26)
[2017-08-12] MEDS: Mometasone/Formoter 200/5 MDI INH SCH ×2 (08:27→19:56)
[2017-08-12] MEDS: NS 0.9% 1000 ML* 1,000 ML IV SCH ×2 (09:45→20:11)
[2017-08-12] MEDS: cefTRIAXone VIAL(*) 1,000 MG in NS 0.9% 50 ML* 50 ML IVPB SCH (10:37)
--- NOTE | 2017-08-12 10:45 | PN ---
Subjective Date of Service: 08/12/17 Interval History: Patient seen this morning. As per nursing was somewhat lethargic this AM and stubborn, did not want to do much. Then went for a walk with PT and seems to be better. Has no complaints. Recalls walking this morning, says he is "glad to be back in the chair". No cough, SOB, chest pain. Family History: Unchanged from Admission Social History: Unchanged from Admission Past Medical History: Unchanged from Admission Objective Active Medications: Acetaminophen (Tylenol Tab*) 650 mg PO Q4H PRN PRN Reason: FEVER/PAIN Last Admin: 08/11/17 16:16 Dose: 650 mg Albuterol/Ipratropium (Duoneb (Albuterol 2.5 Mg/Ipratropium 0.5 Mg)) 1 neb INH Q4H PRN PRN Reason: SOB/WHEEZING Aspirin (Aspirin Low Dose Tab*) 81 mg PO BEDTIME [facility] Last Admin: 08/11/17 21:16 Dose: 81 mg Carvedilol (Coreg Tab*) 12.5 mg PO BID [facility] Last Admin: 08/12/17 10:39 Dose: 12.5 mg Dextrose (D50w Syringe 50 Ml*) 12.5 gm IV PUSH .FOR FS < 60 - SS PRN PRN Reason: FS < 60 Diltiazem HCl (Cardizem Tab*) 60 mg PO Q6H [facility] Last Admin: 08/12/17 05:53 Dose: 60 mg Donepezil HCl (Aricept Tab*) 10 mg PO BEDTIME [facility] Last Admin: 08/11/17 21:16 Dose: 10 mg Heparin Sodium (Porcine) (Heparin Vial(*)) 5,000 units SUBCUT Q8HR [facility] Last Admin: 08/12/17 05:53 Dose: 5,000 units Ceftriaxone Sodium 1,000 mg/ (Sodium Chloride) 50 mls @ 200 mls/hr IVPB Q24H [facility] Last Admin: 08/12/17 10:37 Dose: 200 mls/hr Azithromycin 500 mg/ Sodium (Chloride) 250 mls @ 250 mls/hr IVPB Q24H [facility] Last Admin: 08/11/17 13:17 Dose: 250 mls/hr Sodium Chloride (Ns 0.9% 1000 Ml*) 1,000 mls @ 125 mls/hr IV PER RATE [facility] Last Admin: 08/12/17 09:45 Dose: 125 mls/hr Insulin Glargine (Lantus(*)) 55 units SUBCUT QAM [facility] Last Admin: 08/12/17 08:00 Dose: 55 unit Insulin Human Lispro (Humalog*) 0 units SUBCUT ACHS [facility] PRN Reason: Protocol Last Admin: 08/12/17 07:59 Dose: 15 unit Mometasone Furoate/Formoterol Fumar (Dulera 200/5 Mdi*) 2 puff INH BID [facility] Last Admin: 08/12/17 08:27 Dose: Not Given Ondansetron HCl (Zofran Inj*) 4 mg IV Q6H PRN PRN Reason: NAUSEA Prednisone (Deltasone Tab*) 3 mg PO EVERY OTHER DAY [facility] Prednisone (Deltasone Tab*) 4 mg PO EVERY OTHER DAY [facility] Rosuvastatin Calcium (Crestor (Nf)) 5 mg PO BEDTIME [facility] PRN Reason: Protocol Last Admin: 08/11/17 21:16 Dose: 5 mg Vital Signs 08/11/17 08/11/17 08/11/17 11:18 15:37 18:25 Temperature 97.3 F 97.2 F Pulse Rate 113 35 88 Respiratory 20 16 Rate Blood Pressure 132/67 97/51 123/63 (mmHg) O2 Sat by Pulse 96 96 Oximetry 08/11/17 08/11/17 08/11/17 19:30 20:00 23:54 Temperature 97.4 F 97.4 F Pulse Rate 109 107 Respiratory 16 12 22 Rate Blood Pressure 124/95 116/63 (mmHg) O2 Sat by Pulse 94 94 Oximetry 08/12/17 08/12/17 08/12/17 00:21 03:36 07:33 Temperature 97.4 F 96.2 F Pulse Rate 106 36 Respiratory 20 16 Rate Blood Pressure 113/59 106/51 (mmHg) O2 Sat by Pulse 94 92 97 Oximetry 08/12/17 08:00 Temperature Pulse Rate Respiratory 16 Rate Blood Pressure (mmHg) O2 Sat by Pulse Oximetry Oxygen Devices in Use Now: Nasal Cannula - 3L Appearance: Elderly, M, sitting in chair in NAD Eyes: No Scleral Icterus Ears/Nose/Mouth/Throat: Mucous Membranes Moist Neck: NL Appearance and Movements; NL JVP Respiratory: Symmetrical Chest Expansion and Respiratory Effort, - - Some slight end-expiratory wheezing, diminished in bases, no rales appreciated Cardiovascular: - - Mild tachycardia Extremities: - - Mild LE edema to mid-shins B/L Skin: No Rash or Ulcers Neurological: - - Alert, oriented, no focal deficits Lines/Tubes/Other Access: Clean, Dry and Intact Marie Result Diagrams: 08/11/17 04:41 08/12/17 04:20 Additional Lab and Data: Lab Results 08/10/17 08/10/17 08/10/17 Range/Units 09:48 09:48 09:48 WBC (3.5-10.8) 10^3/ul RBC (4.0-5.4) 10^6/ul Hgb (14.0-18.0) g/dl Hct (42-52) % MCV (80-94) fL MCH (27-31) pg MCHC (31-36) g/dl RDW (10.5-15) % Plt Count (150-450) 10^3/ul MPV (7.4-10.4) um3 Neut % (Auto) (38-83) % Lymph % (Auto) (25-47) % [place]rell % (Auto) (1-9) % Eos % (Auto) (0-6) % Baso % (Auto) (0-2) % Absolute Neuts (auto) (1.5-7.7) 10^3/ul Absolute Lymphs (auto) (1.0-4.8) 10^3/ul Absolute Monos (auto) (0-0.8) 10^3/ul Absolute Eos (auto) (0-0.6) 10^3/ul Absolute Basos (auto) (0-0.2) 10^3/ul Absolute Nucleated RBC 10^3/ul Nucleated RBC % INR (Anticoag Therapy) 1.12 H (0.89-1.11) APTT 29.1 (26.0-36.3) seconds D-Dimer, Quantitative 498 H (Less Than 230) ng/mL ABG pH (7.35-7.45) ABG pCO2 (35-45) mmHg ABG pO2 (80-100) mmHg ABG HCO3 (19-31) mmol/L ABG O2 Saturation (95-98) % ABG Base Excess (-2.0-2.0) Sodium 132 L (133-145) mmol/L Potassium 5.3 H (3.5-5.0) mmol/L Chloride 96 L (101-111) mmol/L Carbon Dioxide 31 (22-32) mmol/L Anion Gap 5 (2-11) mmol/L BUN 109 H (6-24) mg/dL Creatinine 2.47 H (0.67-1.17) mg/dL Est GFR ( Amer) 31.9 (>60) Est GFR (Non-Af Amer) 24.8 (>60) BUN/Creatinine Ratio 44.1 H (8-20) Glucose 256 H (70-100) mg/dL Lactic Acid (0.5-2.0) mmol/L Calcium 8.6 (8.6-10.3) mg/dL Magnesium 2.3 (1.9-2.7) mg/dL Total Bilirubin 0.40 (0.2-1.0) mg/dL AST 29 (13-39) U/L ALT 44 (7-52) U/L Alkaline Phosphatase 68 (34-104) U/L Ammonia 35 (16-53) mol/L Total Creatine Kinase 24 (10-223) U/L CK-MB (CK-2) 2.8 (0.6-6.3) ng/mL Troponin I 0.01 (<0.04) ng/mL C-Reactive Protein 202.44 H (< 5.00) mg/L B-Natriuretic Peptide 350 H ( - 100) pg/mL Total Protein 6.5 (6.4-8.9) g/dL Albumin 3.2 (3.2-5.2) g/dL Globulin 3.3 (2-4) g/dL Albumin/Globulin Ratio 1.0 (1-3) Lipase 13 (11.0-82.0) U/L TSH 2.64 (0.34-5.60) mcIU/mL Acetaminophen < 15 mcg/mL Serum Alcohol < 10 (<10) mg/dL 08/10/17 08/10/17 08/10/17 Range/Units 09:48 09:48 10:35 WBC 8.7 (3.5-10.8) 10^3/ul RBC 3.63 L (4.0-5.4) 10^6/ul Hgb 10.4 L (14.0-18.0) g/dl Hct 32 L (42-52) % MCV 89 (80-94) fL MCH 29 (27-31) pg MCHC 32 (31-36) g/dl RDW 14 (10.5-15) % Plt Count 119 L (150-450) 10^3/ul MPV 8 (7.4-10.4) um3 Neut % (Auto) 75.8 (38-83) % Lymph % (Auto) 6.9 L (25-47) % Tyrrell % (Auto) 16.4 H (1-9) % Eos % (Auto) 0.6 (0-6) % Baso % (Auto) 0.3 (0-2) % Absolute Neuts (auto) 6.6 (1.5-7.7) 10^3/ul Absolute Lymphs (auto) 0.6 L (1.0-4.8) 10^3/ul Absolute Monos (auto) 1.4 H (0-0.8) 10^3/ul Absolute Eos (auto) 0.1 (0-0.6) 10^3/ul Absolute Basos (auto) 0 (0-0.2) 10^3/ul Absolute Nucleated RBC 0.01 10^3/ul Nucleated RBC % 0.1 INR (Anticoag Therapy) (0.89-1.11) APTT (26.0-36.3) seconds D-Dimer, Quantitative (Less Than 230) ng/mL ABG pH 7.27 L (7.35-7.45) ABG pCO2 68 H (35-45) mmHg ABG pO2 89 (80-100) mmHg ABG HCO3 27.2 (19-31) mmol/L ABG O2 Saturation 96.1 (95-98) % ABG Base Excess 3.0 H (-2.0-2.0) Sodium (133-145) mmol/L Potassium (3.5-5.0) mmol/L Chloride (101-111) mmol/L Carbon Dioxide (22-32) mmol/L Anion Gap (2-11) mmol/L BUN (6-24) mg/dL Creatinine (0.67-1.17) mg/dL Est GFR ( Amer) (>60) Est GFR (Non-Af Amer) (>60) BUN/Creatinine Ratio (8-20) Glucose (70-100) mg/dL Lactic Acid 0.4 L (0.5-2.0) mmol/L Calcium (8.6-10.3) mg/dL Magnesium (1.9-2.7) mg/dL Total Bilirubin (0.2-1.0) mg/dL AST (13-39) U/L ALT (7-52) U/L Alkaline Phosphatase (34-104) U/L Ammonia (16-53) mol/L Total Creatine Kinase (10-223) U/L CK-MB (CK-2) (0.6-6.3) ng/mL Troponin I (<0.04) ng/mL C-Reactive Protein (< 5.00) mg/L B-Natriuretic Peptide ( - 100) pg/mL Total Protein (6.4-8.9) g/dL Albumin (3.2-5.2) g/dL Globulin (2-4) g/dL Albumin/Globulin Ratio (1-3) Lipase (11.0-82.0) U/L TSH (0.34-5.60) mcIU/mL Acetaminophen mcg/mL Serum Alcohol (<10) mg/dL Microbiology and Other Data: Microbiology 08/10/17 13:22 Aerobic Blood Culture - Preliminary Blood Venous No Growth Day 1 Anaerobic Blood Culture - Preliminary No Growth Day 1 08/10/17 13:17 Aerobic Blood Culture - Preliminary Blood Venous No Growth Day 1 Anaerobic Blood Culture - Preliminary No Growth Day 1 08/10/17 11:54 Urine Culture - Final Urine Legionella Urinary Antigen - Final Negative Legionella Streptococcus pneumoniae Ag Screen - Final Negative S. pneumo Antigen 08/10/17 11:56 Influenza Types A,B Antigen (JESSICA) - Final Nasal Specimen received for Influenza A/B Molecular testing Assess/Plan/Problems-Billing Assessment: CAP, DIONICIO on CKD in an 87 yo M with hx of HTN, HLD, CAD, CKD3, dementia, DM, SSS s/p PPM - Patient Problems (1) CAP (community acquired pneumonia) Current Visit: Yes Comment: Continue CTX/Azithromycin. Urine antigens negative. Continue supplemental O2. Continues to have intermittent tachycardia/ Afib/flutter, continue IVF. (2) DIONICIO (acute kidney injury) Current Visit: Yes Comment: on CKD3. Likely due to continue diuretics as outpatient with poor PO intake. FeNa 0.5%. Continue IVF today, recheck BMP in afternoon. Will give Kayexalate x 1 as hyperkalemia is persisting. Continue to hold nephrotoxic medications. (3) Diabetes mellitus type 2 Current Visit: No Comment: BGs somewhat better this morning. Home dose of Lantus 55 units daily, continue HISS. Monitor closely. (4) COPD (chronic obstructive pulmonary disease) Current Visit: No Comment: Stop increased steroid dose. Continue Dulera, prn nebs. (5) Atrial fibrillation Current Visit: No Comment: Rate is rapid. Continue coreg and diltiazem. Pt is not anticoagulated chronically. Has PPM. (6) Hypertension Current Visit: No Comment: Continue Coreg and Diltiazem (7) PMR (polymyalgia rheumatica) Current Visit: No Comment: Continue home prednisone, on long taper (8) DVT prophylaxis Current Visit: No Comment: SQ heparin
[2017-08-12] MEDS: Azithromycin IV(*) 500 MG in NS 0.9% 250 ML* 250 ML IVPB SCH (12:17)
[2017-08-12 15:57] LABS: CO2 Carbon Dioxide 22 mmol/L (22-32); Calcium 8.1 mg/dL (8.6-10.3); Chloride 98 mmol/L (101-111); EGFR African American 24.5 (>60); Glucose 295 mg/dL (70-100); Sodium 129 mmol/L (133-145)
[2017-08-12 16:02] LABS: Anion Gap 9 mmol/L (2-11)
[2017-08-12 16:19] LABS: Blood Urea Nitrogen 143 mg/dL (6-24)
[2017-08-12] MEDS ORDERED: Diltiazem IV* 5 MG/ML 5 ML VIAL (for loading dose/IV Push) (25 MG) IV SLOW PU ONE (16:20)
[2017-08-12] MEDS: CMC:Rosuvastatin (NF) 5 MG TAB PO SCH (20:44)
[2017-08-12] MEDS: Donepezil TAB* 5 MG PO SCH (20:44)
[2017-08-12] MEDS: Aspirin Low Dose CHEW TAB* 81 MG PO SCH (20:44)
[2017-08-13] MEDS: Diltiazem TAB* 60 MG PO SCH ×2 (00:24→05:45)
[2017-08-13] MEDS: NS 0.9% 1000 ML* 1,000 ML IV SCH ×3 (04:34→17:34)
[2017-08-13] MEDS: Heparin VIAL(*) 5000 UNITS/ML VIAL (FIVE THOUSAND) SUBCUT SCH ×3 (05:45→21:16)
[2017-08-13] MEDS: Mometasone/Formoter 200/5 MDI INH SCH ×2 (07:56→20:10)
[2017-08-13] MEDS: Insulin LISPRO* 1 UNITS UNIT SUBCUT SCH ×4 (08:07→21:16)
[2017-08-13] MEDS: predniSONE TAB* 1 MG PO SCH (08:18)
[2017-08-13] MEDS: Insulin GLARGINE(*) 1 UNITS UNIT SUBCUT SCH (08:19)
[2017-08-13] MEDS: Carvedilol TAB* 6.25 MG PO SCH ×2 (08:19→21:13)
[2017-08-13 09:10] LABS: Calcium 8.1 mg/dL (8.6-10.3); EGFR African American 30.2 (>60); EGFR Non-African American 23.5 (>60); Magnesium 2.2 mg/dL (1.9-2.7); Potassium 4.9 mmol/L (3.5-5.0)
[2017-08-13] MEDS ORDERED: NS 0.9% 1000 ML* 1,000 ML IV SCH (09:33)
[2017-08-13] MEDS ORDERED: Diltiazem TAB* 30 MG PO ONE (09:40)
[2017-08-13 09:44] LABS: BUN/Creatinine Ratio 50.6 (8-20)
[2017-08-13] MEDS: cefTRIAXone VIAL(*) 1,000 MG in NS 0.9% 50 ML* 50 ML IVPB SCH (10:43)
[2017-08-13] MEDS ORDERED: Metoprolol Tartrate IV* 1 MG/ML 5 ML VIAL IV ONE (11:48)
[2017-08-13] MEDS: Azithromycin IV(*) 500 MG in NS 0.9% 250 ML* 250 ML IVPB SCH (12:06)
[2017-08-13] MEDS: Diltiazem TAB* 30 MG PO SCH ×2 (12:07→17:34)
--- NOTE | 2017-08-13 12:30 | PN ---
Subjective Date of Service: 08/13/17 Interval History: Patient seen this morning. Reports feeling a bit better today. Seems more alert , energetic. Says breathing is slightly labored. Swelling in legs is "not too bad". Asking when he can go home. Family History: Unchanged from Admission Social History: Unchanged from Admission Past Medical History: Unchanged from Admission Objective Active Medications: Acetaminophen (Tylenol Tab*) 650 mg PO Q4H PRN Albuterol/Ipratropium (Duoneb (Albuterol 2.5 Mg/Ipratropium 0.5 Mg)) 1 neb INH Q4H PRN Aspirin (Aspirin Low Dose Tab*) 81 mg PO BEDTIME [facility] Carvedilol (Coreg Tab*) 12.5 mg PO BID [facility] Dextrose (D50w Syringe 50 Ml*) 12.5 gm IV PUSH .FOR FS < 60 - SS PRN Diltiazem HCl (Cardizem Tab*) 90 mg PO Q6H [facility] Donepezil HCl (Aricept Tab*) 10 mg PO BEDTIME [facility] Heparin Sodium (Porcine) (Heparin Vial(*)) 5,000 units SUBCUT Q8HR [facility] Ceftriaxone Sodium 1,000 mg/ (Sodium Chloride) 50 mls @ 200 mls/hr IVPB Q24H [facility] Azithromycin 500 mg/ Sodium (Chloride) 250 mls @ 250 mls/hr IVPB Q24H [facility] Sodium Chloride (Ns 0.9% 1000 Ml*) 1,000 mls @ 100 mls/hr IV PER RATE [facility] Insulin Glargine (Lantus(*)) 55 units SUBCUT QAM [facility] Insulin Human Lispro (Humalog*) 0 units SUBCUT ACHS [facility] Mometasone Furoate/Formoterol Fumar (Dulera 200/5 Mdi*) 2 puff INH BID [facility] Ondansetron HCl (Zofran Inj*) 4 mg IV Q6H PRN Prednisone (Deltasone Tab*) 3 mg PO EVERY OTHER DAY [facility] Prednisone (Deltasone Tab*) 4 mg PO EVERY OTHER DAY [facility] Rosuvastatin Calcium (Crestor (Nf)) 5 mg PO BEDTIME [facility] Vital Signs 08/12/17 08/12/17 08/12/17 16:01 19:36 20:00 Temperature 96.0 F 98.1 F Pulse Rate 94 121 Respiratory 20 16 18 Rate Blood Pressure 137/81 137/83 (mmHg) O2 Sat by Pulse 89 98 Oximetry 08/12/17 08/12/17 08/13/17 20:01 23:18 02:30 Temperature 97.4 F 97.6 F Pulse Rate 113 115 120 Respiratory 18 16 20 Rate Blood Pressure 117/72 141/68 (mmHg) O2 Sat by Pulse 95 97 96 Oximetry 08/13/17 08/13/17 08/13/17 08:33 09:50 11:19 Temperature 98.1 F 98.4 F Pulse Rate 122 123 Respiratory 16 24 Rate Blood Pressure 131/64 129/71 (mmHg) O2 Sat by Pulse 93 92 Oximetry Oxygen Devices in Use Now: Nasal Cannula - 3L Appearance: Elderly, M, sitting in chair in NAD Eyes: No Scleral Icterus Ears/Nose/Mouth/Throat: Mucous Membranes Moist Neck: NL Appearance and Movements; NL JVP Respiratory: Symmetrical Chest Expansion and Respiratory Effort, - - Diminished BS in bases Cardiovascular: - - Regular, tachycardic Abdominal: - - Soft, distended, BS+ Extremities: - - Mild LE edema to mid-shins B/L Skin: No Rash or Ulcers Neurological: - - Alert, oriented, no focal deficits Result Diagrams: 08/11/17 04:41 08/13/17 08:42 Assess/Plan/Problems-Billing Assessment: CAP, DIONICIO on CKD in an 87 yo M with hx of HTN, HLD, CAD, CKD3, dementia, DM, SSS s/p PPM - Patient Problems (1) CAP (community acquired pneumonia) Current Visit: Yes Comment: Continue CTX/Azithromycin. Urine antigens negative. Continue supplemental O2. Continues to have intermittent tachycardia/ Afib/flutter, continue IVF at decreased rate. (2) DIONICIO (acute kidney injury) Current Visit: Yes Comment: on CKD3. Likely due to continue diuretics as outpatient with poor PO intake. FeNa 0.5%. Creatinine trending down, decrease IVF due to concerns about fluid overload. K normalized. Continue to hold nephrotoxic medications. (3) Diabetes mellitus type 2 Current Visit: No Comment: Fasting BG low this AM, reduce Lantus to 45 units daily, continue HISS. Monitor closely. (4) COPD (chronic obstructive pulmonary disease) Current Visit: No Comment: Stopped increased steroid dose. Continue Dulera, prn nebs. (5) Atrial fibrillation Current Visit: No Comment: Continues to have rapid heart rate. Increase Cardizem dose, will give IV metoprolol as well as continued Coreg. Pt is not anticoagulated chronically. Has PPM. (6) Hypertension Current Visit: No Comment: Continue Coreg and Diltiazem (7) PMR (polymyalgia rheumatica) Current Visit: No Comment: Continue home prednisone, on long taper (8) DVT prophylaxis Current Visit: No Comment: SQ heparin
[2017-08-13] MEDS: Metoprolol Tartrate IV* 1 MG/ML 5 ML VIAL IV PRN ×2 (17:36→22:29)
[2017-08-13] MEDS: Aspirin Low Dose CHEW TAB* 81 MG PO SCH (21:13)
[2017-08-13] MEDS: Donepezil TAB* 5 MG PO SCH (21:13)
[2017-08-13] MEDS: CMC:Rosuvastatin (NF) 5 MG TAB PO SCH (21:13)
[2017-08-14] MEDS: Diltiazem TAB* 30 MG PO SCH ×5 (00:14→22:50)
[2017-08-14] MEDS: Metoprolol Tartrate IV* 1 MG/ML 5 ML VIAL IV PRN ×5 (04:10→19:55)
[2017-08-14] MEDS: Heparin VIAL(*) 5000 UNITS/ML VIAL (FIVE THOUSAND) SUBCUT SCH ×3 (05:28→22:59)
[2017-08-14 06:24] LABS: BUN/Creatinine Ratio 54.8 (8-20); Calcium 8.4 mg/dL (8.6-10.3); EGFR African American 34.7 (>60); Magnesium 2.5 mg/dL (1.9-2.7); Potassium 4.8 mmol/L (3.5-5.0)
[2017-08-14] MEDS: NS 0.9% 1000 ML* 1,000 ML IV SCH (07:22)
[2017-08-14] MEDS: Mometasone/Formoter 200/5 MDI INH SCH (08:16)
[2017-08-14] MEDS ORDERED: Insulin GLARGINE(*) 1 UNITS UNIT SUBCUT SCH (09:00)
[2017-08-14] MEDS: Insulin LISPRO* 1 UNITS UNIT SUBCUT SCH ×4 (09:37→23:07)
[2017-08-14] MEDS: predniSONE TAB* 1 MG PO SCH (10:10)
[2017-08-14] MEDS: cefTRIAXone VIAL(*) 1,000 MG in NS 0.9% 50 ML* 50 ML IVPB SCH (10:10)
[2017-08-14] MEDS: Carvedilol TAB* 6.25 MG PO SCH ×2 (10:11→22:49)
--- NOTE | 2017-08-14 13:14 | PN ---
Subjective Date of Service: 08/14/17 Interval History: Patient seen this afternoon with present. Had low BGs this morning, responded to dextrose. feels he is "less perky" today which I agree with. Patient has no complaints, says "OK" to all questions. Family History: Unchanged from Admission Social History: Unchanged from Admission Past Medical History: Unchanged from Admission Objective Active Medications: Acetaminophen (Tylenol Tab*) 650 mg PO Q4H PRN Albuterol/Ipratropium (Duoneb (Albuterol 2.5 Mg/Ipratropium 0.5 Mg)) 1 neb INH Q4H PRN Aspirin (Aspirin Low Dose Tab*) 81 mg PO BEDTIME PRICILLA Carvedilol (Coreg Tab*) 18.75 mg PO BID PRICILLA Dextrose (D50w Syringe 50 Ml*) 12.5 gm IV PUSH .FOR FS < 60 - SS PRN Diltiazem HCl (Cardizem Tab*) 90 mg PO Q6H PRICILLA Donepezil HCl (Aricept Tab*) 10 mg PO BEDTIME PRICILLA Heparin Sodium (Porcine) (Heparin Vial(*)) 5,000 units SUBCUT Q8HR PRICILLA Ceftriaxone Sodium 1,000 mg/ (Sodium Chloride) 50 mls @ 200 mls/hr IVPB Q24H PRICILLA Insulin Human Lispro (Humalog*) 0 units SUBCUT ACHS PRICILLA Metoprolol Tartrate (Lopressor Iv*) 5 mg IV Q2H PRN Mometasone Furoate/Formoterol Fumar (Dulera 200/5 Mdi*) 2 puff INH BID PRICILLA Ondansetron HCl (Zofran Inj*) 4 mg IV Q6H PRN Prednisone (Deltasone Tab*) 3 mg PO EVERY OTHER DAY PRICILLA Prednisone (Deltasone Tab*) 4 mg PO EVERY OTHER DAY PRICILLA Rosuvastatin Calcium (Crestor (Nf)) 5 mg PO BEDTIME PRICILLA Vital Signs 08/13/17 08/13/17 08/13/17 15:20 17:33 20:00 Temperature 97.8 F Pulse Rate 119 124 124 Respiratory 16 16 Rate Blood Pressure 141/56 155/71 (mmHg) O2 Sat by Pulse 94 94 Oximetry 08/14/17 08/14/17 08/14/17 00:26 01:41 03:38 Temperature 98.0 F Pulse Rate 125 Respiratory 20 Rate Blood Pressure 136/74 (mmHg) O2 Sat by Pulse 96 96 91 Oximetry 08/14/17 12:02 Temperature 98.1 F Pulse Rate 62 Respiratory 24 Rate Blood Pressure 133/75 (mmHg) O2 Sat by Pulse 96 Oximetry Oxygen Devices in Use Now: Nasal Cannula - 4L Appearance: Elderly, M, laying in bed in NAD Eyes: No Scleral Icterus Ears/Nose/Mouth/Throat: - - Nasal CPAP in place Neck: NL Appearance and Movements; NL JVP Respiratory: Symmetrical Chest Expansion and Respiratory Effort - Diminished BS in B/L bases Cardiovascular: - - IRIR, normal rate Abdominal: - - Soft, distended, non-tender, BS+ Extremities: - - Mild LE pitting edema Neurological: - - Awakens to voice, lethargic Lines/Tubes/Other Access: Clean, Dry and Intact Marie Result Diagrams: 08/11/17 04:41 08/14/17 04:38 Assess/Plan/Problems-Billing Assessment: CAP, DIONICIO on CKD in an 87 yo M with hx of HTN, HLD, CAD, CKD3, dementia, DM, SSS s/p PPM - Patient Problems (1) CAP (community acquired pneumonia) Current Visit: Yes Comment: Continue Ceftriaxone. Completed Azithromycin. Urine antigens negative. Continue supplemental O2. Stop IVF. (2) DIONICIO (acute kidney injury) Current Visit: Yes Comment: on CKD3. Likely due to continue diuretics as outpatient with poor PO intake. FeNa 0.5%. Creatinine continues to slowly improve, now showing more signs of fluid overload, stop IVF. Continue to hold nephrotoxic medications. BMP daily. (3) Chronic diastolic CHF (congestive heart failure) Current Visit: Yes Comment: Now developing worsening fluid overload. Stop IVF. Will need to determine when to resume diuretics, possibly in next 24-48 hours (4) Diabetes mellitus type 2 Current Visit: No Comment: Hypoglycemic this morning. Hold Lantus for now. HISS only. Monitor closely. (5) COPD (chronic obstructive pulmonary disease) Current Visit: No Comment: Stopped increased steroid dose. Continue Dulera, prn nebs. (6) Atrial fibrillation Current Visit: No Comment: HR remained elevated overnight and earlier this morning, despite IV metoprolol, Coreg and Dltiazem. Seems to be better controlled at the moment, continue current regimen. Have asked Cardiology for assistance. Pt is not anticoagulated chronically. Has PPM. (7) Hypertension Current Visit: No Comment: Continue Coreg and Diltiazem (8) PMR (polymyalgia rheumatica) Current Visit: No Comment: Continue home prednisone, on long taper (9) DVT prophylaxis Current Visit: No Comment: SQ heparin
[2017-08-14 15:52] LABS: FIO2 4
[2017-08-14 15:56] LABS: PCO2 Arterial 66 mmHg (35-45)
--- NOTE | 2017-08-14 16:08 | RAD ---
INDICATION: Short of breath COMPARISON: August 10, 2017 TECHNIQUE: An AP portable view obtained at 1552 hours is submitted. FINDINGS: Bones/Soft Tissues: There are no acute bony findings. There is a cardiac pacemaker Cardiomediastinal: The heart is top normal in size. The central pulmonary vessels and interstitium are prominent compatible with mild interstitial congestion. Lungs: There are no focal consolidative changes. There is persistent mild airspace disease in the right chest with interstitial and alveolar change Pleura: Small right-sided effusion. Other: None IMPRESSION: MILD INTERSTITIAL CONGESTION . PERSISTENT FOCAL INTERSTITIAL AND ALVEOLAR CHANGE RIGHT LOWER LOBE.
--- NOTE | 2017-08-14 16:28 | PN ---
Hospitalist Progress Note Patient with some increased WOB throughout the day, seemed to respond to CPAP. Slightly more lethargic. CXR showed some interstitial congestion and ABG shows respiratory acidosis. Will transfer to ICU for BiPAP therapy.
--- NOTE | 2017-08-14 18:19 | CONS ---
CC: Dr. Fuentes; Dr. Gonzalez; Dr. Kirkland; Hospitalist Service * CARDIOLOGY CONSULTATION: DATE OF CONSULT: 08/14/17 HISTORY OF PRESENT ILLNESS: I was asked by Dr. Ward from the hospitalist service to see this 87-year-old male patient, who does have extensive cardiac history and medical comorbidities, hospitalized actually on 08/10/17 with pneumonia. The patient also with history of paroxysmal atrial flutter/ fibrillation. Recently was seen by Dr. Monsalve for atrial flutter with mild tachycardia and his Cardizem was increased. He has been on Cardizem and Coreg for rate control and also on anticoagulation here in the hospital. Cardiology consult was further requested to help in rate controlling the patient. The patient does have extensive cardiac history of including sick sinus syndrome, history of permanent pacemaker implantation, also other comorbidities including stage 3 kidney disease, hypertension, hyperlipidemia, COPD, obstructive sleep apnea, diabetes mellitus, history of dementia as well. He does have also history of coronary artery disease, history of cardiac catheterization most recent in 2011 and was found to have patent proximal stent to the RCA. There was mid 85% stenosis of the RCA, circ has a long 50% stenosis, LAD stent was patent, left main was okay. The patient underwent nondrug-eluting stent to the RCA. When I interviewed the patient, the and the family are in the exam room. He is receiving oxygen treatment. Currently, no active symptoms of chest pain. No orthopnea. No PND. No dizziness. No syncope. No nausea. No vomiting. No fever. No chills. No skin rash. No tremors. No hematochezia is appreciated. Review of all other systems essentially is negative. PAST MEDICAL HISTORY: Very extensive including coronary artery disease, history of myocardial infarction, history of intervention, history of chronic renal insufficiency, history of diabetes mellitus, hypertension, ITP, Dr. Simpson followed up, history of COPD, history of atrial fibrillation and flutter, history of sick sinus syndrome and permanent pacemaker, history of hyperkalemia. PAST SURGICAL HISTORY: Adrenalectomy in 2000, colonoscopy in 2000, catheter removal in 2005, pacemaker in 2012, basal cell cancer in 2016. MEDICATIONS: Medications as an outpatient include: 1. Tylenol 650 mg p.o. q.4 hours p.r.n. for pain. 2. DuoNeb treatment. 3. Aspirin 81 mg daily. 4. Coreg 18.75 mg twice a day. 5. Ceftriaxone 1 g q.24 hours. 6. Diltiazem 90 mg p.o. q.6 hours. 7. Heparin 5000 units subcu q.8 hours. 8. Humalog. 9. Lopressor 5 mg IV q.2 hours p.r.n. for tachycardia. 10. Zofran 4 mg IV q.6 hours p.r.n. for nausea. 11. Prednisone 3 mg every other day. 12. Crestor 5 mg daily. FAMILY HISTORY: Noncontributory at the present time. SOCIAL HISTORY: He is , lives with , retired. Used to smoke 50 packs a year, quit at age 49. Drinks alcohol socially. No history of illicit drug use. REVIEW OF SYSTEMS: Review of all other systems is essentially negative. PHYSICAL EXAMINATION: On exam, awake. He is not in acute distress. Vitals: Blood pressure 133/75, pulse is 110 with AFib, temperature 98.1, respiratory rate 16. Head and Neck Exam: Normocephalic and atraumatic. Head, Ears, Nose, and Throat: Essentially benign. Neck: Supple. JVP is not elevated. No carotid bruits. No masses in the neck is appreciated. Chest: Diminished air entry at the bases. No rales and no wheeze. Heart: Irregularly irregular. S1, S2. No added sounds. No gallops, no rubs. Abdomen: Benign. Positive bowel sounds. Extremities: No edema, no cyanosis, no clubbing. Skin exam is normal. Psych: Normal affect and mood. CLASSROOM ASSISTANT: No focal deficits appreciated. DIAGNOSTIC STUDIES/LAB DATA: White blood cell 6, hemoglobin 10, hematocrit 31, and platelets 114,000. INR 1.12. Sodium 139, potassium 4.8, chloride 107, BUN 126, creatinine 2.30. Chest x-ray that was done on the showed a chronic obstructive pulmonary disease and pulmonary arterial hypertension, right lung base pneumonia. EKG from the showed the patient to be in paced ventricular rhythm and atrial flutter/fibrillation. IMPRESSION: The patient is an 87-year-old male patient with: 1. Presentation with pneumonia and atrial flutter/fibrillation, which is not new. 2. Coronary artery disease with history of myocardial infarction and stenting in the past. Please see full detailed cardiac cath from 2011. 3. Systemic arterial hypertension. 4. Sick sinus syndrome, status post permanent pacemaker implantation. 5. Chronic obstructive pulmonary disease. 6. Sleep apnea. 7. Chronic kidney disease with significantly elevated BUN and creatinine, followed up with Dr. Crawford. 8. Obesity. 9. Abnormal EKG as described. PLAN: The patient is currently on the telemetry floor on medical treatment. Cardiology consult is further requested to assist in controlling his atrial flutter/fibrillation. At the present time, avoid significant alcohol, caffeinated drinks, and stimulants. Stay well hydrated to keep potassium and magnesium within normal limits. I increased his Coreg to 25 mg twice a day. Keep a close eye on BUN and creatinine. Keep potassium and magnesium within normal limits. Followup with kidney status as per you and Dr. Crawford. Any further recommendations would be pending his clinical outcome. I agree with rate controlling and anticoagulation at the present time. TIME SPENT: More than half of at least 60 plus minutes was on the [id number] education and counseling discussing this patient with the hospitalist service and with the and the family members, answering all their concerns and questions up to their satisfaction. [id number]/CPS #: [id number] DELON
[2017-08-14 18:48] LABS: EPAP 8; FIO2 30; IPAP 16; Resp Rate 20
[2017-08-14 18:52] LABS: PCO2 Arterial 59 mmHg (35-45)
[2017-08-14] MEDS: Donepezil TAB* 5 MG PO SCH (22:51)
[2017-08-14] MEDS: Aspirin Low Dose CHEW TAB* 81 MG PO SCH (22:51)
[2017-08-14] MEDS: CMC:Rosuvastatin (NF) 5 MG TAB PO SCH (23:06)
[2017-08-15] MEDS: Mometasone/Formoter 200/5 MDI INH SCH ×3 (01:19→20:20)
[2017-08-15] MEDS ORDERED: LORazepam INJ* 2 MG/ML 1 ML VIAL ONE (01:21)
[2017-08-15 05:14] LABS: BUN/Creatinine Ratio 56.3 (8-20); Calcium 8.6 mg/dL (8.6-10.3); EGFR African American 45.2 (>60); EGFR Non-African American 35.1 (>60); Magnesium 2.3 mg/dL (1.9-2.7); Potassium 5.3 mmol/L (3.5-5.0)
[2017-08-15] MEDS: Diltiazem TAB* 30 MG PO SCH ×3 (05:36→16:24)
[2017-08-15] MEDS: Heparin VIAL(*) 5000 UNITS/ML VIAL (FIVE THOUSAND) SUBCUT SCH ×3 (05:36→21:15)
[2017-08-15] MEDS: Metoprolol Tartrate IV* 1 MG/ML 5 ML VIAL IV PRN ×3 (05:38→16:25)
[2017-08-15] MEDS: Insulin LISPRO* 1 UNITS UNIT SUBCUT SCH ×3 (07:47→18:09)
[2017-08-15] MEDS ORDERED: Carvedilol TAB* 25 MG PO SCH (09:00)
[2017-08-15] MEDS ORDERED: Furosemide IV* 10 MG/ML VIAL (40 MG) IV ONE (09:30)
--- NOTE | 2017-08-15 09:30 | PN ---
Subjective Date of Service: 08/15/17 Interval History: Patient seen this morning, was on BiPAP overnight, did receive 1 dose of Ativan for agitation. Says he feels "groggy" this morning but seems more responsive and alert. Denies pain, no SOB. Says he is thirsty, not hungry. Family History: Unchanged from Admission Social History: Unchanged from Admission Past Medical History: Unchanged from Admission Objective Active Medications: Acetaminophen (Tylenol Tab*) 650 mg PO Q4H PRN Albuterol/Ipratropium (Duoneb (Albuterol 2.5 Mg/Ipratropium 0.5 Mg)) 1 neb INH Q4H PRN Aspirin (Aspirin Low Dose Tab*) 81 mg PO BEDTIME PRICILLA Carvedilol (Coreg Tab*) 25 mg PO BID PRICILLA Dextrose (D50w Syringe 50 Ml*) 12.5 gm IV PUSH .FOR FS < 60 - SS PRN Diltiazem HCl (Cardizem Tab*) 90 mg PO Q6H PRICILLA Donepezil HCl (Aricept Tab*) 10 mg PO BEDTIME PRICILLA Heparin Sodium (Porcine) (Heparin Vial(*)) 5,000 units SUBCUT Q8HR PRICILLA Ceftriaxone Sodium 1,000 mg/ (Sodium Chloride) 50 mls @ 200 mls/hr IVPB Q24H PRICILLA Insulin Human Lispro (Humalog*) 0 units SUBCUT ACHS PRICILLA Metoprolol Tartrate (Lopressor Iv*) 5 mg IV Q2H PRN Mometasone Furoate/Formoterol Fumar (Dulera 200/5 Mdi*) 2 puff INH BID PRICILLA Ondansetron HCl (Zofran Inj*) 4 mg IV Q6H PRN Prednisone (Deltasone Tab*) 3 mg PO EVERY OTHER DAY PRICILLA Prednisone (Deltasone Tab*) 4 mg PO EVERY OTHER DAY PRICILLA Rosuvastatin Calcium (Crestor (Nf)) 5 mg PO BEDTIME [facility] Vital Signs 08/14/17 08/14/17 08/14/17 12:02 16:12 17:21 Temperature 98.1 F 98.4 F 97.7 F Pulse Rate 62 123 122 Respiratory 24 23 26 Rate Blood Pressure 133/75 172/79 146/86 (mmHg) O2 Sat by Pulse 96 98 95 Oximetry 08/14/17 08/14/17 08/14/17 18:30 18:41 18:45 Temperature Pulse Rate 123 124 125 Respiratory 18 17 16 Rate Blood Pressure 148/82 154/89 (mmHg) O2 Sat by Pulse 96 95 96 Oximetry 08/15/17 08/15/17 08/15/17 04:00 04:01 04:22 Temperature 97.5 F Pulse Rate 126 124 Respiratory 15 17 Rate Blood Pressure 152/58 (mmHg) O2 Sat by Pulse 98 97 Oximetry 08/15/17 08/15/17 08/15/17 08:46 09:00 09:01 Temperature Pulse Rate 96 98 98 Respiratory 16 17 17 Rate Blood Pressure 130/83 138/81 (mmHg) O2 Sat by Pulse 96 96 96 Oximetry Oxygen Devices in Use Now: Nasal Cannula Appearance: Elderly, M, laying in bed in NAD Eyes: No Scleral Icterus Ears/Nose/Mouth/Throat: - - Dry MM Neck: NL Appearance and Movements; NL JVP Respiratory: Symmetrical Chest Expansion and Respiratory Effort, - - Diminished BS in B/L bases Cardiovascular: - - IRIR, normal rate Abdominal: - - Obese, soft, distended, BS+ Lymphatic: No Cervical Adenopathy Extremities: - - Diffuse edema Neurological: - - Alert, oriented, no focal deficits Lines/Tubes/Other Access: Clean, Dry and Intact Marie Result Diagrams: 08/11/17 04:41 08/15/17 04:50 Assess/Plan/Problems-Billing Assessment: CAP, DIONICIO on CKD in an 87 yo M with hx of HTN, HLD, CAD, CKD3, dementia, DM, SSS s/p PPM - Patient Problems (1) CAP (community acquired pneumonia) Current Visit: Yes Comment: Continue Ceftriaxone. Completed Azithromycin. Urine antigens negative. Continue supplemental O2. (2) DIONICIO (acute kidney injury) Current Visit: Yes Comment: on CKD3. Likely due to continue diuretics as outpatient with poor PO intake. FeNa 0.5%. Creatinine continues to improve, now showing more signs of fluid overload. Continue to hold nephrotoxic medications. BMP daily. (3) Chronic diastolic CHF (congestive heart failure) Current Visit: Yes Comment: Developing worsening fluid overload. Stopped IVF on 08/14. Will dose with Lasix IV 40 mg once today. (4) Atrial fibrillation Current Visit: No Comment: Appreciate Cardiology assistance. Coreg titrated up yesterday, continued on increased Cardizem. Still with some episodes of uncontrolled flutter, received some additional IV metoprolol. Pt is not anticoagulated chronically. Has PPM. (5) Diabetes mellitus type 2 Current Visit: No Comment: Hypoglycemic this morning. Hold Lantus for now. HISS only. Monitor closely. (6) COPD (chronic obstructive pulmonary disease) Current Visit: No Comment: Stopped increased steroid dose. Continue Dulera, prn nebs. ABG on 08/14 showed acute respiratory acidosis, placed on BiPAP overnight into 08/15 (7) Hypertension Current Visit: No Comment: Continue Coreg and Diltiazem (8) PMR (polymyalgia rheumatica) Current Visit: No Comment: Continue home prednisone, on long taper (9) DVT prophylaxis Current Visit: No Comment: SQ heparin
[2017-08-15] MEDS: predniSONE TAB* 1 MG PO SCH (10:44)
[2017-08-15] MEDS: cefTRIAXone VIAL(*) 1,000 MG in NS 0.9% 50 ML* 50 ML IVPB SCH (11:09)
[2017-08-15] MEDS ORDERED: Digoxin IV* 0.5 MG/2 ML AMP (0.25 MG/ML) IV SLOW PU ONE ×2 (16:42→17:48)
[2017-08-15] MEDS ORDERED: Metoprolol Tartrate IV* 1 MG/ML 5 ML VIAL IV ONE (17:46)
[2017-08-15] MEDS ORDERED: Furosemide IV* 10 MG/ML 10 ML VIAL (100 MG) IV ONE (17:49)
[2017-08-15] MEDS: Diltiazem DRIP* 100 MG/100 ML ADDV.BAG IVPB ONE (18:21)
[2017-08-15] MEDS: CMC:Rosuvastatin (NF) 5 MG TAB PO SCH (21:15)
[2017-08-15] MEDS: Donepezil TAB* 5 MG PO SCH (21:15)
[2017-08-15] MEDS: Carvedilol TAB* 6.25 MG PO SCH (21:15)
[2017-08-15] MEDS: Aspirin Low Dose CHEW TAB* 81 MG PO SCH (21:15)
[2017-08-16] MEDS ORDERED: Diltiazem DRIP* 100 MG/100 ML ADDV.BAG IVPB ONE (05:11)
[2017-08-16] MEDS: Diltiazem DRIP* 100 MG/100 ML ADDV.BAG IVPB ONE (05:14)
[2017-08-16] MEDS: Heparin VIAL(*) 5000 UNITS/ML VIAL (FIVE THOUSAND) SUBCUT SCH ×3 (06:13→21:13)
[2017-08-16] MEDS ORDERED: Digoxin IV* 0.5 MG/2 ML AMP (0.25 MG/ML) IV SLOW PU ONE ×3 (06:39→11:00)
[2017-08-16 07:00] LABS: Calcium 8.7 mg/dL (8.6-10.3); EGFR Non-African American 35.8 (>60); Magnesium 2.1 mg/dL (1.9-2.7)
[2017-08-16 07:52] LABS: Potassium 5.4 mmol/L (3.5-5.0)
[2017-08-16] MEDS: Carvedilol TAB* 6.25 MG PO SCH ×2 (08:02→21:13)
[2017-08-16] MEDS: predniSONE TAB* 1 MG PO SCH (08:03)
--- NOTE | 2017-08-16 09:02 | PN ---
Subjective Date of Service: 08/16/17 Interval History: Patient says he is not really short of breath but feels generally weak and like he can't get moving. Family History: Unchanged from Admission Social History: Unchanged from Admission Past Medical History: Unchanged from Admission Objective Active Medications: Acetaminophen (Tylenol Tab*) 650 mg PO Q4H PRN PRN Reason: FEVER/PAIN Last Admin: 08/11/17 16:16 Dose: 650 mg Albuterol/Ipratropium (Duoneb (Albuterol 2.5 Mg/Ipratropium 0.5 Mg)) 1 neb INH Q4H PRN PRN Reason: SOB/WHEEZING Aspirin (Aspirin Low Dose Tab*) 81 mg PO BEDTIME [facility] Last Admin: 08/15/17 21:15 Dose: 81 mg Carvedilol (Coreg Tab*) 12.5 mg PO BID [facility] Last Admin: 08/16/17 08:02 Dose: 12.5 mg Dextrose (D50w Syringe 50 Ml*) 12.5 gm IV PUSH .FOR FS < 60 - SS PRN PRN Reason: FS < 60 Last Admin: 08/14/17 07:45 Dose: 12.5 gm Donepezil HCl (Aricept Tab*) 10 mg PO BEDTIME [facility] Last Admin: 08/15/17 21:15 Dose: 10 mg Heparin Sodium (Porcine) (Heparin Vial(*)) 5,000 units SUBCUT Q8HR [facility] Last Admin: 08/16/17 06:13 Dose: 5,000 units Ceftriaxone Sodium 1,000 mg/ (Sodium Chloride) 50 mls @ 200 mls/hr IVPB Q24H [facility] Last Admin: 08/15/17 11:09 Dose: 200 mls/hr Diltiazem HCl (Cardizem Iv Advan*) 100 mg in 100 mls @ 15 mls/hr IVPB .PER PARAMETERS PRICILLA PRN Reason: 15 MG/HR Insulin Human Lispro (Humalog*) 0 - 11 units SUBCUT AC [facility] PRN Reason: Protocol Last Admin: 08/15/17 18:09 Dose: 9 units Mometasone Furoate/Formoterol Fumar (Dulera 200/5 Mdi*) 2 puff INH BID [facility] Last Admin: 08/15/17 20:20 Dose: 2 puff Ondansetron HCl (Zofran Inj*) 4 mg IV Q6H PRN PRN Reason: NAUSEA Prednisone (Deltasone Tab*) 3 mg PO EVERY OTHER DAY [facility] Last Admin: 08/15/17 10:44 Dose: 3 mg Prednisone (Deltasone Tab*) 4 mg PO EVERY OTHER DAY [facility] Last Admin: 08/16/17 08:03 Dose: 4 mg Rosuvastatin Calcium (Crestor (Nf)) 5 mg PO BEDTIME [facility] PRN Reason: Protocol Last Admin: 08/15/17 21:15 Dose: 5 mg Vital Signs 08/15/17 08/15/17 08/15/17 09:00 09:01 09:15 Temperature 97.1 F Pulse Rate 98 98 Respiratory 17 17 Rate Blood Pressure 138/81 (mmHg) O2 Sat by Pulse 96 96 93 Oximetry 08/15/17 08/15/17 08/15/17 09:16 09:31 09:54 Temperature Pulse Rate 98 92 93 Respiratory 16 15 14 Rate Blood Pressure 123/87 107/86 116/93 (mmHg) O2 Sat by Pulse 93 97 97 Oximetry 08/15/17 08/15/17 08/15/17 10:00 10:16 10:30 Temperature Pulse Rate 96 94 94 Respiratory 14 19 13 Rate Blood Pressure 127/92 118/92 126/96 (mmHg) O2 Sat by Pulse 96 95 94 Oximetry 08/15/17 08/15/17 08/15/17 11:00 11:32 11:45 Temperature Pulse Rate 106 123 125 Respiratory 18 18 17 Rate Blood Pressure 140/82 140/101 (mmHg) O2 Sat by Pulse 96 95 96 Oximetry 08/15/17 08/15/17 08/15/17 12:00 12:15 12:31 Temperature Pulse Rate 126 125 125 Respiratory 19 19 17 Rate Blood Pressure 148/104 134/81 149/81 (mmHg) O2 Sat by Pulse 97 96 93 Oximetry 08/15/17 08/15/17 08/15/17 12:45 13:00 13:15 Temperature Pulse Rate 112 108 105 Respiratory 14 12 17 Rate Blood Pressure 117/85 114/75 105/76 (mmHg) O2 Sat by Pulse 93 95 95 Oximetry 08/15/17 08/15/17 08/15/17 13:30 13:45 14:00 Temperature Pulse Rate 108 114 104 Respiratory 21 19 12 Rate Blood Pressure 133/81 131/72 116/73 (mmHg) O2 Sat by Pulse 94 91 92 Oximetry 08/15/17 08/15/17 08/15/17 14:15 14:31 14:46 Temperature Pulse Rate 100 95 100 Respiratory 15 14 13 Rate Blood Pressure 93/80 103/81 100/75 (mmHg) O2 Sat by Pulse 94 95 95 Oximetry 08/15/17 08/15/17 08/15/17 15:00 15:01 15:16 Temperature Pulse Rate 104 101 112 Respiratory 15 12 15 Rate Blood Pressure 107/76 126/85 (mmHg) O2 Sat by Pulse 95 96 97 Oximetry 08/15/17 08/15/17 08/15/17 15:30 15:45 16:00 Temperature Pulse Rate 123 124 122 Respiratory 16 15 15 Rate Blood Pressure 147/85 139/91 141/87 (mmHg) O2 Sat by Pulse 95 95 95 Oximetry 08/15/17 08/15/17 08/15/17 16:15 16:28 16:30 Temperature 98.1 F Pulse Rate 123 112 Respiratory 11 20 Rate Blood Pressure 124/84 141/112 (mmHg) O2 Sat by Pulse 95 94 Oximetry 08/15/17 08/15/17 08/15/17 16:45 17:00 17:15 Temperature Pulse Rate 121 119 122 Respiratory 17 16 16 Rate Blood Pressure 121/87 127/85 121/91 (mmHg) O2 Sat by Pulse 93 94 95 Oximetry 08/15/17 08/15/17 08/15/17 17:45 18:00 18:09 Temperature Pulse Rate 123 105 122 Respiratory 21 17 Rate Blood Pressure 122/89 (mmHg) O2 Sat by Pulse 94 93 Oximetry 08/15/17 08/15/17 08/15/17 18:16 18:20 18:30 Temperature Pulse Rate 103 82 86 Respiratory 22 15 Rate Blood Pressure 159/80 151/93 (mmHg) O2 Sat by Pulse 94 94 Oximetry 08/15/17 08/15/17 08/15/17 18:45 19:00 19:02 Temperature Pulse Rate 83 73 79 Respiratory 13 16 14 Rate Blood Pressure 114/91 158/71 (mmHg) O2 Sat by Pulse 94 95 94 Oximetry 08/15/17 08/15/17 08/15/17 19:16 19:30 19:46 Temperature Pulse Rate 82 86 106 Respiratory 14 21 17 Rate Blood Pressure 169/80 165/77 158/74 (mmHg) O2 Sat by Pulse 95 95 95 Oximetry 08/15/17 08/15/17 08/15/17 20:00 20:01 20:15 Temperature 97.3 F Pulse Rate 115 90 Respiratory 19 26 Rate Blood Pressure 150/106 (mmHg) O2 Sat by Pulse 91 94 Oximetry 08/15/17 08/15/17 08/15/17 20:17 20:31 20:46 Temperature Pulse Rate 94 77 88 Respiratory 14 19 15 Rate Blood Pressure 108/84 140/70 139/68 (mmHg) O2 Sat by Pulse 94 92 95 Oximetry 08/15/17 08/15/17 08/15/17 21:00 21:01 21:16 Temperature Pulse Rate 89 88 89 Respiratory 14 16 11 Rate Blood Pressure 143/65 155/71 (mmHg) O2 Sat by Pulse 94 95 94 Oximetry 08/15/17 08/15/17 08/15/17 21:31 21:46 22:00 Temperature Pulse Rate 87 87 84 Respiratory 15 11 15 Rate Blood Pressure 144/96 130/78 (mmHg) O2 Sat by Pulse 93 94 94 Oximetry 08/15/17 08/15/17 08/15/17 22:01 22:16 22:31 Temperature Pulse Rate 86 84 83 Respiratory 14 14 14 Rate Blood Pressure 155/81 129/83 140/73 (mmHg) O2 Sat by Pulse 95 95 94 Oximetry 08/15/17 08/15/17 08/15/17 22:45 22:59 23:00 Temperature Pulse Rate 75 88 Respiratory 16 17 19 Rate Blood Pressure 151/72 (mmHg) O2 Sat by Pulse 95 96 Oximetry 08/15/17 08/15/17 08/15/17 23:01 23:16 23:31 Temperature Pulse Rate 79 82 90 Respiratory 18 21 16 Rate Blood Pressure 146/86 143/89 132/90 (mmHg) O2 Sat by Pulse 96 95 91 Oximetry 08/15/17 08/16/17 08/16/17 23:46 00:00 00:01 Temperature Pulse Rate 89 86 82 Respiratory 20 17 19 Rate Blood Pressure 114/84 156/100 (mmHg) O2 Sat by Pulse 97 96 96 Oximetry 08/16/17 08/16/17 08/16/17 00:06 00:16 00:28 Temperature 97.3 F Pulse Rate 83 87 Respiratory 20 17 Rate Blood Pressure 155/85 (mmHg) O2 Sat by Pulse 96 96 Oximetry 08/16/17 08/16/17 08/16/17 00:31 00:46 01:00 Temperature Pulse Rate 84 87 89 Respiratory 18 28 25 Rate Blood Pressure 139/69 145/70 (mmHg) O2 Sat by Pulse 94 94 95 Oximetry 08/16/17 08/16/17 08/16/17 01:01 01:16 01:30 Temperature Pulse Rate 88 90 98 Respiratory 22 18 18 Rate Blood Pressure 130/95 138/72 164/107 (mmHg) O2 Sat by Pulse 96 92 96 Oximetry 08/16/17 08/16/17 08/16/17 01:45 02:00 02:16 Temperature Pulse Rate 109 103 101 Respiratory 18 20 20 Rate Blood Pressure 157/102 164/93 147/82 (mmHg) O2 Sat by Pulse 94 94 94 Oximetry 08/16/17 08/16/17 08/16/17 02:31 02:46 03:00 Temperature Pulse Rate 100 61 98 Respiratory 15 16 16 Rate Blood Pressure 117/85 134/96 (mmHg) O2 Sat by Pulse 94 91 95 Oximetry 08/16/17 08/16/17 08/16/17 03:01 03:26 03:30 Temperature Pulse Rate 91 91 93 Respiratory 17 18 18 Rate Blood Pressure 126/61 146/96 137/97 (mmHg) O2 Sat by Pulse 94 95 94 Oximetry 08/16/17 08/16/17 08/16/17 03:47 04:00 04:05 Temperature Pulse Rate 103 93 Respiratory 20 20 Rate Blood Pressure 103/76 (mmHg) O2 Sat by Pulse 93 95 95 Oximetry 08/16/17 08/16/17 08/16/17 04:12 04:15 04:31 Temperature Pulse Rate 101 101 89 Respiratory 18 20 20 Rate Blood Pressure 158/108 154/107 150/109 (mmHg) O2 Sat by Pulse 96 94 92 Oximetry 08/16/17 08/16/17 08/16/17 04:45 05:00 05:01 Temperature Pulse Rate 100 119 114 Respiratory 20 18 20 Rate Blood Pressure 160/101 (mmHg) O2 Sat by Pulse 95 94 95 Oximetry 08/16/17 08/16/17 08/16/17 05:06 05:16 05:31 Temperature Pulse Rate 104 106 102 Respiratory 23 16 16 Rate Blood Pressure 138/79 155/100 152/102 (mmHg) O2 Sat by Pulse 95 94 94 Oximetry 08/16/17 08/16/17 08/16/17 06:00 06:26 06:31 Temperature Pulse Rate 105 115 Respiratory 16 15 16 Rate Blood Pressure 154/89 (mmHg) O2 Sat by Pulse 95 96 Oximetry 08/16/17 08/16/17 08/16/17 06:46 07:00 07:01 Temperature Pulse Rate 100 100 118 Respiratory 17 15 18 Rate Blood Pressure 148/68 132/76 (mmHg) O2 Sat by Pulse 94 95 95 Oximetry 08/16/17 08/16/17 08/16/17 07:16 07:32 07:34 Temperature 97.7 F Pulse Rate 98 106 Respiratory 17 20 Rate Blood Pressure 136/93 136/70 (mmHg) O2 Sat by Pulse 96 94 Oximetry 08/16/17 08/16/17 08/16/17 07:46 08:00 08:16 Temperature Pulse Rate 101 115 120 Respiratory 19 20 18 Rate Blood Pressure 151/83 150/90 176/105 (mmHg) O2 Sat by Pulse 92 94 93 Oximetry 08/16/17 08/16/17 08:25 08:30 Temperature Pulse Rate 110 117 Respiratory 17 Rate Blood Pressure 141/99 (mmHg) O2 Sat by Pulse 95 Oximetry Oxygen Devices in Use Now: Nasal Cannula Appearance: Overweight gentleman lying in bed in NAD Eyes: No Scleral Icterus Ears/Nose/Mouth/Throat: NL Teeth, Lips, Gums Neck: No Thyroid Enlargement, Masses Respiratory: Clear to Auscultation, - - Diminished breath sounds Cardiovascular: - - S1S2 lynette Abdominal: NL Sounds; No Tenderness; No Distention, No Hepatosplenomegaly Lymphatic: No Cervical Adenopathy Extremities: No Edema Skin: No Rash or Ulcers Neurological: Alert and Oriented x 3 Result Diagrams: 08/11/17 04:41 08/16/17 06:00 Additional Lab and Data: Lab Results 08/10/17 08/10/17 08/10/17 Range/Units 09:48 09:48 09:48 WBC (3.5-10.8) 10^3/ul RBC (4.0-5.4) 10^6/ul Hgb (14.0-18.0) g/dl Hct (42-52) % MCV (80-94) fL MCH (27-31) pg MCHC (31-36) g/dl RDW (10.5-15) % Plt Count (150-450) 10^3/ul MPV (7.4-10.4) um3 Neut % (Auto) (38-83) % Lymph % (Auto) (25-47) % Haines % (Auto) (1-9) % Eos % (Auto) (0-6) % Baso % (Auto) (0-2) % Absolute Neuts (auto) (1.5-7.7) 10^3/ul Absolute Lymphs (auto) (1.0-4.8) 10^3/ul Absolute Monos (auto) (0-0.8) 10^3/ul Absolute Eos (auto) (0-0.6) 10^3/ul Absolute Basos (auto) (0-0.2) 10^3/ul Absolute Nucleated RBC 10^3/ul Nucleated RBC % INR (Anticoag Therapy) 1.12 H (0.89-1.11) APTT 29.1 (26.0-36.3) seconds D-Dimer, Quantitative 498 H (Less Than 230) ng/mL ABG pH (7.35-7.45) ABG pCO2 (35-45) mmHg ABG pO2 (80-100) mmHg ABG HCO3 (19-31) mmol/L ABG O2 Saturation (95-98) % ABG Base Excess (-2.0-2.0) Sodium 132 L (133-145) mmol/L Potassium 5.3 H (3.5-5.0) mmol/L Chloride 96 L (101-111) mmol/L Carbon Dioxide 31 (22-32) mmol/L Anion Gap 5 (2-11) mmol/L BUN 109 H (6-24) mg/dL Creatinine 2.47 H (0.67-1.17) mg/dL Est GFR ( Amer) 31.9 (>60) Est GFR (Non-Af Amer) 24.8 (>60) BUN/Creatinine Ratio 44.1 H (8-20) Glucose 256 H (70-100) mg/dL Lactic Acid (0.5-2.0) mmol/L Calcium 8.6 (8.6-10.3) mg/dL Magnesium 2.3 (1.9-2.7) mg/dL Total Bilirubin 0.40 (0.2-1.0) mg/dL AST 29 (13-39) U/L ALT 44 (7-52) U/L Alkaline Phosphatase 68 (34-104) U/L Ammonia 35 (16-53) mol/L Total Creatine Kinase 24 (10-223) U/L CK-MB (CK-2) 2.8 (0.6-6.3) ng/mL Troponin I 0.01 (<0.04) ng/mL C-Reactive Protein 202.44 H (< 5.00) mg/L B-Natriuretic Peptide 350 H ( - 100) pg/mL Total Protein 6.5 (6.4-8.9) g/dL Albumin 3.2 (3.2-5.2) g/dL Globulin 3.3 (2-4) g/dL Albumin/Globulin Ratio 1.0 (1-3) Lipase 13 (11.0-82.0) U/L TSH 2.64 (0.34-5.60) mcIU/mL Acetaminophen < 15 mcg/mL Serum Alcohol < 10 (<10) mg/dL 08/10/17 08/10/17 08/10/17 Range/Units 09:48 09:48 10:35 WBC 8.7 (3.5-10.8) 10^3/ul RBC 3.63 L (4.0-5.4) 10^6/ul Hgb 10.4 L (14.0-18.0) g/dl Hct 32 L (42-52) % MCV 89 (80-94) fL MCH 29 (27-31) pg MCHC 32 (31-36) g/dl RDW 14 (10.5-15) % Plt Count 119 L (150-450) 10^3/ul MPV 8 (7.4-10.4) um3 Neut % (Auto) 75.8 (38-83) % Lymph % (Auto) 6.9 L (25-47) % Haines % (Auto) 16.4 H (1-9) % Eos % (Auto) 0.6 (0-6) % Baso % (Auto) 0.3 (0-2) % Absolute Neuts (auto) 6.6 (1.5-7.7) 10^3/ul Absolute Lymphs (auto) 0.6 L (1.0-4.8) 10^3/ul Absolute Monos (auto) 1.4 H (0-0.8) 10^3/ul Absolute Eos (auto) 0.1 (0-0.6) 10^3/ul Absolute Basos (auto) 0 (0-0.2) 10^3/ul Absolute Nucleated RBC 0.01 10^3/ul Nucleated RBC % 0.1 INR (Anticoag Therapy) (0.89-1.11) APTT (26.0-36.3) seconds D-Dimer, Quantitative (Less Than 230) ng/mL ABG pH 7.27 L (7.35-7.45) ABG pCO2 68 H (35-45) mmHg ABG pO2 89 (80-100) mmHg ABG HCO3 27.2 (19-31) mmol/L ABG O2 Saturation 96.1 (95-98) % ABG Base Excess 3.0 H (-2.0-2.0) Sodium (133-145) mmol/L Potassium (3.5-5.0) mmol/L Chloride (101-111) mmol/L Carbon Dioxide (22-32) mmol/L Anion Gap (2-11) mmol/L BUN (6-24) mg/dL Creatinine (0.67-1.17) mg/dL Est GFR ( Amer) (>60) Est GFR (Non-Af Amer) (>60) BUN/Creatinine Ratio (8-20) Glucose (70-100) mg/dL Lactic Acid 0.4 L (0.5-2.0) mmol/L Calcium (8.6-10.3) mg/dL Magnesium (1.9-2.7) mg/dL Total Bilirubin (0.2-1.0) mg/dL AST (13-39) U/L ALT (7-52) U/L Alkaline Phosphatase (34-104) U/L Ammonia (16-53) mol/L Total Creatine Kinase (10-223) U/L CK-MB (CK-2) (0.6-6.3) ng/mL Troponin I (<0.04) ng/mL C-Reactive Protein (< 5.00) mg/L B-Natriuretic Peptide ( - 100) pg/mL Total Protein (6.4-8.9) g/dL Albumin (3.2-5.2) g/dL Globulin (2-4) g/dL Albumin/Globulin Ratio (1-3) Lipase (11.0-82.0) U/L TSH (0.34-5.60) mcIU/mL Acetaminophen mcg/mL Serum Alcohol (<10) mg/dL Microbiology and Other Data: Microbiology 08/10/17 13:22 Aerobic Blood Culture - Preliminary Blood Venous No Growth Day 1 Anaerobic Blood Culture - Preliminary No Growth Day 1 08/10/17 13:17 Aerobic Blood Culture - Preliminary Blood Venous No Growth Day 1 Anaerobic Blood Culture - Preliminary No Growth Day 1 08/10/17 11:54 Urine Culture - Final Urine Legionella Urinary Antigen - Final Negative Legionella Streptococcus pneumoniae Ag Screen - Final Negative S. pneumo Antigen 08/10/17 11:56 Influenza Types A,B Antigen (JESSICA) - Final Nasal Specimen received for Influenza A/B Molecular testing Assess/Plan/Problems-Billing Assessment: CAP, DIONICIO on CKD in an 87 yo M with hx of HTN, HLD, CAD, CKD3, dementia, DM, SSS s/p PPM admitted with presumed PNA - Patient Problems (1) CAP (community acquired pneumonia) Current Visit: Yes Status: Acute Code(s): J18.9 - PNEUMONIA, UNSPECIFIED ORGANISM SNOMED Code(s): 505483073 Comment: Only on 3 liters and CPAP at night . Stable. Transfer to floor this afternoon. PT consult as mostly not motivated and deconditioned. Continue Ceftriaxone. Completed Azithromycin. Urine antigens negative. Continue supplemental O2. (2) DIONICIO (acute kidney injury) Current Visit: Yes Status: Acute Code(s): N17.9 - ACUTE KIDNEY FAILURE, UNSPECIFIED SNOMED Code(s): 56602442 Comment: Continues to improve. Continue to hold nephrotoxic medications.Hold fluids with history of CHF. BMP daily. (3) Chronic diastolic CHF (congestive heart failure) Current Visit: Yes Status: Acute Code(s): I50.32 - CHRONIC DIASTOLIC ( CONGESTIVE) HEART FAILURE SNOMED Code(s): 334819623 Comment: Improved after Lasix IV 120 mg once yesterday. Give another 40 now. Perhaps gut edema is preventing from absorption of negative chronotrops. This should help getting him back on po. (4) Atrial fibrillation Current Visit: No Status: Chronic Code(s): I48.91 - UNSPECIFIED ATRIAL FIBRILLATION SNOMED Code(s): 40595221 Comment: Appreciate Cardiology's input. HR still slightly elevated at about 101. Coreg titrated up two days ago, continued on Cardizem. Pt is not anticoagulated chronically. Has PPM. (5) Diabetes mellitus type 2 Current Visit: No Status: Chronic Code(s): E11.9 - TYPE 2 DIABETES MELLITUS WITHOUT COMPLICATIONS SNOMED Code(s): 28023247 Comment: Stable. HISS only. Monitor closely. Lantus on hold. (6) Hypertension Current Visit: No Status: Chronic Priority: Medium Code(s): I10 - ESSENTIAL (PRIMARY) HYPERTENSION SNOMED Code(s): 47641712 Comment: Slightly high. Continue Coreg and Diltiazem (7) PMR (polymyalgia rheumatica) Current Visit: No Status: Acute Priority: High Code(s): M35.3 - POLYMYALGIA RHEUMATICA SNOMED Code(s): 41297670 Comment: Continue slow taper on Prednisone. Stable. (8) COPD (chronic obstructive pulmonary disease) Current Visit: No Status: Chronic Code(s): J44.9 - CHRONIC OBSTRUCTIVE PULMONARY DISEASE, UNSPECIFIED SNOMED Code(s): 38353192 Comment: Continue Dulera, prn nebs.Continue CPAP at night. (9) DVT prophylaxis Current Visit: No Status: Resolved Priority: Low Onset Date: 12/21/14 Code(s): ZSP2956 - SNOMED Code(s): 198601060 Comment: SQ heparin
[2017-08-16] MEDS ORDERED: Furosemide IV* 10 MG/ML VIAL (40 MG) IV ONE ×2 (09:21)
[2017-08-16] MEDS ORDERED: Furosemide IV* 10 MG/ML VIAL (40 MG) ONE (09:33)
[2017-08-16] MEDS: Mometasone/Formoter 200/5 MDI INH SCH ×2 (09:45→20:45)
[2017-08-16] MEDS ORDERED: NS 0.9% 50 ML* 50 ML ONE (10:03)
[2017-08-16] MEDS: Metoprolol Tartrate IV* 1 MG/ML 5 ML VIAL IV SCH ×4 (10:14→22:38)
[2017-08-16] MEDS: cefTRIAXone VIAL(*) 1,000 MG in NS 0.9% 50 ML* 50 ML IVPB SCH (10:22)
[2017-08-16] MEDS: Insulin LISPRO* 1 UNITS UNIT SUBCUT SCH ×3 (10:28→18:31)
[2017-08-16] MEDS: Diltiazem DRIP* 100 MG/100 ML ADDV.BAG IVPB SCH (12:39)
[2017-08-16] MEDS: CMC:Rosuvastatin (NF) 5 MG TAB PO SCH (21:12)
[2017-08-16] MEDS: Donepezil TAB* 5 MG PO SCH (21:13)
[2017-08-16] MEDS: Aspirin Low Dose CHEW TAB* 81 MG PO SCH (21:13)
[2017-08-17] MEDS: Diltiazem DRIP* 100 MG/100 ML ADDV.BAG IVPB SCH (00:19)
[2017-08-17] MEDS: Metoprolol Tartrate IV* 1 MG/ML 5 ML VIAL IV SCH ×4 (02:31→13:59)
[2017-08-17] MEDS: Heparin VIAL(*) 5000 UNITS/ML VIAL (FIVE THOUSAND) SUBCUT SCH ×3 (06:22→20:12)
[2017-08-17 06:25] LABS: BUN/Creatinine Ratio 49.4 (8-20); Calcium 8.6 mg/dL (8.6-10.3); Digoxin 2.2 ng/ml (0.8-2.0); EGFR African American 53.5 (>60); EGFR Non-African American 41.6 (>60)
[2017-08-17 06:28] LABS: Potassium 5.3 mmol/L (3.5-5.0)
[2017-08-17] MEDS: Mometasone/Formoter 200/5 MDI INH SCH ×2 (07:38→20:43)
[2017-08-17] MEDS: Insulin LISPRO* 1 UNITS UNIT SUBCUT SCH ×3 (08:49→17:21)
[2017-08-17] MEDS: Carvedilol TAB* 6.25 MG PO SCH (08:50)
[2017-08-17] MEDS: predniSONE TAB* 1 MG PO SCH (08:50)
[2017-08-17] MEDS ORDERED: Furosemide IV* 10 MG/ML VIAL (40 MG) IV ONE (10:52)
[2017-08-17] MEDS ORDERED: Carvedilol TAB* 6.25 MG PO ONE (10:55)
[2017-08-17] MEDS: cefTRIAXone VIAL(*) 1,000 MG in NS 0.9% 50 ML* 50 ML IVPB SCH (11:03)
--- NOTE | 2017-08-17 14:42 | ECHO ---
Patient: VANE ADKINS [facility] Rec#: [id number] : 1930 Date: 08/17/2017 Age: 87y Height: 165 cm / 65.0 in Weight: 110 kg / 242.4 lbs Sex: M BSA: 2.2 Room#: ICU 10 Admit Date#: 08/10/2017 Type: Inpatient Referring: Anders Gonzalez MD Reading: Anders Gonzalez MD Inspector Water Pollution Control: Marzena Estevez RN RDCS CC: SAMANTA DENSON Transthoracic Echocardiogram Indication: CHF, A. fib BP: 153/75 HR: 78 Rhythm: A-Fib Findings History: CAD, PCI, HTN, DM, A. fib, pacemaker, COPD, PRETTY, CKD, ITP, obesity, former smoker Technical Comments: The study quality is fair. The study is technically limited due to patient body habitus. The study is technically limited due to the patient's history of COPD. Completed at 1230. Left Ventricle: The left ventricular chamber size is normal. Mild concentric left ventricular hypertrophy is observed.with a sigmoid septum. Global left ventricular wall motion and contractility are within normal limits. There is normal left ventricular systolic function. The estimated ejection fraction is 55-60%. The assessment of diastolic function is non-diagnostic. Left Atrium: The left atrium is mild to moderately dilated. Right Ventricle: The right ventricle wall thickness is moderately increased. The right ventricle is slightly dilated. The right ventricular global systolic function is normal. A pacemaker wire is visualized in the right ventricle. Right Atrium: The right atrium is mild to moderately dilated. A pacemaker wire is visualized in the right atrium. Aortic Valve: The aortic valve is trileaflet. The aortic valve leaflets are mildly thickened. There is no evidence of aortic regurgitation. There is no evidence of aortic stenosis. Mitral Valve: The mitral valve leaflets are mildly thickened. There is mild to moderate mitral regurgitation. The MR varies from beat to beat in AFib. There is no evidence of mitral stenosis. Tricuspid Valve: The tricuspid valve leaflets are normal. There is mild tricuspid regurgitation. There is evidence of mild to moderate pulmonary hypertension. There is no tricuspid stenosis. Pulmonic Valve: The pulmonic valve structure is not well visualized. There is a trace pulmonic regurgitation. There is no pulmonic stenosis. Pericardium: There is no significant pericardial effusion. A pericardial fat pad is visualized. Aorta: The ascending aorta is not well visualized. The aortic arch is not well visualized. There is no dilation of the aortic root. Pulmonary Artery: The main pulmonary artery is not well visualized. Venous: The inferior vena cava is dilated. There is a greater than 50% respiratory change in the inferior vena cava dimension. Conclusions The study is technically limited due to patient body habitus. AFlutter or AFib with deman pacing during the study. The left atrium is mild to moderately dilated. The right atrium is mild to moderately dilated. There is mild to moderate mitral regurgitation. The MR varies from beat to beat in AFib. There is mild tricuspid regurgitation. There is evidence of mild to moderate pulmonary hypertension. Moderate RVH and mild RV enlargement. Similar to the prior study of 2016 except for the afib. Measurements Name Value Normal Range RVIDd (AP) 2D 3.7 cm (0.9 - 2.6) RVDdMajor (2D) 4.4 cm (2.2 - 4.4) RVAW (2D) 1 cm (0.2 - 0.5) RAd ISD 4CH 5.9 cm (3.4 - 4.9) RA (A4C)W 4.8 cm (2.9 - 4.6) IVSd (2D) 1.2 cm (0.6 - 1) LVPWd (2D) 1.2 cm (0.6 - 1) LVIDd (2D) 4.1 cm (3.6 - 5.4) LVIDs (2D) 3.1 cm - LV FS (2D) 24 % (25 - 45) Aortic Annulus 2 cm (1.4 - 2.6) Ao root diameter (2D) 3.4 cm (2.1 - 3.5) LA dimension (AP) 2D 3.4 cm (2.3 - 3.8) LAd ISD 4CH 5.9 cm (2.9 - 5.3) LA ISD 4CH W 4.4 cm (2.5 - 4.5) Name Value Normal Range LA ESV SP 4CH (A/L) 92.1 ml - LA ESV SP 2CH (A/L) 73.5 ml - LA ESV BP (A/L) 87.3 ml - LA ESV BP (A/L) index 40.6 ml/m2 - LA ESV SP 4CH (MOD) 85.8 ml - LA ESV SP 2CH (MOD) 73.5 ml - Name Value Normal Range MV E-wave Vmax 0.89 m/sec - MV deceleration time 192 msec - LV septal e' Vmax 0.12 m/sec - LV lateral e' Vmax 0.1 m/sec - LV E:e' septal ratio 7.4 ratio - LV E:e' lateral ratio 8.9 ratio - Name Value Normal Range AV Vmax 1.2 m/sec - AV VTI 24.8 cm - AV peak gradient 5.6 mmHg - AV mean gradient 3.9 mmHg - LVOT Vmax 1 m/sec - LVOT VTI 18.5 cm - LVOT peak gradient 4.3 mmHg - LVOT mean gradient 2.5 mmHg - Name Value Normal Range TR Vmax 3.1 m/sec - TR peak gradient 38 mmHg - RAP 8 mmHg - RVSP 46 mmHg - IVC diameter 2.2 cm - Name Value Normal Range PV Vmax 1.2 m/sec -
--- NOTE | 2017-08-17 14:46 | PN ---
Subjective Date of Service: 08/17/17 Interval History: Patient is feeling better today. Still weak but no other complaints. Family History: Unchanged from Admission Social History: Unchanged from Admission Past Medical History: Unchanged from Admission Objective Active Medications: Acetaminophen (Tylenol Tab*) 650 mg PO Q4H PRN PRN Reason: FEVER/PAIN Last Admin: 08/11/17 16:16 Dose: 650 mg Albuterol/Ipratropium (Duoneb (Albuterol 2.5 Mg/Ipratropium 0.5 Mg)) 1 neb INH Q4H PRN PRN Reason: SOB/WHEEZING Aspirin (Aspirin Low Dose Tab*) 81 mg PO BEDTIME [facility] Last Admin: 08/16/17 21:13 Dose: 81 mg Carvedilol (Coreg Tab*) 25 mg PO BID [facility] Dextrose (D50w Syringe 50 Ml*) 12.5 gm IV PUSH .FOR FS < 60 - SS PRN PRN Reason: FS < 60 Last Admin: 08/14/17 07:45 Dose: 12.5 gm Diltiazem HCl (Cardizem Tab*) 30 mg PO Q6HR PRIC[facility]A Donepezil HCl (Aricept Tab*) 10 mg PO BEDTIME [facility] Last Admin: 08/16/17 21:13 Dose: 10 mg Heparin Sodium (Porcine) (Heparin Vial(*)) 5,000 units SUBCUT Q8HR [facility] Last Admin: 08/17/17 13:58 Dose: 5,000 units Ceftriaxone Sodium 1,000 mg/ (Sodium Chloride) 50 mls @ 200 mls/hr IVPB Q24H [facility] Last Admin: 08/17/17 11:03 Dose: 200 mls/hr Insulin Human Lispro (Humalog*) 0 - 11 units SUBCUT AC [facility] PRN Reason: Protocol Last Admin: 08/17/17 12:37 Dose: 7 units Metoprolol Tartrate (Lopressor Iv*) 5 mg IV Q4H [facility] Last Admin: 08/17/17 13:59 Dose: 5 mg Mometasone Furoate/Formoterol Fumar (Dulera 200/5 Mdi*) 2 puff INH BID [facility] Last Admin: 08/17/17 07:38 Dose: 2 puff Ondansetron HCl (Zofran Inj*) 4 mg IV Q6H PRN PRN Reason: NAUSEA Prednisone (Deltasone Tab*) 3 mg PO EVERY OTHER DAY [facility] Last Admin: 08/17/17 08:50 Dose: 3 mg Prednisone (Deltasone Tab*) 4 mg PO EVERY OTHER DAY [facility] Last Admin: 08/16/17 08:03 Dose: 4 mg Rosuvastatin Calcium (Crestor (Nf)) 5 mg PO BEDTIME [facility] PRN Reason: Protocol Last Admin: 08/16/17 21:12 Dose: 5 mg Vital Signs 08/16/17 08/16/17 08/16/17 15:00 16:00 16:37 Temperature Pulse Rate 78 88 82 Respiratory 27 20 24 Rate Blood Pressure 182/70 (mmHg) O2 Sat by Pulse 96 94 95 Oximetry 08/16/17 08/16/17 08/16/17 17:00 17:01 17:31 Temperature Pulse Rate 93 87 55 Respiratory 17 18 18 Rate Blood Pressure 171/71 152/88 (mmHg) O2 Sat by Pulse 96 97 96 Oximetry 08/16/17 08/16/17 08/16/17 18:00 18:01 18:31 Temperature Pulse Rate 90 86 101 Respiratory 14 17 20 Rate Blood Pressure 150/59 157/101 (mmHg) O2 Sat by Pulse 96 97 91 Oximetry 08/16/17 08/16/17 08/16/17 19:00 19:01 19:31 Temperature 98.2 F Pulse Rate 85 84 84 Respiratory 12 16 15 Rate Blood Pressure 183/55 159/77 (mmHg) O2 Sat by Pulse 95 96 97 Oximetry 08/16/17 08/16/17 08/16/17 20:00 20:01 20:31 Temperature Pulse Rate 73 80 74 Respiratory 14 14 14 Rate Blood Pressure 172/64 172/76 (mmHg) O2 Sat by Pulse 97 97 97 Oximetry 08/16/17 08/16/17 08/16/17 20:44 21:00 21:20 Temperature Pulse Rate 80 73 Respiratory 15 16 14 Rate Blood Pressure (mmHg) O2 Sat by Pulse 97 97 Oximetry 08/16/17 08/16/17 08/16/17 21:32 22:00 22:01 Temperature Pulse Rate 75 73 71 Respiratory 14 16 13 Rate Blood Pressure 174/57 153/81 (mmHg) O2 Sat by Pulse 96 97 96 Oximetry 08/16/17 08/16/17 08/16/17 22:31 22:33 22:34 Temperature Pulse Rate 70 70 Respiratory 25 19 19 Rate Blood Pressure 170/69 (mmHg) O2 Sat by Pulse 96 96 Oximetry 08/16/17 08/16/17 08/16/17 22:41 23:00 23:01 Temperature Pulse Rate 70 70 Respiratory 20 20 Rate Blood Pressure 172/68 (mmHg) O2 Sat by Pulse 96 96 97 Oximetry 08/16/17 08/17/17 08/17/17 23:31 00:00 00:01 Temperature Pulse Rate 70 70 72 Respiratory 21 20 23 Rate Blood Pressure 161/65 151/68 (mmHg) O2 Sat by Pulse 94 95 95 Oximetry 08/17/17 08/17/17 08/17/17 00:31 01:00 01:01 Temperature Pulse Rate 77 78 72 Respiratory 17 17 17 Rate Blood Pressure 184/74 176/67 (mmHg) O2 Sat by Pulse 98 96 97 Oximetry 08/17/17 08/17/17 08/17/17 01:09 01:31 02:00 Temperature Pulse Rate 85 93 Respiratory 17 17 14 Rate Blood Pressure 179/65 (mmHg) O2 Sat by Pulse 97 93 Oximetry 08/17/17 08/17/17 08/17/17 02:01 02:32 03:00 Temperature Pulse Rate 96 90 92 Respiratory 16 17 18 Rate Blood Pressure 183/71 185/53 (mmHg) O2 Sat by Pulse 95 94 97 Oximetry 08/17/17 08/17/17 08/17/17 03:02 03:31 03:53 Temperature 99.9 F Pulse Rate 91 101 Respiratory 18 18 Rate Blood Pressure 189/53 162/92 (mmHg) O2 Sat by Pulse 95 95 Oximetry 08/17/17 08/17/17 08/17/17 04:00 04:01 04:31 Temperature Pulse Rate 100 93 98 Respiratory 23 18 22 Rate Blood Pressure 162/93 153/75 (mmHg) O2 Sat by Pulse 97 96 93 Oximetry 08/17/17 08/17/17 08/17/17 05:00 05:32 06:00 Temperature Pulse Rate 102 97 98 Respiratory 19 16 19 Rate Blood Pressure 141/75 (mmHg) O2 Sat by Pulse 96 96 95 Oximetry 08/17/17 08/17/17 08/17/17 06:02 06:31 07:00 Temperature Pulse Rate 95 93 89 Respiratory 22 17 20 Rate Blood Pressure 168/90 163/51 (mmHg) O2 Sat by Pulse 96 94 95 Oximetry 08/17/17 08/17/17 08/17/17 07:01 07:30 07:31 Temperature Pulse Rate 92 90 96 Respiratory 19 17 16 Rate Blood Pressure 153/65 147/75 (mmHg) O2 Sat by Pulse 95 95 96 Oximetry 08/17/17 08/17/17 08/17/17 08:00 08:02 08:26 Temperature Pulse Rate 90 Respiratory 18 18 21 Rate Blood Pressure 140/71 (mmHg) O2 Sat by Pulse 95 Oximetry 08/17/17 08/17/17 08/17/17 08:32 09:00 09:19 Temperature Pulse Rate 99 109 46 Respiratory 20 19 16 Rate Blood Pressure 93/56 162/46 (mmHg) O2 Sat by Pulse 95 97 96 Oximetry 08/17/17 08/17/17 08/17/17 10:00 10:02 11:00 Temperature Pulse Rate 92 91 85 Respiratory 18 22 18 Rate Blood Pressure 154/69 (mmHg) O2 Sat by Pulse 96 96 97 Oximetry 08/17/17 08/17/17 08/17/17 11:01 11:42 12:00 Temperature 98.5 F Pulse Rate 85 97 Respiratory 16 17 Rate Blood Pressure 145/57 148/82 (mmHg) O2 Sat by Pulse 98 96 Oximetry 08/17/17 08/17/17 08/17/17 13:00 13:02 14:00 Temperature Pulse Rate 120 86 92 Respiratory 20 26 22 Rate Blood Pressure 151/45 (mmHg) O2 Sat by Pulse 93 96 96 Oximetry Oxygen Devices in Use Now: Nasal Cannula Appearance: Elderly gentleman sitting up in bed in NAD Eyes: No Scleral Icterus Ears/Nose/Mouth/Throat: NL Teeth, Lips, Gums Neck: No Thyroid Enlargement, Masses Respiratory: Clear to Auscultation Cardiovascular: - - S1S2 lynette Abdominal: NL Sounds; No Tenderness; No Distention, No Hepatosplenomegaly Lymphatic: No Cervical Adenopathy Extremities: No Clubbing, Cyanosis Skin: No Rash or Ulcers Neurological: Alert and Oriented x 3 Result Diagrams: 08/11/17 04:41 08/17/17 06:00 Additional Lab and Data: Lab Results 08/10/17 08/10/17 08/10/17 Range/Units 09:48 09:48 09:48 WBC (3.5-10.8) 10^3/ul RBC (4.0-5.4) 10^6/ul Hgb (14.0-18.0) g/dl Hct (42-52) % MCV (80-94) fL MCH (27-31) pg MCHC (31-36) g/dl RDW (10.5-15) % Plt Count (150-450) 10^3/ul MPV (7.4-10.4) um3 Neut % (Auto) (38-83) % Lymph % (Auto) (25-47) % [place] % (Auto) (1-9) % Eos % (Auto) (0-6) % Baso % (Auto) (0-2) % Absolute Neuts (auto) (1.5-7.7) 10^3/ul Absolute Lymphs (auto) (1.0-4.8) 10^3/ul Absolute Monos (auto) (0-0.8) 10^3/ul Absolute Eos (auto) (0-0.6) 10^3/ul Absolute Basos (auto) (0-0.2) 10^3/ul Absolute Nucleated RBC 10^3/ul Nucleated RBC % INR (Anticoag Therapy) 1.12 H (0.89-1.11) APTT 29.1 (26.0-36.3) seconds D-Dimer, Quantitative 498 H (Less Than 230) ng/mL ABG pH (7.35-7.45) ABG pCO2 (35-45) mmHg ABG pO2 (80-100) mmHg ABG HCO3 (19-31) mmol/L ABG O2 Saturation (95-98) % ABG Base Excess (-2.0-2.0) Sodium 132 L (133-145) mmol/L Potassium 5.3 H (3.5-5.0) mmol/L Chloride 96 L (101-111) mmol/L Carbon Dioxide 31 (22-32) mmol/L Anion Gap 5 (2-11) mmol/L BUN 109 H (6-24) mg/dL Creatinine 2.47 H (0.67-1.17) mg/dL Est GFR ( Amer) 31.9 (>60) Est GFR (Non-Af Amer) 24.8 (>60) BUN/Creatinine Ratio 44.1 H (8-20) Glucose 256 H (70-100) mg/dL Lactic Acid (0.5-2.0) mmol/L Calcium 8.6 (8.6-10.3) mg/dL Magnesium 2.3 (1.9-2.7) mg/dL Total Bilirubin 0.40 (0.2-1.0) mg/dL AST 29 (13-39) U/L ALT 44 (7-52) U/L Alkaline Phosphatase 68 (34-104) U/L Ammonia 35 (16-53) mol/L Total Creatine Kinase 24 (10-223) U/L CK-MB (CK-2) 2.8 (0.6-6.3) ng/mL Troponin I 0.01 (<0.04) ng/mL C-Reactive Protein 202.44 H (< 5.00) mg/L B-Natriuretic Peptide 350 H ( - 100) pg/mL Total Protein 6.5 (6.4-8.9) g/dL Albumin 3.2 (3.2-5.2) g/dL Globulin 3.3 (2-4) g/dL Albumin/Globulin Ratio 1.0 (1-3) Lipase 13 (11.0-82.0) U/L TSH 2.64 (0.34-5.60) mcIU/mL Acetaminophen < 15 mcg/mL Serum Alcohol < 10 (<10) mg/dL 08/10/17 08/10/17 08/10/17 Range/Units 09:48 09:48 10:35 WBC 8.7 (3.5-10.8) 10^3/ul RBC 3.63 L (4.0-5.4) 10^6/ul Hgb 10.4 L (14.0-18.0) g/dl Hct 32 L (42-52) % MCV 89 (80-94) fL MCH 29 (27-31) pg MCHC 32 (31-36) g/dl RDW 14 (10.5-15) % Plt Count 119 L (150-450) 10^3/ul MPV 8 (7.4-10.4) um3 Neut % (Auto) 75.8 (38-83) % Lymph % (Auto) 6.9 L (25-47) % [place] % (Auto) 16.4 H (1-9) % Eos % (Auto) 0.6 (0-6) % Baso % (Auto) 0.3 (0-2) % Absolute Neuts (auto) 6.6 (1.5-7.7) 10^3/ul Absolute Lymphs (auto) 0.6 L (1.0-4.8) 10^3/ul Absolute Monos (auto) 1.4 H (0-0.8) 10^3/ul Absolute Eos (auto) 0.1 (0-0.6) 10^3/ul Absolute Basos (auto) 0 (0-0.2) 10^3/ul Absolute Nucleated RBC 0.01 10^3/ul Nucleated RBC % 0.1 INR (Anticoag Therapy) (0.89-1.11) APTT (26.0-36.3) seconds D-Dimer, Quantitative (Less Than 230) ng/mL ABG pH 7.27 L (7.35-7.45) ABG pCO2 68 H (35-45) mmHg ABG pO2 89 (80-100) mmHg ABG HCO3 27.2 (19-31) mmol/L ABG O2 Saturation 96.1 (95-98) % ABG Base Excess 3.0 H (-2.0-2.0) Sodium (133-145) mmol/L Potassium (3.5-5.0) mmol/L Chloride (101-111) mmol/L Carbon Dioxide (22-32) mmol/L Anion Gap (2-11) mmol/L BUN (6-24) mg/dL Creatinine (0.67-1.17) mg/dL Est GFR ( Amer) (>60) Est GFR (Non-Af Amer) (>60) BUN/Creatinine Ratio (8-20) Glucose (70-100) mg/dL Lactic Acid 0.4 L (0.5-2.0) mmol/L Calcium (8.6-10.3) mg/dL Magnesium (1.9-2.7) mg/dL Total Bilirubin (0.2-1.0) mg/dL AST (13-39) U/L ALT (7-52) U/L Alkaline Phosphatase (34-104) U/L Ammonia (16-53) mol/L Total Creatine Kinase (10-223) U/L CK-MB (CK-2) (0.6-6.3) ng/mL Troponin I (<0.04) ng/mL C-Reactive Protein (< 5.00) mg/L B-Natriuretic Peptide ( - 100) pg/mL Total Protein (6.4-8.9) g/dL Albumin (3.2-5.2) g/dL Globulin (2-4) g/dL Albumin/Globulin Ratio (1-3) Lipase (11.0-82.0) U/L TSH (0.34-5.60) mcIU/mL Acetaminophen mcg/mL Serum Alcohol (<10) mg/dL Microbiology and Other Data: Microbiology 08/10/17 13:22 Aerobic Blood Culture - Preliminary Blood Venous No Growth Day 1 Anaerobic Blood Culture - Preliminary No Growth Day 1 08/10/17 13:17 Aerobic Blood Culture - Preliminary Blood Venous No Growth Day 1 Anaerobic Blood Culture - Preliminary No Growth Day 1 08/10/17 11:54 Urine Culture - Final Urine Legionella Urinary Antigen - Final Negative Legionella Streptococcus pneumoniae Ag Screen - Final Negative S. pneumo Antigen 08/10/17 11:56 Influenza Types A,B Antigen (JESSICA) - Final Nasal Specimen received for Influenza A/B Molecular testing Assess/Plan/Problems-Billing Assessment: CAP, DIONICIO on CKD in an 87 yo M with hx of HTN, HLD, CAD, CKD3, dementia, DM, SSS s/p PPM admitted with presumed PNA - Patient Problems (1) CAP (community acquired pneumonia) Current Visit: Yes Status: Acute Code(s): J18.9 - PNEUMONIA, UNSPECIFIED ORGANISM SNOMED Code(s): 734467541 Comment: Doing better on 3 liters and CPAP at night . Stable. Keep in ICU one more day as he decompensates easily. PT consult. Continue Ceftriaxone. Completed Azithromycin. Urine antigens negative. Continue supplemental O2. (2) DIONICIO (acute kidney injury) Current Visit: Yes Status: Acute Code(s): N17.9 - ACUTE KIDNEY FAILURE, UNSPECIFIED SNOMED Code(s): 01490479 Comment: Continues to improve. Continue to hold nephrotoxic medications.Hold fluids with history of CHF. BMP daily. (3) Chronic diastolic CHF (congestive heart failure) Current Visit: Yes Status: Acute Code(s): I50.32 - CHRONIC DIASTOLIC ( CONGESTIVE) HEART FAILURE SNOMED Code(s): 209443234 Comment: Improved after Lasix IV 80 mg once yesterday. Perhaps gut edema is preventing from absorption of negative chronotrops. He certainly appears to be diuresing. This should help getting him back on po. (4) Atrial fibrillation Current Visit: No Status: Chronic Code(s): I48.91 - UNSPECIFIED ATRIAL FIBRILLATION SNOMED Code(s): 67961699 Comment: Appreciate Cardiology's input. HR still slightly around 80 now. Coreg titrated up to 25 bid, swich to po cardizem. Pt is not anticoagulated chronically. Has PPM. (5) Diabetes mellitus type 2 Current Visit: No Status: Chronic Code(s): E11.9 - TYPE 2 DIABETES MELLITUS WITHOUT COMPLICATIONS SNOMED Code(s): 32026519 Comment: Stable. HISS only. Monitor closely. Lantus on hold. (6) Hypertension Current Visit: No Status: Chronic Priority: Medium Code(s): I10 - ESSENTIAL (PRIMARY) HYPERTENSION SNOMED Code(s): 43627955 Comment: Slightly high. Continue Coreg and Diltiazem (7) PMR (polymyalgia rheumatica) Current Visit: No Status: Acute Priority: High Code(s): M35.3 - POLYMYALGIA RHEUMATICA SNOMED Code(s): 66676606 Comment: Continue slow taper on Prednisone. Stable. (8) COPD (chronic obstructive pulmonary disease) Current Visit: No Status: Chronic Code(s): J44.9 - CHRONIC OBSTRUCTIVE PULMONARY DISEASE, UNSPECIFIED SNOMED Code(s): 96027538 Comment: Continue Dulera, prn nebs.Continue CPAP at night. (9) DVT prophylaxis Current Visit: No Status: Resolved Priority: Low Onset Date: 12/21/14 Code(s): HVA0894 - SNOMED Code(s): 544781752 Comment: SQ heparin
[2017-08-17] MEDS: Diltiazem CD CAP* 120 MG PO SCH (15:26)
[2017-08-17] MEDS ORDERED: Diltiazem TAB* 30 MG PO SCH (18:00)
[2017-08-17] MEDS: Aspirin Low Dose CHEW TAB* 81 MG PO SCH (20:10)
[2017-08-17] MEDS: Donepezil TAB* 5 MG PO SCH (20:11)
[2017-08-17] MEDS: Carvedilol TAB* 25 MG PO SCH (20:11)
[2017-08-17] MEDS: CMC:Rosuvastatin (NF) 5 MG TAB PO SCH (20:15)
[2017-08-18] MEDS: Heparin VIAL(*) 5000 UNITS/ML VIAL (FIVE THOUSAND) SUBCUT SCH ×3 (05:48→21:29)
[2017-08-18] MEDS: Diltiazem CD CAP* 120 MG PO SCH (08:09)
[2017-08-18] MEDS: Carvedilol TAB* 25 MG PO SCH ×2 (08:10→20:14)
[2017-08-18] MEDS: predniSONE TAB* 1 MG PO SCH (08:10)
[2017-08-18] MEDS: Mometasone/Formoter 200/5 MDI INH SCH ×2 (08:18→21:26)
[2017-08-18 08:21] LABS: Hematocrit 32 % (42-52); Hemoglobin 10.1 g/dl (14.0-18.0); Mean Corpuscular HGB Conc 32 g/dl (31-36); Mean Corpuscular Hemoglobin 28 pg (27-31); Mean Corpuscular Volume 88 fL (80-94); Mean Platelet Volume 8 um3 (7.4-10.4); Red Cell Distribution Width 14 % (10.5-15); White Blood Count 6.3 10^3/ul (3.5-10.8)
[2017-08-18 08:22] LABS: Comments Flag Yes
--- NOTE | 2017-08-18 08:52 | RAD ---
INDICATION: Pulmonary edema COMPARISON: Most recent comparison chest x-rays dated August 14, 2017 TECHNIQUE: Single AP portable view of the chest was obtained. FINDINGS: Image quality is compromised due to the relative inferiority of a portable chest x-ray. Again seen is mild cardiomegaly and a 2-lead cardiac pacemaker. There is faint calcification overlying the arch of the aorta. The left lung is adequately aerated with an adequately defined left costophrenic angle in the AP projection. There is density obscuring the right lung base as well as obscuring the right hemidiaphragm and costophrenic angle. Aeration at the right lung base is worse when compared to the previous chest x-ray. IMPRESSION: Chest x-ray findings indicate worsening right lower lobe aeration potentially with right lung base pleural effusion when compared to the most recent August 14, 2017 chest x-ray.
[2017-08-18 08:56] LABS: BUN/Creatinine Ratio 44.7 (8-20); EGFR African American 55.9 (>60); EGFR Non-African American 43.5 (>60); Potassium 4.8 mmol/L (3.5-5.0)
[2017-08-18] MEDS: Furosemide IV* 10 MG/ML VIAL (40 MG) IV SCH ×2 (09:35→16:58)
[2017-08-18] MEDS: Insulin LISPRO* 1 UNITS UNIT SUBCUT SCH ×3 (09:35→16:57)
--- NOTE | 2017-08-18 10:08 | PN ---
Subjective Date of Service: 08/18/17 Interval History: This is an 87 yo male with PMR and COPD who was admitted with PNA and DIONICIO who was later transferred to ICU for tx of acute resp failure secondary to fluid overload requiring BiPAP. Patient is now oxygenating well on 3L via NC. He reportedly refused BiPAP last night which pt doesn't recall. His stay has been complicated by afib, with rates occasionally difficult to control. This morning, patient reports that he is generally feeling well. Denies any acute complaints. Specifically denies dyspnea or CP. Continues to diuress well. Objective Active Medications: Acetaminophen (Tylenol Tab*) 650 mg PO Q4H PRN PRN Reason: FEVER/PAIN Last Admin: 08/11/17 16:16 Dose: 650 mg Albuterol/Ipratropium (Duoneb (Albuterol 2.5 Mg/Ipratropium 0.5 Mg)) 1 neb INH Q4H PRN PRN Reason: SOB/WHEEZING Aspirin (Aspirin Low Dose Tab*) 81 mg PO BEDTIME [facility] Last Admin: 08/17/17 20:10 Dose: 81 mg Carvedilol (Coreg Tab*) 25 mg PO BID [facility] Last Admin: 08/18/17 08:10 Dose: 25 mg Dextrose (D50w Syringe 50 Ml*) 12.5 gm IV PUSH .FOR FS < 60 - SS PRN PRN Reason: FS < 60 Last Admin: 08/14/17 07:45 Dose: 12.5 gm Diltiazem HCl (Cardizem Cd Cap*) 120 mg PO DAILY [facility] Last Admin: 08/18/17 08:09 Dose: 120 mg Donepezil HCl (Aricept Tab*) 10 mg PO BEDTIME [facility] Last Admin: 08/17/17 20:11 Dose: 10 mg Furosemide (Lasix Iv*) 40 mg IV 0800,1700 [facility] Last Admin: 08/18/17 09:35 Dose: 40 mg Heparin Sodium (Porcine) (Heparin Vial(*)) 5,000 units SUBCUT Q8HR [facility] Last Admin: 08/18/17 05:48 Dose: 5,000 units Ceftriaxone Sodium 1,000 mg/ (Sodium Chloride) 50 mls @ 200 mls/hr IVPB Q24H [facility] Last Admin: 08/17/17 11:03 Dose: 200 mls/hr Insulin Human Lispro (Humalog*) 0 - 11 units SUBCUT AC [facility] PRN Reason: Protocol Last Admin: 08/18/17 09:35 Dose: 7 units Mometasone Furoate/Formoterol Fumar (Dulera 200/5 Mdi*) 2 puff INH BID [facility] Last Admin: 08/18/17 08:18 Dose: 2 puff Ondansetron HCl (Zofran Inj*) 4 mg IV Q6H PRN PRN Reason: NAUSEA Prednisone (Deltasone Tab*) 3 mg PO EVERY OTHER DAY [facility] Last Admin: 08/17/17 08:50 Dose: 3 mg Prednisone (Deltasone Tab*) 4 mg PO EVERY OTHER DAY [facility] Last Admin: 08/18/17 08:10 Dose: 4 mg Rosuvastatin Calcium (Crestor (Nf)) 5 mg PO BEDTIME [facility] PRN Reason: Protocol Last Admin: 08/17/17 20:15 Dose: 5 mg Vital Signs: Temp Pulse Resp BP Pulse Ox 98.2 F 80 15 137/63 97 08/18/17 07:57 08/18/17 09:01 08/18/17 09:01 08/18/17 09:01 08/18/17 09:01 Oxygen Devices in Use Now: Nasal Cannula Appearance: Chronically ill, but generally well appearing elderly gentleman in NAD Respiratory: Symmetrical Chest Expansion and Respiratory Effort, - - reduced BS in RLL, remainder of lung givens are clear Cardiovascular: NL Sounds; No Murmurs; No JVD, RRR Abdominal: NL Sounds; No Tenderness; No Distention Extremities: - - 1+ pitting edema diffusely Skin: No Rash or Ulcers Neurological: Alert and Oriented x 3 Result Diagrams: 08/18/17 08:05 08/18/17 08:05 Additional Lab and Data: . Microbiology and Other Data: Microbiology 08/10/17 13:22 Aerobic Blood Culture - Preliminary Blood Venous No Growth Day 1 Anaerobic Blood Culture - Preliminary No Growth Day 1 08/10/17 13:17 Aerobic Blood Culture - Preliminary Blood Venous No Growth Day 1 Anaerobic Blood Culture - Preliminary No Growth Day 1 08/10/17 11:54 Urine Culture - Final Urine Legionella Urinary Antigen - Final Negative Legionella Streptococcus pneumoniae Ag Screen - Final Negative S. pneumo Antigen 08/10/17 11:56 Influenza Types A,B Antigen (JESSICA) - Final Nasal Specimen received for Influenza A/B Molecular testing Diagnostic Imaging: CXR 08/18 - R pleural effusion, moderate size which is new compared to 08/14, improved aeration in L lung field Echo - mild LVH and mod RVH with LVEF 55-60%, mild to mod pulm HTN, assessment of diastolic fxn was non-diagnostic, no severe valvular abnormalities Assess/Plan/Problems-Billing Assessment: CAP, DIONICIO on CKD in an 87 yo M with hx of HTN, HLD, CAD, CKD3, dementia, DM, SSS s/p PPM admitted with presumed PNA - Patient Problems (1) Acute respiratory failure Comment: Secondary to pulm edema related to acute diastolic HF Now improved with diuresis Stable on 3.5L NC (2) CAP (community acquired pneumonia) Comment: Improving Cont ceftriaxone, completed azithro Cultures neg (3) Chronic diastolic CHF (congestive heart failure) Comment: Acute on chronic Improving with diuresis Still appears to be hypervolemic R pleural effusion noted on CXR today Cont diuresis with IV Lasix at this time (4) DIONICIO (acute kidney injury) Comment: Continues to improve. Continue to hold nephrotoxic medications. Hold fluids with history of CHF. BMP daily. (5) PMR (polymyalgia rheumatica) Comment: Continue prednisone Stable (6) Atrial fibrillation Comment: Appreciate Cardiology's input. HR still slightly around 80 now. Coreg titrated up to 25 bid, on oral cardizem Pt is not anticoagulated chronically, clarify recommendations with cardiology (7) CAD (coronary artery disease) Comment: Stable Cont med management (8) COPD (chronic obstructive pulmonary disease) Comment: Continue Dulera, prn nebs.Continue CPAP at night. (9) Diabetes mellitus type 2 Comment: Mild hyperglycemia Resume Lantus Cont mealtime SS coverage with Humalog (10) Hypertension Comment: Normotensive on average Continue Coreg and Diltiazem (11) PRETTY (obstructive sleep apnea) Comment: Continue CPAP (12) Full code status (13) DVT prophylaxis Comment: SQ heparin Status and Disposition: Inpatient. Appropriate for transfer from ICU to telemetry unit.
[2017-08-18] MEDS: cefTRIAXone VIAL(*) 1,000 MG in NS 0.9% 50 ML* 50 ML IVPB SCH (12:26)
[2017-08-18] MEDS: Insulin GLARGINE(*) 1 UNITS UNIT SUBCUT SCH (12:40)
[2017-08-18] MEDS: CMC:Rosuvastatin (NF) 5 MG TAB PO SCH (20:14)
[2017-08-18] MEDS: Donepezil TAB* 5 MG PO SCH (20:14)
[2017-08-18] MEDS: Aspirin Low Dose CHEW TAB* 81 MG PO SCH (20:14)
[2017-08-19] MEDS: amLODIPine TAB* 5 MG PO SCH ×2 (00:08→08:31)
[2017-08-19] MEDS: Heparin VIAL(*) 5000 UNITS/ML VIAL (FIVE THOUSAND) SUBCUT SCH ×3 (05:24→20:37)
[2017-08-19] MEDS: Carvedilol TAB* 25 MG PO SCH ×3 (06:54→20:37)
[2017-08-19] MEDS: Mometasone/Formoter 200/5 MDI INH SCH ×2 (07:47→20:29)
[2017-08-19] MEDS: predniSONE TAB* 1 MG PO SCH (08:32)
[2017-08-19] MEDS: Insulin LISPRO* 1 UNITS UNIT SUBCUT SCH ×3 (08:32→17:09)
[2017-08-19] MEDS: Diltiazem CD CAP* 120 MG PO SCH ×2 (08:32→20:37)
[2017-08-19] MEDS: Furosemide IV* 10 MG/ML VIAL (40 MG) IV SCH ×2 (08:32→17:09)
[2017-08-19 09:46] LABS: BUN/Creatinine Ratio 38.8 (8-20); Calcium 8.4 mg/dL (8.6-10.3); EGFR African American 50.9 (>60); EGFR Non-African American 39.6 (>60); Magnesium 1.7 mg/dL (1.9-2.7); Potassium 4.5 mmol/L (3.5-5.0)
[2017-08-19] MEDS: cefTRIAXone VIAL(*) 1,000 MG in NS 0.9% 50 ML* 50 ML IVPB SCH (11:52)
[2017-08-19] MEDS ORDERED: Magnesium Sulfate 2 GM IV* 2 GM/50 ML BAG IVPB ONE (12:15)
[2017-08-19] MEDS: Insulin GLARGINE(*) 1 UNITS UNIT SUBCUT SCH (12:32)
--- NOTE | 2017-08-19 12:48 | PN ---
Subjective Date of Service: 08/19/17 Interval History: Patient reports continued improvement in his dyspnea. He is able to ambulate to the restroom. Cont with good output from Lasix therapy. Noted mild tachy this am with rates up to 120 bpm prior to am meds, now improved. No change in symptoms with increased rate. Denies CP, n/v/d. Objective Active Medications: Acetaminophen (Tylenol Tab*) 650 mg PO Q4H PRN PRN Reason: FEVER/PAIN Last Admin: 08/11/17 16:16 Dose: 650 mg Albuterol/Ipratropium (Duoneb (Albuterol 2.5 Mg/Ipratropium 0.5 Mg)) 1 neb INH Q4H PRN PRN Reason: SOB/WHEEZING Amlodipine Besylate (Norvasc Tab*) 5 mg PO DAILY [facility] Last Admin: 08/19/17 08:31 Dose: 5 mg Aspirin (Aspirin Low Dose Tab*) 81 mg PO BEDTIME [facility] Last Admin: 08/18/17 20:14 Dose: 81 mg Carvedilol (Coreg Tab*) 25 mg PO BID [facility] Last Admin: 08/19/17 07:23 Dose: Not Given Dextrose (D50w Syringe 50 Ml*) 12.5 gm IV PUSH .FOR FS < 60 - SS PRN PRN Reason: FS < 60 Last Admin: 08/14/17 07:45 Dose: 12.5 gm Diltiazem HCl (Cardizem Cd Cap*) 120 mg PO DAILY [facility] Last Admin: 08/19/17 08:32 Dose: 120 mg Donepezil HCl (Aricept Tab*) 10 mg PO BEDTIME [facility] Last Admin: 08/18/17 20:14 Dose: 10 mg Furosemide (Lasix Iv*) 40 mg IV 0800,1700 [facility] Last Admin: 08/19/17 08:32 Dose: 40 mg Heparin Sodium (Porcine) (Heparin Vial(*)) 5,000 units SUBCUT Q8HR [facility] Last Admin: 08/19/17 05:24 Dose: 5,000 units Ceftriaxone Sodium 1,000 mg/ (Sodium Chloride) 50 mls @ 200 mls/hr IVPB Q24H [facility] Last Admin: 08/19/17 11:52 Dose: 200 mls/hr Magnesium Sulfate (Magnesium Sulfate 2 Gm Iv*) 2 gm in 50 mls @ 50 mls/hr IVPB ONCE ONE Stop: 08/19/17 13:14 Last Admin: 08/19/17 12:31 Dose: 50 mls/hr Insulin Glargine (Lantus(*)) 40 units SUBCUT Q24H [facility] Last Admin: 08/19/17 12:32 Dose: 40 units Insulin Human Lispro (Humalog*) 0 - 11 units SUBCUT AC [facility] PRN Reason: Protocol Last Admin: 08/19/17 12:32 Dose: 5 units Mometasone Furoate/Formoterol Fumar (Dulera 200/5 Mdi*) 2 puff INH BID [facility] Last Admin: 08/19/17 07:47 Dose: 2 puff Ondansetron HCl (Zofran Inj*) 4 mg IV Q6H PRN PRN Reason: NAUSEA Last Admin: 08/19/17 05:24 Dose: 4 mg Prednisone (Deltasone Tab*) 3 mg PO EVERY OTHER DAY [facility] Last Admin: 08/19/17 08:32 Dose: 3 mg Prednisone (Deltasone Tab*) 4 mg PO EVERY OTHER DAY [facility] Last Admin: 08/18/17 08:10 Dose: 4 mg Rosuvastatin Calcium (Crestor (Nf)) 5 mg PO BEDTIME [facility] PRN Reason: Protocol Last Admin: 08/18/17 20:14 Dose: 5 mg Vital Signs: Temp Pulse Resp BP Pulse Ox 97.8 F 43 20 151/56 100 08/19/17 11:51 08/19/17 11:51 08/19/17 11:51 08/19/17 11:51 08/19/17 11:51 Oxygen Devices in Use Now: Nasal Cannula Appearance: Elderly gentleman accompanied by his and son in NAD Respiratory: Symmetrical Chest Expansion and Respiratory Effort, Clear to Auscultation Cardiovascular: NL Sounds; No Murmurs; No JVD, - - irreg rhythm Extremities: - - 1-2+ LE edema Neurological: Alert and Oriented x 3 Result Diagrams: 08/18/17 08:05 08/19/17 08:56 Additional Lab and Data: . Microbiology and Other Data: Microbiology 08/10/17 13:22 Aerobic Blood Culture - Preliminary Blood Venous No Growth Day 1 Anaerobic Blood Culture - Preliminary No Growth Day 1 08/10/17 13:17 Aerobic Blood Culture - Preliminary Blood Venous No Growth Day 1 Anaerobic Blood Culture - Preliminary No Growth Day 1 08/10/17 11:54 Urine Culture - Final Urine Legionella Urinary Antigen - Final Negative Legionella Streptococcus pneumoniae Ag Screen - Final Negative S. pneumo Antigen 08/10/17 11:56 Influenza Types A,B Antigen (JESSICA) - Final Nasal Specimen received for Influenza A/B Molecular testing Diagnostic Imaging: CXR 08/18 - R pleural effusion, moderate size which is new compared to 08/14, improved aeration in L lung field Echo - mild LVH and mod RVH with LVEF 55-60%, mild to mod pulm HTN, assessment of diastolic fxn was non-diagnostic, no severe valvular abnormalities Assess/Plan/Problems-Billing Assessment: CAP, DIONICIO on CKD in an 87 yo M with hx of HTN, HLD, CAD, CKD3, dementia, DM, SSS s/p PPM admitted with presumed PNA - Patient Problems (1) Acute respiratory failure Comment: Secondary to pulm edema related to acute diastolic HF Now improved with diuresis Stable on 3L NC (2) CAP (community acquired pneumonia) Comment: Improving Cont ceftriaxone, completed azithro Cultures neg (3) Chronic diastolic CHF (congestive heart failure) Comment: Acute on chronic Improving with diuresis Still appears to be hypervolemic R pleural effusion noted on CXR Cont diuresis with IV Lasix at this time (4) DIONICIO (acute kidney injury) Comment: Cr appears to have returned to near baseline, stable at ~1.6 Continue to hold nephrotoxic medications. Hold fluids with history of CHF. BMP daily. (5) PMR (polymyalgia rheumatica) Comment: Continue prednisone Stable (6) Atrial fibrillation Comment: Appreciate Cardiology's input. HR fairly stable near 80 bpm now. Coreg titrated up to 25 bid Pt is not anticoagulated chronically, clarify recommendations with cardiology, call in to his primary grounds person (7) CAD (coronary artery disease) Comment: Stable Cont med management (8) COPD (chronic obstructive pulmonary disease) Comment: Continue Dulera, prn nebs.Continue CPAP at night. (9) Diabetes mellitus type 2 Comment: Mild hyperglycemia Lantus restarted, and will cont to titrate up Cont mealtime SS coverage with Humalog (10) Hypertension Comment: Normotensive on average Continue Coreg and Diltiazem (11) PRETTY (obstructive sleep apnea) Comment: Continue CPAP (12) Full code status (13) DVT prophylaxis Comment: SQ heparin Status and Disposition: Inpatient. Interested in [facility]. Anticipate dc in ~2d
[2017-08-19] MEDS: Donepezil TAB* 5 MG PO SCH (20:37)
[2017-08-19] MEDS: Aspirin Low Dose CHEW TAB* 81 MG PO SCH (20:37)
[2017-08-19] MEDS: CMC:Rosuvastatin (NF) 5 MG TAB PO SCH (20:37)
[2017-08-20 05:03] LABS: BUN/Creatinine Ratio 38.7 (8-20); Calcium 8.4 mg/dL (8.6-10.3); EGFR African American 48.2 (>60); EGFR Non-African American 37.5 (>60); Potassium 4.7 mmol/L (3.5-5.0)
[2017-08-20] MEDS: Heparin VIAL(*) 5000 UNITS/ML VIAL (FIVE THOUSAND) SUBCUT SCH ×2 (05:46→13:39)
[2017-08-20] MEDS: Insulin LISPRO* 1 UNITS UNIT SUBCUT SCH ×3 (07:59→16:52)
[2017-08-20] MEDS: predniSONE TAB* 1 MG PO SCH (08:03)
[2017-08-20] MEDS: Carvedilol TAB* 25 MG PO SCH ×2 (08:03→20:25)
[2017-08-20] MEDS: Diltiazem CD CAP* 120 MG PO SCH ×2 (08:03→20:24)
[2017-08-20] MEDS: amLODIPine TAB* 5 MG PO SCH (08:04)
[2017-08-20] MEDS: Furosemide IV* 10 MG/ML VIAL (40 MG) IV SCH (08:04)
[2017-08-20] MEDS: Mometasone/Formoter 200/5 MDI INH SCH ×2 (09:29→20:46)
[2017-08-20] MEDS: cefTRIAXone VIAL(*) 1,000 MG in NS 0.9% 50 ML* 50 ML IVPB SCH (10:37)
[2017-08-20] MEDS ORDERED: Insulin GLARGINE(*) 1 UNITS UNIT SUBCUT SCH (12:30)
--- NOTE | 2017-08-20 14:01 | PN ---
Subjective Date of Service: 08/20/17 Interval History: Patient reports continued improvement. No dyspnea with ambulation to the bathroom, but nurse noted he desaturated when on 1L with ambulation. Denies CP , palpitations. Objective Active Medications: Acetaminophen (Tylenol Tab*) 650 mg PO Q4H PRN PRN Reason: FEVER/PAIN Last Admin: 08/11/17 16:16 Dose: 650 mg Albuterol/Ipratropium (Duoneb (Albuterol 2.5 Mg/Ipratropium 0.5 Mg)) 1 neb INH Q4H PRN PRN Reason: SOB/WHEEZING Amlodipine Besylate (Norvasc Tab*) 5 mg PO DAILY [facility] Last Admin: 08/20/17 08:04 Dose: 5 mg Aspirin (Aspirin Low Dose Tab*) 81 mg PO BEDTIME [facility] Last Admin: 08/19/17 20:37 Dose: 81 mg Carvedilol (Coreg Tab*) 25 mg PO BID [facility] Last Admin: 08/20/17 08:03 Dose: 25 mg Dextrose (D50w Syringe 50 Ml*) 12.5 gm IV PUSH .FOR FS < 60 - SS PRN PRN Reason: FS < 60 Last Admin: 08/14/17 07:45 Dose: 12.5 gm Diltiazem HCl (Cardizem Cd Cap*) 120 mg PO BID [facility] Last Admin: 08/20/17 08:03 Dose: 120 mg Donepezil HCl (Aricept Tab*) 10 mg PO BEDTIME [facility] Last Admin: 08/19/17 20:37 Dose: 10 mg Furosemide (Lasix Iv*) 40 mg IV 0800 [facility] Last Admin: 08/20/17 08:04 Dose: 40 mg Insulin Glargine (Lantus(*)) 50 units SUBCUT Q24H [facility] Last Admin: 08/20/17 12:26 Dose: 50 units Insulin Human Lispro (Humalog*) 0 - 11 units SUBCUT AC [facility] PRN Reason: Protocol Last Admin: 08/20/17 12:26 Dose: 3 units Mometasone Furoate/Formoterol Fumar (Dulera 200/5 Mdi*) 2 puff INH BID [facility] Last Admin: 08/20/17 09:29 Dose: 2 puff Ondansetron HCl (Zofran Inj*) 4 mg IV Q6H PRN PRN Reason: NAUSEA Last Admin: 08/19/17 05:24 Dose: 4 mg Prednisone (Deltasone Tab*) 3 mg PO EVERY OTHER DAY [facility] Last Admin: 08/19/17 08:32 Dose: 3 mg Prednisone (Deltasone Tab*) 4 mg PO EVERY OTHER DAY [facility] Last Admin: 08/20/17 08:03 Dose: 4 mg Rivaroxaban (Xarelto(*)) 15 mg PO DAILY [facility] Rosuvastatin Calcium (Crestor (Nf)) 5 mg PO BEDTIME [facility] PRN Reason: Protocol Last Admin: 08/19/17 20:37 Dose: 5 mg Vital Signs: Temp Pulse Resp BP Pulse Ox 98.1 F 70 16 146/56 96 08/20/17 11:41 08/20/17 11:41 08/20/17 11:41 08/20/17 11:41 08/20/17 11:41 Oxygen Devices in Use Now: Nasal Cannula Appearance: Elderly gentleman in NAD Respiratory: Symmetrical Chest Expansion and Respiratory Effort, Clear to Auscultation Cardiovascular: NL Sounds; No Murmurs; No JVD, RRR Abdominal: NL Sounds; No Tenderness; No Distention Extremities: - - improved UE edema, 2+ LE edema Skin: - - multiple areas of ecchymosis Neurological: Alert and Oriented x 3 Result Diagrams: 08/18/17 08:05 08/20/17 04:20 Additional Lab and Data: . Microbiology and Other Data: Microbiology 08/10/17 13:22 Aerobic Blood Culture - Preliminary Blood Venous No Growth Day 1 Anaerobic Blood Culture - Preliminary No Growth Day 1 08/10/17 13:17 Aerobic Blood Culture - Preliminary Blood Venous No Growth Day 1 Anaerobic Blood Culture - Preliminary No Growth Day 1 08/10/17 11:54 Urine Culture - Final Urine Legionella Urinary Antigen - Final Negative Legionella Streptococcus pneumoniae Ag Screen - Final Negative S. pneumo Antigen 08/10/17 11:56 Influenza Types A,B Antigen (JESSICA) - Final Nasal Specimen received for Influenza A/B Molecular testing Diagnostic Imaging: CXR 08/18 - R pleural effusion, moderate size which is new compared to 08/14, improved aeration in L lung field Echo - mild LVH and mod RVH with LVEF 55-60%, mild to mod pulm HTN, assessment of diastolic fxn was non-diagnostic, no severe valvular abnormalities Repeat CXR 08/20 - improved R pleural effusion Assess/Plan/Problems-Billing Assessment: CAP, DIONICIO on CKD in an 87 yo M with hx of HTN, HLD, CAD, CKD3, dementia, DM, SSS s/p PPM admitted with presumed PNA - Patient Problems (1) Acute respiratory failure Comment: Secondary to pulm edema related to acute diastolic HF Now improved with diuresis (2) CAP (community acquired pneumonia) Comment: Improving Completed 10d of ceftriaxone/azithro Cultures neg (3) Atrial fibrillation Comment: Appreciate Cardiology's input. HR fairly stable near 80 bpm now. Coreg titrated up to 25 bid and diltiazem to 120mg bid Spoke with primary forensic audit expert, Dr Gonzalez regarding anticoagulation recommendations He has a CHADSVASC score of 6, placing him at an annual stroke risk of 9.8% Anticoagulation was not immediately started due to h/o ITP and chronic mild thrombocytopenia This was discussed with heme/onc Dr Simpson who previously saw him for the ITP who suggested anticoagulation would be appropriate if plt count is >50K, he seems to avg 100K Start renally adjusted dose of Xarelto (4) Chronic diastolic CHF (congestive heart failure) Comment: Acute on chronic Improving with diuresis Still appears to be mildly hypervolemic R pleural effusion noted on CXR, improved on repeat study Cont diuresis with IV Lasix at this time (5) DIONICIO (acute kidney injury) Comment: Cr appears to have returned to near baseline, stable at ~1.6 Continue to hold nephrotoxic medications. Hold fluids with history of CHF. BMP daily. (6) PMR (polymyalgia rheumatica) Comment: Continue prednisone Stable (7) CAD (coronary artery disease) Comment: Stable Cont med management (8) COPD (chronic obstructive pulmonary disease) Comment: Continue Dulera, prn nebs.Continue CPAP at night. (9) Diabetes mellitus type 2 Comment: Mild hyperglycemia Lantus restarted, and will cont to titrate up Cont mealtime SS coverage with Humalog (10) Hypertension Comment: Normotensive on average Continue Coreg and Diltiazem (11) PRETTY (obstructive sleep apnea) Comment: Continue CPAP (12) Full code status (13) DVT prophylaxis Comment: Xarelto Status and Disposition: Inpatient. Interested in [facility]. Anticipate dc tomorrow
--- NOTE | 2017-08-20 14:21 | RAD ---
HISTORY: Follow-up effusion COMPARISONS: August 18, 2017 VIEWS: 4: Frontal dual-energy and lateral views of the chest. FINDINGS: CARDIOMEDIASTINAL SILHOUETTE: The cardiomediastinal silhouette is normal. JOSE MANUEL: The jose manuel are normal. PLEURA: There is a small right pleural effusion, decreased from the August 18, 2017 examination. LUNG PARENCHYMA: The lungs are clear. ABDOMEN: The upper abdomen is clear. There is no subphrenic gas. BONES AND SOFT TISSUES: No bone or soft tissue abnormalities are noted. OTHER: A left-sided pacemaker is noted IMPRESSION: PERSISTENT BUT DECREASED RIGHT PLEURAL EFFUSION
[2017-08-20] MEDS: Rivaroxaban TAB(*) 15 MG PO SCH (14:27)
[2017-08-20] MEDS: Aspirin Low Dose CHEW TAB* 81 MG PO SCH (20:24)
[2017-08-20] MEDS: CMC:Rosuvastatin (NF) 5 MG TAB PO SCH (20:24)
[2017-08-20] MEDS: Donepezil TAB* 5 MG PO SCH (20:25)
[2017-08-21 06:06] LABS: BUN/Creatinine Ratio 36.6 (8-20); Calcium 8.3 mg/dL (8.6-10.3); EGFR African American 51.2 (>60); EGFR Non-African American 39.8 (>60); Potassium 4.6 mmol/L (3.5-5.0)
[2017-08-21 07:39] VITALS: BP 155/61
[2017-08-21] MEDS: Insulin LISPRO* 1 UNITS UNIT SUBCUT SCH (07:39)
[2017-08-21] MEDS: Furosemide IV* 10 MG/ML VIAL (40 MG) IV SCH (07:40)
[2017-08-21] MEDS: Mometasone/Formoter 200/5 MDI INH SCH (08:02)
[2017-08-21] MEDS: Diltiazem CD CAP* 120 MG PO SCH (10:11)
[2017-08-21] MEDS: Carvedilol TAB* 25 MG PO SCH (10:11)
[2017-08-21] MEDS: amLODIPine TAB* 5 MG PO SCH (10:11)
[2017-08-21] MEDS: predniSONE TAB* 1 MG PO SCH (10:11)
[2017-08-21] MEDS: Rivaroxaban TAB(*) 15 MG PO SCH (10:33)
--- NOTE | 2017-08-21 10:38 | DS ---
CC: Dr. Fuentes; Dr. Gonzalez; [facility]* DATE OF ADMISSION: 08/10/2017. DATE OF DISCHARGE: 08/21/2017. PRIMARY CARE PROVIDER: Dr. Fuentes. PRIMARY CONTRACT CLERK: Dr. Gonzalez. DISCHARGING PROVIDER: RL Bellamy. SUPERVISING PHYSICIAN: Dr. Jeanette Tapia* (dictated by RL Bellamy). PRIMARY DISCHARGE DIAGNOSIS: 1. Acute respiratory failure secondary to acute diastolic heart failure exacerbation. 2. Community-acquired pneumonia. 3. Atrial fibrillation with rapid ventricular rate - the patient's family elected not to anticoagulate at this time. 4. Acute kidney injury. SECONDARY DISCHARGE DIAGNOSES: 1. Chronic diastolic heart failure. 2. Polymyalgia rheumatica, on chronic steroid therapy. 3. Coronary artery disease. 4. COPD without acute exacerbation. 5. Insulin dependent diabetes. 6. Hypertension. 7. Obstructive sleep apnea. 8. Chronic oxygen therapy with 1.5 liters during daytime hours and 3 liters at night with his CPAP. 9. Mild dementia. DISCHARGE MEDICATIONS: 1. Aspirin 81 mg p.o. at bedtime. 2. Coreg 25 mg p.o. twice daily. 3. Cardizem 120 mg p.o. twice daily. 4. Aricept 10 mg p.o. at bedtime. 5. NovoLog on a sliding scale with mealtime 2 to 10 units with each meal. 6. Levalbuterol inhaled q.6 hours prn shortness of breath. 7. Magnesium Chloride 64 mg p.o. twice daily. 8. Potassium chloride 20 mEq p.o. daily. 9. Crestor 5 mg p.o. at bedtime. 10. Torsemide 20 mg p.o. twice daily. 11. Prednisone 4 mg alternating with 3 mg every other day. 12. Lantus 55 units subcu daily. Medication changes: 1. Increase Coreg. 2. Start magnesium and potassium supplementation. 3. Increase home Torsemide dose. HOSPITAL IMAGIN. Chest x-ray, 08/10/2017, demonstrates stigmata of COPD and mild consolidation at the right lung base which may represent atelectasis or pneumonia. 2. Chest x-ray, 08/14/2017, shows mild interstitial congestion and persistent focal interstitial and alveolar change in the right lower lobe. 3. Chest x-ray, 08/18/2017, demonstrates worsening right lower lobe aeration with associated pleural effusion of moderate size. 4. Chest x-ray, 08/20/2017, shows improvement in right pleural effusion. 5. Transthoracic echocardiogram, 08/16/2017, demonstrates a mild to moderate mitral regurgitation, mild to moderate pulmonary hypertension, some moderate RVH and RV enlargement with a normal appearing left ventricle with an EF of 55 to 60 percent without wall motion variation. HOSPITAL COURSE: This is an 87-year-old gentleman with a history of PMR, COPD, chronic diastolic heart failure, chronic kidney disease, atrial fibrillation, sick sinus syndrome, hypertension, hyperlipidemia, remote history of idiopathic thrombocytopenic purpura, and coronary artery disease who presented to the emergency department with altered mental status and complaints of a cough. The patient lives with his and son who had noticed over the last couple of days prior to admission he had had increasing shortness of breath and seemed to be more confused than what was typical for him. They also noted that he was tachycardic and subsequently presented to the emergency department for evaluation. He was afebrile at the time of initial evaluation without significant leukocytosis. His initial labs did demonstrate an element of acute kidney injury with baseline BUN around 60 to 70, which almost doubled up to 110 , and his baseline creatinine about 1.6 or so, also jumped up to 2.6. His CRP was significantly elevated at 202 and he did have a right lower lobe infiltrate and was subsequently admitted for a community acquired pneumonia. The patient subsequently developed pulmonary edema likely secondary to rapid atrial fibrillation and required extensive diuresis and rescue BiPAP for which he was transferred to the ICU on 08/14/2017. The patient improved significantly with IV Lasix and was freed from BiPAP and eventually transferred back to the telemetry floor. Heart rates were controlled with Coreg and Diltiazem, and echocardiogram demonstrated normal ejection fraction and heart failure exacerbation was felt to be diastolic in nature driven by his rapid atrial fibrillation, which is likely related to his acute infectious process. The patient's renal function returned to baseline. He was diuresed nearly 12 kg from his maximum weight recorded in the hospital and appears to be near dry weight at the time of discharge. He does have a persistent small pleural effusion on repeat chest x-ray the day prior to discharge, but his oxygen needs have returned to baseline and he denies any feelings of dyspnea. He does have approximately 1 to 2+ lower extremity edema which is chronic for him at the time of discharge. Discussed anticoagulation at length with the patient's family, Cardiology and Hematology. There has been some hesitation to anticoagulate him for his known atrial fibrillation due to his history of ITP. This was discussed with Hem/Onc specialist, Dr. Simpson, who has previously treated for his ITP and suggested that as long as his platelet count is greater than 50,000, then anticoagulation is not contraindicated. Review of recent labs show that the patient has been averaging between 80 and 100,000 platelet count. He does have CHADS-VASC score of 6, placing him at approximately 10 percent annual stroke risk and this was discussed with the patient's family at length, but they were quite resistant to initiate anticoagulation due to his extensive comorbid conditions and elected not to begin oral anticoagulation at the time of discharge. DISCHARGE PLAN AND DISPOSITION: The patient is being discharged for subacute rehab to [facility] with medication list as described above. He has a follow-up scheduled with Dr. Gonzalez in approximately ten days which he is encouraged to keep. Recommend follow-up with primary care in one to two weeks. The patient should maintain continuous supplemental O2 at 1.5 to 2 liters during daytime hours and 3 liters with the use of CPAP at night. RL BELLAMY [id number]/[facility] #: [id number] DELON
== END 2017-08-21 12:00 | DRG 190 ==
LOC: ED 09:13 → MEDTELE 11:32 → ICU 08-14 16:22 → MEDTELE 08-18 09:13
PROVIDERS: ADMIT Hospitalist; ATTEND Internal Medicine
PROC: 5A09457 Assistance with Respiratory Ventilation, 24-96 Consecutive Hours, Continuous Positive Airway Pressure (ICD-10-PCS; principal; 2017-08-15)
DX: J44.0 Chronic obstructive pulmonary disease with (acute) lower respiratory infection (principal); J18.9 Pneumonia, unspecified organism; J96.01 Acute respiratory failure with hypoxia; I50.33 Acute on chronic diastolic (congestive) heart failure; N17.9 Acute kidney failure, unspecified; E87.2 Acidosis; E11.22 Type 2 diabetes mellitus with diabetic chronic kidney disease; I13.0 Hypertensive heart and chronic kidney disease with heart failure and stage 1 through stage 4 chronic kidney disease, or unspecified chronic kidney disease; F03.90 Unspecified dementia, unspecified severity, without behavioral disturbance, psychotic disturbance, mood disturbance, and anxiety; D69.6 Thrombocytopenia, unspecified; I48.92 Unspecified atrial flutter; I27.2 Other secondary pulmonary hypertension; F50.9 Eating disorder, unspecified; I48.91 Unspecified atrial fibrillation; N18.3 Chronic kidney disease, stage 3 (moderate); Z88.8 Allergy status to other drugs, medicaments and biological substances; Z91.040 Latex allergy status; Z95.5 Presence of coronary angioplasty implant and graft; Z95.810 Presence of automatic (implantable) cardiac defibrillator; I25.10 Atherosclerotic heart disease of native coronary artery without angina pectoris; E78.00 Pure hypercholesterolemia, unspecified; M10.9 Gout, unspecified; E11.36 Type 2 diabetes mellitus with diabetic cataract; Z82.49 Family history of ischemic heart disease and other diseases of the circulatory system; Z83.3 Family history of diabetes mellitus; Z87.891 Personal history of nicotine dependence; M35.3 Polymyalgia rheumatica; G47.33 Obstructive sleep apnea (adult) (pediatric); I25.2 Old myocardial infarction; E66.9 Obesity, unspecified; R94.31 Abnormal electrocardiogram [ECG] [EKG]; Z79.82 Long term (current) use of aspirin; Z79.52 Long term (current) use of systemic steroids; Z79.4 Long term (current) use of insulin; I34.0 Nonrheumatic mitral (valve) insufficiency; Z68.37 Body mass index [BMI] 37.0-37.9, adult
CPT/HCPCS: 36415; 36600; 71010; 71020; 80048; 80053; 80162; 80320; 80329; 81003; 81015; 82140; 82550; 82553; 82570; 82803; 82947; 83036; 83605; 83690; 83735; 83880; 84300; 84443; 84484; 85025; 85379; 85610; 85730; 86140; 87040; 87086; 87502; 87899; 93005; 93306; 94640; 94660; 94760; 99211; A9270-GY; G0463; G0480; J0456; J0696; J1160; J1644; J1940; J2060; J2405; J2930; J3475; J7512

== ENCOUNTER 2017-09-18 12:04 | Observation (INO) | payer MEDICARE, OTHER ==
[2017-09-18] MEDS ORDERED: Aspirin Low Dose CHEW TAB* 81 MG PO ONE ×2 (12:11→12:15)
[2017-09-18 12:40] LABS: Comments Flag Yes; Hematocrit 30 % (42-52); Hemoglobin 9.5 g/dl (14.0-18.0); Mean Corpuscular HGB Conc 32 g/dl (31-36); Mean Corpuscular Hemoglobin 27 pg (27-31); Mean Corpuscular Volume 84 fL (80-94); Mean Platelet Volume 8 um3 (7.4-10.4); Red Blood Count 3.52 10^6/ul (4.0-5.4); Red Cell Distribution Width 16 % (10.5-15); White Blood Count 7.6 10^3/ul (3.5-10.8)
[2017-09-18 12:41] LABS: Add Diff/Slide Review? Slide Review Added
--- NOTE | 2017-09-18 12:55 | RAD ---
INDICATION: Short of breath August 20, 2017 COMPARISON: August 20, 2017 TECHNIQUE: An AP portable view obtained at 1226 hours is submitted. FINDINGS: Bones/Soft Tissues: There are no acute bony findings. There is a left-sided cardiac pacemaker. Cardiomediastinal: The cardiomediastinal silhouette is normal. Lungs: There are no infiltrates. There is increased prominence of interstitium compatible with interval development of mild interstitial congestion. There are mild chronic pleural changes in the right lung base Pleura: There are no pleural effusions. Other: None IMPRESSION: MILD INTERSTITIAL CONGESTION. MILD CHRONIC PLEURAL CHANGES RIGHT LUNG BASE.
[2017-09-18 13:16] LABS: Albumin 3.3 g/dL (3.2-5.2); BUN/Creatinine Ratio 48.8 (8-20); Calcium 8.2 mg/dL (8.6-10.3); EGFR African American 38.3 (>60); EGFR Non-African American 29.8 (>60); Globulin 2.8 g/dL (2-4); Magnesium 2.4 mg/dL (1.9-2.7); Potassium 4.2 mmol/L (3.5-5.0); Total Bilirubin 0.5 mg/dL (0.2-1.0); Total Protein 6.1 g/dL (6.4-8.9)
[2017-09-18 13:19] LABS: Troponin I 0.02 ng/mL (<0.04)
[2017-09-18 15:35] LABS: Troponin I 0.02 ng/mL (<0.04)
[2017-09-18] MEDS ORDERED: Morphine INJ* 2 MG/ML 1 ML SYRINGE (TWO MG - NEW SYRINGE VERSION) IV PRN (17:18)
[2017-09-18] MEDS ORDERED: Acetaminophen TAB* 325 MG PO PRN (17:18)
[2017-09-18] MEDS ORDERED: Dextrose 50% Syringe 50 ML* 25 GM/50 ML SYRINGE IV PUSH PRN (17:25)
--- NOTE | 2017-09-18 17:45 | RAD ---
Indication: Hypoxia. Ventilation and perfusion lung scan was performed. Ventilation scan was performed after air is visualized xenon-133 was given. 6.72 mCi was used. 6.4 mCi of technetium 99m macroaggregated albumin was injected for the perfusion portion of the study. Ventilation scan demonstrates areas of decreased ventilation in the right lower lobe in a linear pattern. This appears to correspond to a nonsegmental perfusion defect in the right lung as well as in the left lung. These are matched perfusion defects and this is consistent with regional ventilatory impairment. This is a low probability scan for pulmonary embolus. IMPRESSION: Areas of matching defects in a nonsegmental distribution suggestive of regional ventilatory impairment. This is a low probability scan for pulmonary embolus.
[2017-09-18] MEDS ORDERED: Torsemide TAB* 20 MG PO SCH (18:00)
[2017-09-18] MEDS ORDERED: predniSONE TAB* 5 MG PO ONE (18:01)
[2017-09-18 18:02] LABS: C Reactive Protein 82.89 mg/L (< 5.00)
[2017-09-18] MEDS ORDERED: Furosemide IV* 10 MG/ML VIAL (40 MG) IV ONE (18:03)
[2017-09-18] MEDS ORDERED: Albuterol/Ipratropium NEB.SOL* Albuterol 2.5 MG/Ipratropium 0.5 MG 3 ML INH PRN (18:09)
[2017-09-18] MEDS ORDERED: Donepezil TAB* 5 MG PO SCH (21:00)
[2017-09-18] MEDS ORDERED: Aspirin Low Dose CHEW TAB* 81 MG PO SCH (21:00)
[2017-09-18] MEDS: Senna TAB PO SCH (22:06)
[2017-09-18] MEDS: Docusate CAP* 100 MG PO SCH (22:06)
[2017-09-18] MEDS: Heparin VIAL(*) 5000 UNITS/ML VIAL (FIVE THOUSAND) SUBCUT SCH (22:06)
[2017-09-18] MEDS: Diltiazem CD CAP* 120 MG PO SCH (22:06)
[2017-09-18] MEDS: Carvedilol TAB* 25 MG PO SCH (22:07)
--- NOTE | 2017-09-19 00:53 | HP ---
CC: Dr. Cuba; Dr. Gonzalez; Dr. Rivas; Dr. Fuentes* HISTORY AND PHYSICAL: DATE OF ADMISSION: 09/18/17 PRIMARY CARE PROVIDER: Dr. Fuentes. CHIEF COMPLAINT: Shortness of breath and chest pain. HISTORY OF PRESENT ILLNESS: Mariano Puente is an 87-year-old male who was discharged from our facility on 08/21/17 with diagnosis of pneumonia and COPD exacerbation. The patient also was diagnosed with polymyalgia rheumatica at some point and was weaned off prednisone within the past week. Within the past week, the also noted that the patient has worsening dyspnea on exertion. Today, when he was going to Dr. Rivas's office on his way in the car, he complained of upper chest pressure. The patient's stated that it lasted "not that long." The patient admitted himself due to his dementia, has no recollection of the event and he could not specify the pain further. Apparently was just one episode and he has not had any chest pains prior to that. The patient had a V/Q scan in the emergency department, which was negative for low probability for PE. It appears that his shortness of breath and hypoxemia is mostly related to the COPD and due to that he was taken off prednisone recently. Nevertheless, he is going to be placed on overnight observation and have the stress test in the morning. PAST MEDICAL HISTORY: 1. Dementia. 2. History of diabetes. 3. Obstructive sleep apnea, on CPAP. 4. Coronary artery disease, status post 5 stents in the past. 5. History of ITP. 6. COPD on oxygen at 1.5 L during the daytime and 3 L at night. 7. Chronic kidney disease, stage 3. 8. Sick sinus syndrome, status post pacemaker placement. 9. History of atrial fibrillation, not on anticoagulation. 10. Hypertension. 11. Hyperlipidemia. 12. History of cataract surgery bilaterally. 13. History of adrenalectomy on the right. 14. History of skin cancer. MEDICATIONS AT HOME: Includes: 1. Zaroxolyn 5 mg by mouth every day for increase of weight above 216. The patient had been getting that dose for the past week. 2. Tylenol on a p.r.n. basis. 3. Insulin NovoLog sliding scale. 4. Xopenex nebulizer on a p.r.n. basis. 5. Cardizem CD 120 mg b.i.d. 6. Aspirin 81 mg daily. 7. Torsemide 40 mg 5 times a week and then 1 tablet which is 20 mg on Mondays and Fridays. 8. Crestor 5 mg daily. 9. CPAP at night. 10. Lantus 55 units in the morning. 11. Aricept 10 mg at bedtime. 12. Coreg 25 mg b.i.d. ALLERGIES: Include TAPE, HYDRALAZINE, RAMIPRIL, SIMVASTATIN, CLONIDINE, PLAVIX , LATEX, and NITRO. FAMILY HISTORY: Positive for mother with history of brain cancer and father with history of heart disease. SOCIAL HISTORY: The patient has a history of 50-pack year smoking and he quit 40 years ago. He lives with his and his is his surrogate decision maker. He wishes to be a full code. REVIEW OF SYSTEMS: Please see history of present illness. In addition to the above mentioned, the patient stated that his legs have been swollen for quite sometime and his edema is actually improved. All the remaining 12 systems were reviewed with the patient and the patient's and were otherwise negative. PHYSICAL EXAMINATION GENERAL: This is a pleasant 87-year-old male, who is in no acute distress. The patient is alert and oriented x2. He does not know the current date or season. VITAL SIGNS: Blood pressure of 118/62, heart rate of 73 and regular, respiratory rate 16, oxygen saturation 96% on 3 L of oxygen nasal cannula, temperature of 97.7. HEENT: Head: Atraumatic, normocephalic. Eyes: Pupils are equal, reactive to light and accommodation. Oropharynx clear. Mucosa moist. NECK: Supple. No JVD. No bruits bilaterally. RESPIRATORY: Distant breath sounds bilaterally with very scant wheezes. CARDIOVASCULAR: Regular rate and rhythm. No murmur. ABDOMEN: Protuberant, soft and nontender. Bowel sounds are present in all 4 quadrants. EXTREMITIES: There is +1 pitting pedal edema. Pulses are +2 bilaterally. No clubbing or cyanosis. NEURO EVALUATION: Speech clear. Cranial nerves II through XII are grossly intact. Motor strength is 5/5 bilaterally. SKIN: On evaluation of the skin, the patient has venous stasis skin discoloration and hardening of bilateral distal lower extremities. No other rashes noted. DIAGNOSTIC STUDIES/LAB DATA: Showed white blood cell count of 7.6, hemoglobin of 9.5, hematocrit of 30, and platelets of 95. Sodium was 134, potassium 4.2, chloride 94, carbon dioxide 135, BUN 103, creatinine of 2.1. Liver function tests unremarkable. C-reactive protein of 82. Brain natriuretic peptide was 262. TSH of 4. Lactic acid of 0.3. Troponin of 0.02. V/Q scan showed areas of matching defects in a nonsegmental distribution suggestive of regional ventilatory impairment. This is a low probability scan for pulmonary embolism. The patient's portable chest x-ray: Impression: "Moderate residual congestion with chronic pulmonary changes, right lung base." The patient's EKG show intermittently paced atrial sensed ventricularly paced complexes with no evidence of acute ST changes and no specific ST depressions in the lateral leads. ASSESSMENT AND PLAN: 1. In regards to the patient's chest pain. Once again, the specifics of the chest pain were not known. It was accompanied by worsening hypoxemia. At this point, the patient has history of 5 stents in the past. The patient's family agrees to adenosine cardiac stress test in the morning, which is going to be performed. 2. In regards to worsening hypoxemia. It coincided with the patient being weaning off prednisone. The patient has a history of chronic obstructive pulmonary disease, which is oxygen dependent and I suspect that he will need the prednisone for the anti-inflammatory properties and chronic obstructive pulmonary disease. I will place the patient back on prednisone 5 mg daily. The patient is also going to be continued on the inhalers as previously taken. I also start the patient on nebulizer on a p.r.n. basis. 3. In regards to hypoxemia, it is also possible that the patient is slightly vascularly congested again. I have administered the patient one dose of Lasix and continue torsemide and metolazone as previously taken. 4. For the patient's diabetes, the patient is going to be placed on insulin sliding scale and low dose of insulin Lantus once in the hospital. 5. For DVT prophylaxis, the patient is going to be placed on heparin subcutaneously. 6. For his history of atrial fibrillation. Currently, the patient is in a paced rhythm. Cardizem is going to be continued. 7. The patient's code status is full and is going to be continued. 8. For history of polymyalgia rheumatica. The patient was weaned off prednisone by Dr. Cuba. I will reinstitute prednisone for the patient's chronic obstructive pulmonary disease exacerbation. 9. For the patient's dementia, Aricept is going to be continued. 10. The patient's acute kidney injury on chronic kidney disease. The patient' s creatinine is close to baseline that may improve after today's diuretic dose. TIME SPENT: Approximately 78 minutes were spent on admission of this patient, more than half that time was spent [id number] with the patient during the interview and physical exam. [id number]/[facility] #: [id number] MTDD
[2017-09-19 05:22] LABS: Hematocrit 30 % (42-52); Hemoglobin 9.8 g/dl (14.0-18.0); Mean Corpuscular HGB Conc 33 g/dl (31-36); Mean Corpuscular Hemoglobin 27 pg (27-31); Mean Corpuscular Volume 84 fL (80-94); Mean Platelet Volume 9 um3 (7.4-10.4); Red Blood Count 3.58 10^6/ul (4.0-5.4); Red Cell Distribution Width 16 % (10.5-15); White Blood Count 6.9 10^3/ul (3.5-10.8)
[2017-09-19 05:25] LABS: Comments Flag Yes
[2017-09-19 05:34] LABS: BUN/Creatinine Ratio 47.5 (8-20); Calcium 8.6 mg/dL (8.6-10.3); EGFR African American 35.9 (>60); EGFR Non-African American 27.9 (>60); Potassium 4.3 mmol/L (3.5-5.0)
[2017-09-19] MEDS: Heparin VIAL(*) 5000 UNITS/ML VIAL (FIVE THOUSAND) SUBCUT SCH (06:03)
[2017-09-19] MEDS: Carvedilol TAB* 25 MG PO SCH (08:48)
[2017-09-19] MEDS: Senna TAB PO SCH (08:48)
[2017-09-19] MEDS: Docusate CAP* 100 MG PO SCH (08:48)
[2017-09-19] MEDS: Diltiazem CD CAP* 120 MG PO SCH (08:48)
[2017-09-19] MEDS: Insulin LISPRO* 1 UNITS UNIT SUBCUT SCH ×2 (08:49→11:58)
[2017-09-19] MEDS ORDERED: predniSONE TAB* 5 MG PO SCH (09:00)
[2017-09-19] MEDS ORDERED: Insulin GLARGINE(*) 1 UNITS UNIT SUBCUT SCH (09:00)
[2017-09-19] MEDS ORDERED: Metolazone TAB* 5 MG PO SCH (09:00)
[2017-09-19 13:24] VITALS: BP 131/66
--- NOTE | 2017-09-19 19:04 | ED ---
Garth Otero Angela, scribed for Abraham Araya MD on 09/18/17 at 1235 . 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 Per son, pt has been SOB for the past couple of days. Son states the pt was on his way to see Dr. Rivas for his SOB when he began to experience chest pain. Per triage note, his chest pain lasted 5 minutes. Pt describes his chest pain as mid sternal and dull in character. He states his pain spontaneously resolved without NTG. Pt notes having a headache now. He denies palpitations, dizziness, diaphoresis. Son states that the pt is on CPAP every night but 2 days ago the pt didn't use his CPAP at night for 7-8 hours. Son reports the pt was on O2 sat of around 70% and since then the pt has been struggling to keep his oxygen up in the 90's%. PMHx: COPD, DM, mild heart attack. His last stress test was in 2014. 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 Negative: Palpitations - Additional Pertinent History Primary Care Physician: [id number] - Allergy/Home Medications Allergies/Adverse Reactions: Allergies Allergy/AdvReac Type Severity Reaction Status Date / Time Adhesive Tape Allergy Mild Itching Verified 08/10/17 10:10 Hydralazine Allergy Unknown Unknown Verified 08/10/17 10:10 Reaction Details Ramipril [From Altace] Allergy Unknown Unknown Verified 08/10/17 10:10 Reaction Details Simvastatin [From Zocor] Allergy Unknown Unknown Verified 08/10/17 10:10 Reaction Details Clonidine Allergy Unknown Verified 08/10/17 10:10 Reaction Details Clopidogrel [From Plavix] Allergy Unknown Verified 08/10/17 10:10 Reaction Details Latex Allergy Rash Verified 08/10/17 10:10 Nitroglycerin Allergy See Comment Verified 08/10/17 10:10 [From Nitroglycerin Transdermal System] Home Medications: Home Medications Torsemide TAB* [Demadex 20 MG*] 20 mg PO SUMO 09/18/17 [History Confirmed ] Torsemide TAB* [Demadex 20 MG*] 40 mg PO TUWETHSA 09/18/17 [History Confirmed ] PMH/Surg Hx/FS Hx/Imm Hx Endocrine/Hematology History: Reports: Hx Blood Disorders - ITP, Hx Diabetes, Other Endocrine/Hematological Disorders - 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, 2001 Denies: Hx Anticoagulant Therapy, Hx Blood Transfusions, Hx Bone Marrow Disease, Hx Systemic Lupus Erythematosus, Hx Sickle Cell Disease, Hx Thyroid Disease, Hx Anemia, Hx Unexplained Bleeding Cardiovascular History: Reports: Hx Angina, Hx Angioplasty, Hx Auto Implanted Cardiovert Defib, Hx Coronary Artery Disease, Hx Hypercholesterolemia, Hx Hypertension, Hx Pacemaker/ICD, Other Cardiovascular Problems/Disorders Denies: Hx Aneurysm, Hx Cardiac Arrest, Hx Cardiomegaly, Hx Congenital Heart Disease, Hx Congestive Heart Failure, Hx Deep Vein Thrombosis, Hx Embolism, Hx Hypotension, Hx Peripheral Vascular Disease, Hx Rheumatic Fever, Hx Syncope, Hx Valvular Heart Disease Respiratory History: Reports: Hx Chronic Obstructive Pulmonary Disease (COPD), Hx Sleep Apnea - CPAP, Other Respiratory Problems/Disorders - Home O2: 1.5L during day, 3L at night with CPAP Denies: Hx Asthma GI History: Reports: Hx Hiatal Hernia, Other GI Disorders - HIATAL HERNIA Denies: Hx Ulcer History: Reports: Hx Chronic Renal Failure - CKD stage 3, Hx Renal Disease Musculoskeletal History: Reports: Hx Gout - knee, Hx Orthopedic Injury - L ankle Fx, consequent unsteady gait Denies: Hx Arthritis, Hx Back Problems, Hx Bursitis, Hx Congenital Bone Abnormalities, Hx Fibromyalgia, Hx Osteoporosis, Hx Scoliosis, Hx Tendonitis, Other Musculoskeletal History Sensory History: Reports: Hx Cataracts, Hx Contacts or Glasses Denies: Hx Eye Injury, Hx Eye Prosthesis, Hx Glaucoma, Hx Legally Blind, Hx Macular Degeneration, Hx Vision Problem, Hx Deafness, Hx Hearing Aid, Hx Hearing Problem, Other Sensory Impairments Opthamlomology History: Reports: Hx Cataracts, Hx Contacts or Glasses Denies: Hx Eye Injury, Hx Eye Prosthesis, Hx Glaucoma, Hx Legally Blind, Hx Macular Degeneration, Hx Vision Problem, Other Sensory Impairments Neurological History: Reports: Hx Dementia, Other Neuro Impairments/Disorders - per family: short-term memory loss Denies: Hx Seizures Psychiatric History: Reports: Hx Eating Disorder Denies: Hx Substance Abuse - Cancer History Cancer Type, Location and Year: 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 5 cardiac stents, cataract surgery, pacer/ICD implant Hx Anesthesia Reactions: No - Immunization History Date of Tetanus Vaccine: unknown Infectious Disease History: No Infectious Disease History: Denies: Hx Clostridium Difficile, Hx Hepatitis, Hx Human Immunodeficiency Virus (HIV), Hx of Known/Suspected MRSA, Hx Shingles, Hx Tuberculosis, Hx Known/ Suspected VRE, Hx Known/Suspected VRSA, History Other Infectious Disease, Traveled Outside the [place] in Last 30 Days - Family History Known Family History: Positive: Cardiac Disease, Hypertension, Diabetes - Social History Alcohol Use: Rare Substance Use Type: Reports: None Hx Tobacco Use: Yes Smoking Status (MU): Former Smoker Type: Cigarettes Amount Used/How Often: 3 PPD X 40 YEARS Have You Smoked in the Last Year: No Review of Systems Negative: Fever, Chills, Skin Diaphoresis Eyes: Negative Positive: Chest Pain - now resolved. Negative: Palpitations Positive: Shortness Of Breath Neurological: Negative - dizziness Positive: Headache All Other Systems Reviewed And Are Negative: Yes Physical Exam - Summary Physical Exam Summary: VITAL SIGNS: Reviewed. GENERAL: Patient is a well-developed and nourished male who is lying comfortable in the stretcher. Patient is not in any acute respiratory distress. HEAD AND FACE: No signs of trauma. No ecchymosis, hematomas or skull depressions. No sinus tenderness. EYES: PERRLA, EOMI x 2, No injected conjunctiva, no nystagmus. EARS: Hearing grossly intact. Ear canals and tympanic membranes are within normal limits. MOUTH: Oropharynx within normal limits. NECK: Supple, trachea is midline, no adenopathy, no JVD, no carotid bruit, no c- spine tenderness, neck with full ROM. CHEST: Symmetric, no tenderness at palpation LUNGS: Clear to auscultation bilaterally. No wheezing or crackles. CVS: Regular rate and rhythm, S1 and S2 present, no murmurs or gallops appreciated. ABDOMEN: Soft, non-tender. No signs of distention. No rebound no guarding, and no masses palpated. Bowel sounds are normal. EXTREMITIES: FROM in all major joints, no edema, no cyanosis or clubbing. NEURO: Alert and oriented x 3. No acute neurological deficits. Speech is normal and follows commands. SKIN: Dry and warm Triage Information Reviewed: Yes Vital Signs On Initial Exam: Initial Vitals Temp Pulse Resp BP Pulse Ox 97.6 F 112 22 117/62 96 09/18/17 12:06 09/18/17 12:06 09/18/17 12:06 09/18/17 12:06 09/18/17 12:06 Vital Signs Reviewed: Yes Diagnostics - Vital Signs Vital Signs Temp Pulse Resp BP Pulse Ox 09/18/17 12:06 97.6 F 112 22 117/62 96 - Laboratory Lab Results: Lab Results 09/18/17 09/18/17 09/18/17 Range/Units 12:31 12:31 12:31 WBC 7.6 (3.5-10.8) 10^3/ul RBC 3.52 L (4.0-5.4) 10^6/ul Hgb 9.5 L (14.0-18.0) g/dl Hct 30 L (42-52) % MCV 84 (80-94) fL MCH 27 (27-31) pg MCHC 32 (31-36) g/dl RDW 16 H (10.5-15) % Plt Count 95 L (150-450) 10^3/ul MPV 8 (7.4-10.4) um3 Neut % (Auto) 75.1 (38-83) % Lymph % (Auto) 8.3 L (25-47) % [place] % (Auto) 15.1 H (1-9) % Eos % (Auto) 1.1 (0-6) % Baso % (Auto) 0.4 (0-2) % Absolute Neuts (auto) 5.7 (1.5-7.7) 10^3/ul Absolute Lymphs (auto) 0.6 L (1.0-4.8) 10^3/ul Absolute Monos (auto) 1.2 H (0-0.8) 10^3/ul Absolute Eos (auto) 0.1 (0-0.6) 10^3/ul Absolute Basos (auto) 0 (0-0.2) 10^3/ul Absolute Nucleated RBC 0.01 10^3/ul Nucleated RBC % 0.1 Hem Pathologist Commnt INR (Anticoag Therapy) (0.89-1.11) Sodium 134 (133-145) mmol/L Potassium 4.2 (3.5-5.0) mmol/L Chloride 94 L (101-111) mmol/L Carbon Dioxide 35 H (22-32) mmol/L Anion Gap 5 (2-11) mmol/L BUN 103 H (6-24) mg/dL Creatinine 2.11 H (0.67-1.17) mg/dL Est GFR ( Amer) 38.3 (>60) Est GFR (Non-Af Amer) 29.8 (>60) BUN/Creatinine Ratio 48.8 H (8-20) Glucose 106 H (70-100) mg/dL POC Glucose (mg/dL) (70-100) mg/dL Lactic Acid (0.5-2.0) mmol/L Calcium 8.2 L (8.6-10.3) mg/dL Magnesium 2.4 (1.9-2.7) mg/dL Total Bilirubin 0.50 (0.2-1.0) mg/dL AST 25 (13-39) U/L ALT 29 (7-52) U/L Alkaline Phosphatase 60 (34-104) U/L Total Creatine Kinase 26 (10-223) U/L CK-MB (CK-2) 2.9 (0.6-6.3) ng/mL Troponin I 0.02 (<0.04) ng/mL C-Reactive Protein (< 5.00) mg/L B-Natriuretic Peptide 262 H ( - 100) pg/mL Total Protein 6.1 L (6.4-8.9) g/dL Albumin 3.3 (3.2-5.2) g/dL Globulin 2.8 (2-4) g/dL Albumin/Globulin Ratio 1.2 (1-3) TSH (0.34-5.60) mcIU/mL 09/18/17 09/18/17 09/18/17 Range/Units 12:31 12:31 12:31 WBC (3.5-10.8) 10^3/ul RBC (4.0-5.4) 10^6/ul Hgb (14.0-18.0) g/dl Hct (42-52) % MCV (80-94) fL MCH (27-31) pg MCHC (31-36) g/dl RDW (10.5-15) % Plt Count (150-450) 10^3/ul MPV (7.4-10.4) um3 Neut % (Auto) (38-83) % Lymph % (Auto) (25-47) % [place] % (Auto) (1-9) % Eos % (Auto) (0-6) % Baso % (Auto) (0-2) % Absolute Neuts (auto) (1.5-7.7) 10^3/ul Absolute Lymphs (auto) (1.0-4.8) 10^3/ul Absolute Monos (auto) (0-0.8) 10^3/ul Absolute Eos (auto) (0-0.6) 10^3/ul Absolute Basos (auto) (0-0.2) 10^3/ul Absolute Nucleated RBC 10^3/ul Nucleated RBC % Hem Pathologist Commnt INR (Anticoag Therapy) 1.10 (0.89-1.11) Sodium (133-145) mmol/L Potassium (3.5-5.0) mmol/L Chloride (101-111) mmol/L Carbon Dioxide (22-32) mmol/L Anion Gap (2-11) mmol/L BUN (6-24) mg/dL Creatinine (0.67-1.17) mg/dL Est GFR ( Amer) (>60) Est GFR (Non-Af Amer) (>60) BUN/Creatinine Ratio (8-20) Glucose (70-100) mg/dL POC Glucose (mg/dL) (70-100) mg/dL Lactic Acid 0.3 L (0.5-2.0) mmol/L Calcium (8.6-10.3) mg/dL Magnesium (1.9-2.7) mg/dL Total Bilirubin (0.2-1.0) mg/dL AST (13-39) U/L ALT (7-52) U/L Alkaline Phosphatase (34-104) U/L Total Creatine Kinase (10-223) U/L CK-MB (CK-2) (0.6-6.3) ng/mL Troponin I (<0.04) ng/mL C-Reactive Protein (< 5.00) mg/L B-Natriuretic Peptide ( - 100) pg/mL Total Protein (6.4-8.9) g/dL Albumin (3.2-5.2) g/dL Globulin (2-4) g/dL Albumin/Globulin Ratio (1-3) TSH 4.00 (0.34-5.60) mcIU/mL 09/18/17 09/18/17 Range/Units 13:02 15:10 WBC (3.5-10.8) 10^3/ul RBC (4.0-5.4) 10^6/ul Hgb (14.0-18.0) g/dl Hct (42-52) % MCV (80-94) fL MCH (27-31) pg MCHC (31-36) g/dl RDW (10.5-15) % Plt Count (150-450) 10^3/ul MPV (7.4-10.4) um3 Neut % (Auto) (38-83) % Lymph % (Auto) (25-47) % [place] % (Auto) (1-9) % Eos % (Auto) (0-6) % Baso % (Auto) (0-2) % Absolute Neuts (auto) (1.5-7.7) 10^3/ul Absolute Lymphs (auto) (1.0-4.8) 10^3/ul Absolute Monos (auto) (0-0.8) 10^3/ul Absolute Eos (auto) (0-0.6) 10^3/ul Absolute Basos (auto) (0-0.2) 10^3/ul Absolute Nucleated RBC 10^3/ul Nucleated RBC % Hem Pathologist Commnt INR (Anticoag Therapy) (0.89-1.11) Sodium (133-145) mmol/L Potassium (3.5-5.0) mmol/L Chloride (101-111) mmol/L Carbon Dioxide (22-32) mmol/L Anion Gap (2-11) mmol/L BUN (6-24) mg/dL Creatinine (0.67-1.17) mg/dL Est GFR ( Amer) (>60) Est GFR (Non-Af Amer) (>60) BUN/Creatinine Ratio (8-20) Glucose (70-100) mg/dL POC Glucose (mg/dL) 132 H (70-100) mg/dL Lactic Acid (0.5-2.0) mmol/L Calcium (8.6-10.3) mg/dL Magnesium (1.9-2.7) mg/dL Total Bilirubin (0.2-1.0) mg/dL AST (13-39) U/L ALT (7-52) U/L Alkaline Phosphatase (34-104) U/L Total Creatine Kinase (10-223) U/L CK-MB (CK-2) (0.6-6.3) ng/mL Troponin I 0.02 (<0.04) ng/mL C-Reactive Protein 82.89 H (< 5.00) mg/L B-Natriuretic Peptide ( - 100) pg/mL Total Protein (6.4-8.9) g/dL Albumin (3.2-5.2) g/dL Globulin (2-4) g/dL Albumin/Globulin Ratio (1-3) TSH (0.34-5.60) mcIU/mL Result Diagrams: 09/19/17 04:46 09/19/17 04:46 Lab Statement: Any lab studies that have been ordered have been reviewed, and results considered in the medical decision making process. - Radiology Chest XR Xray Interpretation: Positive (See Comments) - IMPRESSION: Mild interstitial congestion. Mild chronic pleural changes right lung base. ED physician has reviewed this radiology report and agrees. Radiology Interpretation Completed By: Radiologist - EKG 1217 Cardiac Rate: Other Rate - ventricular paced at 93 bpm EKG Comparison: No Significant Change - to prior EKG on 08/11/17. 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 Per son, pt has been SOB for the past couple of days. Son states the pt was on his way to see Dr. Rivas for his SOB when he began to experience chest pain. Per triage note , his chest pain lasted 5 minutes. Pt describes his chest pain as mid sternal and dull in character. He states his pain spontaneously resolved without NTG. Pt notes having a headache now. He denies palpitations, dizziness, diaphoresis. Son states that the pt is on CPAP every night but 2 days ago the pt didn't use his CPAP at night for 7-8 hours. Son reports the pt was on O2 sat of around 70% and since then the pt has been struggling to keep his oxygen up in the 90's%. PMHx: COPD, DM, mild heart attack. His last stress test was in 2014. Test results shows chronic anemia, worsening renal failure, BNP of 262. Chest XR shows mild interstitial congestion. Mild chronic pleural changes right lung base. In the ED, the pt got up from stretcher to go to the bathroom and the nurse noticed the pt was saturated to 70s even with 3 L of O2, therefore, we have to rule out PE. Since the pt has a renal failure I decided to do a VQ lung scan. I discussed with Dr. Hammond, who accepted the pt for admission. The VQ lung scan will be followed up by Dr. Hammond, for further management and treatment. - Chest Pain Differential Diagnosis/HQI/PQRI: ACS, CHF, Lower Respiratory Infection, Pulmonary Edema, Pulmonary Embolism - Diagnoses Provider Diagnoses: Hypoxia, Chest pain - Provider Notifications Discussed Care Of Patient With: Nadia Hammond Time Discussed With Above Provider: 16:32 Instructed by Provider To: Other - I discussed the pt's case with Dr. Hammond. She has accepted the pt for admission. Discharge - Discharge Plan Condition: Improved Disposition: ADMITTED TO [facility] The documentation as recorded by the Garth webb Angela accurately reflects the service I personally performed and the decisions made by me, Abraham Araya MD.
--- NOTE | 2017-09-20 01:35 | DS ---
CC: Dr. Fuentes; Dr. Rivas; Dr. Gonzalez; Dr. Cuba* DISCHARGE SUMMARY: DATE OF ADMISSION: 09/18/17 DATE OF DISCHARGE: 09/19/17 PRIMARY CARE PROVIDER: Dr. Fuentes. DISCHARGE DIAGNOSES: 1. Shortness of breath with exertion, most likely due to combination of chronic diastolic congestive heart failure and chronic obstructive pulmonary disease in a patient who was taken off prednisone within the past week. It is also suspect that the patient has chronic natural progression of his chronic obstructive pulmonary disease. 2. Chest pain. Further unspecified. The patient has no recollection of the event. The patient's troponin is ruled out acute coronary syndrome. Due to that, the patient had a V/Q scan performed on the day of admission and he would have to wait 3 days to have nuclear cardiac stress test done and the patient elected to have it done as an outpatient and that is going to be ordered and set up with her cardiac stress test lab. SECONDARY DIAGNOSES: 1. Dementia. 2. Diabetes. 3. Obstructive sleep apnea, on CPAP. 4. Coronary artery disease, status post 5 stents in the past. 5. History of immune thrombocytopenic purpura. 6. History of chronic obstructive pulmonary disease, on oxygen. The patient was instructed to increase his oxygen to 2.5 L during the daytime and continue to 3 L at night. 7. Chronic kidney disease stage 3. 8. History of sick sinus syndrome, status post pacemaker. 9. History of atrial fibrillation, not anticoagulated. 10. Hypertension. 11. Hyperlipidemia. 12. Cataract surgery bilaterally. 13. Adrenalectomy on the right. 14. History of skin cancer. MEDICATIONS AT DISCHARGE: Includes: 1. Zaroxolyn 5 mg by mouth every day for the times when the patient has weight above 216. 2. Tylenol on a p.r.n. basis. 3. Insulin NovoLog sliding scale. 4. Xopenex nebulizer on a p.r.n. basis. 5. Cardizem CD 120 mg b.i.d. 6. Aspirin 81 mg daily. 7. Torsemide 40 mg 5 times a week and 20 mg on Mondays and Fridays. 8. Crestor 5 mg daily. 9. CPAP at night. 10. Lantus insulin 55 units in the morning. 11. Aricept 10 mg at bedtime. 12. Coreg 25 mg b.i.d. 13. Prednisone 5 mg a day that was restarted. LABORATORY DATA DURING THE HOSPITAL STAY: Included: On 09/19/17, sodium of 136, potassium 4.3, chloride 94, carbon dioxide 36, BUN 106, creatinine 2.2. Troponins had been 0.02 throughout the patient's hospital stay. CBC: White blood cell count of 6.9, hemoglobin 9.8, hematocrit of 30, and platelets of 97. The patient had a V/Q scan obtained on 09/18/17, impression: "Areas of matching defects in the nonsegmental distribution suggestive of regional ventilatory impairment. This is a low probability scan for pulmonary embolism. " HOSPITALIZATION COURSE: Mariano Puente is an 87-year-old male with a history of paroxysmal atrial flutter, for which he elected not to be anticoagulated as well as pacemaker for sick sinus syndrome, carotid disease with 5 stents in the past and COPD, oxygen dependent at 3 L, who was recently diagnosed with polymyalgia rheumatica and spent last 8 months on tapering down his prednisone. His prednisone was tapered down to nothing within the past week. Within the past week, the patient also noted more dyspnea on exertion and feeling overall poorly. He also had an episode of further undescribed due to the patient not remembering chest pain that occurred on 09/18/[address] Rivas's office. The patient was placed on overnight observation. His troponin is continued to be negative throughout his hospital stay. The patient did receive 20 mg of IV Lasix in the emergency department in an attempt to see if that improves his respiratory status. He did not have a significant urinary output from that, although his weight improved from 221 pounds to 217 pounds on the day of discharge. It was speculated that the patient was taken off prednisone and felt poorly due to that. It could have been that the anti-inflammatory properties of prednisone kept the patient's COPD in check. I discussed the case with the patient and the patient's family and elected to restart the patient's prednisone on the day of admission. By the time of discharge, the patient felt much better. He had better air entry on auscultation of his lungs. He is going to be also discharged with increase of his oxygen at home 2.5 L. I also educated the that the patient can increase his oxygen supplementation levels to 3 or 4 L if that is needed with exertion. Due to the patient not being able to have a repeat nuclear test which will be the stress test after a V/Q scan obtained within 24 hours. The patient would have to wait over the weekend for the cardiac stress test on Friday. The patient and the patient's elected not to wait over the weekend and they are planning to have an outpatient cardiac stress test done. Cardiac stress test was ordered as an outpatient and the labs from Cardiology is going to call the patient to set up an appointment next week. I also discussed the case with Dr. Gonzalez, who is aware of the patient's hospitalization. The patient is also recommended to follow up with Dr. Rivas and Dr. Fuentes. PHYSICAL EXAM AT THE TIME DISCHARGE: Blood pressure of 140/67, heart rate of 97 and irregular, respiratory rate 20, oxygen saturation 98% on 2.5 L of nasal cannula, temperature 97.4. General: The patient is a very pleasant 87-year- old male, who is in no acute distress. The patient is alert and oriented x2. He does not remember the time or the season of the year. HEENT: Head: Atraumatic, normocephalic. Eyes: Pupils are equal, reactive to light and accommodation. Oropharynx is clear. Mucosa moist. Neck: Supple. No JVD. No bruits bilaterally. Cardiovascular: Irregular rate. No murmur. Respiratory: Clear breath sounds bilaterally. Abdomen: Soft, nontender. Bowel sounds present in all 4 quadrants. Extremities: There is +1 pitting pedal edema with venous stasis changes and skin discoloration of bilateral lower extremities. There is no clubbing or cyanosis. Neuro Evaluation: Speech clear. Cranial nerves II through XII grossly intact. Motor strength is 5/5 bilaterally. Please note that this is a short summary of the patient's hospital stay. Please refer to further medical records for details. [id number] #: [id number] MTDD
[2017-09-21] MEDS ORDERED: Torsemide TAB* 20 MG PO SCH (09:00)
== END 2017-09-19 13:11 | disposition home or self-care (01) ==
LOC: ED 12:04 → MEDTELE 17:08
PROVIDERS: ADMIT Internal Medicine; ATTEND Internal Medicine
DX: R06.02 Shortness of breath (principal); J44.9 Chronic obstructive pulmonary disease, unspecified; R07.9 Chest pain, unspecified; I25.10 Atherosclerotic heart disease of native coronary artery without angina pectoris; I13.0 Hypertensive heart and chronic kidney disease with heart failure and stage 1 through stage 4 chronic kidney disease, or unspecified chronic kidney disease; N18.3 Chronic kidney disease, stage 3 (moderate); E11.22 Type 2 diabetes mellitus with diabetic chronic kidney disease; I50.32 Chronic diastolic (congestive) heart failure; Z95.5 Presence of coronary angioplasty implant and graft; Z79.4 Long term (current) use of insulin; F03.90 Unspecified dementia, unspecified severity, without behavioral disturbance, psychotic disturbance, mood disturbance, and anxiety; G47.33 Obstructive sleep apnea (adult) (pediatric); D69.3 Immune thrombocytopenic purpura; Z95.0 Presence of cardiac pacemaker; E78.5 Hyperlipidemia, unspecified; Z79.899 Other long term (current) drug therapy; Z88.8 Allergy status to other drugs, medicaments and biological substances
CPT/HCPCS: 36415; 71010; 78582; 80048; 80053; 82550; 82553; 83605; 83735; 83880; 84443; 84484; 85025; 85060; 85610; 86140; 93005; 96372; 96374; A9270-GY; A9540; A9558; G0378; J1644; J1940; J7512

== ENCOUNTER 2017-11-06 18:38 | Inpatient (IN) | payer MEDICARE, OTHER ==
[2017-11-06 19:34] LABS: Urine Bilirubin Negative (Negative); Urine Glucose Negative (Negative); Urine Nitrite Negative (Negative)
--- NOTE | 2017-11-06 19:34 | RAD ---
Indication: Confusion. Single frontal view of the chest performed at 1918 hours was reviewed. Comparison is made with previous exam dated September 18, 2017. No mediastinal shift is noted. Cardiomegaly is noted. Increased density in the right base may represent right basilar infiltrate. Pacemaker leads are in place. IMPRESSION: SUGGESTION OF RIGHT BASILAR INFILTRATE.
[2017-11-06 19:38] LABS: Hematocrit 29 % (42-52); Hemoglobin 9.1 g/dl (14.0-18.0); Mean Corpuscular HGB Conc 31 g/dl (31-36); Mean Corpuscular Hemoglobin 25 pg (27-31); Mean Corpuscular Volume 80 fL (80-94); Mean Platelet Volume 8 um3 (7.4-10.4); Red Blood Count 3.63 10^6/ul (4.0-5.4); Red Cell Distribution Width 18 % (10.5-15); White Blood Count 7.4 10^3/ul (3.5-10.8)
[2017-11-06 19:52] LABS: Albumin 3.4 g/dL (3.2-5.2); Ammonia 41 mol/L (16-53); BUN/Creatinine Ratio 57.3 (8-20); Calcium 9.1 mg/dL (8.6-10.3); EGFR Non-African American 31.9 (>60); Globulin 2.8 g/dL (2-4); Magnesium 2.5 mg/dL (1.9-2.7); Potassium 4.6 mmol/L (3.5-5.0); Total Bilirubin 0.5 mg/dL (0.2-1.0); Total Protein 6.2 g/dL (6.4-8.9)
[2017-11-06 19:53] LABS: Carbon Monoxide < 4 % (<4.0); Venous Bicarbonate HCO3 33.5 mmol/L (24-28)
[2017-11-06 19:54] LABS: Troponin I 0.03 ng/mL (<0.04)
[2017-11-06 19:56] LABS: B Type Natriuretic Peptide 360 pg/mL
--- NOTE | 2017-11-06 20:10 | RAD ---
Indication: Confusion. CT of the brain was performed without IV contrast. Ventricular structures are midline. No midline shift is noted. The extraction spaces are unremarkable. There is no evidence of intracranial mass or hemorrhage. No other high or low density lesions are identified. Mastoid air cells and paranasal sinuses are unremarkable. IMPRESSION: No intracranial mass or hemorrhage is noted.
[2017-11-06 20:22] LABS: TSH (Thyroid Stimulating Horm) 2.66 mcIU/mL (0.34-5.60)
[2017-11-06] MEDS ORDERED: cefTRIAXone(*) 1 GM in NS 0.9% 50 ML* 50 ML IVPB ONE (20:39)
[2017-11-06] MEDS ORDERED: Azithromycin IV(*) 500 MG in NS 0.9% 250 ML* 250 ML IVPB ONE (20:39)
[2017-11-06] MEDS ORDERED: NS 0.9% 1000 ML* 1,000 ML IV SCH ×2 (20:45→21:30)
--- NOTE | 2017-11-06 21:09 | ED ---
Mannie Otero Gabriel, scribed for Mckay Sanchez MD on 11/06/17 at 1902 . Altered Mental Status - HPI Summary HPI Summary: This patient is a 87 year old M BIBA to [facility] accompanied by and son with a chief complaint of AMS since 1729. Patient denies pain. Pts family reports that recently has been having low respiratory rate and tonight he would only respond with yes when questioned. This episode resolved spontaneously by the time the ambulance arrived. The patient has dementia and has been taking his oxygen off recently causing him to pass out. His is at 94% O2 sat while at rest on 3.5L NC but drops to 81% O2 sat on exertion. He took a diuretic yesterday and lost four pounds over night due to that. Patient is severely demented and does not answer many questions and does not recall the episode where he could not remember his son or . - History Of Current Complaint Chief Complaint: EDGeneral Stated Complaint: GENERAL ILLNESS Time Seen by Provider: 11/06/17 18:46 Hx Obtained From: Family/Soda Tester Hx From Patient Unobtainable Due To: Dementia Onset/Duration: Resolved, Suddenly - 1729 Severity Initially: Moderate Severity Currently: None Character: Confusion Alleviating Factor(s): Other - spontaneous - Allergies/Home Medications Allergies/Adverse Reactions: Allergies Allergy/AdvReac Type Severity Reaction Status Date / Time Adhesive Tape Allergy Mild Itching Verified 08/10/17 10:10 Hydralazine Allergy Unknown Unknown Verified 08/10/17 10:10 Reaction Details Ramipril [From Altace] Allergy Unknown Unknown Verified 08/10/17 10:10 Reaction Details Simvastatin [From Zocor] Allergy Unknown Unknown Verified 08/10/17 10:10 Reaction Details Clonidine Allergy Unknown Verified 08/10/17 10:10 Reaction Details Clopidogrel [From Plavix] Allergy Unknown Verified 08/10/17 10:10 Reaction Details Latex Allergy Rash Verified 08/10/17 10:10 Nitroglycerin Allergy See Comment Verified 08/10/17 10:10 [From Nitroglycerin Transdermal System] PMH/Surg Hx/FS Hx/Imm Hx Previously Healthy: No Endocrine/Hematology History: Reports: Hx Blood Disorders - ITP, Hx Diabetes, Other Endocrine/Hematological Disorders - 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, 2001 Denies: Hx Anticoagulant Therapy, Hx Blood Transfusions, Hx Bone Marrow Disease, Hx Systemic Lupus Erythematosus, Hx Sickle Cell Disease, Hx Thyroid Disease, Hx Anemia, Hx Unexplained Bleeding Cardiovascular History: Reports: Hx Angina, Hx Angioplasty, Hx Coronary Artery Disease, Hx Hypercholesterolemia, Hx Hypertension, Hx Pacemaker/ICD, Other Cardiovascular Problems/Disorders Denies: Hx Aneurysm, Hx Auto Implanted Cardiovert Defib, Hx Cardiac Arrest, Hx Cardiomegaly, Hx Congenital Heart Disease, Hx Congestive Heart Failure, Hx Deep Vein Thrombosis, Hx Embolism, Hx Hypotension, Hx Peripheral Vascular Disease, Hx Rheumatic Fever, Hx Syncope, Hx Valvular Heart Disease Respiratory History: Reports: Hx Chronic Obstructive Pulmonary Disease (COPD), Hx Sleep Apnea, Other Respiratory Problems/Disorders - POSSIBLE COPD. ON HOME O2 Denies: Hx Asthma GI History: Reports: Hx Hiatal Hernia, Other GI Disorders - HIATAL HERNIA Denies: Hx Ulcer History: Reports: Hx Chronic Renal Failure - CKD stage 3, Hx Renal Disease Musculoskeletal History: Reports: Hx Gout - knee, Hx Orthopedic Injury - L ankle Fx, consequent unsteady gait Denies: Hx Arthritis, Hx Back Problems, Hx Bursitis, Hx Congenital Bone Abnormalities, Hx Fibromyalgia, Hx Osteoporosis, Hx Scoliosis, Hx Tendonitis, Other Musculoskeletal History Sensory History: Reports: Hx Cataracts, Hx Contacts or Glasses Denies: Hx Eye Injury, Hx Eye Prosthesis, Hx Glaucoma, Hx Legally Blind, Hx Macular Degeneration, Hx Vision Problem, Hx Deafness, Hx Hearing Aid, Hx Hearing Problem, Other Sensory Impairments Opthamlomology History: Reports: Hx Cataracts, Hx Contacts or Glasses Denies: Hx Eye Injury, Hx Eye Prosthesis, Hx Glaucoma, Hx Legally Blind, Hx Macular Degeneration, Hx Vision Problem, Other Sensory Impairments Neurological History: Reports: Other Neuro Impairments/Disorders - per family: short-term memory loss Denies: Hx Dementia, Hx Seizures Psychiatric History: Reports: Hx Eating Disorder Denies: Hx Substance Abuse - Cancer History Cancer Type, Location and Year: 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 5 cardiac stents, cataract surgery, pacer/ICD implant Hx Anesthesia Reactions: No - Immunization History Date of Tetanus Vaccine: unknown Infectious Disease History: No Infectious Disease History: Denies: Hx Clostridium Difficile, Hx Hepatitis, Hx Human Immunodeficiency Virus (HIV), Hx of Known/Suspected MRSA, Hx Shingles, Hx Tuberculosis, Hx Known/ Suspected VRE, Hx Known/Suspected VRSA, History Other Infectious Disease, Traveled Outside the [place] in Last 30 Days - Family History Known Family History: Positive: Cardiac Disease, Hypertension, Diabetes - Social History Alcohol Use: Rare Substance Use Type: Reports: None Hx Tobacco Use: Yes Smoking Status (MU): Former Smoker Type: Cigarettes Amount Used/How Often: 3 PPD X 40 YEARS Have You Smoked in the Last Year: No Review of Systems Negative: Fever Positive: Other - AMS All Other Systems Reviewed And Are Negative: Yes Physical Exam - Summary Physical Exam Summary: General: elderly, no pain distress Skin: warm, color reflects adequate perfusion, dry Head: normal Eyes: EOMI, DONTE ENT: normal Neck: supple, nontender Respiratory: CTA, breath sounds present Cardiovascular: RRR Abdomen: soft, nontender Bowel: present Musculoskeletal: normal, strength/ROM intact, some edema Neurological: normal, sensory/motor intact, Oriented to self and place but not date, slow to respond. No focal or neurological deficits. Psychological: affect/mood appropriate Triage Information Reviewed: Yes Vital Signs On Initial Exam: Initial Vitals Temp Pulse Resp BP Pulse Ox 97.2 F 72 13 147/55 96 11/06/17 18:50 11/06/17 18:50 11/06/17 18:50 11/06/17 18:50 11/06/17 18:50 Vital Signs Reviewed: Yes Diagnostics - Vital Signs Vital Signs Temp Pulse Resp BP Pulse Ox 11/06/17 18:50 97.2 F 72 13 147/55 96 - Laboratory Lab Results: Lab Results 11/06/17 11/06/17 11/06/17 Range/Units 19:16 19:20 19:20 WBC (3.5-10.8) 10^3/ul RBC (4.0-5.4) 10^6/ul Hgb (14.0-18.0) g/dl Hct (42-52) % MCV (80-94) fL MCH (27-31) pg MCHC (31-36) g/dl RDW (10.5-15) % Plt Count (150-450) 10^3/ul MPV (7.4-10.4) um3 Neut % (Auto) (38-83) % Lymph % (Auto) (25-47) % Barton % (Auto) (1-9) % Eos % (Auto) (0-6) % Baso % (Auto) (0-2) % Absolute Neuts (auto) (1.5-7.7) 10^3/ul Absolute Lymphs (auto) (1.0-4.8) 10^3/ul Absolute Monos (auto) (0-0.8) 10^3/ul Absolute Eos (auto) (0-0.6) 10^3/ul Absolute Basos (auto) (0-0.2) 10^3/ul Absolute Nucleated RBC 10^3/ul Nucleated RBC % INR (Anticoag Therapy) 1.10 H (0.77-1.02) APTT 30.3 (26.0-36.3) seconds VBG pH (7.33-7.43) VBG pCO2 (41-51) mmHg VBG pO2 (35-45) mmHg VBG HCO3 (24-28) mmol/L VBG O2 Saturation (70-80) % VBG Base Excess (0-4) Carbon Monoxide Screen (<4.0) % Sodium (133-145) mmol/L Potassium (3.5-5.0) mmol/L Chloride (101-111) mmol/L Carbon Dioxide (22-32) mmol/L Anion Gap (2-11) mmol/L BUN (6-24) mg/dL Creatinine (0.67-1.17) mg/dL Est GFR ( Amer) (>60) Est GFR (Non-Af Amer) (>60) BUN/Creatinine Ratio (8-20) Glucose (70-100) mg/dL Lactic Acid (0.5-2.0) mmol/L Calcium (8.6-10.3) mg/dL Magnesium (1.9-2.7) mg/dL Total Bilirubin (0.2-1.0) mg/dL AST (13-39) U/L ALT (7-52) U/L Alkaline Phosphatase (34-104) U/L Ammonia 41 (16-53) mol/L Total Creatine Kinase (10-223) U/L CK-MB (CK-2) (0.6-6.3) ng/mL Troponin I (<0.04) ng/mL C-Reactive Protein (< 5.00) mg/L B-Natriuretic Peptide 360 H ( - 100) pg/mL Total Protein (6.4-8.9) g/dL Albumin (3.2-5.2) g/dL Globulin (2-4) g/dL Albumin/Globulin Ratio (1-3) Lipase (11.0-82.0) U/L TSH (0.34-5.60) mcIU/mL Urine Color Straw Urine Appearance Clear Urine pH 5.0 (5-9) Ur Specific [place] 1.009 L (1.010-1.030) Urine Protein Negative (Negative) Urine Ketones Negative (Negative) Urine Blood Negative (Negative) Urine Nitrate Negative (Negative) Urine Bilirubin Negative (Negative) Urine Urobilinogen Negative (Negative) Ur Leukocyte Esterase Negative (Negative) Urine Glucose Negative (Negative) 11/06/17 11/06/17 11/06/17 Range/Units 19:20 19:20 19:20 WBC 7.4 (3.5-10.8) 10^3/ul RBC 3.63 L (4.0-5.4) 10^6/ul Hgb 9.1 L (14.0-18.0) g/dl Hct 29 L (42-52) % MCV 80 (80-94) fL MCH 25 L (27-31) pg MCHC 31 (31-36) g/dl RDW 18 H (10.5-15) % Plt Count 103 L (150-450) 10^3/ul MPV 8 (7.4-10.4) um3 Neut % (Auto) 80.7 (38-83) % Lymph % (Auto) 6.7 L (25-47) % Barton % (Auto) 11.7 H (1-9) % Eos % (Auto) 0.5 (0-6) % Baso % (Auto) 0.4 (0-2) % Absolute Neuts (auto) 6.0 (1.5-7.7) 10^3/ul Absolute Lymphs (auto) 0.5 L (1.0-4.8) 10^3/ul Absolute Monos (auto) 0.9 H (0-0.8) 10^3/ul Absolute Eos (auto) 0 (0-0.6) 10^3/ul Absolute Basos (auto) 0 (0-0.2) 10^3/ul Absolute Nucleated RBC 0.01 10^3/ul Nucleated RBC % 0.1 INR (Anticoag Therapy) (0.77-1.02) APTT (26.0-36.3) seconds VBG pH (7.33-7.43) VBG pCO2 (41-51) mmHg VBG pO2 (35-45) mmHg VBG HCO3 (24-28) mmol/L VBG O2 Saturation (70-80) % VBG Base Excess (0-4) Carbon Monoxide Screen (<4.0) % Sodium 137 (133-145) mmol/L Potassium 4.6 (3.5-5.0) mmol/L Chloride 96 L (101-111) mmol/L Carbon Dioxide 35 H (22-32) mmol/L Anion Gap 6 (2-11) mmol/L BUN 114 H (6-24) mg/dL Creatinine 1.99 H (0.67-1.17) mg/dL Est GFR ( Amer) 41.0 (>60) Est GFR (Non-Af Amer) 31.9 (>60) BUN/Creatinine Ratio 57.3 H (8-20) Glucose 124 H (70-100) mg/dL Lactic Acid 0.4 L (0.5-2.0) mmol/L Calcium 9.1 (8.6-10.3) mg/dL Magnesium 2.5 (1.9-2.7) mg/dL Total Bilirubin 0.50 (0.2-1.0) mg/dL AST 24 (13-39) U/L ALT 31 (7-52) U/L Alkaline Phosphatase 73 (34-104) U/L Ammonia (16-53) mol/L Total Creatine Kinase 21 (10-223) U/L CK-MB (CK-2) 3.5 (0.6-6.3) ng/mL Troponin I 0.03 (<0.04) ng/mL C-Reactive Protein 51.00 H (< 5.00) mg/L B-Natriuretic Peptide ( - 100) pg/mL Total Protein 6.2 L (6.4-8.9) g/dL Albumin 3.4 (3.2-5.2) g/dL Globulin 2.8 (2-4) g/dL Albumin/Globulin Ratio 1.2 (1-3) Lipase 22 (11.0-82.0) U/L TSH 2.66 (0.34-5.60) mcIU/mL Urine Color Urine Appearance Urine pH (5-9) Ur Specific [place] (1.010-1.030) Urine Protein (Negative) Urine Ketones (Negative) Urine Blood (Negative) Urine Nitrate (Negative) Urine Bilirubin (Negative) Urine Urobilinogen (Negative) Ur Leukocyte Esterase (Negative) Urine Glucose (Negative) 11/06/17 Range/Units 19:44 WBC (3.5-10.8) 10^3/ul RBC (4.0-5.4) 10^6/ul Hgb (14.0-18.0) g/dl Hct (42-52) % MCV (80-94) fL MCH (27-31) pg MCHC (31-36) g/dl RDW (10.5-15) % Plt Count (150-450) 10^3/ul MPV (7.4-10.4) um3 Neut % (Auto) (38-83) % Lymph % (Auto) (25-47) % Barton % (Auto) (1-9) % Eos % (Auto) (0-6) % Baso % (Auto) (0-2) % Absolute Neuts (auto) (1.5-7.7) 10^3/ul Absolute Lymphs (auto) (1.0-4.8) 10^3/ul Absolute Monos (auto) (0-0.8) 10^3/ul Absolute Eos (auto) (0-0.6) 10^3/ul Absolute Basos (auto) (0-0.2) 10^3/ul Absolute Nucleated RBC 10^3/ul Nucleated RBC % INR (Anticoag Therapy) (0.77-1.02) APTT (26.0-36.3) seconds VBG pH 7.34 (7.33-7.43) VBG pCO2 73 H (41-51) mmHg VBG pO2 36 (35-45) mmHg VBG HCO3 33.5 H (24-28) mmol/L VBG O2 Saturation 69.8 L (70-80) % VBG Base Excess 11.6 H (0-4) Carbon Monoxide Screen < 4 (<4.0) % Sodium (133-145) mmol/L Potassium (3.5-5.0) mmol/L Chloride (101-111) mmol/L Carbon Dioxide (22-32) mmol/L Anion Gap (2-11) mmol/L BUN (6-24) mg/dL Creatinine (0.67-1.17) mg/dL Est GFR ( Amer) (>60) Est GFR (Non-Af Amer) (>60) BUN/Creatinine Ratio (8-20) Glucose (70-100) mg/dL Lactic Acid (0.5-2.0) mmol/L Calcium (8.6-10.3) mg/dL Magnesium (1.9-2.7) mg/dL Total Bilirubin (0.2-1.0) mg/dL AST (13-39) U/L ALT (7-52) U/L Alkaline Phosphatase (34-104) U/L Ammonia (16-53) mol/L Total Creatine Kinase (10-223) U/L CK-MB (CK-2) (0.6-6.3) ng/mL Troponin I (<0.04) ng/mL C-Reactive Protein (< 5.00) mg/L B-Natriuretic Peptide ( - 100) pg/mL Total Protein (6.4-8.9) g/dL Albumin (3.2-5.2) g/dL Globulin (2-4) g/dL Albumin/Globulin Ratio (1-3) Lipase (11.0-82.0) U/L TSH (0.34-5.60) mcIU/mL Urine Color Urine Appearance Urine pH (5-9) Ur Specific [place] (1.010-1.030) Urine Protein (Negative) Urine Ketones (Negative) Urine Blood (Negative) Urine Nitrate (Negative) Urine Bilirubin (Negative) Urine Urobilinogen (Negative) Ur Leukocyte Esterase (Negative) Urine Glucose (Negative) Result Diagrams: 11/06/17 19:20 11/06/17 19:20 Lab Statement: Any lab studies that have been ordered have been reviewed, and results considered in the medical decision making process. - CT CT Head CT Interpretation Completed By: Radiologist - No intracranial mass or hemorrhage is noted. ED physician has reviewed this radiology report and agrees. - EKG 20:44 Cardiac Rate: NL EKG Rhythm: Atrial Flutter - at 70 BPM EKG Interpretation: ventricular paced complexes Altered Mental Statu Course/Dx - Course Course Of Treatment: ADMIT HOSPITALIST. NO CRITICAL CARE TIME. - Diagnoses Discharge Diagnoses: Pneumonia, Hypoxia, Altered mental state - Provider Notifications Discussed Care Of Patient With: Chidi Redman Time Discussed With Above Provider: 20:34 Instructed by Provider To: Admit As Inpatient Discharge - Discharge Plan Condition: Stable Disposition: ADMITTED TO [facility] Referrals: Ngozi Fuentes MD [Primary Care Provider] - The documentation as recorded by the Mannie webb Gabriel accurately reflects the service I personally performed and the decisions made by me, Mckay Sanchez MD.
[2017-11-06] MEDS ORDERED: Ondansetron INJ* 2 MG/ML VIAL IV PRN (21:25)
[2017-11-06] MEDS ORDERED: Acetaminophen TAB* 325 MG PO PRN (21:25)
[2017-11-06] MEDS ORDERED: Albuterol 2.5 MG/3 ML NEB.SOL* (0.083%) INH PRN (21:25)
[2017-11-06] MEDS ORDERED: Dextrose 50% Syringe 50 ML* 25 GM/50 ML SYRINGE IV PUSH PRN (21:32)
[2017-11-06 22:05] LABS: Digoxin 1.8 ng/ml (0.8-2.0)
[2017-11-06] MEDS: predniSONE TAB* 20 MG PO SCH (23:25)
[2017-11-06] MEDS: Heparin VIAL(*) 5000 UNITS/ML VIAL (FIVE THOUSAND) SUBCUT SCH (23:26)
[2017-11-06] MEDS: Albuterol/Ipratropium NEB.SOL* Albuterol 2.5 MG/Ipratropium 0.5 MG 3 ML INH SCH (23:52)
--- NOTE | 2017-11-07 00:04 | HP ---
CC: Dr. Fuentes; Dr. Rivas * HISTORY AND PHYSICAL: DATE OF ADMISSION: 11/06/17 PRIMARY CARE PROVIDER: Dr. Ngozi Fuentes. ATTENDING PHYSICIAN WHILE IN THE HOSPITAL: Chidi Redman MD (report dictated by Declan Coleman NP). CHIEF COMPLAINT: Altered mental status. HISTORY OF PRESENT ILLNESS: Mr. Puente is an 87-year-old male patient with multiple medical problems. He has a history of dementia, diabetes, PRETTY on CPAP , CAD, ITP, COPD, CKD, sick sinus syndrome, status post pacemaker, AFib, hypertension, hyperlipidemia, history of skin cancer. He comes into the ER today stating that this patient really cannot give much history because of the underlying dementia. He says he is feeling well. His son says that the last couple of weeks he has noticed that his dad has been more congest and coughing, bringing up clear sputum and they have noticed that he has had difficult time to get up and walk around. He is ambulatory. He is becoming hypoxic. He is dipped down in the low 80s today. There were concern because he had an episode where he just would answer any question yes, so the son asked dad what you are doing here, he just say yes, dad what is you name, he would say yes. He was very confused. He was presumably hypoxic. When the EMS got there, his O2 sats were 88% and they had called 911. Because of this worsening confusion, brought him in the ED. The time he got to the ED after receiving treatment here appeared to be improved. There has been no reports of vomiting or diarrhea. No reports of fever, but there has been a cough. There has been more shortness of breath particularly with exertion and increasing O2 demand. This is the third time in the last 3 months that he has been hospitalized per respiratory complaints. There has been no change and the only change in meds is he has been added on a nitroglycerin and apparently his Demadex has changed, but they do not know the dosing, we will need to clarify this and he also has a new nebulizer but again we do not know the name of that new nebulizer. They have been trying the nebs, trying to treat him at home, but he just continued to fail , more weak, hypoxic, and then brought him in the ED. He came in the ED. It was noted that he appeared to have an early infiltrate in the right base and we were asked to evaluate for admission. PAST MEDICAL HISTORY: Significant for: 1. Dementia. 2. Diabetes. 3. PRETTY. 4. CAD. 5. ITP. 6. COPD. 7. CKD. 8. Sick sinus syndrome, status post pacemaker. 9. AFib. 10. Hypertension. 11. Hyperlipidemia. 12. Skin cancer. PAST SURGICAL HISTORY: The patient has had a heart catheterization with 5 stents. He has had pacemaker placement. He has had cataracts extraction and he has had an adrenal gland removal. HOME MEDICATIONS: According to the previous discharge summary and what the patient can recall, we really should clarify this with the primary PCP tomorrow or his pharmacy when they are open, but the list I was able to ascertain include : 1. Nitro patch 0.2 mg one patch topically daily. 2. Digoxin one tablet p.o. every 48 hours. 3. Xopenex 1.25 mg inhaler every 4 hours as needed. 4. NovoLog 2 to 10 units subcu t.i.d. a.c. 5. Aricept 10 mg daily at bedtime. 6. Carvedilol 25 mg p.o. b.i.d. 7. Aspirin 81 mg daily. 8. Tylenol 325 mg p.o. every 4 hours as needed. 9. Lantus 55 units subcu q.a.m. 10. Zaroxolyn 5 mg p.o. daily as needed. 11. Demadex 40 mg Friday, Friday, , Friday. 12. Demadex 20 mg on Sundays and Mondays. 13. Crestor 5 mg daily. ALLERGIES TO MEDICATIONS: Include TAPE, HYDRALAZINE, RAMIPRIL, SIMVASTATIN, CLONIDINE, PLAVIX, and LATEX. FAMILY HISTORY: Mother had a history of bone cancer. Father had a history of heart disease. SOCIAL HISTORY: He is a former smoker. He does not drink alcohol. Surrogate decision maker is his . REVIEW OF SYSTEMS: There is no documented fever. There is a 4-pound weight loss. There is no significant weight change. There is no double vision, no ear discharge, no rhinorrhea, no sore throat, no thyroid enlargement. Denied having any chest pain. No orthopnea and there is dyspnea on exertion. No abdominal pain. No nausea, no vomiting, no dysuria, no frequency. There is no seizure. No loss of consciousness, no pruritus, and no skin ulcerations. Review of 14 systems completed, all others negative. PHYSICAL EXAMINATION GENERAL: At this time, Mr. Puente is an 87-year-old male patient. He is sitting in the ED stretcher. He does not appear to be in any acute distress. VITAL SIGNS: Blood pressure 147/55, pulse 72, respirations 13, O2 sat 96%, temperature 97.2. HEENT: Head: Atraumatic. Eyes: EOMs intact. Sclerae anicteric, not pale. Throat: Oral mucosa appears to be moist. No oropharyngeal erythema. NECK: Supple. LUNGS: He did have some wheezing noted in the right middle base. He had equal diaphragmatic expansion. HEART: Sounds S1, S2. Regular rate and rhythm. No murmurs, rubs, or gallops. ABDOMEN: Soft, flat, nontender. Bowel sounds present. EXTREMITIES: Pulses were 2+ throughout. No peripheral edema. He had 5/5 strength. NEUROLOGIC: The patient is awake. He is alert to himself. He is oriented to place and self. He is confused at time. His speech was clear. His tongue was midline. He had no facial drooping. He had no gross obvious focal deficits. SKIN: Intact. DIAGNOSTIC STUDIES/LAB DATA: WBC is 7.4, RBC of 3.63, hemoglobin of 9.1, hematocrit 29, platelet count of 103. INR 1.10. PTT of 30.3. Blood gas, pH 7.34, pCO2 73, pO2 of 36, this was a VBG. Bicarb of 33. Sodium 137, potassium 4.6, chloride 96, bicarb 34, BUN 14. Creatinine 1.99, slightly elevated, his baseline appears to be rated around 1.7. His glucose 124, lactate 0.4, calcium 9.1. Total bili is 0.5, mag 2.5, AST 24, ALT 31, alk phos 73. Ammonia 41. CK 21, CK-MB 3.5, troponin 0.03. CRP 51. BNP of 360. TSH normal. Lipase 22. Urine was negative. Chest x-ray, impression: Suggestion of right basal infiltrate. EKG showed AFib , flutter with ventricular paced complex with rate of 70. Brain CT obtained today, which revealed no intracranial mass or hemorrhage. Old medical records were reviewed. ASSESSMENT AND PLAN: Mr. Puente is an 87-year-old male patient coming into the ED today with complaints of cough, shortness of breath, just not feeling well, increasing confusion over the last 2 weeks. He will be admitted under inpatient status for: 1. Pneumonia with chronic obstructive pulmonary disease exacerbation. At this point, I suspect he has an early onset pneumonia. Again, we will put him on Rocephin and azithromycin. In addition to this, we also placed him on nebs and steroids. Check flu swab, blood cultures. Lactate was normal. We will check Legionella and Strep pneumo antigens. Continue with aggressive pulmonary toileting and try to get a sputum culture if possible. The bigger picture he has always the family is requesting that they need some help at home. This is his third visit in the last 3 months and he does have severe chronic obstructive pulmonary disease. I think it is warrant to get a hospice consult and a palliative care consult. The family was interested in this and I have also ordered a social work consult to see if we can get the patient help at home. They are open to help at home, open the hospice. There are not thrilled with going back to longterm facility because they had a poor experience previously at [facility]. We will treat the current exacerbation and we will try to come up the long-term plan for the patient. 2. Dementia with acute delirium. Continue with supportive care. I suspect the confusion he had made from hypoxia and the pneumonia. We will follow. 3. History of diabetes. Lispro sliding scale. 4. Obstructive sleep apnea. We will order CPAP. 5. Coronary artery disease. He is on aspirin, statin, beta-darryl continue. 6. History of immune thrombocytopenic purpura. We will follow that platelet count. I did put him on heparin subcu for DVT prophylaxis. We will monitor that platelet count closely. 7. Chronic obstructive pulmonary disease again with exacerbation. Continue with steroids, nebs for the time being. 8. Chronic kidney disease. Creatinine is up a little bit. We will hydrate him. Repeat in the morning. If it becomes an issue, we will check a FENa. 9. Sick sinus syndrome. He has a pacemaker. Continue with this. 10. Atrial fibrillation. Continue meds as prescribed. 11. Hypertension. Continue his current medical regimen. 12. Hyperlipidemia. Continue statin therapy. 13. Skin cancer. Follow with primary. 14. DVT prophylaxis, high risk. He will be placed on heparin subcu. 15. Code status. He wishes to be a do not resuscitate. 16. Fluids, electrolytes, and nutrition. He can have a consistent carb diet. TIME SPENT: On admission 60 minutes, greater than half the time spent face-to- face with the patient, obtaining my history and physical, other half of the time was spent going over the plan of care with the patient and implementing plan of care. I did discuss the plan of care with my attending, Dr. Redman; he is in agreement. DECLAN COLEMAN, NEELA [id number]/CPS #: [id number] DELON
--- NOTE | 2017-11-07 01:50 | HP ---
H&P (Free Text) History and Physical: Mr Puente is a demented 87M presenting with confusion and hypoxia found to have pneumonia and a COPD exacerbation for which he will be admitted, given IV ABX, IVFs, albuterol, and close monitoring.
[2017-11-07] MEDS: Albuterol/Ipratropium NEB.SOL* Albuterol 2.5 MG/Ipratropium 0.5 MG 3 ML INH SCH ×4 (03:26→20:04)
[2017-11-07] MEDS: Heparin VIAL(*) 5000 UNITS/ML VIAL (FIVE THOUSAND) SUBCUT SCH ×3 (05:37→21:08)
[2017-11-07] MEDS: Mometasone/Formoter 200/5 MDI INH SCH ×2 (07:47→20:00)
[2017-11-07 07:48] LABS: Hematocrit 31 % (42-52); Hemoglobin 9.3 g/dl (14.0-18.0); Mean Corpuscular HGB Conc 31 g/dl (31-36); Mean Corpuscular Hemoglobin 25 pg (27-31); Mean Corpuscular Volume 81 fL (80-94); Mean Platelet Volume 8 um3 (7.4-10.4); Red Blood Count 3.76 10^6/ul (4.0-5.4); Red Cell Distribution Width 18 % (10.5-15); White Blood Count 5.4 10^3/ul (3.5-10.8)
[2017-11-07] MEDS: Insulin GLARGINE(*) 1 UNITS UNIT SUBCUT SCH (08:07)
[2017-11-07] MEDS: Insulin LISPRO* 1 UNITS UNIT SUBCUT SCH ×3 (08:08→17:55)
[2017-11-07] MEDS: predniSONE TAB* 20 MG PO SCH (08:09)
[2017-11-07] MEDS: Nitroglycerin 0.2 MG/HR PATCH* (5 MG) TRANSDERM SCH (08:09)
[2017-11-07] MEDS: Carvedilol TAB* 25 MG PO SCH ×2 (08:09→21:07)
[2017-11-07] MEDS: Diltiazem CD CAP* 120 MG PO SCH ×2 (08:10→21:06)
[2017-11-07 08:20] LABS: BUN/Creatinine Ratio 59.9 (8-20); Calcium 8.5 mg/dL (8.6-10.3); EGFR African American 46.9 (>60); EGFR Non-African American 36.5 (>60)
--- NOTE | 2017-11-07 10:37 | PN ---
Subjective Date of Service: 11/07/17 Interval History: This is an 87 yo male with COPD, PRETTY and multiple other co-morbidities who presented with c/o cough and confusion. He was found to be hypoxic at home. There was an infiltrate in the RLL and patient was admitted for PNA and COPD exacerbation. This am, patient reports feeling better. Denies dyspnea at rest. Cough improved. No complaints. Objective Active Medications: Acetaminophen (Tylenol Tab*) 650 mg PO Q4H PRN PRN Reason: FEVER/PAIN Albuterol (Ventolin 2.5 Mg/3 Ml Neb.Suha*) 2.5 mg INH Q2H PRN PRN Reason: SOB/WHEEZING Albuterol/Ipratropium (Duoneb (Albuterol 2.5 Mg/Ipratropium 0.5 Mg)) 1 neb INH [id number] AWAKE [facility] Aspirin (Aspirin Low Dose Tab*) 81 mg PO BEDTIME PRICILLA Atorvastatin Calcium (Lipitor*) 10 mg PO BEDTIME PRICILLA PRN Reason: Protocol Carvedilol (Coreg Tab*) 25 mg PO BID [facility] Last Admin: 11/07/17 08:09 Dose: 25 mg Dextrose (D50w Syringe 50 Ml*) 12.5 gm IV PUSH .FOR FS < 60 - SS PRN PRN Reason: FS < 60 Digoxin (Lanoxin Tab*) 0.125 mg PO Q48HR [facility] Diltiazem HCl (Cardizem Cd Cap*) 120 mg PO BID [facility] Last Admin: 11/07/17 08:10 Dose: 120 mg Donepezil HCl (Aricept Tab*) 10 mg PO BEDTIME [facility] Heparin Sodium (Porcine) (Heparin Vial(*)) 5,000 units SUBCUT Q8HR [facility] Last Admin: 11/07/17 05:37 Dose: 5,000 units Sodium Chloride (Ns 0.9% 1000 Ml*) 1,000 mls @ 150 mls/hr IV PER RATE [facility] Last Admin: 11/06/17 21:04 Dose: 150 mls/hr Azithromycin 250 mg/ Sodium (Chloride) 250 mls @ 250 mls/hr IVPB Q24H [facility] Sodium Chloride (Ns 0.9% 1000 Ml*) 1,000 mls @ 100 mls/hr IV PER RATE [facility] Last Admin: 11/07/17 03:57 Dose: 100 mls/hr Insulin Glargine (Lantus(*)) 55 units SUBCUT QAM [facility] Last Admin: 11/07/17 08:07 Dose: 55 units Insulin Human Lispro (Humalog*) 0 units SUBCUT AC [facility] PRN Reason: Protocol Last Admin: 11/07/17 08:08 Dose: 9 units Mometasone Furoate/Formoterol Fumar (Dulera 200/5 Mdi*) 2 puff INH BID [facility] Last Admin: 11/07/17 07:47 Dose: 2 puff Nitroglycerin (Nitroglycerin 5 Mg Patch*) 1 patch TRANSDERM DAILY [facility] Last Admin: 11/07/17 08:09 Dose: 1 patch Ondansetron HCl (Zofran Inj*) 4 mg IV Q6H PRN PRN Reason: NAUSEA Pharmacy Profile Note (Nitro Patch/Oint Remove*) 1 note PATCH OFF 2100 [facility] Prednisone (Deltasone Tab*) 60 mg PO DAILY [facility] Last Admin: 11/07/17 08:09 Dose: 60 mg Torsemide (Demadex*) 40 mg PO TuWeThSa@0900 [facility] Torsemide (Demadex*) 20 mg PO SuMo@0900 [facility] Vital Signs: Temp Pulse Resp BP Pulse Ox 98.0 F 74 16 151/52 100 11/07/17 07:17 11/07/17 08:00 11/07/17 07:53 11/07/17 08:00 11/07/17 08:00 Oxygen Devices in Use Now: CPAP Appearance: Elderly male, resting on CPAP with nasal mask. NAD. No faily present Respiratory: Symmetrical Chest Expansion and Respiratory Effort, Clear to Auscultation Cardiovascular: NL Sounds; No Murmurs; No JVD, RRR Abdominal: NL Sounds; No Tenderness; No Distention Extremities: - - trace LE edema Skin: No Rash or Ulcers Neurological: Alert and Oriented x 3 Result Diagrams: 11/07/17 07:21 11/07/17 07:21 Additional Lab and Data: . Microbiology and Other Data: Microbiology 11/07/17 00:13 Legionella Urinary Antigen - Final Urine Negative Legionella Streptococcus pneumoniae Ag Screen - Final Negative S. pneumo Antigen 11/06/17 22:20 Influenza Types A,B Antigen (JESSICA) - Final Nasal Specimen received for Influenza A/B Molecular testing Diagnostic Imaging: CXR - R basilar infiltrate CT brain - NAD Assess/Plan/Problems-Billing Assessment: This is an 87 yo male with dementia, DM, PRETTY, CAD, h/o ITP, COPD, CKD, sick sinus syndrome s/p pacer, afib, HTN and HLD who presented with cough, confusion and hypoxia admitted with PNA and COPD exacerbation - Patient Problems (1) CAP (community acquired pneumonia) Comment: Cont ceftriaxone/azithromycin No fever/leukocytosis RLL infiltrate on CXR (2) COPD exacerbation Comment: With associated PNA Cont inhaled medications and corticosteroids (3) Atrial fibrillation Comment: Rate controlled No AC (4) CAD (coronary artery disease) Comment: Stable Cont med management (5) Chronic kidney disease Comment: Acute on chronic injury Stage III at baseline Cont to monitor Cr (6) Dementia Comment: Moderate, no behavioral concerns Continue Aricept. (7) Diabetes mellitus type 2 Comment: Cont home Lantus dosing with SS Humalog coverage Anticipate some hyperglycemia with corticosteroid use (8) Hypertension Comment: Normotensive on average Continue home medications (9) PRETTY (obstructive sleep apnea) Comment: Continue CPAP (10) Sick sinus syndrome Comment: Pacemaker in place (11) DVT prophylaxis Comment: SQ heparin (12) DNR (do not resuscitate) Status and Disposition: Inpatient. Anticipate dc home 1-2d. Family interested in palliative consultation
--- NOTE | 2017-11-07 14:20 | CONS ---
CC: Dr. Fuentes; Dr. Rivas * PALLIATIVE CARE CONSULTATION: DATE OF CONSULT: 11/07/17 PRIMARY CARE PHYSICIAN: Dr. Fuentes. THERMOGRAPH OPERATOR: Dr. Rivas. REFERRING PHYSICIAN: Declan Coleman NP. REASON FOR CONSULT: Evaluation for hospice. HOSPITAL COURSE: This is an 87-year-old male with a past medical history of dementia, COPD, and obstructive sleep apnea on 2 L of oxygen continuously at home, who presented to the emergency room on the 7th with altered mental status. On admission, patient was found to have pneumonia with COPD exacerbation. He was started on broad-spectrum antibiotics, IV fluids, and steroid treatment. The family has been interested in a hospice consult, as they feel they need to get more help at home. They were not thrilled with him going back to a retirement. They did not have a good experience with [facility]. On my encounter with the patient, he is resting comfortably. He states his breathing is better. He says his appetite is good. He states he is relatively independent at home. He lives with his and his son, Jimmy, who help care for him. However, he states he ambulates independently. He has no falls. He is independent in the bathroom with bathing and dressing. He does state his makes his meals for him. He states that he does not need more assistance at home, but he states that his family is interested in getting more help. He denies any chest pain. No abdominal pain. No nausea, vomiting, or diarrhea. No constipation. Otherwise, review of systems is negative. We did review his MOLST form and he is interested in being a DNR/DNI. PAST MEDICAL HISTORY: 1. Dementia. 2. Diabetes. 3. Obstructive sleep apnea on CPAP. 4. CAD. 5. History of ITP. 6. COPD on 2 L continuous. 7. CKD. 8. History of sick sinus syndrome status post pacemaker. 9. Atrial fibrillation. 10. Hypertension. 11. Hyperlipidemia. 12. History of skin cancer. INPATIENT MEDICATIONS: 1. Tylenol 650 mg every 4 hours as needed. 2. Albuterol 2.5 q. 2 hours as needed. 3. DuoNeb q. 6 hours. 4. Aspirin 81 mg daily. 5. Lipitor 10 mg daily. 6. Azithromycin 250 mg q. 24 hours. 7. Carvedilol 25 mg p.o. b.i.d. 8. Digoxin 0.125 mg p.o. q. 48 hours. 9. Diltiazem CD 120 mg p.o. b.i.d. 10. Donepezil 10 mg at bedtime. 11. Heparin 5000 units subcu t.i.d. 12. Lantus 55 units in the morning. 13. Lispro sliding scale. 14. Mometasone/formoterol 2 puffs inhaled b.i.d. 15. Nitro patch. 16. IV fluids 100 cc an hour. 17. Zofran 4 mg IV q. 6 hours. 18. Prednisone 60 mg daily. 19. Ceftriaxone 1 g daily. 20. Torsemide 40 mg Friday, Friday, , Friday, 20 mg Friday and Friday. ALLERGIES: ADHESIVE TAPE, HYDRALAZINE, RAMIPRIL, SIMVASTATIN, CLONIDINE, CLOPIDOGREL, LATEX, NITRO. FAMILY HISTORY: Mother from bone cancer. Father from heart disease. SOCIAL HISTORY: As mentioned, the patient lives with his Alexis, and his son Jimmy, who help care for him. He is independent of his ADLs. He is a former smoker. No alcohol or illicit drug use. His code status is a DNR/DNI. MOLST form has been completed. REVIEW OF SYSTEMS: A 14-point review of systems reviewed. Pertinent positives and negatives as mentioned in the HPI, otherwise negative. PHYSICAL EXAM: Vitals: Temp 98, pulse rate of 74, respiratory rate 16, oxygen saturation 100% on CPAP with oxygen rate of 3 L, blood pressure 151/52. General : No acute distress, resting comfortably. HEENT: Head: Normocephalic. Pupils are equal and reactive, anicteric. Oropharynx, mucous membranes moist. Neck: Supple. No lymphadenopathy. Cardiac: Regular rate and rhythm. Soft systolic murmur heard throughout. Respiratory: Diminished breath sounds. No wheezes, rhonchi, or rales. No increased work of breathing. Abdomen: Mild distension, soft, nontender. Extremities: Trace pretibial edema. +1 DPs. Neurologic: Alert and oriented x3. No focal neurologic deficits. DIAGNOSTIC STUDIES/LAB DATA: White count 5.4, hemoglobin 9.3, hematocrit 31, platelets 103. INR is 1.12. Sodium 129, potassium 5, chloride 101, bicarb 29, BUN 106, creatinine 1.77, glucose 234, albumin is 3.4. CRP is 51. RADIOGRAPHIC DATA: Chest x-ray, suggestion of a right basal infiltrate. ASSESSMENT: This is an 87-year-old male with a past medical history of chronic obstructive sleep apnea, obstructive sleep apnea, chronic kidney disease, and mild dementia, who presented to the emergency room with altered mental status, was found to have right lower lobe pneumonia, who is clinically improving. I did speak with him regarding hospice and that he is not eligible for hospice, but that he could be referred be to the palliative care [facility] program which he is interested in. He would like to get back home and go back living with his and his son. However, there is some concern with the family, has increased needs of care. I am going to follow up and touch base with his as she is going to be arriving here shortly to address her concerns and see if more resources can be placed in the home. His MOLST form has been completed. As mentioned, he is a DNR/DNI. Thank you for this consultation. I will follow along with you. PATIENT TIME SPENT: Greater than 60 minutes were spent doing this consultation , more than half the time was spent in direct patient contact. [id number]/CPS #: [id number]
[2017-11-07] MEDS: cefTRIAXone(*) 1 GM in D5W 50 ML BAG* 50 ML IVPB SCH (21:02)
[2017-11-07] MEDS: Donepezil TAB* 5 MG PO SCH (21:06)
[2017-11-07] MEDS: Atorvastatin* 10 MG TAB PO SCH (21:07)
[2017-11-07] MEDS: Aspirin Low Dose CHEW TAB* 81 MG PO SCH (21:07)
[2017-11-07] MEDS: Nitro Patch/OINT Remove PATCH OFF SCH (21:10)
[2017-11-07] MEDS: Azithromycin IV* 250 MG in NS 0.9% 250 ML* 250 ML IVPB SCH (21:41)
[2017-11-08] MEDS: Albuterol/Ipratropium NEB.SOL* Albuterol 2.5 MG/Ipratropium 0.5 MG 3 ML INH SCH ×3 (02:30→13:27)
[2017-11-08] MEDS: Heparin VIAL(*) 5000 UNITS/ML VIAL (FIVE THOUSAND) SUBCUT SCH ×3 (05:33→20:47)
[2017-11-08] MEDS: Mometasone/Formoter 200/5 MDI INH SCH ×2 (08:10→19:55)
[2017-11-08] MEDS: Insulin LISPRO* 1 UNITS UNIT SUBCUT SCH ×3 (08:40→17:39)
[2017-11-08] MEDS: Insulin GLARGINE(*) 1 UNITS UNIT SUBCUT SCH (08:41)
[2017-11-08] MEDS: Nitroglycerin 0.2 MG/HR PATCH* (5 MG) TRANSDERM SCH (08:41)
[2017-11-08] MEDS: Diltiazem CD CAP* 120 MG PO SCH ×2 (08:44→20:46)
[2017-11-08] MEDS: predniSONE TAB* 20 MG PO SCH (08:44)
[2017-11-08] MEDS: Carvedilol TAB* 25 MG PO SCH ×2 (08:44→20:46)
[2017-11-08] MEDS ORDERED: Torsemide TAB* 20 MG PO SCH (09:00)
[2017-11-08] MEDS ORDERED: Digoxin TAB* 0.125 MG PO SCH (09:00)
--- NOTE | 2017-11-08 09:49 | PN ---
Subjective Date of Service: 11/08/17 Interval History: Patient reports feeling better this am. Little to no dyspnea at rest or with minimal exertion. Little cough. No new complaints. Objective Active Medications: Acetaminophen (Tylenol Tab*) 650 mg PO Q4H PRN PRN Reason: FEVER/PAIN Albuterol (Ventolin 2.5 Mg/3 Ml Neb.Suha*) 2.5 mg INH Q2H PRN PRN Reason: SOB/WHEEZING Albuterol/Ipratropium (Duoneb (Albuterol 2.5 Mg/Ipratropium 0.5 Mg)) 1 neb INH [id number] AWAKE [facility] Last Admin: 11/08/17 08:07 Dose: 1 neb Aspirin (Aspirin Low Dose Tab*) 81 mg PO BEDTIME [facility] Last Admin: 11/07/17 21:07 Dose: 81 mg Atorvastatin Calcium (Lipitor*) 10 mg PO BEDTIME [facility] PRN Reason: Protocol Last Admin: 11/07/17 21:07 Dose: 10 mg Carvedilol (Coreg Tab*) 25 mg PO BID [facility] Last Admin: 11/08/17 08:44 Dose: 25 mg Dextrose (D50w Syringe 50 Ml*) 12.5 gm IV PUSH .FOR FS < 60 - SS PRN PRN Reason: FS < 60 Digoxin (Lanoxin Tab*) 0.125 mg PO Q48HR [facility] Last Admin: 11/08/17 08:42 Dose: 0.125 mg Diltiazem HCl (Cardizem Cd Cap*) 120 mg PO BID [facility] Last Admin: 11/08/17 08:44 Dose: 120 mg Donepezil HCl (Aricept Tab*) 10 mg PO BEDTIME [facility] Last Admin: 11/07/17 21:06 Dose: 10 mg Heparin Sodium (Porcine) (Heparin Vial(*)) 5,000 units SUBCUT Q8HR [facility] Last Admin: 11/08/17 05:33 Dose: 5,000 units Azithromycin 250 mg/ Sodium (Chloride) 250 mls @ 250 mls/hr IVPB Q24H [facility] Last Admin: 11/07/17 21:41 Dose: 250 mls/hr Ceftriaxone Sodium 1 gm/ (Dextrose) 50 mls @ 200 mls/hr IVPB Q24H [facility] Last Admin: 11/07/17 21:02 Dose: 200 mls/hr Insulin Glargine (Lantus(*)) 55 units SUBCUT QAM [facility] Last Admin: 11/08/17 08:41 Dose: 55 units Insulin Human Lispro (Humalog*) 0 units SUBCUT AC [facility] PRN Reason: Protocol Last Admin: 11/08/17 08:40 Dose: 9 units Mometasone Furoate/Formoterol Fumar (Dulera 200/5 Mdi*) 2 puff INH BID [facility] Last Admin: 11/08/17 08:10 Dose: 2 puff Nitroglycerin (Nitroglycerin 5 Mg Patch*) 1 patch TRANSDERM DAILY [facility] Last Admin: 11/08/17 08:41 Dose: 1 patch Ondansetron HCl (Zofran Inj*) 4 mg IV Q6H PRN PRN Reason: NAUSEA Pharmacy Profile Note (Nitro Patch/Oint Remove*) 1 note PATCH OFF 2100 [facility] Last Admin: 11/07/17 21:10 Dose: 1 patch Prednisone (Deltasone Tab*) 40 mg PO DAILY [facility] Last Admin: 11/08/17 08:44 Dose: 40 mg Torsemide (Demadex*) 40 mg PO TuWeThSa@0900 [facility] Last Admin: 11/08/17 09:21 Dose: 40 mg Torsemide (Demadex*) 20 mg PO SuMo@0900 [facility] Vital Signs: Temp Pulse Resp BP Pulse Ox 98.0 F 72 18 147/60 100 11/08/17 04:11 11/08/17 08:42 11/08/17 08:00 11/08/17 04:11 11/08/17 04:11 Oxygen Devices in Use Now: Nasal Cannula Appearance: Well appearing 87 yo male sitting comfortably in NAD Respiratory: Symmetrical Chest Expansion and Respiratory Effort, Clear to Auscultation Cardiovascular: NL Sounds; No Murmurs; No JVD, RRR Abdominal: NL Sounds; No Tenderness; No Distention Extremities: - - trace to 1+ pitting LE edema Skin: No Rash or Ulcers Neurological: Alert and Oriented x 3 Result Diagrams: 11/07/17 07:21 11/07/17 07:21 Additional Lab and Data: . Microbiology and Other Data: Microbiology 11/07/17 00:13 Legionella Urinary Antigen - Final Urine Negative Legionella Streptococcus pneumoniae Ag Screen - Final Negative S. pneumo Antigen 11/06/17 22:20 Influenza Types A,B Antigen (JESSICA) - Final Nasal Specimen received for Influenza A/B Molecular testing Diagnostic Imaging: CXR - R basilar infiltrate CT brain - NAD Assess/Plan/Problems-Billing Assessment: This is an 87 yo male with dementia, DM, PRETTY, CAD, h/o ITP, COPD, CKD, sick sinus syndrome s/p pacer, afib, HTN and HLD who presented with cough, confusion and hypoxia admitted with PNA and COPD exacerbation - Patient Problems (1) CAP (community acquired pneumonia) Comment: Improving Cont ceftriaxone/azithromycin No fever/leukocytosis RLL infiltrate on CXR (2) COPD exacerbation Comment: With associated PNA Cont inhaled medications and corticosteroids, start to taper steroid (3) Atrial fibrillation Comment: Rate controlled No AC (4) CAD (coronary artery disease) Comment: Stable Cont med management (5) Chronic kidney disease Comment: Acute on chronic injury Improved Stage III at baseline Cont to monitor Cr (6) Dementia Comment: Moderate, no behavioral concerns Continue Aricept. (7) Diabetes mellitus type 2 Comment: Cont home Lantus dosing with SS Humalog coverage Anticipate some hyperglycemia with corticosteroid use (8) Hypertension Comment: Normotensive on average Continue home medications (9) PRETTY (obstructive sleep apnea) Comment: Continue CPAP (10) Sick sinus syndrome Comment: Pacemaker in place (11) DVT prophylaxis Comment: SQ heparin (12) DNR (do not resuscitate) Status and Disposition: Inpatient. Anticipate dc home tomorrow. Palliative consult appreciated. He does not qualify for Hospice but interested in PATH referral. Patient's family requires more assistance at home, they have been in touch with [facility] and are hoping they will start Friday.
[2017-11-08] MEDS: Aspirin Low Dose CHEW TAB* 81 MG PO SCH (20:46)
[2017-11-08] MEDS: Atorvastatin* 10 MG TAB PO SCH (20:46)
[2017-11-08] MEDS: Donepezil TAB* 5 MG PO SCH (20:46)
[2017-11-08] MEDS: cefTRIAXone(*) 1 GM in D5W 50 ML BAG* 50 ML IVPB SCH (20:46)
[2017-11-08] MEDS: Azithromycin IV* 250 MG in NS 0.9% 250 ML* 250 ML IVPB SCH (21:19)
[2017-11-08] MEDS: Nitro Patch/OINT Remove PATCH OFF SCH (21:20)
[2017-11-09] MEDS: Heparin VIAL(*) 5000 UNITS/ML VIAL (FIVE THOUSAND) SUBCUT SCH (05:38)
[2017-11-09 05:45] LABS: Hematocrit 27 % (42-52); Hemoglobin 8.4 g/dl (14.0-18.0); Mean Corpuscular HGB Conc 31 g/dl (31-36); Mean Corpuscular Hemoglobin 25 pg (27-31); Mean Corpuscular Volume 80 fL (80-94); Mean Platelet Volume 8 um3 (7.4-10.4); Red Blood Count 3.37 10^6/ul (4.0-5.4); Red Cell Distribution Width 18 % (10.5-15); White Blood Count 8.1 10^3/ul (3.5-10.8)
[2017-11-09 05:54] LABS: BUN/Creatinine Ratio 51.1 (8-20); Calcium 8.3 mg/dL (8.6-10.3); EGFR African American 47.2 (>60); EGFR Non-African American 36.7 (>60); Potassium 4.4 mmol/L (3.5-5.0)
[2017-11-09] MEDS: Mometasone/Formoter 200/5 MDI INH SCH (08:26)
[2017-11-09] MEDS ORDERED: Torsemide TAB* 20 MG PO SCH (09:00)
[2017-11-09 09:15] VITALS: BP 156/63
[2017-11-09] MEDS: Diltiazem CD CAP* 120 MG PO SCH (09:15)
[2017-11-09] MEDS: predniSONE TAB* 20 MG PO SCH (09:15)
[2017-11-09] MEDS: Carvedilol TAB* 25 MG PO SCH (09:15)
[2017-11-09] MEDS: Insulin LISPRO* 1 UNITS UNIT SUBCUT SCH (09:16)
[2017-11-09] MEDS: Nitroglycerin 0.2 MG/HR PATCH* (5 MG) TRANSDERM SCH (09:16)
[2017-11-09] MEDS: Insulin GLARGINE(*) 1 UNITS UNIT SUBCUT SCH (09:16)
--- NOTE | 2017-11-10 04:14 | DS ---
CC: Dr. Fuentes* DISCHARGE SUMMARY: DATE OF ADMISSION: 11/06/17 DATE OF DISCHARGE: 11/09/17 PRIMARY CARE PROVIDER: Dr. Fuentes. CONSULTING PALLIATIVE PHYSICIAN: Nohemi Mederos MD DISCHARGING PROVIDER: RL Bellamy SUPERVISING PHYSICIAN: Sera Hahn DO * (DICTATED BY RL BELLAMY) PRIMARY DISCHARGE DIAGNOSES: Pneumonia with chronic obstructive pulmonary disease exacerbation. SECONDARY DISCHARGE DIAGNOSES: 1. Atrial fibrillation without anticoagulation. 2. Coronary artery disease without evidence of acute coronary syndrome. 3. Stage 3 chronic kidney disease at baseline. 4. Mild to moderate dementia without acute behavioral concerns. 5. Insulin-dependent diabetes with some hyperglycemia likely steroid induced. 6. Hypertension. 7. Obstructive sleep apnea. 8. Sick sinus syndrome with pacemaker in place. DISCHARGE MEDICATIONS: 1. DuoNeb 1 neb inhaled every 4 hours as needed for shortness of breath. 2. Aspirin 81 mg p.o. at bedtime. 3. Azithromycin 250 mg p.o. daily x3 days. 4. Carvedilol 25 mg p.o. twice daily. 5. Cefuroxime 250 mg p.o. twice daily x7 days. 6. Digoxin 125 mcg p.o. every other day. 7. Diltiazem 120 mg p.o. twice daily. 8. Donepezil 10 mg p.o. at bedtime. 9. NovoLog on a sliding scale at mealtime. 10. Nitroglycerin 0.3 mg per hour patch apply topically daily. 11. Prednisone 40 mg x2 days, then 20 days x3 days, then 10 mg x3 days, then resume prior dose of 5 mg daily. 12. Crestor 5 mg p.o. at bedtime. 13. Torsemide 40 mg alternating with 20 mg daily. 14. Zaroxolyn 5 mg p.o. daily as needed when weight exceeds 216 pounds. 15. Lantus 65 units subcu daily. Medications changes: 1. Start p.r.n. DuoNebs. 2. Azithromycin x3 days. 3. Ceftin x7 days. 4. Prednisone at a tapering dose. HOSPITAL IMAGIN. CT brain shows no acute process. 2. Chest x-ray showed suggestion of a right basilar infiltrates. HOSPITAL COURSE: This is an 87-year-old gentleman who resides at home with his and son with COPD, atrial fibrillation, [id number] dementia, obstructive sleep apnea, hypertension, hyperlipidemia, history of coronary artery disease who presented with complaints of a cough and confusion. The patient's symptoms have been ongoing for several days prior to admission and the patient had refused medical care until he became more severely hypoxic with some increased confusion and was transported by EMS to the emergency department. The patient is noted to be 88% on his usual 3 L when EMS arrived at his home. He did not have leukocytosis at the time of admission and no fever. Chemistries were unremarkable including a normal lactic acid. CRP was moderately elevated at 51. Chest x-ray suggested a possible right lower lobe infiltrate and the patient was subsequently admitted for pneumonia and associated COPD exacerbation. The patient was treated with ceftriaxone and azithromycin as well as IV and eventual oral corticosteroids and as- needed nebulized therapies. The patient's mental status improved rather quickly and his oxygen requirements returned to baseline within 24 hours of admission. He remains afebrile and repeat labs continued to show no leukocytosis. The patient 's cough improved and he had no significant complaints of dyspnea. The patient's family was concerned about their ability to continue to care for him at home. The patient sees no reason for concern and believes that the current living situation is appropriate. His who is 90 years old, does the majority of his care taking. Hospice was consulted and he met with Dr. Mederos, palliative care physician during his hospitalization. He does not qualify for hospice but offer was made for a palliative referral which the patient and his family accepted. They did not wish for chcf placement but would like some additional assistance in the home. They had already made contact with [facility] for home services and are in the process of getting that set up. DISPOSITION AND FOLLOWUP PLAN: The patient is being discharged to home with his and son as discussed above. Referral initiated to the PATH program for palliative services. The patient's family will follow up with [facility]. He requires antibiotics and prednisone in a tapering dose as described above. Recommend close followup with primary care provider within a week of discharge. Depending on the frequency of his COPD exacerbation, the patient may benefit from maximizing his inhaled therapies as it appears that he is just using p.r.n. DuoNebs at home at this time. RL BELLAMY [id number]/[facility] #: [id number] DELON
== END 2017-11-09 11:45 | disposition home or self-care (01) | DRG 190 ==
LOC: ED 18:38 → MED 21:22
PROVIDERS: ADMIT Hospitalist; ATTEND Hospitalist
DX: J44.1 Chronic obstructive pulmonary disease with (acute) exacerbation (principal); J18.9 Pneumonia, unspecified organism; I48.91 Unspecified atrial fibrillation; E11.22 Type 2 diabetes mellitus with diabetic chronic kidney disease; E11.65 Type 2 diabetes mellitus with hyperglycemia; N18.3 Chronic kidney disease, stage 3 (moderate); I49.5 Sick sinus syndrome; I25.10 Atherosclerotic heart disease of native coronary artery without angina pectoris; I13.10 Hypertensive heart and chronic kidney disease without heart failure, with stage 1 through stage 4 chronic kidney disease, or unspecified chronic kidney disease; Z79.4 Long term (current) use of insulin; F03.90 Unspecified dementia, unspecified severity, without behavioral disturbance, psychotic disturbance, mood disturbance, and anxiety; G47.33 Obstructive sleep apnea (adult) (pediatric); Z95.0 Presence of cardiac pacemaker; E78.5 Hyperlipidemia, unspecified; Z85.828 Personal history of other malignant neoplasm of skin; Z95.5 Presence of coronary angioplasty implant and graft; Z79.1 Long term (current) use of non-steroidal anti-inflammatories (NSAID); Z79.82 Long term (current) use of aspirin; Z79.899 Other long term (current) drug therapy; Z91.040 Latex allergy status; Z88.8 Allergy status to other drugs, medicaments and biological substances; Z91.048 Other nonmedicinal substance allergy status; Z80.8 Family history of malignant neoplasm of other organs or systems; Z82.49 Family history of ischemic heart disease and other diseases of the circulatory system; Z87.891 Personal history of nicotine dependence; R41.0 Disorientation, unspecified; Z66 Do not resuscitate
CPT/HCPCS: 36415; 70450; 71010; 80048; 80053; 80162; 81003; 82140; 82272; 82375; 82550; 82553; 82803; 82947; 83605; 83690; 83735; 83880; 84443; 84484; 85025; 85610; 85730; 86140; 87040; 87502; 87899; 93005; 94640; 94760; A9270-GY; J0456; J0696; J1644; J7512

== ENCOUNTER 2017-12-15 12:28 | Inpatient (IN) | payer MEDICARE, OTHER ==
[2017-12-15 13:33] LABS: Hematocrit 29 % (42-52); Hemoglobin 8.8 g/dl (14.0-18.0); Mean Corpuscular HGB Conc 30 g/dl (31-36); Mean Corpuscular Hemoglobin 23 pg (27-31); Mean Corpuscular Volume 78 fL (80-94); Mean Platelet Volume 9 um3 (7.4-10.4); Platelet Count 63 10^3/ul (150-450); Red Blood Count 3.77 10^6/ul (4.0-5.4); Red Cell Distribution Width 19 % (10.5-15); White Blood Count 8.3 10^3/ul (3.5-10.8)
--- NOTE | 2017-12-15 13:44 | RAD ---
HISTORY: Shortness of breath, cough COMPARISONS: January 19, 2017 VIEWS: 1: frontal portable view of the chest at 12:55 PM FINDINGS: LINES AND TUBES: A left-sided pacemaker is noted. CARDIOMEDIASTINAL SILHOUETTE: The cardiomediastinal silhouette is stable. PLEURA: The costophrenic angles are sharp. No pleural abnormalities are noted. LUNG PARENCHYMA: There is prominence of the central pulmonary vasculature. There is mild diffuse reticular pattern of opacification. ABDOMEN: The upper abdomen is clear. There is no subphrenic gas. BONES AND SOFT TISSUES: No bone or soft tissue abnormalities are noted. IMPRESSION: PULMONARY VASCULAR CONGESTION WITH MILD PULMONARY INTERSTITIAL EDEMA
[2017-12-15 13:46] LABS: EGFR Non-African American 29.8 (>60); INR 1.06 (0.77-1.02)
[2017-12-15] MEDS ORDERED: Furosemide IV* 10 MG/ML VIAL (40 MG) IV SLOW PU ONE (13:57)
[2017-12-15] MEDS ORDERED: Albuterol/Ipratropium NEB.SOL* Albuterol 2.5 MG/Ipratropium 0.5 MG 3 ML INH PRN (15:26)
[2017-12-15] MEDS ORDERED: Metolazone TAB* 5 MG PO PRN (15:26)
[2017-12-15] MEDS ORDERED: Ferric Gluconate IV* 25 MG in NS 0.9% 50 ML* 50 ML IVPB ONE (15:31)
[2017-12-15] MEDS ORDERED: Dextrose 50% Syringe 50 ML* 25 GM/50 ML SYRINGE IV PUSH PRN (15:36)
[2017-12-15] MEDS ORDERED: Digoxin TAB* 0.25 MG PO SCH (16:00)
[2017-12-15] MEDS: Nitroglycerin 0.2 MG/HR PATCH* (5 MG) TRANSDERM SCH (18:18)
[2017-12-15] MEDS ORDERED: Heparin VIAL(*) 5000 UNITS/ML VIAL (FIVE THOUSAND) SUBCUT SCH (22:00)
[2017-12-15] MEDS: Insulin LISPRO* 1 UNITS UNIT SUBCUT SCH ×2 (22:40→23:19)
[2017-12-15] MEDS: Nitro Patch/OINT Remove PATCH OFF SCH (22:41)
[2017-12-15] MEDS: Diltiazem CD CAP* 120 MG PO SCH (22:41)
[2017-12-15] MEDS: Carvedilol TAB* 25 MG PO SCH (22:41)
[2017-12-15] MEDS: Aspirin EC Low Dose* 81 MG TAB.EC PO SCH (22:41)
[2017-12-15] MEDS: Donepezil TAB* 5 MG PO SCH (22:42)
[2017-12-15] MEDS: Furosemide IV* 10 MG/ML VIAL (40 MG) IV SLOW PU SCH (23:19)
--- NOTE | 2017-12-16 03:30 | HP ---
CC: Dr. Fuentes * ADMISSION HISTORY AND PHYSICAL: DATE OF ADMISSION: 12/15/17 PRIMARY CARE PROVIDER: Dr. Fuentes. MY ATTENDING WHILE IN THE HOSPITAL: Dr. Anika Henriquez * (DICTATED BY RL GREY) CHIEF COMPLAINT: Shortness of breath and weakness for 4 days. HISTORY OF PRESENT ILLNESS: Mr. Puente is an 87-year-old male with a past medical history significant for CHF, mild dementia, diabetes, obstructive sleep apnea, CAD with NSTEMI in 2012, ITP, COPD, chronic kidney disease stage 3, sick sinus syndrome, AFib, hypertension, hyperlipidemia, pacemaker, and skin cancer, who presents with his and son with 4 days of worsening weakness and shortness of breath. Family came into the emergency department this morning because the patient could not get out of bed. The patient has been getting more short of breath and weak for a long period of time. The patient was evaluated for this recently and found to be anemic with an iron level of 20 which was rechecked at 17 today. The patient also has had intermittent swelling in his legs and increased shortness of breath with any activity. The patient is on 2.5 L oxygen at rest due to his COPD and has been having to increase this to 5 intermittently with activity, according to his most recent visit with his outpatient cigarette lighter repairer, Dr. Gonzalez. Family says that when his legs get increased in swelling, they put on compression stockings which helped resolve this. The patient also had an episode recently of shortness of breath, which resolved with an increased temporary p.r.n. dose of diuretic. The patient denies orthopnea. The patient had no chest pain. The patient had no changes in his urine. The patient had no sick contacts, fevers, chills, nausea , vomiting, diarrhea, or constipation. The patient had no recent changes in his diet or fluid intake. The patient was seen by Dr. Gonzalez on 12/09/17 and had his nitroglycerin increased and had digoxin added to his medication regimen. The patient was to follow up with Dr. Simpson who he sees for ITP, for concerns with his hemoglobin and low iron levels and was to get infusion of IV iron today, an appointment which the patient missed due to being in the emergency department. The patient has also lost his appetite 1 week ago, had no other GI symptoms, has not had any fluctuations in weight. The patient was given 40 of IV Lasix in the emergency department and was also given part of a transfusion of blood for his anemia which was stopped. Most of this HPI was obtained from the and son of the patient. PAST MEDICAL HISTORY: Dementia, diabetes, obstructive sleep apnea, coronary artery disease, ITP, COPD, CKD, sick sinus syndrome with the pacemaker implantation, AFib, hypertension, hyperlipidemia, and skin cancer. PAST SURGICAL HISTORY: Heart catheterization with 5 stents, pacemaker placement , cataract extraction, and adrenal gland removal. HOME MEDICATIONS: 1. NovoLog FlexPen 2 to 10 units subcutaneous t.i.d. with meals. 2. Donepezil 10 mg p.o. at bedtime. 3. Insulin glargine 55 units subcutaneous q.a.m. 4. Carvedilol 25 mg p.o. b.i.d. 5. Nitroglycerin 1 patch topical daily. 6. Torsemide 20 to 40 mg p.o. every other day. 7. Albuterol and ipratropium 1 nebulizer inhalation q. 4 hours as needed. 8. Metolazone 5 mg p.o. daily as needed. 9. Diltiazem 120 mg p.o. b.i.d. 10. Aspirin 81 mg p.o. at bedtime. 11. Digoxin 0.25 mg p.o. Friday, Friday, Friday, , Friday. 12. Centrum Silver 1 tab p.o. daily. 13. Prednisone 5 mg p.o. daily. ALLERGIES: TAPE, HYDRALAZINE, RAMIPRIL, SIMVASTATIN, CLONIDINE, PLAVIX, and LATEX. FAMILY HISTORY: Father had an AR. Mother and father both had diabetes mellitus. The patient has 4 aunts who of an unknown type of cancer and his mother of bone cancer. SOCIAL HISTORY: The patient has a 40-year pack history of tobacco smoking. The patient has had occasional alcoholic beverages his whole life. The patient denies any illicit drug use. 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 The patient is , has 3 kids. The patient's and son are his surrogate decision makers. REVIEW OF SYSTEMS: A 14-point review of systems was completed and was negative except as above. PHYSICAL EXAMINATION GENERAL: The patient is an 87-year-old male, who appears stated age and is sitting comfortably in the bed, in no acute distress. VITAL SIGNS: Temperature 97.5, heart rate 75, respiratory rate 16, oxygen saturation 98% on 3.5 L, blood pressure 121/43. HEENT: Head: Normocephalic, atraumatic. Sclerae anicteric. No conjunctival injection. Nasal mucosa is moist. No chafing of lips. Oral mucosa moist. No oropharyngeal erythema, discharge, or exudate. NECK: Supple, nontender. No lymphadenopathy. No carotid bruits auscultated. No JVD. RESPIRATORY: Clear to auscultation bilaterally. Diminished throughout. No other adventitious lung sounds. CARDIAC: Regular rate and rhythm. No clicks, murmurs, gallops, or rubs. Pulses 2+ in the bilateral dorsalis pedis, posterior tibialis, and radial areas. 2+ pitting edema in the bilateral lower extremities symmetrically. ABDOMEN: Soft, nontender, nondistended. Bowel sounds present and normoactive in all 4 quadrants. No hepatosplenomegaly. No hepatojugular reflux. GENITOURINARY: No suprapubic tenderness or CVA tenderness. NEURO: The patient is alert and oriented only to self. The patient has no focal deficits. Cranial nerves II through XII grossly intact. PSYCHIATRIC: The patient is pleasant and cooperative. SKIN: Clean, dry, and intact. The patient has chronic venous stasis changes in his lower legs bilaterally. No other rash. LABORATORY DATA: White blood cell count 8.3, hemoglobin 8.8, hematocrit 29, MCV 78, MCH 23, MCHC 30, RDW 19, platelet count 63, MPV 9. INR 1.06, APTT 27.6. Sodium 136, potassium 4.7, chloride 97, carbon dioxide 37, anion gap 2, BUN 85, creatinine 2.11, BUN to creatinine ration of 48.3, glucose 127, calcium 8.8. Iron 18, TIBC 468, iron saturation 4, unsaturated iron binding 450, ferritin 37.8. Total bilirubin 0.8, AST 18, ALT 15, alkaline phosphatase 52. Troponin I 0.02. BNP 536, total protein 6.1, albumin 3.6, globulin 2.5, albumin- globulin ratio 1.4. DIAGNOSTIC STUDIES: Chest x-ray shows pulmonary vascular congestion with mild pulmonary interstitial edema. Electrocardiogram shows junctional rhythm, no P- waves, paced ST segments uninterpretable. Two beats of non-paced rhythm at the end of the exam. IMPRESSION: The patient is an 87-year-old male with a past medical history significant for congestive heart failure, coronary artery disease, dementia, diabetes, obstructive sleep apnea, immune thrombocytopenic purpura, chronic obstructive pulmonary disease, chronic kidney disease, sick sinus syndrome with pacer, atrial fibrillation, hypertension, hyperlipidemia, who presents with a congestive heart failure exacerbation and anemia slightly decreased from his baseline due to profound iron deficiency. The patient will be admitted to the hospital for diuretics and IV iron. ASSESSMENT AND PLAN: 1. Congestive heart failure exacerbation. The patient has a marked congestive heart failure exacerbation. The patient's BNP is elevated. The patient has pulmonary vascular congestion on chest x-ray. The patient has no chest pain, first troponin 0.02. The patient will be admitted to hospital, started on IV Lasix 40 mg b.i.d. The patient is on oxygen at 3.5 L which is what he wears at home. The patient will be on strict I's and O's and daily weights. The patient will have a repeat transthoracic echocardiogram to assess for increase in ejection fraction. The patient had initial troponin of 0.02, this will be repeated x2 to rule out acute coronary syndrome. 2. Iron deficiency anemia. The patient's anemia may be driving to a certain degree his congestive heart failure by putting a strain on his heart; however, the patient is not tachycardiac at this time. We will start the patient's IV iron with 25 mg Ferrlecit while in the hospital and have the patient continue outpatient, as it was explained to family that the patient will not have an immediate response to IV iron. It might take 2 to 3 weeks for the patient's bone marrow to respond and that the patient's main issue while in the hospital is most likely his congestive heart failure exacerbation. It was also explained to the patient if it is not at a level I would retransfuse him, and that transfusions are dangerous in the patients with congestive heart failure. 3. Diabetes. The patient's blood sugars are fluctuating at home. The patient will be started on his home dose of glargine and a sliding scale lispro. The patient had well controlled blood sugars while in the hospital. 4. Chronic obstructive pulmonary disease. The patient will be continued on DuoNebs as needed. The patient has no wheezing on exam, no signs of exacerbation. 5. Chronic kidney disease. The patient's creatinine is slightly increased from his baseline at 2.01 and this may be due to fluid overload. We will monitor closely with the high dose IV Lasix being given. We will insert a Marie for fluid monitoring. 4. Immune thrombocytopenic purpura. The patient's platelet level is at 66. We will hold heparin while in the hospital and have DVT prophylaxis by SCDs only. The patient will be continued on his prednisone while in the hospital. 5. Atrial fibrillation. The patient is rate controlled on diltiazem, digoxin, and carvedilol. These will be continued in the hospital. Patient is rate controlled not anticoagulated due to his immune thrombocytopenic purpura. 6. Hypertension. The patient is normotensive. Continue home medications including carvedilol, Lasix, metolazone, and diltiazem. 7. Hyperlipidemia. The patient is on no medications for lipid-lowering likely due to SIMVASTATIN allergy. 8. Sick sinus syndrome. The patient is paced on EKG and has a pacemaker. 9. Obstructive sleep apnea. We will determine if the patient is able to bring in home CPAP and if he uses CPAP at home. 10. Dementia, supportive care. 11. DVT prophylaxis. The patient will have SCDs only due to low platelet level. 12. FEN. The patient will not receive fluids due to congestive heart failure exacerbation. The patient is on a heart-healthy diet without caffeine. 13. Code status. The patient is a full code. The patient's surrogate decision makers are his and his son, Alexis Puente and Jimmy Puente. 14. Disposition. The patient is admitted inpatient. Estimated length of stay greater than 2 midnights. TIME SPENT: Approximately 75 minutes was spent on this admission, 40 of which was spent [id number] with the patient obtaining history and physical and discussing treatment plan. RL GREY [id number]/[facility] #: [id number] DELON
[2017-12-16 05:49] LABS: ABS Basophils 0 10^3/ul (0-0.2); ABS Eosinophils 0 10^3/ul (0-0.6); ABS Lymphocytes 0.8 10^3/ul (1.0-4.8); ABS Monocytes 1.2 10^3/ul (0-0.8); ABS Neutrophils 5.8 10^3/ul (1.5-7.7); ABS Nucleated RBC 0 10^3/ul; Eosinophil % 0.6 % (0-6); Hematocrit 27 % (42-52); Hemoglobin 8.1 g/dl (14.0-18.0); Lymphocyte % 10.5 % (25-47); Mean Corpuscular HGB Conc 30 g/dl (31-36); Mean Corpuscular Hemoglobin 23 pg (27-31); Mean Corpuscular Volume 78 fL (80-94); Mean Platelet Volume 9 um3 (7.4-10.4); Nucleated Red Blood Cells % 0.3; Platelet Count 59 10^3/ul (150-450); Red Blood Count 3.53 10^6/ul (4.0-5.4); Red Cell Distribution Width 19 % (10.5-15); White Blood Count 7.9 10^3/ul (3.5-10.8)
[2017-12-16] MEDS: Insulin LISPRO* 1 UNITS UNIT SUBCUT SCH ×4 (08:20→19:51)
[2017-12-16] MEDS: Furosemide IV* 10 MG/ML VIAL (40 MG) IV SLOW PU SCH ×2 (08:31→17:19)
[2017-12-16] MEDS: Insulin GLARGINE(*) 1 UNITS UNIT SUBCUT SCH (08:31)
[2017-12-16] MEDS: Diltiazem CD CAP* 120 MG PO SCH ×2 (08:33→23:11)
[2017-12-16] MEDS: Nitroglycerin 0.2 MG/HR PATCH* (5 MG) TRANSDERM SCH (08:33)
[2017-12-16] MEDS: predniSONE TAB* 5 MG PO SCH (08:33)
[2017-12-16] MEDS: Carvedilol TAB* 25 MG PO SCH ×2 (08:33→23:11)
[2017-12-16] MEDS: Digoxin TAB* 0.125 MG PO SCH (10:20)
--- NOTE | 2017-12-16 12:17 | ECHO ---
Patient: VANE ADKINS [facility] Rec#: [id number] : 1930 Date: 12/16/2017 Age: 87y Height: 165.1 cm / 65.0 in Weight: 98 kg / 216.0 lbs Sex: M BSA: 2.04 Room#: [facility] Admit Date#: 12/15/2017 Type: Inpatient Referring: Mckay Talavera MD Reading: Michael Merchant MD Accounts Receivable Associate: Marzena Estevez RN RDCS CC: SAMANTA DENSON Transthoracic Echocardiogram Indication: SOB, CHF BP: 128/50 HR: 69 Rhythm: Paced Findings History: CAD, NH, PCI, HTN, DM, A. fib, pacemaker, COPD, PRETTY, CKD, ITP, obesity, former smoker, dementia Technical Comments: The study quality is fair. The study is technically limited due to patient body habitus. The study is technically limited due to the patient's history of COPD. The study is technically limited due to the patient's smoking history. Completed at 1105. Left Ventricle: The left ventricular chamber size is normal. Mild concentric left ventricular hypertrophy is observed. Global left ventricular wall motion and contractility are within normal limits. There is normal left ventricular systolic function. The estimated ejection fraction is 55-60%. There is abnormal ventricular septal wall motion consistent with right ventricular pacemaker. The assessment of diastolic function is non-diagnostic. Left Atrium: The left atrium is mild to moderately dilated. Right Ventricle: The right ventricle wall thickness is moderately increased. The right ventricular cavity size is normal. The right ventricular global systolic function is normal. A pacemaker wire is visualized in the right ventricle. Right Atrium: The right atrium is mild to moderately dilated. A pacemaker wire is visualized in the right atrium. There is evidence of an atrial septal aneurysm. Aortic Valve: The aortic valve leaflets are mildly thickened. There is no evidence of aortic regurgitation. There is no evidence of aortic stenosis. Mitral Valve: The mitral valve leaflets are mildly thickened. There is mild to moderate mitral regurgitation. The mitral regurgitant jet is posteriorly directed. There is no evidence of mitral stenosis. Tricuspid Valve: The tricuspid valve leaflets are normal. There is mild tricuspid regurgitation. There is evidence of moderate to severe pulmonary hypertension. There is no tricuspid stenosis. Pulmonic Valve: The pulmonic valve structure is not well visualized. There is a trace pulmonic regurgitation. There is no pulmonic stenosis. Pericardium: There is no significant pericardial effusion. A pericardial fat pad is visualized. Aorta: The ascending aorta is not well visualized. The aortic arch is not well visualized. There is no dilation of the aortic root. Pulmonary Artery: The main pulmonary artery is not well visualized. Venous: The inferior vena cava is dilated. There is an approximate 50% respiratory change in the inferior vena cava dimension. Conclusions Mild concentric left ventricular hypertrophy is observed. There is normal left ventricular systolic function. The estimated ejection fraction is 55-60%. There is abnormal ventricular septal wall motion consistent with right ventricular pacemaker. There is mild to moderate mitral regurgitation. The mitral regurgitant jet is posteriorly directed. The left atrium is mild to moderately dilated. There is mild tricuspid regurgitation. There is evidence of moderate to severe pulmonary hypertension. The right ventricle wall thickness is moderately increased. The right ventricular cavity size is normal. The right ventricular global systolic function is normal. There is a trace pulmonic regurgitation. Compared to report of study from 08/17/2017 the calculated pulmonary artery pressure is higher (was 46 mm hg). Measurements Name Value Normal Range RVDdMajor (2D) 4.2 cm (2.2 - 4.4) RVAW (2D) 0.9 cm (0.2 - 0.5) RAd ISD 4CH 6.1 cm (3.4 - 4.9) RA (A4C)W 4.4 cm (2.9 - 4.6) IVSd (2D) 1.2 cm (0.6 - 1) LVPWd (2D) 1.2 cm (0.6 - 1) LVIDd (2D) 4.9 cm (3.6 - 5.4) LVIDs (2D) 3.7 cm - LV FS (2D) 24 % (25 - 45) Aortic Annulus 2 cm (1.4 - 2.6) Ao root diameter (2D) 3.3 cm (2.1 - 3.5) LA dimension (AP) 2D 4.3 cm (2.3 - 3.8) LAd ISD 4CH 5.6 cm (2.9 - 5.3) LA ISD 4CH W 4.3 cm (2.5 - 4.5) Name Value Normal Range LA ESV SP 4CH (A/L) 71.3 ml - LA ESV SP 2CH (A/L) 88.7 ml - LA ESV BP (A/L) 82.1 ml - LA ESV BP (A/L) index 40.1 ml/m2 - LA ESV SP 4CH (MOD) 66.5 ml - LA ESV SP 2CH (MOD) 88.9 ml - Name Value Normal Range MV E-wave Vmax 1.1 m/sec - MV deceleration time 222 msec - MV A-wave Vmax 0.25 m/sec - MV E:A ratio 4.5 ratio - LV septal e' Vmax 0.07 m/sec - LV lateral e' Vmax 0.09 m/sec - LV E:e' septal ratio 15.7 ratio - LV E:e' lateral ratio 12.2 ratio - Name Value Normal Range AV Vmax 1.5 m/sec - AV VTI 29.5 cm - AV peak gradient 9 mmHg - AV mean gradient 5 mmHg - LVOT Vmax 1.1 m/sec - LVOT VTI 18.8 cm - LVOT peak gradient 4.6 mmHg - LVOT mean gradient 2.4 mmHg - Name Value Normal Range MR Vmax 5.25 m/sec - MR VTI 147 cm - MR volume (PISA) 35 ml - MR flow (PISA) 126 ml/sec - MR ERO 0.24 cm2 - MR PISA radius 0.75 cm - MR alias Vmax 35 cm/sec - Name Value Normal Range TR Vmax 3.3 m/sec - TR peak gradient 44 mmHg - RAP 15 mmHg - RVSP 59 mmHg - IVC diameter 2.3 cm - Name Value Normal Range PV Vmax 1 m/sec -
--- NOTE | 2017-12-16 19:24 | PN ---
Subjective Date of Service: 12/16/17 Interval History: Patient seen and examined. Appears very sleepy, states his breathing is still not good, about the same as when admitted. Denies chest pain, denies headache, significant fatigue, denies abdominal pain, no n/v. States he feels a little weak. Objective Active Medications: Albuterol/Ipratropium (Duoneb (Albuterol 2.5 Mg/Ipratropium 0.5 Mg)) 1 neb INH Q4H PRN PRN Reason: shortness of breath/cough Aspirin (Aspirin Ec Low Dose*) 81 mg PO BEDTIME [facility] Last Admin: 12/15/17 22:41 Dose: 81 mg Carvedilol (Coreg Tab*) 25 mg PO BID [facility] Last Admin: 12/16/17 08:33 Dose: 25 mg Dextrose (D50w Syringe 50 Ml*) 12.5 gm IV PUSH .FOR FS < 60 - SS PRN PRN Reason: FS < 60 Digoxin (Lanoxin Tab*) 0.125 mg PO MOTUWETHFR [facility] Last Admin: 12/16/17 10:20 Dose: 0.125 mg Diltiazem HCl (Cardizem Cd Cap*) 120 mg PO BID [facility] Last Admin: 12/16/17 08:33 Dose: 120 mg Donepezil HCl (Aricept Tab*) 10 mg PO BEDTIME [facility] Last Admin: 12/15/17 22:42 Dose: 10 mg Furosemide (Lasix Iv*) 40 mg IV SLOW PU 0800,1700 [facility] Last Admin: 12/16/17 17:19 Dose: 40 mg Insulin Glargine (Lantus(*)) 55 units SUBCUT QAM [facility] Last Admin: 12/16/17 08:31 Dose: 55 units Insulin Human Lispro (Humalog*) 0 units SUBCUT ACHS [facility] PRN Reason: Protocol Last Admin: 12/16/17 17:19 Dose: 3 units Metolazone (Zaroxolyn Tab*) 5 mg PO DAILY PRN PRN Reason: PER PROTOCOL Nitroglycerin (Nitroglycerin 5 Mg Patch*) 1 patch TRANSDERM DAILY [facility] Last Admin: 12/16/17 08:33 Dose: 1 patch Pharmacy Profile Note (Nitro Patch/Oint Remove*) 1 note PATCH OFF 2100 [facility] Last Admin: 12/15/17 22:41 Dose: Not Given Prednisone (Deltasone Tab*) 5 mg PO DAILY [facility] Last Admin: 12/16/17 08:33 Dose: 5 mg Vital Signs - 8 hr 12/16/17 15:21 Temperature 97.6 F Pulse Rate 70 Respiratory 18 Rate Blood Pressure 128/55 (mmHg) O2 Sat by Pulse 98 Oximetry Oxygen Devices in Use Now: Nasal Cannula, CPAP - CPAP at night only Eyes: No Scleral Icterus, PERRLA Ears/Nose/Mouth/Throat: NL Teeth, Lips, Gums, Mucous Membranes Moist Neck: NL Appearance and Movements; NL JVP, Trachea Midline Respiratory: Symmetrical Chest Expansion and Respiratory Effort - diminished bases with bilateral crackles Cardiovascular: - - paced Abdominal: NL Sounds; No Tenderness; No Distention Extremities: - - bilat LE edema +2 Neurological: Alert and Oriented x 3, - - general weakness Nutrition: Taking PO's Result Diagrams: 12/16/17 05:15 12/16/17 05:15 Diagnostic Imaging: Patient: VANE ADKINS [facility] Rec#: [id number] : 1930 Date: 12/16/2017 Age: 87y Height: 165.1 cm / 65.0 in Weight: 98 kg / 216.0 lbs Sex: M BSA: 2.04 Room#: [id number] Admit Date#: 12/15/2017 Type: Inpatient Referring: Mckay Talavera MD Reading: Michael Merchant MD Outpatient Services Director: Marzena Estevez RN RD CC: SAMANTA DENSON Transthoracic Echocardiogram Indication: SOB, CHF BP: 128/50 HR: 69 Rhythm: Paced Findings History: CAD, ID, PCI, HTN, DM, A. fib, pacemaker, COPD, PRETTY, CKD, ITP, obesity, former smoker, dementia Technical Comments: The study quality is fair. The study is technically limited due to patient body habitus. The study is technically limited due to the patient's history of COPD. The study is technically limited due to the patient's smoking history. Completed at 1105. Left Ventricle: The left ventricular chamber size is normal. Mild concentric left ventricular hypertrophy is observed. Global left ventricular wall motion and contractility are within normal limits. There is normal left ventricular systolic function. The estimated ejection fraction is 55-60%. There is abnormal ventricular septal wall motion consistent with right ventricular pacemaker. The assessment of diastolic function is non-diagnostic. Left Atrium: The left atrium is mild to moderately dilated. Right Ventricle: The right ventricle wall thickness is moderately increased. The right ventricular cavity size is normal. The right ventricular global systolic function is normal. A pacemaker wire is visualized in the right ventricle. Right Atrium: The right atrium is mild to moderately dilated. A pacemaker wire is visualized in the right atrium. There is evidence of an atrial septal aneurysm. Aortic Valve: The aortic valve leaflets are mildly thickened. There is no evidence of aortic regurgitation. There is no evidence of aortic stenosis. Mitral Valve: The mitral valve leaflets are mildly thickened. There is mild to moderate mitral regurgitation. The mitral regurgitant jet is posteriorly directed. There is no evidence of mitral stenosis. Tricuspid Valve: The tricuspid valve leaflets are normal. There is mild tricuspid regurgitation. There is evidence of moderate to severe pulmonary hypertension. There is no tricuspid stenosis. Pulmonic Valve: The pulmonic valve structure is not well visualized. There is a trace pulmonic regurgitation. There is no pulmonic stenosis. Pericardium: There is no significant pericardial effusion. A pericardial fat pad is visualized. Aorta: The ascending aorta is not well visualized. The aortic arch is not well visualized. There is no dilation of the aortic root. Pulmonary Artery: The main pulmonary artery is not well visualized. Venous: The inferior vena cava is dilated. There is an approximate 50% respiratory change in the inferior vena cava dimension. Conclusions Mild concentric left ventricular hypertrophy is observed. There is normal left ventricular systolic function. The estimated ejection fraction is 55-60%. There is abnormal ventricular septal wall motion consistent with right ventricular pacemaker. There is mild to moderate mitral regurgitation. Assess/Plan/Problems-Billing Assessment: This is an 87 year old male patient with complex comorbidities that presented to ER with acute SOB found to be in exacerbation of diastolic HF. - Patient Problems (1) Acute on chronic diastolic heart failure Code(s): I50.33 - ACUTE ON CHRONIC DIASTOLIC (CONGESTIVE) HEART FAILURE SNOMED Code(s): 765453919 Comment: - Continue IV diuresis, coreg, digoxin - O2 via NC to keep sats >90% - Daily weights and I&Os - TTE as above (2) CAD (coronary artery disease) Code(s): I25.10 - ATHSCL HEART DISEASE OF [place] CORONARY ARTERY W/O ANG PCTRS SNOMED Code(s): 38107062 Comment: - Stable, no chest pain - Continue medical management with BB, statin, ASA (3) COPD (chronic obstructive pulmonary disease) Code(s): J44.9 - CHRONIC OBSTRUCTIVE PULMONARY DISEASE, UNSPECIFIED SNOMED Code(s): 96098935 Comment: - Continue Dulera, prn nebs - Respiratory to set up CPAP QHS (4) Chronic kidney disease Code(s): N18.9 - CHRONIC KIDNEY DISEASE, UNSPECIFIED SNOMED Code(s): 942503368 Comment: - Creat runs between 1.8-2.5 - At basline - Monitor while diuresing (5) Dementia Code(s): F03.90 - UNSPECIFIED DEMENTIA WITHOUT BEHAVIORAL DISTURBANCE SNOMED Code(s): 16712306 Comment: - Discussed POC with son - Mood stable (6) Diabetes mellitus type 2 Code(s): E11.9 - TYPE 2 DIABETES MELLITUS WITHOUT COMPLICATIONS SNOMED Code(s) : 45559088 Comment: - continue lantus and lispro SS with BG AC and HS (7) Hypertension Status: Chronic Code(s): I10 - ESSENTIAL (PRIMARY) HYPERTENSION SNOMED Code( s): 34927416 Comment: - BP stable on home meds (8) Sick sinus syndrome Code(s): I49.5 - SICK SINUS SYNDROME SNOMED Code(s): 83702312 Comment: - Paced rhythm - Digoxin and diltiazem for underlying afib (9) Iron deficiency anemia Code(s): D50.9 - IRON DEFICIENCY ANEMIA, UNSPECIFIED SNOMED Code(s): 72914428 Comment: - HgB stable, do not believe this is causing acute SOB - Do not tranfuse - Received IV iron 12/15 (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 Remain inpatient. Close monitoring. Counseling and/or Coordination of Care Minutes: coordinated with staff and son Jimmy [phone]
[2017-12-16] MEDS: Aspirin EC Low Dose* 81 MG TAB.EC PO SCH (23:11)
[2017-12-16] MEDS: Donepezil TAB* 5 MG PO SCH (23:11)
[2017-12-16] MEDS: Nitro Patch/OINT Remove PATCH OFF SCH (23:15)
[2017-12-17 06:01] LABS: ABS Basophils 0 10^3/ul (0-0.2); ABS Eosinophils 0 10^3/ul (0-0.6); ABS Lymphocytes 0.7 10^3/ul (1.0-4.8); ABS Nucleated RBC 0 10^3/ul; Eosinophil % 0.7 % (0-6); Hematocrit 28 % (42-52); Hemoglobin 8.3 g/dl (14.0-18.0); Mean Corpuscular HGB Conc 30 g/dl (31-36); Mean Corpuscular Hemoglobin 24 pg (27-31); Mean Corpuscular Volume 78 fL (80-94); Mean Platelet Volume 9 um3 (7.4-10.4); Nucleated Red Blood Cells % 0.2; Platelet Count 54 10^3/ul (150-450); Red Blood Count 3.54 10^6/ul (4.0-5.4); Red Cell Distribution Width 19 % (10.5-15); White Blood Count 6.7 10^3/ul (3.5-10.8)
[2017-12-17 06:11] LABS: EGFR Non-African American 27.5 (>60)
[2017-12-17] MEDS: Insulin LISPRO* 1 UNITS UNIT SUBCUT SCH ×4 (07:32→22:51)
[2017-12-17] MEDS: Diltiazem CD CAP* 120 MG PO SCH ×2 (07:49→22:52)
[2017-12-17] MEDS: Nitroglycerin 0.2 MG/HR PATCH* (5 MG) TRANSDERM SCH (07:49)
[2017-12-17] MEDS: Carvedilol TAB* 25 MG PO SCH ×2 (07:49→22:52)
[2017-12-17] MEDS: Furosemide IV* 10 MG/ML VIAL (40 MG) IV SLOW PU SCH ×2 (07:49→16:20)
[2017-12-17] MEDS: predniSONE TAB* 5 MG PO SCH (07:49)
[2017-12-17] MEDS: Insulin GLARGINE(*) 1 UNITS UNIT SUBCUT SCH (08:50)
[2017-12-17] MEDS: Digoxin TAB* 0.125 MG PO SCH (08:50)
[2017-12-17] MEDS: Donepezil TAB* 5 MG PO SCH (22:52)
[2017-12-17] MEDS: Aspirin EC Low Dose* 81 MG TAB.EC PO SCH (22:52)
[2017-12-17] MEDS: Nitro Patch/OINT Remove PATCH OFF SCH (22:55)
[2017-12-18] MEDS: Insulin LISPRO* 1 UNITS UNIT SUBCUT SCH ×4 (07:42→21:29)
[2017-12-18] MEDS: Insulin GLARGINE(*) 1 UNITS UNIT SUBCUT SCH (09:48)
[2017-12-18] MEDS: Diltiazem CD CAP* 120 MG PO SCH ×2 (09:51→21:10)
[2017-12-18] MEDS: Furosemide IV* 10 MG/ML VIAL (40 MG) IV SLOW PU SCH ×2 (09:51→17:08)
[2017-12-18] MEDS: predniSONE TAB* 5 MG PO SCH (09:52)
[2017-12-18] MEDS: Carvedilol TAB* 25 MG PO SCH ×2 (09:52→21:10)
[2017-12-18] MEDS: Nitroglycerin 0.2 MG/HR PATCH* (5 MG) TRANSDERM SCH (09:52)
[2017-12-18] MEDS: Digoxin TAB* 0.125 MG PO SCH (09:54)
[2017-12-18] MEDS ORDERED: Acetaminophen TAB* 325 MG PO PRN (11:40)
--- NOTE | 2017-12-18 12:52 | PN ---
Subjective Date of Service: 12/17/17 Interval History: Patient seen and examined. Has CPAP on from home, no desats while awake. Noted that his CPAP is nasal only and when he falls asleep, his mouth is open so he is losing pressure. This is likely the cause of his nighttime desaturations. Recommend full face mask at night. Patient states he still feels tired and clinically SOB with poor appetite. Discussed at length with family regarding goals of care. They are willing to have palliative/hospice consult, as patient has been declining significantly. Objective Active Medications: Acetaminophen (Tylenol Tab*) 650 mg PO Q6H PRN PRN Reason: FEVER/PAIN Last Admin: 12/18/17 12:43 Dose: 650 mg Albuterol/Ipratropium (Duoneb (Albuterol 2.5 Mg/Ipratropium 0.5 Mg)) 1 neb INH Q4H PRN PRN Reason: shortness of breath/cough Aspirin (Aspirin Ec Low Dose*) 81 mg PO BEDTIME [facility] Last Admin: 12/17/17 22:52 Dose: 81 mg Carvedilol (Coreg Tab*) 25 mg PO BID [facility] Last Admin: 12/18/17 09:52 Dose: 25 mg Dextrose (D50w Syringe 50 Ml*) 12.5 gm IV PUSH .FOR FS < 60 - SS PRN PRN Reason: FS < 60 Digoxin (Lanoxin Tab*) 0.125 mg PO MOTUWETHFR [facility] Last Admin: 12/18/17 09:54 Dose: 0.125 mg Diltiazem HCl (Cardizem Cd Cap*) 120 mg PO BID [facility] Last Admin: 12/18/17 09:51 Dose: 120 mg Donepezil HCl (Aricept Tab*) 10 mg PO BEDTIME [facility] Last Admin: 12/17/17 22:52 Dose: 10 mg Furosemide (Lasix Iv*) 40 mg IV SLOW PU 0800,1700 [facility] Last Admin: 12/18/17 09:51 Dose: 40 mg Insulin Glargine (Lantus(*)) 55 units SUBCUT QAM [facility] Last Admin: 12/18/17 09:48 Dose: 55 units Insulin Human Lispro (Humalog*) 0 units SUBCUT ACHS [facility] PRN Reason: Protocol Last Admin: 12/18/17 07:42 Dose: Not Given Metolazone (Zaroxolyn Tab*) 5 mg PO DAILY PRN PRN Reason: PER PROTOCOL Nitroglycerin (Nitroglycerin 5 Mg Patch*) 1 patch TRANSDERM DAILY [facility] Last Admin: 12/18/17 09:52 Dose: 1 patch Pharmacy Profile Note (Nitro Patch/Oint Remove*) 1 note PATCH OFF 2100 [facility] Last Admin: 12/17/17 22:55 Dose: 1 note Prednisone (Deltasone Tab*) 5 mg PO DAILY [facility] Last Admin: 12/18/17 09:52 Dose: 5 mg Vital Signs - 8 hr 12/18/17 12/18/17 12/18/17 07:24 07:43 09:54 Temperature 98.2 F Pulse Rate 70 90 Respiratory 14 20 Rate Blood Pressure 128/50 (mmHg) O2 Sat by Pulse 100 Oximetry 12/18/17 11:30 Temperature 97.5 F Pulse Rate 72 Respiratory 16 Rate Blood Pressure 118/45 (mmHg) O2 Sat by Pulse 99 Oximetry Oxygen Devices in Use Now: Nasal Cannula, CPAP Appearance: Alert, tired Eyes: No Scleral Icterus, PERRLA Ears/Nose/Mouth/Throat: NL Teeth, Lips, Gums, Mucous Membranes Moist Neck: NL Appearance and Movements; NL JVP, Trachea Midline Respiratory: Symmetrical Chest Expansion and Respiratory Effort, - - diminished bases with fine rales Cardiovascular: NL Sounds; No Murmurs; No JVD, RRR Skin: No Rash or Ulcers Neurological: Alert and Oriented x 3 Nutrition: Taking PO's Result Diagrams: 12/17/17 05:30 12/17/17 05:30 Diagnostic Imaging: Patient: VANE ADKINS [facility] Rec#: [id number] : 1930 Date: 12/16/2017 Age: 87y Height: 165.1 cm / 65.0 in Weight: 98 kg / 216.0 lbs Sex: M BSA: 2.04 Room#: [facility] Admit Date#: 12/15/2017 Type: Inpatient Referring: Mckay Talavera MD Reading: Michael Merchant MD Backrest Assembler: Marzena Estevez RN RDCS CC: SAMANTA DENSON Transthoracic Echocardiogram Indication: SOB, CHF BP: 128/50 HR: 69 Rhythm: Paced Findings History: CAD, MS, PCI, HTN, DM, A. fib, pacemaker, COPD, PRETTY, CKD, ITP, obesity, former smoker, dementia Technical Comments: The study quality is fair. The study is technically limited due to patient body habitus. The study is technically limited due to the patient's history of COPD. The study is technically limited due to the patient's smoking history. Completed at 1105. Left Ventricle: The left ventricular chamber size is normal. Mild concentric left ventricular hypertrophy is observed. Global left ventricular wall motion and contractility are within normal limits. There is normal left ventricular systolic function. The estimated ejection fraction is 55-60%. There is abnormal ventricular septal wall motion consistent with right ventricular pacemaker. The assessment of diastolic function is non-diagnostic. Left Atrium: The left atrium is mild to moderately dilated. Right Ventricle: The right ventricle wall thickness is moderately increased. The right ventricular cavity size is normal. The right ventricular global systolic function is normal. A pacemaker wire is visualized in the right ventricle. Right Atrium: The right atrium is mild to moderately dilated. A pacemaker wire is visualized in the right atrium. There is evidence of an atrial septal aneurysm. Aortic Valve: The aortic valve leaflets are mildly thickened. There is no evidence of aortic regurgitation. There is no evidence of aortic stenosis. Mitral Valve: The mitral valve leaflets are mildly thickened. There is mild to moderate mitral regurgitation. The mitral regurgitant jet is posteriorly directed. There is no evidence of mitral stenosis. Tricuspid Valve: The tricuspid valve leaflets are normal. There is mild tricuspid regurgitation. There is evidence of moderate to severe pulmonary hypertension. There is no tricuspid stenosis. Pulmonic Valve: The pulmonic valve structure is not well visualized. There is a trace pulmonic regurgitation. There is no pulmonic stenosis. Pericardium: There is no significant pericardial effusion. A pericardial fat pad is visualized. Aorta: The ascending aorta is not well visualized. The aortic arch is not well visualized. There is no dilation of the aortic root. Pulmonary Artery: The main pulmonary artery is not well visualized. Venous: The inferior vena cava is dilated. There is an approximate 50% respiratory change in the inferior vena cava dimension. Conclusions Mild concentric left ventricular hypertrophy is observed. There is normal left ventricular systolic function. The estimated ejection fraction is 55-60%. There is abnormal ventricular septal wall motion consistent with right ventricular pacemaker. There is mild to moderate mitral regurgitation. Assess/Plan/Problems-Billing Assessment: This is an 87 year old male patient with complex comorbidities that presented to ER with acute SOB found to be in exacerbation of diastolic HF. - Patient Problems (1) Acute on chronic diastolic heart failure Code(s): I50.33 - ACUTE ON CHRONIC DIASTOLIC (CONGESTIVE) HEART FAILURE SNOMED Code(s): 352016330 Comment: - Continue IV diuresis, coreg, digoxin - O2 via NC to keep sats >90%, alternate with CPAP as needed - Daily weights and I&Os, 4lb weight loss since admission - TTE as above (2) CAD (coronary artery disease) Code(s): I25.10 - ATHSCL HEART DISEASE OF [place] CORONARY ARTERY W/O ANG PCTRS SNOMED Code(s): 85023412 Comment: - Stable, no chest pain - Continue medical management with BB, statin, ASA (3) COPD (chronic obstructive pulmonary disease) Code(s): J44.9 - CHRONIC OBSTRUCTIVE PULMONARY DISEASE, UNSPECIFIED SNOMED Code(s): 53552815 Comment: - Continue Dulera, prn nebs - Respiratory to set up CPAP QHS (4) Chronic kidney disease Code(s): N18.9 - CHRONIC KIDNEY DISEASE, UNSPECIFIED SNOMED Code(s): 442793102 Comment: - Creat runs between 1.8-2.5 - At basline - Monitor while diuresing (5) Dementia Code(s): F03.90 - UNSPECIFIED DEMENTIA WITHOUT BEHAVIORAL DISTURBANCE SNOMED Code(s): 75070979 Comment: - Discussed POC with son - Mood stable (6) Diabetes mellitus type 2 Code(s): E11.9 - TYPE 2 DIABETES MELLITUS WITHOUT COMPLICATIONS SNOMED Code(s) : 79971034 Comment: - continue lantus and lispro SS with BG AC and HS (7) Hypertension Status: Chronic Code(s): I10 - ESSENTIAL (PRIMARY) HYPERTENSION SNOMED Code( s): 25851454 Comment: - BP stable on home meds (8) Sick sinus syndrome Code(s): I49.5 - SICK SINUS SYNDROME SNOMED Code(s): 03606188 Comment: - Paced rhythm - Digoxin and diltiazem for underlying afib (9) Iron deficiency anemia Code(s): D50.9 - IRON DEFICIENCY ANEMIA, UNSPECIFIED SNOMED Code(s): 74191460 Comment: - HgB remains >8 - Do not tranfuse, too high risk for increased fluid shifts - Received IV iron 12/15 - Follow H&H (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 They are agreeable to hospice evaluation. Counseling and/or Coordination of Care Minutes: coordinated with patient, family and staff
[2017-12-18] MEDS ORDERED: Metolazone TAB* 5 MG PO ONE (12:54)
--- NOTE | 2017-12-18 14:11 | PN ---
Subjective Date of Service: 12/18/17 Interval History: Patient seen and examined. Per staff and family, patient was OOB this am and walked and was doing well, then went to lay down and became very lethargic, would not open eyes, and appeared to be SOB. CPAP placed back on patient. CXR ordered, labs and ABG. Patient unable to speak through CPAP mask but nods that he feels very tired and SOB, no chest pain. Objective Active Medications: Acetaminophen (Tylenol Tab*) 650 mg PO Q6H PRN PRN Reason: FEVER/PAIN Last Admin: 12/18/17 12:43 Dose: 650 mg Albuterol/Ipratropium (Duoneb (Albuterol 2.5 Mg/Ipratropium 0.5 Mg)) 1 neb INH Q4H PRN PRN Reason: shortness of breath/cough Aspirin (Aspirin Ec Low Dose*) 81 mg PO BEDTIME [facility] Last Admin: 12/17/17 22:52 Dose: 81 mg Carvedilol (Coreg Tab*) 25 mg PO BID [facility] Last Admin: 12/18/17 09:52 Dose: 25 mg Dextrose (D50w Syringe 50 Ml*) 12.5 gm IV PUSH .FOR FS < 60 - SS PRN PRN Reason: FS < 60 Digoxin (Lanoxin Tab*) 0.125 mg PO MOTUWETHFR [facility] Last Admin: 12/18/17 09:54 Dose: 0.125 mg Diltiazem HCl (Cardizem Cd Cap*) 120 mg PO BID [facility] Last Admin: 12/18/17 09:51 Dose: 120 mg Donepezil HCl (Aricept Tab*) 10 mg PO BEDTIME [facility] Last Admin: 12/17/17 22:52 Dose: 10 mg Furosemide (Lasix Iv*) 40 mg IV SLOW PU 0800,1700 [facility] Last Admin: 12/18/17 09:51 Dose: 40 mg Insulin Glargine (Lantus(*)) 55 units SUBCUT QAM [facility] Last Admin: 12/18/17 09:48 Dose: 55 units Insulin Human Lispro (Humalog*) 0 units SUBCUT ACHS [facility] PRN Reason: Protocol Last Admin: 12/18/17 12:54 Dose: 3 units Metolazone (Zaroxolyn Tab*) 5 mg PO DAILY PRN PRN Reason: PER PROTOCOL Nitroglycerin (Nitroglycerin 5 Mg Patch*) 1 patch TRANSDERM DAILY [facility] Last Admin: 12/18/17 09:52 Dose: 1 patch Pharmacy Profile Note (Nitro Patch/Oint Remove*) 1 note PATCH OFF 2100 [facility] Last Admin: 12/17/17 22:55 Dose: 1 note Prednisone (Deltasone Tab*) 5 mg PO DAILY [facility] Last Admin: 12/18/17 09:52 Dose: 5 mg Vital Signs - 8 hr 12/18/17 12/18/17 12/18/17 07:24 07:43 09:54 Temperature 98.2 F Pulse Rate 70 90 Respiratory 14 20 Rate Blood Pressure 128/50 (mmHg) O2 Sat by Pulse 100 Oximetry 12/18/17 11:30 Temperature 97.5 F Pulse Rate 72 Respiratory 16 Rate Blood Pressure 118/45 (mmHg) O2 Sat by Pulse 99 Oximetry Oxygen Devices in Use Now: CPAP Appearance: pale, lethargic Neck: NL Appearance and Movements; NL JVP, Trachea Midline Respiratory: Symmetrical Chest Expansion and Respiratory Effort, - - diminished R>L no wheeze Cardiovascular: NL Sounds; No Murmurs; No JVD, - - paced on tele, 70's no ectopy Abdominal: NL Sounds; No Tenderness; No Distention Extremities: No Clubbing, Cyanosis Neurological: - - general weakness Result Diagrams: 12/18/17 14:09 12/18/17 14:09 Diagnostic Imaging: Patient Name: VANE ADKINS Medical Record#: [id number] Ordering Physician: Tati Rahman NP Acct.#: [id number] : 1930 Age: 87 Sex: M Location: [address] [place] [address] MEDICAL/TELEMETRY Exam Date: 12/18/17 1332 ADM Status: ADM IN Order Information: CHEST AP PORTABLE Accession Number: [id number] CPT: 47682 INDICATION: Lethargy COMPARISON: December 15, 2017 TECHNIQUE: An AP portable view obtained at 1335 hours is submitted. FINDINGS: Bones/Soft Tissues: There are no acute bony findings. There is left-sided cardiac pacemaker Cardiomediastinal: The heart is normal in size. Central pulmonary vessels and interstitium are prominent. Lungs: There is focal airspace disease in right lung base consistent with interstitial edema or a developing infiltrate. Pleura: Small right subpleural effusion. Other: None IMPRESSION: MILD INTERSTITIAL EDEMA. DEVELOPING RIGHT BASILAR AIRSPACE DISEASE MAY REPRESENT AN INFECTIOUS INFILTRATE. SMALL RIGHT-SIDED EFFUSION. SUGGEST FOLLOW- UP <Electronically signed by Mckay Meyer MD in OV> 12/18/171408 Dictated By: Mckay Meyer MD Dictated Date/Time: 12/18/171408 Transcribed Date/Time: 12/18/171407 Copy to: CC:Samanta Denson MD; Stacey Benton BUSHING PRESS OPERATOR; Tati Rahman BLOOD OR BLOOD BANK TECHNICIAN; Lexa Pacheco MD ; Nohemi Mederos DO; Nadia Hammond MD; Stefani Constantino MD Imaging - [facility] [address] [place] [address] ph [phone]) ph ([phone]) ph ([phone]) 1 of 1 Patient: VANE ADKINS [facility] Rec#: [id number] : 1930 Date: 12/16/2017 Age: 87y Height: 165.1 cm / 65.0 in Weight: 98 kg / 216.0 lbs Sex: M BSA: 2.04 Room#: 447-02 Admit Date#: 12/15/2017 Type: Inpatient Referring: Mckay Talavera MD Reading: Michael Merchant MD Chairman: Marzena Estevez RN RDCS CC: SAMANTA DENSON Transthoracic Echocardiogram Indication: SOB, CHF BP: 128/50 HR: 69 Rhythm: Paced Findings History: CAD, MO, PCI, HTN, DM, A. fib, pacemaker, COPD, PRETTY, CKD, ITP, obesity, former smoker, dementia Technical Comments: The study quality is fair. The study is technically limited due to patient body habitus. The study is technically limited due to the patient's history of COPD. The study is technically limited due to the patient's smoking history. Completed at 1105. Left Ventricle: The left ventricular chamber size is normal. Mild concentric left ventricular hypertrophy is observed. Global left ventricular wall motion and contractility are within normal limits. There is normal left ventricular systolic function. The estimated ejection fraction is 55-60%. There is abnormal ventricular septal wall motion consistent with right ventricular pacemaker. The assessment of diastolic function is non-diagnostic. Left Atrium: The left atrium is mild to moderately dilated. Right Ventricle: The right ventricle wall thickness is moderately increased. The right ventricular cavity size is normal. The right ventricular global systolic function is normal. A pacemaker wire is visualized in the right ventricle. Right Atrium: The right atrium is mild to moderately dilated. A pacemaker wire is visualized in the right atrium. There is evidence of an atrial septal aneurysm. Aortic Valve: The aortic valve leaflets are mildly thickened. There is no evidence of aortic regurgitation. There is no evidence of aortic stenosis. Mitral Valve: The mitral valve leaflets are mildly thickened. There is mild to moderate mitral regurgitation. The mitral regurgitant jet is posteriorly directed. There is no evidence of mitral stenosis. Tricuspid Valve: The tricuspid valve leaflets are normal. There is mild tricuspid regurgitation. There is evidence of moderate to severe pulmonary hypertension. There is no tricuspid stenosis. Pulmonic Valve: The pulmonic valve structure is not well visualized. There is a trace pulmonic regurgitation. There is no pulmonic stenosis. Pericardium: There is no significant pericardial effusion. A pericardial fat pad is visualized. Aorta: The ascending aorta is not well visualized. The aortic arch is not well visualized. There is no dilation of the aortic root. Pulmonary Artery: The main pulmonary artery is not well visualized. Venous: The inferior vena cava is dilated. There is an approximate 50% respiratory change in the inferior vena cava dimension. Conclusions Mild concentric left ventricular hypertrophy is observed. There is normal left ventricular systolic function. The estimated ejection fraction is 55-60%. There is abnormal ventricular septal wall motion consistent with right ventricular pacemaker. There is mild to moderate mitral regurgitation. Assess/Plan/Problems-Billing Assessment: This is an 87 year old male patient with complex comorbidities that presented to ER with acute SOB found to be in exacerbation of diastolic HF, now with lethargy and SOB. - Patient Problems (1) Acute on chronic diastolic heart failure Code(s): I50.33 - ACUTE ON CHRONIC DIASTOLIC (CONGESTIVE) HEART FAILURE SNOMED Code(s): 995784136 Comment: - Continue IV diuresis, coreg, digoxin - Back on CPAP - BNP improved follow CMP and CBC (2) CAD (coronary artery disease) Code(s): I25.10 - ATHSCL HEART DISEASE OF [place] CORONARY ARTERY W/O ANG PCTRS SNOMED Code(s): 05377812 Comment: - Stable, no chest pain - Continue medical management with BB, statin, ASA (3) COPD (chronic obstructive pulmonary disease) Code(s): J44.9 - CHRONIC OBSTRUCTIVE PULMONARY DISEASE, UNSPECIFIED SNOMED Code(s): 56625553 Comment: - Continue Dulera, prn nebs - Respiratory to set up CPAP QHS - Concern for brewing COPD exac/consolidation (4) Chronic kidney disease Code(s): N18.9 - CHRONIC KIDNEY DISEASE, UNSPECIFIED SNOMED Code(s): 513171680 Comment: - Creat runs between 1.8-2.5 - At basline - Monitor while diuresing (5) Dementia Code(s): F03.90 - UNSPECIFIED DEMENTIA WITHOUT BEHAVIORAL DISTURBANCE SNOMED Code(s): 06656418 Comment: - Discussed POC with son - Mood stable (6) Diabetes mellitus type 2 Code(s): E11.9 - TYPE 2 DIABETES MELLITUS WITHOUT COMPLICATIONS SNOMED Code(s) : 74733767 Comment: - continue lantus and lispro SS with BG AC and HS (7) Hypertension Status: Chronic Code(s): I10 - ESSENTIAL (PRIMARY) HYPERTENSION SNOMED Code( s): 87467100 Comment: - BP stable on home meds (8) Sick sinus syndrome Code(s): I49.5 - SICK SINUS SYNDROME SNOMED Code(s): 87443320 Comment: - Paced rhythm - Digoxin and diltiazem for underlying afib (9) Iron deficiency anemia Code(s): D50.9 - IRON DEFICIENCY ANEMIA, UNSPECIFIED SNOMED Code(s): 29676982 Comment: - HgB stay in low 8's - Do not tranfuse, too high risk for increased fluid shifts - Received IV iron 12/15 - Follow H&H (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 Counseling and/or Coordination of Care Minutes: coordinated with staff
[2017-12-18 14:25] LABS: ABS Basophils 0 10^3/ul (0-0.2); ABS Eosinophils 0 10^3/ul (0-0.6); ABS Lymphocytes 0.4 10^3/ul (1.0-4.8); ABS Monocytes 0.7 10^3/ul (0-0.8); ABS Neutrophils 6.8 10^3/ul (1.5-7.7); ABS Nucleated RBC 0 10^3/ul; Eosinophil % 0.3 % (0-6); Hematocrit 27 % (42-52); Mean Corpuscular HGB Conc 30 g/dl (31-36); Mean Corpuscular Hemoglobin 23 pg (27-31); Mean Corpuscular Volume 77 fL (80-94); Mean Platelet Volume 9 um3 (7.4-10.4); Nucleated Red Blood Cells % 0.1; Platelet Count 56 10^3/ul (150-450); Red Blood Count 3.46 10^6/ul (4.0-5.4); Red Cell Distribution Width 19 % (10.5-15)
[2017-12-18 14:39] LABS: EGFR Non-African American 30.5 (>60)
[2017-12-18] MEDS ORDERED: Zosyn per Pharmacy* NOTE FOLLOW UP PRN (16:51)
[2017-12-18] MEDS ORDERED: ZOSYN 3.375 GM x ONE DOSE over 30 miuntes IVPB ×2 (17:00)
[2017-12-18] MEDS ORDERED: Gentamicin ADULT per pharmacy 1 NOTE MISC FOLLOW UP PRN (17:43)
[2017-12-18] MEDS ORDERED: GENTAMICIN ADULT IVPB ONE (18:00)
[2017-12-18] MEDS ORDERED: NS 0.9% IVPB ONE (18:00)
[2017-12-18] MEDS ORDERED: Gentamicin PEAK LEVEL* 1 NOTE MISC FOLLOW UP ONE (19:00)
[2017-12-18] MEDS: Donepezil TAB* 5 MG PO SCH (21:10)
[2017-12-18] MEDS: Aspirin EC Low Dose* 81 MG TAB.EC PO SCH (21:10)
[2017-12-18] MEDS: Nitro Patch/OINT Remove PATCH OFF SCH (21:15)
[2017-12-18] MEDS: ZOSYN 3.375 GM Q12H per EXTENDED INFUSION IVPB SCH ×2 (21:25)
[2017-12-19] MEDS: Insulin LISPRO* 1 UNITS UNIT SUBCUT SCH ×4 (08:27→20:40)
[2017-12-19] MEDS: ZOSYN 3.375 GM Q12H per EXTENDED INFUSION IVPB SCH ×2 (08:44)
[2017-12-19] MEDS: Furosemide IV* 10 MG/ML VIAL (40 MG) IV SLOW PU SCH ×2 (08:44→17:05)
[2017-12-19] MEDS: predniSONE TAB* 5 MG PO SCH (08:44)
[2017-12-19] MEDS: Carvedilol TAB* 25 MG PO SCH ×2 (08:44→20:38)
[2017-12-19] MEDS: Diltiazem CD CAP* 120 MG PO SCH ×2 (08:44→20:39)
[2017-12-19] MEDS: Nitroglycerin 0.2 MG/HR PATCH* (5 MG) TRANSDERM SCH (08:49)
[2017-12-19] MEDS: Digoxin TAB* 0.125 MG PO SCH (08:49)
[2017-12-19] MEDS: Insulin GLARGINE(*) 1 UNITS UNIT SUBCUT SCH (09:46)
--- NOTE | 2017-12-19 11:17 | CONSULT ---
Palliative / Hospice Consult Ordering Provider: Tati Rahman - Subjective Code Status: Full Code Advance Directives Location: No Advance Directives MOLST Part A Completed: Yes - DNR Date: 12/19/17 MOLST Part E Completed:: Yes - comfort measures Date: 12/19/17 HCP Completed: Yes - Alexis and son Jimmy - History or Present Illness History or Present Illness: THis 87 year old man with multiple problems of CHF, COPD, PRETTY, DM2, CAD, ITP, CKD stage 3, SSS, AF with pacer, chronically O2 dependent at 2.5 to 5 LPM and on CPAP at night, developed iron deficiency anemia at the end of August, and has had worsening debility since that time, with severe CAVAZOS and increasing fluid retention. One week prior to admission he lost his appetite. His H/H is 8.8/29 on admission, BUN/Cr is 85/2.11. Iron is 18, TIBC 468. The etiology of his anemia has not been established, but per my discussion with Dr. Simpson who follows his ITP, the patient is really too debilitated to undergo a work up, and in speaking with the patient, he would refuse intervention as well. The patient has been diuresed and has been getting iron infusions, but he continues to feel poorly, with lethargy and weakness. In speaking with him, he understands he has multiple problems that are not amenable to cure, and he knows he will soon, and told me, "I just want it to be over quickly." I spoke to his family, who said he had a prior DNR order which they will bring to the hospital today, but we completed another MOLST form over the phone. Lab Values: Abnormal Lab Results 12/18/17 12/18/17 12/18/17 11:33 14:09 14:09 WBC 8.0 RBC 3.46 L Hgb 8.0 L Hct 27 L MCV 77 L MCH 23 L MCHC 30 L RDW 19 H Plt Count 56 L MPV 9 Neut % (Auto) 85.3 H Lymph % (Auto) 5.0 L Kinney % (Auto) 9.1 H Eos % (Auto) 0.3 Baso % (Auto) 0.3 Absolute Neuts (auto) 6.8 Absolute Lymphs (auto) 0.4 L Absolute Monos (auto) 0.7 Absolute Eos (auto) 0 Absolute Basos (auto) 0 Absolute Nucleated RBC 0 Nucleated RBC % 0.1 VBG pH VBG pCO2 VBG pO2 VBG HCO3 VBG O2 Saturation VBG Base Excess Sodium 135 Potassium 4.5 Chloride 94 L Carbon Dioxide 37 H Anion Gap 4 BUN 96 H Creatinine 2.07 H Est GFR ( Amer) 39.2 Est GFR (Non-Af Amer) 30.5 BUN/Creatinine Ratio 46.4 H Glucose 124 H POC Glucose (mg/dL) 191 H Calcium 8.5 L Total Bilirubin 0.40 AST 19 ALT 20 Alkaline Phosphatase 44 B-Natriuretic Peptide Total Protein 5.3 L Albumin 3.0 L Globulin 2.3 Albumin/Globulin Ratio 1.3 Gentamicin Peak 12/18/17 12/18/17 12/18/17 14:09 17:06 19:54 WBC RBC Hgb Hct MCV MCH MCHC RDW Plt Count MPV Neut % (Auto) Lymph % (Auto) Kinney % (Auto) Eos % (Auto) Baso % (Auto) Absolute Neuts (auto) Absolute Lymphs (auto) Absolute Monos (auto) Absolute Eos (auto) Absolute Basos (auto) Absolute Nucleated RBC Nucleated RBC % VBG pH 7.36 VBG pCO2 71 H VBG pO2 122 H VBG HCO3 35.0 H VBG O2 Saturation 97.6 H VBG Base Excess 12.9 H Sodium Potassium Chloride Carbon Dioxide Anion Gap BUN Creatinine Est GFR ( Amer) Est GFR (Non-Af Amer) BUN/Creatinine Ratio Glucose POC Glucose (mg/dL) 290 H Calcium Total Bilirubin AST ALT Alkaline Phosphatase B-Natriuretic Peptide 265 H Total Protein Albumin Globulin Albumin/Globulin Ratio Gentamicin Peak 12/18/17 12/18/17 12/19/17 19:54 20:58 07:57 WBC RBC Hgb Hct MCV MCH MCHC RDW Plt Count MPV Neut % (Auto) Lymph % (Auto) Kinney % (Auto) Eos % (Auto) Baso % (Auto) Absolute Neuts (auto) Absolute Lymphs (auto) Absolute Monos (auto) Absolute Eos (auto) Absolute Basos (auto) Absolute Nucleated RBC Nucleated RBC % VBG pH VBG pCO2 VBG pO2 VBG HCO3 VBG O2 Saturation VBG Base Excess Sodium Potassium Chloride Carbon Dioxide Anion Gap BUN Creatinine Est GFR ( Amer) Est GFR (Non-Af Amer) BUN/Creatinine Ratio Glucose POC Glucose (mg/dL) 260 H 64 L Calcium Total Bilirubin AST ALT Alkaline Phosphatase B-Natriuretic Peptide Total Protein Albumin Globulin Albumin/Globulin Ratio Gentamicin Peak 8.2 Laboratory Last Values WBC 8.0 10^3/ul (3.5-10.8) 12/18/17 14:09 RBC 3.46 10^6/ul (4.0-5.4) L 12/18/17 14:09 Hgb 8.0 g/dl (14.0-18.0) L 12/18/17 14:09 Hct 27 % (42-52) L 12/18/17 14:09 MCV 77 fL (80-94) L 12/18/17 14:09 MCH 23 pg (27-31) L 12/18/17 14:09 MCHC 30 g/dl (31-36) L 12/18/17 14:09 RDW 19 % (10.5-15) H 12/18/17 14:09 Plt Count 56 10^3/ul (150-450) L 12/18/17 14:09 MPV 9 um3 (7.4-10.4) 12/18/17 14:09 Neut % (Auto) 85.3 % (38-83) H 12/18/17 14:09 Lymph % (Auto) 5.0 % (25-47) L 12/18/17 14:09 Kinney % (Auto) 9.1 % (1-9) H 12/18/17 14:09 Eos % (Auto) 0.3 % (0-6) 12/18/17 14:09 Baso % (Auto) 0.3 % (0-2) 12/18/17 14:09 Absolute Neuts (auto) 6.8 10^3/ul (1.5-7.7) 12/18/17 14:09 Absolute Lymphs (auto) 0.4 10^3/ul (1.0-4.8) L 12/18/17 14:09 Absolute Monos (auto) 0.7 10^3/ul (0-0.8) 12/18/17 14:09 Absolute Eos (auto) 0 10^3/ul (0-0.6) 12/18/17 14:09 Absolute Basos (auto) 0 10^3/ul (0-0.2) 12/18/17 14:09 Absolute Nucleated RBC 0 10^3/ul 12/18/17 14:09 Nucleated RBC % 0.1 12/18/17 14:09 INR (Anticoag Therapy) 1.06 (0.77-1.02) H 12/15/17 11:15 APTT 27.6 seconds (26.0-36.3) 12/15/17 11:15 VBG pH 7.36 (7.33-7.43) 12/18/17 19:54 VBG pCO2 71 mmHg (41-51) H 12/18/17 19:54 VBG pO2 122 mmHg (35-45) H 12/18/17 19:54 VBG HCO3 35.0 mmol/L (24-28) H 12/18/17 19:54 VBG O2 Saturation 97.6 % (70-80) H 12/18/17 19:54 VBG Base Excess 12.9 (0-4) H 12/18/17 19:54 Sodium 135 mmol/L (133-145) 12/18/17 14:09 Potassium 4.5 mmol/L (3.5-5.0) 12/18/17 14:09 Chloride 94 mmol/L (101-111) L 12/18/17 14:09 Carbon Dioxide 37 mmol/L (22-32) H 12/18/17 14:09 Anion Gap 4 mmol/L (2-11) 12/18/17 14:09 BUN 96 mg/dL (6-24) H 12/18/17 14:09 Creatinine 2.07 mg/dL (0.67-1.17) H 12/18/17 14:09 Est GFR ( Amer) 39.2 (>60) 12/18/17 14:09 Est GFR (Non-Af Amer) 30.5 (>60) 12/18/17 14:09 BUN/Creatinine Ratio 46.4 (8-20) H 12/18/17 14:09 Glucose 124 mg/dL (70-100) H 12/18/17 14:09 POC Glucose (mg/dL) 64 mg/dL (70-100) L 12/19/17 07:57 Calcium 8.5 mg/dL (8.6-10.3) L 12/18/17 14:09 Magnesium 2.4 mg/dL (1.9-2.7) 12/16/17 05:15 Iron 18 ug/dL (50-212) L 12/15/17 11:15 TIBC 468 mcg/dL (250-450) H 12/15/17 11:15 % Saturation 4 % (15-55) L 12/15/17 11:15 Unsat Iron Binding 450 ug/dL 12/15/17 11:15 Transferrin 355 mg/dL (200 - 360) 12/15/17 11:15 Ferritin 37.8 ng/mL (24-336) 12/15/17 11:15 Total Bilirubin 0.40 mg/dL (0.2-1.0) 12/18/17 14:09 AST 19 U/L (13-39) 12/18/17 14:09 ALT 20 U/L (7-52) 12/18/17 14:09 Alkaline Phosphatase 44 U/L (34-104) 12/18/17 14:09 Troponin I 0.02 ng/mL (<0.04) 12/15/17 21:05 B-Natriuretic Peptide 265 pg/mL (-100) H 12/18/17 14:09 Total Protein 5.3 g/dL (6.4-8.9) L 12/18/17 14:09 Albumin 3.0 g/dL (3.2-5.2) L 12/18/17 14:09 Globulin 2.3 g/dL (2-4) 12/18/17 14:09 Albumin/Globulin Ratio 1.3 (1-3) 12/18/17 14:09 Gentamicin Peak 8.2 mcg/mL 12/18/17 19:54 Digoxin 1.9 ng/ml (0.8-2.0) 12/16/17 05:15 Blood Type O Positive 12/15/17 11:15 Antibody Screen Negative 12/15/17 11:15 Crossmatch See Detail 12/15/17 11:15 - Objective Active Medications: Acetaminophen (Tylenol Tab*) 650 mg PO Q6H PRN PRN Reason: FEVER/PAIN Last Admin: 12/18/17 12:43 Dose: 650 mg Albuterol/Ipratropium (Duoneb (Albuterol 2.5 Mg/Ipratropium 0.5 Mg)) 1 neb INH Q4H PRN PRN Reason: shortness of breath/cough Aspirin (Aspirin Ec Low Dose*) 81 mg PO BEDTIME [facility] Last Admin: 12/18/17 21:10 Dose: 81 mg Carvedilol (Coreg Tab*) 25 mg PO BID [facility] Last Admin: 12/19/17 08:44 Dose: 25 mg Dextrose (D50w Syringe 50 Ml*) 12.5 gm IV PUSH .FOR FS < 60 - SS PRN PRN Reason: FS < 60 Digoxin (Lanoxin Tab*) 0.125 mg PO MOTUWETHFR [facility] Last Admin: 12/19/17 08:49 Dose: 0.125 mg Diltiazem HCl (Cardizem Cd Cap*) 120 mg PO BID [facility] Last Admin: 12/19/17 08:44 Dose: 120 mg Donepezil HCl (Aricept Tab*) 10 mg PO BEDTIME [facility] Last Admin: 12/18/17 21:10 Dose: 10 mg Furosemide (Lasix Iv*) 40 mg IV SLOW PU 0800,1700 [facility] Last Admin: 12/19/17 08:44 Dose: 40 mg Piperacillin Sod/Tazobactam (Sod 3.375 gm/ Sodium Chloride) 100 mls @ 25 mls/ hr IVPB Q12H [facility] Last Admin: 12/19/17 08:44 Dose: 25 mls/hr Gentamicin Sulfate 130 mg/ (Sodium Chloride) 103.25 mls @ 206.5 mls/hr IVPB Q24H [facility] Insulin Glargine (Lantus(*)) 50 units SUBCUT QAM [facility] Last Admin: 12/19/17 09:46 Dose: 50 unit Insulin Human Lispro (Humalog*) 0 units SUBCUT ACHS [facility] PRN Reason: Protocol Last Admin: 12/19/17 08:27 Dose: Not Given Metolazone (Zaroxolyn Tab*) 5 mg PO DAILY PRN PRN Reason: PER PROTOCOL Nitroglycerin (Nitroglycerin 5 Mg Patch*) 1 patch TRANSDERM DAILY [facility] Last Admin: 12/19/17 08:49 Dose: 1 patch Pharmacy Consult (Zosyn Per Pharmacy*) 1 note FOLLOW UP . PRN PRN Reason: PER PROTOCOL Pharmacy Consult (Gentamicin Adult Per Pharmacy) 1 note FOLLOW UP . PRN PRN Reason: PER PROTOCOL Pharmacy Profile Note (Nitro Patch/Oint Remove*) 1 note PATCH OFF 2100 [facility] Last Admin: 12/18/17 21:15 Dose: 1 note Pharmacy Profile Note (Gentamicin Trough Level) 1 note FOLLOW UP 173 ONE Stop: 12/20/17 17:31 Pharmacy Profile Note (Gentamicin Peak Level*) 1 note FOLLOW UP 1900 ONE Stop: 12/20/17 19:01 Prednisone (Deltasone Tab*) 5 mg PO DAILY [facility] Last Admin: 12/19/17 08:44 Dose: 5 mg Vital Signs: Vital Signs: Temp Pulse Resp BP Pulse Ox 97.7 F 70 20 129/54 100 12/19/17 07:44 12/19/17 08:49 12/19/17 08:00 12/19/17 07:44 12/19/17 07:44 Patient Weight: Weight 209 lb 6.4 oz Intake and Output: Intake & Output 12/17/17 12/18/17 12/19/17 12/20/17 06:59 06:59 06:59 06:59 Intake Total 1200 1020 1152 Output Total 1125 2450 2750 Balance 75 -1430 -1598 Weight 214 lb 8 oz 212 lb 11.2 oz 209 lb 6.4 oz Intake: IVPB 232 zosyn 232 Oral 1200 1020 920 Output: Urine 900 1200 Marie 1125 1550 1550 Other: Estimated Void Medium # Bowel Movements 0 0 0 # Voids 1 2 ADLs: Meal Record Start: 12/15/17 18: 41 Freq: DAILY@0900,1400,1800 Status: Active Protocol: Document 12/16/17 09:00 [id number] (Rec: 12/16/17 14:47 [id number] TELE-C09) Document 12/16/17 14:00 [id number] (Rec: 12/16/17 14:44 [id number] TELE-C09) Document 12/16/17 18:00 [id number] (Rec: 12/16/17 21:39 [id number] TELE-C09) Document 12/17/17 09:00 [id number] (Rec: 12/17/17 09:04 [id number] TELE-C07) Document 12/17/17 13:20 [id number] (Rec: 12/17/17 13:20 [id number] TELE-M03) Document 12/17/17 18:00 [id number] (Rec: 12/17/17 20:51 [id number] TELE-C03) Document 12/18/17 09:00 [id number] (Rec: 12/18/17 09:21 [id number] TELE-C08) Document 12/18/17 18:00 [id number] (Rec: 12/18/17 20:48 [id number] TELE-C07) Intake and Output Start: 12/15/17 18: 41 Freq: DAILY@0600,1400,2200 Status: Active Protocol: Document 12/15/17 22:00 [id number] (Rec: 12/15/17 22:34 [id number] TELE-C01) Document 12/16/17 06:00 [id number] (Rec: 12/16/17 06:50 [id number] TELE-C09) Document 12/16/17 14:00 [id number] (Rec: 12/16/17 14:44 [id number] TELE-C09) Document 12/16/17 22:00 [id number] (Rec: 12/16/17 22:29 [id number] TELE-C09) Document 12/17/17 06:00 [id number] (Rec: 12/17/17 06:06 [id number] TELE-C33) Document 12/17/17 14:00 [id number] (Rec: 12/17/17 14:20 [id number] TELE-C07) Document 12/17/17 21:38 [id number] (Rec: 12/17/17 21:39 [id number] TELE-C03) Document 12/18/17 06:00 [id number] (Rec: 12/18/17 06:27 [id number] TELE-C35) Document 12/18/17 14:00 [id number] (Rec: 12/18/17 14:23 [id number] TELE-C08) Document 12/18/17 22:00 [id number] (Rec: 12/18/17 22:29 [id number] TELE-C07) Document 12/19/17 06:00 [id number] (Rec: 12/19/17 06:29 [id number] TELE-C09) General Impression: Very pleasant, but tired man lying in bed, s/o dyspnea but in NAD. Head: Symmetrical Eyes: No Scleral Icterus, PERRLA Ears/Nose/Mouth/Throat: NL Teeth, Lips, Gums, Mucous Membranes Moist Neck: NL Appearance and Movements; NL JVP, Trachea Midline Cardiovascular: NL Sounds; No Murmurs; No JVD Respiratory: Symmetrical Chest Expansion and Respiratory Effort Abdominal: NL Sounds; No Tenderness; No Distention Extremities: No Clubbing, Cyanosis Neurological: Alert and Oriented x 3, - - Affect sad . Mentation intact. - Assessment Assessment: I spoke with the patient's HCPs, his and son, and they are interested in comfort measures only and would like to have the patient enroled in hospice. THey will look into possible transfer to [facility] or [facility]. The patient was living at home with his son's family and his , but they are realistic in assessing that the care burden may be too great there for them to undertake. The patient qualifies for hospice services with a primary diagnosis of CHF and secondary of anemia, with comorbid CRF and COPD. Thanks for requesting palliative input. - Plan Consult Plan (MU): Hospice - Time On Unit Date of Evaluation: 12/19/17 Hospice Consult Time in: 10:00 Hospice Consult Time Out: 11:15 Hospice Consult Time Total: 75 > 50% of Time Spend In Counseling or Coordinating Care: Yes
--- NOTE | 2017-12-19 14:22 | PN ---
Subjective Date of Service: 12/19/17 Interval History: Mr. Puente denies any complaint today and is agreeable to the plan for [facility] or Friday when a bed is available. Objective Active Medications: Acetaminophen (Tylenol Tab*) 650 mg PO Q6H PRN Albuterol/Ipratropium (Duoneb (Albuterol 2.5 Mg/Ipratropium 0.5 Mg)) 1 neb INH Q4H PRN Aspirin (Aspirin Ec Low Dose*) 81 mg PO BEDTIME [facility] Carvedilol (Coreg Tab*) 25 mg PO BID [facility] Dextrose (D50w Syringe 50 Ml*) 12.5 gm IV PUSH .FOR FS < 60 - SS PRN Digoxin (Lanoxin Tab*) 0.125 mg PO MOTUWETHFR [facility] Diltiazem HCl (Cardizem Cd Cap*) 120 mg PO BID [facility] Donepezil HCl (Aricept Tab*) 10 mg PO BEDTIME [facility] Furosemide (Lasix Iv*) 40 mg IV SLOW PU 0800,1700 [facility] Piperacillin Sod/Tazobactam (Sod 3.375 gm/ Sodium Chloride) 100 mls @ 25 mls/ hr IVPB Q12H [facility] Gentamicin Sulfate 130 mg/ (Sodium Chloride) 103.25 mls @ 206.5 mls/hr IVPB Q24H [facility] Insulin Glargine (Lantus(*)) 50 units SUBCUT QAM [facility] Insulin Human Lispro (Humalog*) 0 units SUBCUT ACHS [facility] Metolazone (Zaroxolyn Tab*) 5 mg PO DAILY PRN Nitroglycerin (Nitroglycerin 5 Mg Patch*) 1 patch TRANSDERM DAILY [facility] Pharmacy Consult (Zosyn Per Pharmacy*) 1 note FOLLOW UP . PRN Pharmacy Consult (Gentamicin Adult Per Pharmacy) 1 note FOLLOW UP . PRN Pharmacy Profile Note (Nitro Patch/Oint Remove*) 1 note PATCH OFF 2100 [facility] Pharmacy Profile Note (Gentamicin Trough Level) 1 note FOLLOW UP [facility]30 [facility] Pharmacy Profile Note (Gentamicin Peak Level*) 1 note FOLLOW UP [facility] Prednisone (Deltasone Tab*) 5 mg PO DAILY [facility] Vital Signs: Temp Pulse Resp BP Pulse Ox 97.8 F 70 24 132/52 99 12/19/17 11:29 12/19/17 11:29 12/19/17 11:29 12/19/17 11:29 12/19/17 11:29 Oxygen Devices in Use Now: Nasal Cannula, CPAP Appearance: Male lying in bed in NAD Eyes: No Scleral Icterus Ears/Nose/Mouth/Throat: Mucous Membranes Moist Neck: Trachea Midline Respiratory: Symmetrical Chest Expansion and Respiratory Effort, Clear to Auscultation Cardiovascular: NL Sounds; No Murmurs; No JVD, No Edema Abdominal: NL Sounds; No Tenderness; No Distention Lymphatic: No Cervical Adenopathy Extremities: No Edema Skin: No Rash or Ulcers Neurological: Alert and Oriented x 3, NL Muscle Strength and Tone Result Diagrams: 12/18/17 14:09 12/18/17 14:09 Diagnostic Imaging: . Assess/Plan/Problems-Billing Assessment: Mr. Puente is an 87 year old male patient with complex comorbidities that presented to ER with acute SOB found to be in exacerbation of diastolic HF, now with lethargy and SOB. - Patient Problems (1) Acute on chronic diastolic heart failure Current Visit: Yes Status: Acute Code(s): I50.33 - ACUTE ON CHRONIC DIASTOLIC (CONGESTIVE) HEART FAILURE SNOMED Code(s): 472306850 Comment: - Switch to torsemide, continue coreg and digoxin. - Alternates between CPAP and NC. (2) COPD (chronic obstructive pulmonary disease) Comment: - Continue Dulera, prn nebs, CPAP. (3) Hospital acquired PNA Current Visit: Yes Status: Acute Code(s): J18.9 - PNEUMONIA, UNSPECIFIED ORGANISM SNOMED Code(s): 289338507 Comment: - Marked improvement in mentation after using CPAP. - Given minimal change in Xray and lack of leukocytosis or fever, have less suspicion for pneumonia.Given that patient is also opting for hospice care on Friday, plan to discontinue antibiotics. - Monitor. (4) Immune thrombocytopenic purpura Comment: - No heparin. - SCDs only. (5) Iron deficiency anemia Comment: - Stable. (6) PMR (polymyalgia rheumatica) Comment: - Continue prednisone (7) Atrial fibrillation Comment: - Rate controlled. - No AC due to ITP and anemia. (8) CAD (coronary artery disease) Comment: - Stable, no chest pain - Continue medical management with BB, statin, ASA (9) Chronic kidney disease Comment: - Baseline. (10) Dementia Current Visit: No Status: Chronic Code(s): F03.90 - UNSPECIFIED DEMENTIA WITHOUT BEHAVIORAL DISTURBANCE SNOMED Code(s): 73856491 Comment: - Supportive care. (11) Diabetes mellitus type 2 Comment: - BG well controlled. - Continue lantus and lispro SS with BG AC and HS (12) Hypertension Comment: - BP stable on home meds (13) PRETTY (obstructive sleep apnea) Comment: - Continue CPAP (14) DNR (do not resuscitate) Comment: Status and Disposition: Inpatient. Plan for discharge to [facility] on Friday or Friday.
--- NOTE | 2017-12-19 15:51 | ED ---
Mannie Otero Gabriel, scribed for Troy Aburto MD on 12/15/17 at 1251 . Complex/Multi-Sys Presentation - HPI Summary HPI Summary: This patient is a 87 year old M presenting to [facility] accompanied by his with a chief complaint of weakness since 12/12/17. Patient reports SOB Patient denies bowel issues. He has an iron infusion scheduled at 11:30 today but he was unable to move. Patient has been on NTG patches for 2 weeks due to fluid in his lungs. - History Of Current Complaint Chief Complaint: EDWeakness Time Seen by Provider: 12/15/17 12:38 Hx Obtained From: Family/Dewaxer Onset/Duration: Lasting Days - 3, Still Present Timing: Constant Severity Currently: Mild Severity Initially: Moderate Associated Signs And Symptoms: Positive: Weakness, Other - SOB - Allergies/Home Medications Allergies/Adverse Reactions: Allergies Allergy/AdvReac Type Severity Reaction Status Date / Time Adhesive Tape Allergy Mild Itching Verified 11/06/17 22:05 Hydralazine Allergy Unknown Unknown Verified 11/06/17 22:05 Reaction Details Ramipril [From Altace] Allergy Unknown Unknown Verified 11/06/17 22:05 Reaction Details Simvastatin [From Zocor] Allergy Unknown Unknown Verified 11/06/17 22:05 Reaction Details Clonidine Allergy Unknown Verified 11/06/17 22:05 Reaction Details Clopidogrel [From Plavix] Allergy Unknown Verified 11/06/17 22:05 Reaction Details Latex Allergy Rash Verified 11/06/17 22:05 Nitroglycerin Allergy See Comment Verified 11/06/17 22:05 [From Nitroglycerin Transdermal System] Home Medications: Home Medications Aspirin EC Low Dose* [Ecotrin EC Low Dose 81 MG*] 81 mg PO BEDTIME 12/15/17 [ History Confirmed 12/15/17] Digoxin TAB* [Lanoxin TAB*] 0.25 mg PO MOTUWETHFR 12/15/17 [History Confirmed ] Diltiazem CD CAP* [Cardizem CD CAP*] 120 mg PO BID 12/15/17 [History Confirmed 12/15/17] Metolazone TAB* [Zaroxolyn TAB*] 5 mg PO DAILY PRN 12/15/17 [History Confirmed 12/15/17] Multiple Vitamins W/ Minerals [Centrum Silver 50+Men] 1 tab PO DAILY 12/15/17 [ History Confirmed 12/15/17] Torsemide TAB* [Demadex*] 20 mg PO SUTUTHSA 12/15/17 [History Confirmed 12/15/17 ] predniSONE TAB* [Deltasone TAB*] 5 mg PO DAILY 12/15/17 [History Confirmed 12/15] PMH/Surg Hx/FS Hx/Imm Hx Endocrine/Hematology History: Reports: Hx Blood Disorders - ITP, Hx Diabetes, Other Endocrine/Hematological Disorders - 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, 2001 Denies: Hx Anticoagulant Therapy, Hx Blood Transfusions, Hx Bone Marrow Disease, Hx Systemic Lupus Erythematosus, Hx Sickle Cell Disease, Hx Thyroid Disease, Hx Anemia, Hx Unexplained Bleeding Cardiovascular History: Reports: Hx Angina, Hx Angioplasty, Hx Coronary Artery Disease, Hx Hypercholesterolemia, Hx Hypertension, Hx Pacemaker/ICD, Other Cardiovascular Problems/Disorders - A-Fib Denies: Hx Aneurysm, Hx Auto Implanted Cardiovert Defib, Hx Cardiac Arrest, Hx Cardiomegaly, Hx Congenital Heart Disease, Hx Congestive Heart Failure, Hx Deep Vein Thrombosis, Hx Embolism, Hx Hypotension, Hx Peripheral Vascular Disease, Hx Rheumatic Fever, Hx Syncope, Hx Valvular Heart Disease Respiratory History: Reports: Hx Chronic Obstructive Pulmonary Disease (COPD), Hx Sleep Apnea, Other Respiratory Problems/Disorders - POSSIBLE COPD. ON HOME O2 Denies: Hx Asthma GI History: Reports: Hx Hiatal Hernia, Other GI Disorders - HIATAL HERNIA Denies: Hx Ulcer History: Reports: Hx Chronic Renal Failure - CKD stage 3, Hx Renal Disease Musculoskeletal History: Reports: Hx Gout - knee, Hx Orthopedic Injury - L ankle Fx, consequent unsteady gait Denies: Hx Arthritis, Hx Back Problems, Hx Bursitis, Hx Congenital Bone Abnormalities, Hx Fibromyalgia, Hx Osteoporosis, Hx Scoliosis, Hx Tendonitis, Other Musculoskeletal History Sensory History: Reports: Hx Cataracts - removal, Hx Contacts or Glasses Denies: Hx Eye Injury, Hx Eye Prosthesis, Hx Glaucoma, Hx Legally Blind, Hx Macular Degeneration, Hx Vision Problem, Hx Deafness, Hx Hearing Aid, Hx Hearing Problem, Other Sensory Impairments Opthamlomology History: Reports: Hx Cataracts - removal, Hx Contacts or Glasses Denies: Hx Eye Injury, Hx Eye Prosthesis, Hx Glaucoma, Hx Legally Blind, Hx Macular Degeneration, Hx Vision Problem, Other Sensory Impairments Neurological History: Reports: Hx Dementia, Other Neuro Impairments/Disorders - per family: short-term memory loss Denies: Hx Seizures Psychiatric History: Reports: Hx Eating Disorder Denies: Hx Substance Abuse - Cancer History Cancer Type, Location and Year: 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 5 cardiac stents, cataract surgery, pacer/ICD implant Hx Anesthesia Reactions: No - Immunization History Date of Tetanus Vaccine: unknown Infectious Disease History: No Infectious Disease History: Denies: Hx Clostridium Difficile, Hx Hepatitis, Hx Human Immunodeficiency Virus (HIV), Hx of Known/Suspected MRSA, Hx Shingles, Hx Tuberculosis, Hx Known/ Suspected VRE, Hx Known/Suspected VRSA, History Other Infectious Disease, Traveled Outside the [place] in Last 30 Days - Family History Known Family History: Positive: Cardiac Disease, Hypertension, Diabetes - Social History Alcohol Use: Occasionally Substance Use Type: Reports: None Hx Tobacco Use: Yes Smoking Status (MU): Former Smoker Type: Cigarettes Amount Used/How Often: 3 PPD X 40 YEARS Have You Smoked in the Last Year: No Review of Systems Negative: Fever, Chills Negative: Erythema Negative: Sore Throat Negative: Chest Pain Positive: Shortness Of Breath. Negative: Cough Negative: Abdominal Pain, Vomiting, Nausea Negative: dysuria, hematuria Positive: Other - weakness . Negative: Myalgia, Edema Negative: Rash Neurological: Negative - dizziness All Other Systems Reviewed And Are Negative: Yes Physical Exam - Summary Physical Exam Summary: Constitutional: Well-developed, Well-nourished, Alert. (-) Distressed Slow to respond, weak of hearing Skin: Warm, Dry HENT: Normocephalic; Atraumatic Eyes: Conjunctiva normal Neck: Musculoskeletal ROM normal neck. (-) JVD, (-) Stridor, (-) Tracheal deviation Cardio: Rhythm regular, rate normal, Heart sounds normal; Intact distal pulses; The pedal pulses are 2+ and symmetric. Radial pulses are 2+ and symmetric. (-) Murmur Pulmonary/Chest wall: Effort normal. (-) Respiratory distress, (-) Wheezes, (-) Rales Abd: Soft, (-) Tenderness, (-) Distension, (-) Guarding, (-) Rebound Musculoskeletal: (-) Edema Lymph: (-) Cervical adenopathy Neuro: Alert, Oriented x3 Psych: Mood and affect Normal Triage Information Reviewed: Yes Vital Signs On Initial Exam: Initial Vitals Temp Pulse Resp BP Pulse Ox 97.5 F 75 16 121/43 98 12/15/17 12:37 12/15/17 12:37 12/15/17 12:37 12/15/17 12:37 12/15/17 12:37 Vital Signs Reviewed: Yes Diagnostics - Vital Signs Vital Signs Temp Pulse Resp BP Pulse Ox 12/15/17 12:37 97.5 F 75 16 121/43 98 - Laboratory Result Diagrams: 12/15/17 11:15 12/15/17 11:15 Lab Statement: Any lab studies that have been ordered have been reviewed, and results considered in the medical decision making process. - Radiology CXR Radiology Interpretation Completed By: Radiologist - PULMONARY VASCULAR CONGESTION WITH MILD PULMONARY INTERSTITIAL EDEMA ED physician has reviewed this radiology report. - EKG 12:46 Cardiac Rate: Other Rate EKG Rhythm: Sinus Rhythm - at 70 BPM EKG Interpretation: paced, no STEMI, no acute changes Complex Multi-Symp Course/Dx Assessment/Plan: This patient is a 87 year old M presenting to [facility] accompanied by his with a chief complaint of weakness since 12/12/17. Patient reports SOB Patient denies bowel issues. He has an iron infusion scheduled at 11:30 today but he was unable to move. Patient has been on NTG patches for 2 weeks due to fluid in his lungs. CXR reveals, per radiologist, PULMONARY VASCULAR CONGESTION WITH MILD PULMONARY INTERSTITIAL EDEMA. ED physician has reviewed this radiology report. An EKG reveals paced rhythm. Test results with no significant abnormalities. In the ED course the patient was given ASA, Duoneb, Coreg, Dextrose, Cardizem, and digoxin. We discussed patient care with Dr. Henriquez and they accepted the patient for admission. Patient will be admitted. The patient is agreeable with this plan. - Diagnoses Provider Diagnoses: CHF exacerbation, Iron deficiency anemia, Pulmonary edema, Symptomatic anemia - Physician Notifications Discussed Care Of Patient With: Anika Henriquez Time Discussed With Above Provider: 14:49 Instructed by Provider To: Admit As Inpatient Discharge - Discharge Plan Condition: Fair Disposition: [facility] The documentation as recorded by the Mannie webb Gabriel accurately reflects the service I personally performed and the decisions made by me, Troy Aburto MD.
[2017-12-19] MEDS ORDERED: Insulin LISPRO* 1 UNITS UNIT SUBCUT ONE (17:03)
[2017-12-19] MEDS ORDERED: NS 0.9% IVPB SCH (18:00)
[2017-12-19] MEDS ORDERED: GENTAMICIN ADULT IVPB SCH (18:00)
[2017-12-19] MEDS ORDERED: Torsemide TAB* 20 MG PO SCH (18:00)
[2017-12-19] MEDS: Aspirin EC Low Dose* 81 MG TAB.EC PO SCH (20:36)
[2017-12-19] MEDS: Donepezil TAB* 5 MG PO SCH (20:39)
[2017-12-19] MEDS: Nitro Patch/OINT Remove PATCH OFF SCH (20:40)
[2017-12-20] MEDS: Insulin LISPRO* 1 UNITS UNIT SUBCUT SCH ×3 (07:41→17:02)
[2017-12-20] MEDS: Diltiazem CD CAP* 120 MG PO SCH ×2 (08:11→21:01)
[2017-12-20] MEDS: Nitroglycerin 0.2 MG/HR PATCH* (5 MG) TRANSDERM SCH (08:11)
[2017-12-20] MEDS: Torsemide TAB* 20 MG PO SCH (08:11)
[2017-12-20] MEDS: predniSONE TAB* 5 MG PO SCH (08:12)
[2017-12-20] MEDS: Carvedilol TAB* 25 MG PO SCH ×2 (08:12→21:00)
[2017-12-20] MEDS: Insulin GLARGINE(*) 1 UNITS UNIT SUBCUT SCH (08:12)
--- NOTE | 2017-12-20 12:14 | PN ---
Subjective Date of Service: 12/20/17 Interval History: He denies SOB, orthopnea, PND No new c/o, feels at his baseline. Objective Active Medications: Acetaminophen (Tylenol Tab*) 650 mg PO Q6H PRN PRN Reason: FEVER/PAIN Last Admin: 12/18/17 12:43 Dose: 650 mg Albuterol/Ipratropium (Duoneb (Albuterol 2.5 Mg/Ipratropium 0.5 Mg)) 1 neb INH Q4H PRN PRN Reason: shortness of breath/cough Aspirin (Aspirin Ec Low Dose*) 81 mg PO BEDTIME [facility] Last Admin: 12/19/17 20:36 Dose: 81 mg Carvedilol (Coreg Tab*) 25 mg PO BID [facility] Last Admin: 12/20/17 08:12 Dose: 25 mg Dextrose (D50w Syringe 50 Ml*) 12.5 gm IV PUSH .FOR FS < 60 - SS PRN PRN Reason: FS < 60 Digoxin (Lanoxin Tab*) 0.125 mg PO MOTUWETHFR [facility] Last Admin: 12/19/17 08:49 Dose: 0.125 mg Diltiazem HCl (Cardizem Cd Cap*) 120 mg PO BID [facility] Last Admin: 12/20/17 08:11 Dose: 120 mg Donepezil HCl (Aricept Tab*) 10 mg PO BEDTIME [facility] Last Admin: 12/19/17 20:39 Dose: 10 mg Ferrous Sulfate (Ferrous Sulfate Tab*) 325 mg PO DAILY [facility] Insulin Glargine (Lantus(*)) 50 units SUBCUT QAM [facility] Last Admin: 12/20/17 08:12 Dose: 50 unit Insulin Human Lispro (Humalog*) 0 units SUBCUT ACHS [facility] PRN Reason: Protocol Last Admin: 12/20/17 07:41 Dose: Not Given Metolazone (Zaroxolyn Tab*) 5 mg PO DAILY PRN PRN Reason: PER PROTOCOL Nitroglycerin (Nitroglycerin 5 Mg Patch*) 1 patch TRANSDERM DAILY [facility] Last Admin: 12/20/17 08:11 Dose: 1 patch Pharmacy Profile Note (Nitro Patch/Oint Remove*) 1 note PATCH OFF 2100 [facility] Last Admin: 12/19/17 20:40 Dose: 1 note Prednisone (Deltasone Tab*) 5 mg PO DAILY [facility] Last Admin: 12/20/17 08:12 Dose: 5 mg Torsemide (Demadex*) 20 mg PO SuTuThSa@0900 [facility] Last Admin: 12/20/17 08:11 Dose: 20 mg Torsemide (Demadex*) 40 mg PO MoWeFr@0900 [facility] Last Admin: 12/19/17 17:41 Dose: 40 mg Vital Signs - 8 hr 12/20/17 12/20/17 12/20/17 07:31 08:00 11:36 Temperature 98.9 F 98.3 F Pulse Rate 70 70 Respiratory 20 16 14 Rate Blood Pressure 125/49 115/48 (mmHg) O2 Sat by Pulse 100 100 Oximetry Oxygen Devices in Use Now: Nasal Cannula Appearance: Alert, in a chair. In good spirits. Looks comfortable. Eyes: No Scleral Icterus Neck: NL Appearance and Movements; NL JVP, No Thyroid Enlargement, Masses Respiratory: Symmetrical Chest Expansion and Respiratory Effort, Clear to Auscultation, Clear to Percussion Cardiovascular: NL Sounds; No Murmurs; No JVD, RRR, No Edema, - Extremities: No Clubbing, Cyanosis, - - Tr edema BL Neurological: Alert and Oriented x 3, NL Sensation Result Diagrams: 12/18/17 14:09 12/18/17 14:09 Diagnostic Imaging: . Assess/Plan/Problems-Billing Assessment: Mr. Puente is an 87 year old male patient with complex comorbidities that presented to ER with acute SOB found to be in exacerbation of diastolic HF, now with lethargy and SOB. - Patient Problems (1) Chronic diastolic CHF (congestive heart failure) Current Visit: No Status: Acute Code(s): I50.32 - CHRONIC DIASTOLIC ( CONGESTIVE) HEART FAILURE SNOMED Code(s): 070832309 Comment: Acute on chronic Improved with diuresis R pleural effusion noted on CXR, improved on repeat study Cont metolazone, torsemide. (2) Immune thrombocytopenic purpura Current Visit: Yes Status: Acute Code(s): D69.3 - IMMUNE THROMBOCYTOPENIC PURPURA SNOMED Code(s): 63901163 Comment: Stable. Continue prednisone 5 mg daily. - No heparin. - SCDs only. (3) COPD (chronic obstructive pulmonary disease) Current Visit: No Status: Chronic Code(s): J44.9 - CHRONIC OBSTRUCTIVE PULMONARY DISEASE, UNSPECIFIED SNOMED Code(s): 10431609 Comment: prn nebs, CPAP. (4) Chronic kidney disease Current Visit: No Status: Chronic Code(s): N18.9 - CHRONIC KIDNEY DISEASE, UNSPECIFIED SNOMED Code(s): 900582245 Comment: Stable. BMP 12/21. (5) Iron deficiency anemia Current Visit: Yes Status: Acute Code(s): D50.9 - IRON DEFICIENCY ANEMIA, UNSPECIFIED SNOMED Code(s): 85257856 Comment: Ferrous sulfate ordered 12/20. CBC 12/21. (6) PMR (polymyalgia rheumatica) Current Visit: No Status: Acute Priority: High Code(s): M35.3 - POLYMYALGIA RHEUMATICA SNOMED Code(s): 91495867 Comment: - Continue prednisone 5 mg daily. (7) CAD (coronary artery disease) Current Visit: No Status: Chronic Code(s): I25.10 - ATHSCL HEART DISEASE OF [place] CORONARY ARTERY W/O ANG PCTRS SNOMED Code(s): 17619313 Comment: - Stable, no chest pain - Continue medical management with BB, ASA (8) Diabetes mellitus type 2 Current Visit: No Status: Chronic Code(s): E11.9 - TYPE 2 DIABETES MELLITUS WITHOUT COMPLICATIONS SNOMED Code(s): 43941190 Comment: - BG well controlled. - Continue lantus and lispro SS with BG AC and HS (9) Atrial fibrillation Current Visit: No Status: Chronic Code(s): I48.91 - UNSPECIFIED ATRIAL FIBRILLATION SNOMED Code(s): 21688064 Comment: - Rate controlled. - No AC due to ITP and anemia. Status and Disposition: Inpatient. Plan for [facility] to [facility] on Friday or Friday.
[2017-12-20] MEDS: Ferrous Sulfate TAB* 325 MG PO SCH (12:21)
[2017-12-20] MEDS ORDERED: Insulin LISPRO* 1 UNITS UNIT SUBCUT ONE (16:57)
[2017-12-20] MEDS ORDERED: Gentamicin Trough Level 1 NOTE MISC FOLLOW UP ONE (17:30)
[2017-12-20] MEDS ORDERED: Gentamicin PEAK LEVEL* 1 NOTE MISC FOLLOW UP ONE (19:00)
[2017-12-20] MEDS: Aspirin EC Low Dose* 81 MG TAB.EC PO SCH (20:59)
[2017-12-20] MEDS: Donepezil TAB* 5 MG PO SCH (21:01)
[2017-12-20] MEDS: Nitro Patch/OINT Remove PATCH OFF SCH (21:32)
[2017-12-21] MEDS: Insulin LISPRO* 1 UNITS UNIT SUBCUT SCH ×4 (03:16→17:28)
[2017-12-21 06:01] LABS: ABS Basophils 0 10^3/ul (0-0.2); ABS Eosinophils 0.1 10^3/ul (0-0.6); ABS Lymphocytes 0.8 10^3/ul (1.0-4.8); ABS Monocytes 0.9 10^3/ul (0-0.8); ABS Neutrophils 4.2 10^3/ul (1.5-7.7); ABS Nucleated RBC 0 10^3/ul; Eosinophil % 1.1 % (0-6); Hematocrit 27 % (42-52); Hemoglobin 8.2 g/dl (14.0-18.0); Lymphocyte % 12.6 % (25-47); Mean Corpuscular HGB Conc 30 g/dl (31-36); Mean Corpuscular Hemoglobin 23 pg (27-31); Mean Corpuscular Volume 77 fL (80-94); Mean Platelet Volume 8 um3 (7.4-10.4); Nucleated Red Blood Cells % 0.1; Platelet Count 56 10^3/ul (150-450); Red Blood Count 3.56 10^6/ul (4.0-5.4); Red Cell Distribution Width 19 % (10.5-15); White Blood Count 5.9 10^3/ul (3.5-10.8)
[2017-12-21 06:23] LABS: EGFR Non-African American 29.3 (>60)
[2017-12-21] MEDS: Carvedilol TAB* 25 MG PO SCH ×2 (08:14→20:00)
[2017-12-21] MEDS: Ferrous Sulfate TAB* 325 MG PO SCH (08:14)
[2017-12-21] MEDS: Diltiazem CD CAP* 120 MG PO SCH ×2 (08:14→20:01)
[2017-12-21] MEDS: Nitroglycerin 0.2 MG/HR PATCH* (5 MG) TRANSDERM SCH (08:14)
[2017-12-21] MEDS: predniSONE TAB* 5 MG PO SCH (08:14)
[2017-12-21] MEDS: Torsemide TAB* 20 MG PO SCH ×2 (08:14→10:07)
[2017-12-21] MEDS: Insulin GLARGINE(*) 1 UNITS UNIT SUBCUT SCH (08:15)
--- NOTE | 2017-12-21 09:18 | PN ---
Subjective Date of Service: 12/21/17 Interval History: He did not offer any c/o. but when asked about his breathing stated "It seems to be labored." Objective Active Medications: Acetaminophen (Tylenol Tab*) 650 mg PO Q6H PRN PRN Reason: FEVER/PAIN Last Admin: 12/18/17 12:43 Dose: 650 mg Albuterol/Ipratropium (Duoneb (Albuterol 2.5 Mg/Ipratropium 0.5 Mg)) 1 neb INH Q4H PRN PRN Reason: shortness of breath/cough Aspirin (Aspirin Ec Low Dose*) 81 mg PO BEDTIME [facility] Last Admin: 12/20/17 20:59 Dose: 81 mg Carvedilol (Coreg Tab*) 25 mg PO BID [facility] Last Admin: 12/21/17 08:14 Dose: 25 mg Dextrose (D50w Syringe 50 Ml*) 12.5 gm IV PUSH .FOR FS < 60 - SS PRN PRN Reason: FS < 60 Digoxin (Lanoxin Tab*) 0.125 mg PO MOTUWETHFR [facility] Last Admin: 12/19/17 08:49 Dose: 0.125 mg Diltiazem HCl (Cardizem Cd Cap*) 120 mg PO BID [facility] Last Admin: 12/21/17 08:14 Dose: 120 mg Donepezil HCl (Aricept Tab*) 10 mg PO BEDTIME [facility] Last Admin: 12/20/17 21:01 Dose: 10 mg Ferrous Sulfate (Ferrous Sulfate Tab*) 325 mg PO DAILY [facility] Last Admin: 12/21/17 08:14 Dose: 325 mg Insulin Glargine (Lantus(*)) 50 units SUBCUT QAM [facility] Last Admin: 12/21/17 08:15 Dose: 50 unit Insulin Human Lispro (Humalog*) 0 units SUBCUT AC [facility] PRN Reason: Protocol Last Admin: 12/21/17 08:14 Dose: 3 unit Nitroglycerin (Nitroglycerin 5 Mg Patch*) 1 patch TRANSDERM DAILY [facility] Last Admin: 12/21/17 08:14 Dose: 1 patch Pharmacy Profile Note (Nitro Patch/Oint Remove*) 1 note PATCH OFF 2100 [facility] Last Admin: 12/20/17 21:32 Dose: 1 note Prednisone (Deltasone Tab*) 5 mg PO DAILY [facility] Last Admin: 12/21/17 08:14 Dose: 5 mg Torsemide (Demadex*) 20 mg PO DAILY [facility] Vital Signs - 8 hr 12/21/17 12/21/17 04:14 07:44 Temperature 98.6 F 98.1 F Pulse Rate 70 70 Respiratory 18 14 Rate Blood Pressure 164/55 135/51 (mmHg) O2 Sat by Pulse 100 100 Oximetry Oxygen Devices in Use Now: Nasal Cannula Appearance: Alert, sitting up in bed. In fair spirits. Looks comfortable. Not tachypneic. Eyes: No Scleral Icterus Neck: NL Appearance and Movements; NL JVP, No Thyroid Enlargement, Masses Respiratory: Symmetrical Chest Expansion and Respiratory Effort, Clear to Auscultation, Clear to Percussion Extremities: No Edema, No Clubbing, Cyanosis, - Skin: No Rash or Ulcers, No Nodules or Sclerosis, - Neurological: Alert and Oriented x 3, NL Sensation Result Diagrams: 12/21/17 05:46 12/21/17 05:46 Diagnostic Imaging: . Assess/Plan/Problems-Billing Assessment: Mr. Puente is an 87 year old male patient with complex comorbidities that presented to ER with acute SOB found to be in exacerbation of diastolic HF, now with lethargy and SOB. - Patient Problems (1) Chronic diastolic CHF (congestive heart failure) Current Visit: No Status: Acute Code(s): I50.32 - CHRONIC DIASTOLIC ( CONGESTIVE) HEART FAILURE SNOMED Code(s): 022606482 Comment: Acute on chronic Improved with diuresis R pleural effusion noted on CXR, improved on repeat study Daily neg fluid balance, stop metolazone (only had one dose here), reduce torsemide to 20 mg daily. (2) Immune thrombocytopenic purpura Current Visit: Yes Status: Acute Code(s): D69.3 - IMMUNE THROMBOCYTOPENIC PURPURA SNOMED Code(s): 59367030 Comment: Stable. Continue prednisone 5 mg daily. - No heparin. - SCDs only. (3) COPD (chronic obstructive pulmonary disease) Current Visit: No Status: Chronic Code(s): J44.9 - CHRONIC OBSTRUCTIVE PULMONARY DISEASE, UNSPECIFIED SNOMED Code(s): 21024018 Comment: prn nebs, CPAP. (4) Chronic kidney disease Current Visit: No Status: Chronic Code(s): N18.9 - CHRONIC KIDNEY DISEASE, UNSPECIFIED SNOMED Code(s): 186789196 Comment: Stable. Repeat BMP in 2-3 days. (5) Iron deficiency anemia Current Visit: Yes Status: Acute Code(s): D50.9 - IRON DEFICIENCY ANEMIA, UNSPECIFIED SNOMED Code(s): 45746116 Comment: Ferrous sulfate ordered 12/20. CBC 12/21. (6) PMR (polymyalgia rheumatica) Current Visit: No Status: Acute Priority: High Code(s): M35.3 - POLYMYALGIA RHEUMATICA SNOMED Code(s): 79074149 Comment: - Continue prednisone 5 mg daily. (7) CAD (coronary artery disease) Current Visit: No Status: Chronic Code(s): I25.10 - ATHSCL HEART DISEASE OF [place] CORONARY ARTERY W/O ANG PCTRS SNOMED Code(s): 36604582 Comment: - Stable, no chest pain - Continue medical management with BB, ASA (8) Diabetes mellitus type 2 Current Visit: No Status: Chronic Code(s): E11.9 - TYPE 2 DIABETES MELLITUS WITHOUT COMPLICATIONS SNOMED Code(s): 44285785 Comment: - BG well controlled. - Continue lantus and lispro SS with BG AC and HS (9) Atrial fibrillation Current Visit: No Status: Chronic Code(s): I48.91 - UNSPECIFIED ATRIAL FIBRILLATION SNOMED Code(s): 84354434 Comment: - Rate controlled. - No AC due to ITP and anemia. Status and Disposition: Inpatient. Plan for discharge to [facility] on Friday or Friday.
[2017-12-21] MEDS: Nitro Patch/OINT Remove PATCH OFF SCH (20:00)
[2017-12-21] MEDS: Aspirin EC Low Dose* 81 MG TAB.EC PO SCH (20:00)
[2017-12-21] MEDS: Donepezil TAB* 5 MG PO SCH (20:00)
[2017-12-22] MEDS: Torsemide TAB* 20 MG PO SCH (08:23)
[2017-12-22] MEDS: Insulin LISPRO* 1 UNITS UNIT SUBCUT SCH (08:23)
[2017-12-22] MEDS: Ferrous Sulfate TAB* 325 MG PO SCH (08:24)
[2017-12-22] MEDS: Carvedilol TAB* 25 MG PO SCH (08:24)
[2017-12-22] MEDS: predniSONE TAB* 5 MG PO SCH (08:24)
[2017-12-22] MEDS: Diltiazem CD CAP* 120 MG PO SCH (08:24)
[2017-12-22] MEDS: Nitroglycerin 0.2 MG/HR PATCH* (5 MG) TRANSDERM SCH (08:25)
[2017-12-22 08:27] VITALS: BP 140/53
[2017-12-22] MEDS: Digoxin TAB* 0.125 MG PO SCH (08:43)
[2017-12-22] MEDS ORDERED: Insulin GLARGINE(*) 1 UNITS UNIT SUBCUT SCH (09:00)
--- NOTE | 2017-12-22 10:58 | PN ---
Progress Note - Progress Note Date of Service: 12/22/17 Note: Time spent on discharge 45 minutes.
--- NOTE | 2017-12-22 11:14 | DS ---
CC: Dr. Fuentes * DATE OF ADMISSION: 12/15/2017. DATE OF DISCHARGE: 12/22/2017. HISTORY: This 87-year-old man presented with shortness of breath and weakness of four days duration. He was felt to be having an exacerbation of his diastolic congestive heart failure. He was admitted to the Telemetry Unit. He had three troponin levels drawn, all of which were within normal limits. He was given intravenous diuretics. He did have a good diuresis here, basically a negative fluid balance every complete hospital day here. In fact, I have tapered off his diuretics as I am concerned about him getting volume depleted. He had no edema on the day of discharge. He still requires oxygen. He has chronic kidney disease, making it a little difficult to assess his volume status based on his labs. On the day of discharge, his creatinine was 2.30, BUN 92, potassium 4.0. He has a chronic anemia as well. On December 21, his hematocrit was 27. This is within the range of recent values. Symptomatically he improved during this admission. I am reducing his diuretic further to 20 mg of Furosemide four days a week. He does respond well to larger doses and/or Metolazone. I would recommend getting a BMP in three to four days and weighing him daily to help assess his fluid status. His Marie catheter was removed on the day of discharge. FINAL DIAGNOSES: 1. Diastolic congestive heart failure. 2. Immune thrombocytopenia purpura. 3. COPD. 4. Chronic kidney disease. 5. Iron deficiency anemia. 6. Polymyalgia rheumatica. 7. Coronary artery disease. 8. Diabetes. 9. Atrial fibrillation. DISCHARGE MEDICATIONS: 1. Acetaminophen 650 mg every 6 hours prn. 2. Digoxin 0.125 mg Friday, Friday, Friday, , and Friday. 3. Ferrous Sulfate 325 mg daily. 4. Glargine insulin 58 units every morning. 5. NovoLog 2 to 10 units by sliding scale before meals. 6. Donepezil 10 mg at bedtime. 7. Carvedilol 25 mg b.i.d. 8. Nitroglycerin 0.2 mg per hour on daily. 9. Albuterol Ipratropium by nebulizer every 4 hours prn. 10. Diltiazem CD 120 mg b.i.d. 11. Aspirin 81 mg daily. 12. Torsemide 20 mg every Friday, Friday, Friday, and Friday. The patient is being transferred to the hospice residence. [id number]/[facility] #: [id number] [facility]
== END 2017-12-22 12:00 | disposition hospice, inpatient (51) | DRG 291 ==
LOC: ED 12:28 → MEDTELE 18:05
PROVIDERS: ADMIT Internal Medicine; ATTEND Internal Medicine
PROC: 30233N1 Transfusion of Nonautologous Red Blood Cells into Peripheral Vein, Percutaneous Approach (ICD-10-PCS; 2017-12-15)
PROC: 5A09457 Assistance with Respiratory Ventilation, 24-96 Consecutive Hours, Continuous Positive Airway Pressure (ICD-10-PCS; principal; 2017-12-21)
DX: I13.0 Hypertensive heart and chronic kidney disease with heart failure and stage 1 through stage 4 chronic kidney disease, or unspecified chronic kidney disease (principal); I50.33 Acute on chronic diastolic (congestive) heart failure; D69.3 Immune thrombocytopenic purpura; E11.22 Type 2 diabetes mellitus with diabetic chronic kidney disease; J44.9 Chronic obstructive pulmonary disease, unspecified; I49.5 Sick sinus syndrome; N18.9 Chronic kidney disease, unspecified; D50.9 Iron deficiency anemia, unspecified; M35.3 Polymyalgia rheumatica; I25.10 Atherosclerotic heart disease of native coronary artery without angina pectoris; I48.91 Unspecified atrial fibrillation; F03.90 Unspecified dementia, unspecified severity, without behavioral disturbance, psychotic disturbance, mood disturbance, and anxiety; Z66 Do not resuscitate; E78.5 Hyperlipidemia, unspecified; Z95.0 Presence of cardiac pacemaker; Z85.828 Personal history of other malignant neoplasm of skin; Z95.5 Presence of coronary angioplasty implant and graft; Z79.82 Long term (current) use of aspirin; Z79.4 Long term (current) use of insulin; Z79.52 Long term (current) use of systemic steroids; Z79.899 Other long term (current) drug therapy; Z91.040 Latex allergy status; Z88.8 Allergy status to other drugs, medicaments and biological substances; Z91.048 Other nonmedicinal substance allergy status; I25.2 Old myocardial infarction; Z82.49 Family history of ischemic heart disease and other diseases of the circulatory system; Z83.3 Family history of diabetes mellitus; Z80.8 Family history of malignant neoplasm of other organs or systems; Z80.9 Family history of malignant neoplasm, unspecified; Z87.891 Personal history of nicotine dependence
CPT/HCPCS: 36415; 71045; 80048; 80053; 80162; 80170; 82728; 82803; 82947; 83540; 83550; 83735; 83880; 84466; 84484; 85025; 85027; 85610; 85730; 86850; 86900; 86901; 86922; 93005; 93306; 94660; 94760; 96374; 99284; A9270-GY; J1580; J1940; J2543; J2916; J7512

== ENCOUNTER 2018-01-15 03:13 | Emergency (ER) | payer MEDICARE, OTHER ==
[2018-01-15 05:27] VITALS: BP 156/57
--- NOTE | 2018-01-15 08:14 | ED ---
Farhan Otero Nilda, scribed for Mckay Sanchez MD on 01/15/18 at 0722 . Shortness of Breath - HPI Summary HPI Summary: LVL5: Hx and PE are limited due to pt respiratory distress. This patient is an 87 year old M BIBA accompanied by family and hospice worker with a chief complaint of constant dyspnea since this evening. Symptoms aggravated by exertion and alleviated by nothing. Family reports chronic edema. Son states patient is DNR. - History of Current Complaint Chief Complaint: EDShortnessOfBreath Time Seen by Provider: 01/15/18 03:50 Hx Obtained From: Family/Seasonal Ware[employer] Onset/Duration: Sudden Onset, Lasting Hours, Still Present Timing: Constant Dyspnea At: Rest Aggrevating Factors: Nothing Alleviating Factors: Nothing Associated Signs & Symptoms: Edema - Allergy/Home Medications Allergies/Adverse Reactions: Allergies Allergy/AdvReac Type Severity Reaction Status Date / Time Adhesive Tape Allergy Mild Itching Verified 01/15/18 04:08 MS Hydralazine [Hydralazine] Allergy Unknown Unknown Verified 01/15/18 04:08 Reaction Details MS Ramipril [From Altace] Allergy Unknown Unknown Verified 01/15/18 04:08 Reaction Details MS Simvastatin [From Zocor] Allergy Unknown Unknown Verified 01/15/18 04:08 Reaction Details MS Clonidine [Clonidine] Allergy Unknown Verified 01/15/18 04:08 Reaction Details MS Clopidogrel [From Plavix] Allergy Unknown Verified 01/15/18 04:08 Reaction Details MS Latex [Latex] Allergy Rash Verified 01/15/18 04:08 MS Nitroglycerin Allergy See Comment Verified 01/15/18 04:08 [From Nitroglycerin Transdermal System] PMH/Surg Hx/FS Hx/Imm Hx Endocrine/Hematology History: Reports: Hx Blood Disorders - ITP, Hx Diabetes, Other Endocrine/Hematological Disorders - 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, 2001 Denies: Hx Anticoagulant Therapy, Hx Blood Transfusions, Hx Bone Marrow Disease, Hx Systemic Lupus Erythematosus, Hx Sickle Cell Disease, Hx Thyroid Disease, Hx Anemia, Hx Unexplained Bleeding Cardiovascular History: Reports: Hx Angina, Hx Angioplasty, Hx Coronary Artery Disease, Hx Hypercholesterolemia, Hx Hypertension, Hx Pacemaker/ICD, Other Cardiovascular Problems/Disorders - A-Fib Denies: Hx Aneurysm, Hx Auto Implanted Cardiovert Defib, Hx Cardiac Arrest, Hx Cardiomegaly, Hx Congenital Heart Disease, Hx Congestive Heart Failure, Hx Deep Vein Thrombosis, Hx Embolism, Hx Hypotension, Hx Peripheral Vascular Disease, Hx Rheumatic Fever, Hx Syncope, Hx Valvular Heart Disease Respiratory History: Reports: Hx Chronic Obstructive Pulmonary Disease (COPD), Hx Sleep Apnea, Other Respiratory Problems/Disorders - POSSIBLE COPD. ON HOME O2 Denies: Hx Asthma GI History: Reports: Hx Hiatal Hernia, Other GI Disorders - HIATAL HERNIA Denies: Hx Ulcer History: Reports: Hx Chronic Renal Failure - CKD stage 3, Hx Renal Disease Denies: Hx Dialysis Musculoskeletal History: Reports: Hx Gout - knee, Hx Orthopedic Injury - L ankle Fx, consequent unsteady gait Denies: Hx Arthritis, Hx Back Problems, Hx Bursitis, Hx Congenital Bone Abnormalities, Hx Fibromyalgia, Hx Osteoporosis, Hx Scoliosis, Hx Tendonitis, Other Musculoskeletal History Sensory History: Reports: Hx Cataracts - removal, Hx Contacts or Glasses Denies: Hx Eye Injury, Hx Eye Prosthesis, Hx Glaucoma, Hx Legally Blind, Hx Macular Degeneration, Hx Vision Problem, Hx Deafness, Hx Hearing Aid, Hx Hearing Problem, Other Sensory Impairments Opthamlomology History: Reports: Hx Cataracts - removal, Hx Contacts or Glasses Denies: Hx Eye Injury, Hx Eye Prosthesis, Hx Glaucoma, Hx Legally Blind, Hx Macular Degeneration, Hx Vision Problem, Other Sensory Impairments Neurological History: Reports: Hx Dementia, Other Neuro Impairments/Disorders - per family: short-term memory loss Denies: Hx Seizures Psychiatric History: Reports: Hx Eating Disorder Denies: Hx Substance Abuse - Cancer History Cancer Type, Location and Year: 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 5 cardiac stents, cataract surgery, pacer/ICD implant Hx Anesthesia Reactions: No - Immunization History Date of Tetanus Vaccine: unk Date of Influenza Vaccine: unk Infectious Disease History: No Infectious Disease History: Denies: Hx Clostridium Difficile, Hx Hepatitis, Hx Human Immunodeficiency Virus (HIV), Hx of Known/Suspected MRSA, Hx Shingles, Hx Tuberculosis, Hx Known/ Suspected VRE, Hx Known/Suspected VRSA, History Other Infectious Disease, Traveled Outside the [place] in Last 30 Days - Family History Known Family History: Positive: Cardiac Disease, Hypertension, Diabetes - Social History Alcohol Use: Occasionally Substance Use Type: Reports: None Hx Tobacco Use: Yes Smoking Status (MU): Former Smoker Type: Cigarettes Amount Used/How Often: 3 PPD X 40 YEARS Have You Smoked in the Last Year: No Review of Systems - ROS Summary Review of Systems Summary: LVL5: Hx and PE are limited due to pt respiratory distress. Positive: Shortness Of Breath Positive: Edema All Other Systems Reviewed And Are Negative: No Physical Exam - Summary Physical Exam Summary: General: well-appearing, no pain distress Skin: warm, color reflects adequate perfusion, dry Head: normal Eyes: EOMI, DONTE ENT: normal Neck: supple, nontender Respiratory: CTA, breath sounds present Cardiovascular: RRR Abdomen: soft, nontender Bowel: present Musculoskeletal: strength/ROM intact, bilat pedal edema Neurological: normal, sensory/motor intact, says single words but no comprehensive answers to questions Psychological: affect/mood appropriate Triage Information Reviewed: Yes Vital Signs On Initial Exam: Initial Vitals Temp Pulse Resp BP Pulse Ox 97.8 F 70 20 144/68 100 01/15/18 04:00 01/15/18 04:00 01/15/18 04:00 01/15/18 04:00 01/15/18 04:00 Vital Signs Reviewed: Yes Completion Of Physical Exam Limited Due To: Level 5 - LVL5: Hx and PE are limited due to pt respiratory distress. Diagnostics - Vital Signs Vital Signs Temp Pulse Resp BP Pulse Ox 01/15/18 05:25 97.8 F 70 20 156/57 92 01/15/18 04:00 97.8 F 70 20 144/68 100 - Laboratory Lab Statement: Any lab studies that have been ordered have been reviewed, and results considered in the medical decision making process. Course/Dx - Course Assessment/Plan: LVL5: Hx and PE are limited due to pt respiratory distress. This patient is an 87 year old M BIBA accompanied by family and hospice worker with a chief complaint of constant dyspnea since this evening. Symptoms aggravated by exertion and alleviated by nothing. Family reports chronic edema. Son states patient is DNR. Allergies noted. Medications reviewed. BP noted and advised to follow up with PCP. THE FAMILY SPOKE WITH HOSPICE AND DECIDED AGAINST AN ED WORK UP. WILL GO HOME. NO CRITICAL CARE TIME. - Diagnoses Provider Diagnoses: Uncontrolled hypertension, Dyspnea Discharge - Discharge Plan Condition: Guarded Disposition: HOME Patient Education Materials: Shortness of Breath (ED) Referrals: Ngozi Fuentes MD [Primary Care Provider] - Additional Instructions: FOLLOW UP WITH YOUR DOCTOR. RETURN TO THE EMERGENCY DEPARTMENT FOR ANY WORSENING OF YOUR CONDITION OR QUESTIONS OR CONCERNS. The documentation as recorded by the Farhan webb Nilda accurately reflects the service I personally performed and the decisions made by me, Mckay Sanchez MD.
== END 2018-01-15 05:25 | disposition home or self-care (01) ==
LOC: ED 03:13
DX: R60.9 Edema, unspecified (principal); R06.02 Shortness of breath; Z87.891 Personal history of nicotine dependence; R06.00 Dyspnea, unspecified
CPT/HCPCS: 99282

== ENCOUNTER 2018-03-24 14:19 | Inpatient (IN) | payer MEDICARE, OTHER ==
--- NOTE | 2018-03-24 15:52 | RAD ---
Indication: Head injury CT of the brain was performed without IV contrast. Ventricular structures are midline. No midline shift is noted. The extra-axial spaces are unremarkable. There is no evidence of intracranial mass or hemorrhage. No other high or low density lesions are identified. Mastoid air cells and paranasal sinuses are otherwise unremarkable. No changes noted since November 06, 2017. IMPRESSION: No intracranial mass or hemorrhage is noted.
--- NOTE | 2018-03-24 15:55 | RAD ---
Indication indication: Back injury. CT of the lumbar spine was obtained in the axial plane. Sagittal and coronal reconstructed images were obtained. At L5-S1 there is degenerative disc disease. Spondylitic ridge and endplate sclerosis is noted. Osteophyte formation is noted. Facet arthropathy is noted. At L4-L5 spondylitic ridge flattens the thecal sac. There is right foraminal stenosis due to right facet hypertrophy. No central or foraminal stenosis is noted. At L3-L4 there is degenerative disc disease with broad-based protrusion flattening the thecal sac. Facet arthropathy is noted. At L2-L3 spondylitic ridge flattens the thecal sac. No central or foraminal stenosis is noted. At L1-L2 disc space is normal. There is mild compression of the L1 vertebra. The superior endplate is mildly comminuted. Minimal amount of perivertebral edema is noted. IMPRESSION: Mild compression of the L1 vertebra superior endplate with comminuted fracture of less than 25% loss of height involving the anterior column. No retropulsed fragment is noted.
[2018-03-24] MEDS ORDERED: Morphine INJ* 4 MG/ML 1 ML CARPUJECT IV ONE ×2 (16:15→19:35)
[2018-03-24] MEDS ORDERED: Ketorolac INJ* 30 MG/ML 1 ML VIAL IV ONE (16:15)
[2018-03-24] MEDS ORDERED: Morphine VIAL* 4 MG/ML VIAL (1 ml vial) IV ONE (16:27)
--- NOTE | 2018-03-24 21:06 | HP ---
H&P (Free Text) History and Physical: PCP: Fox Fuentes MD Date/Time: 03/24/2018 2100 CC: back pain s/p fall HPI: Mr Puente is an 87YO male living at home on Hospice HX dementia, DM2, ITP , CAD, AFIB, PRETTY, COPD, CKD, SSS s/p pacer, HTN, HLD who was at home when his leg "gave out" causing him to lose balance and fall backwards into a wall, hitting his head, and landing on his buttocks. He had no LOC, but experienced immediate central low back pain prompting evaluation which has revealed a comminuted mild L1 compression FX w/o retropulsion. He will be admitted observation for pain control & PT evaluation. PMedHx dementia DM2 ITP CAD AFIB PRETTY COPD CKD SSS s/p pacer HTN HLD Ambulatory Orders Insulin Aspart PEN(NF) [Novolog Flexpen(NF)] 2 - 14 units SUBCUT TID AC Nitroglycerin 0.2 MG/HR PATCH* [Nitroglycerin 5 MG PATCH*] 2 patch TOPICAL DAILY 11/06/17 Aspirin EC TAB* [Ecotrin EC Low Dose 81 MG*] 81 mg PO BEDTIME #30 tab.ec Carvedilol TAB* [Coreg TAB*] 25 mg PO BID #60 tab 12/22/17 Digoxin TAB* [Lanoxin TAB*] 0.125 mg PO MOTUWETHFR tab 12/22/17 Diltiazem CD CAP* [Cardizem CD CAP*] 120 mg PO BID #60 cap.cd 12/22/17 Donepezil TAB* [Aricept 5 MG TAB*] 10 mg PO BEDTIME #30 tab 12/22/17 predniSONE TAB* [Deltasone TAB*] 5 mg PO DAILY #30 tab 12/22/17 Acetaminophen [Acetaminophen Extra Strength] 500 - 1,000 mg PO BID PRN 03/24/18 Albuterol/Ipratropium NEB.EASTON* [Duoneb (Albuterol 2.5 MG/Ipratropium 0.5 MG)] 1 neb INH Q6HR PRN 03/24/18 Clotrimazole [Lotrimin AF] 1 % TOPICAL BID PRN 03/24/18 Docusate CAP* [Colace Cap*] 100 mg PO BID PRN 03/24/18 Insulin GLARGINE(*) [Lantus(*)] 55 units SUBCUT QAM 03/24/18 LORazepam TAB(*) [Ativan 0.5 MG TAB (*)] 0.5 mg PO Q6H PRN 03/24/18 Morphine ORAL.CONC BULK BOT* [Roxanol ORAL.CONC Bottle*] 5 mg PO Q3HR PRN Torsemide TAB* [Demadex 20 MG*] 20 mg PO DAILY 03/24/18 Allergies Adhesive Tape Allergy (Mild, Verified 01/15/18 04:08) Itching clonidine Allergy (Verified 03/24/18 23:32) Unknown Reaction Details clopidogrel Allergy (Verified 03/24/18 23:32) Unknown Reaction Details hydralazine Allergy (Verified 03/24/18 23:32) Unknown Reaction Details latex Allergy (Verified 03/24/18 23:32) Rash nitroglycerin Allergy (Verified 03/24/18 23:36) See Comment PATIENT BELIEVES THEY MAY HAVE A REACTION TO THE ADHESIVE FROM SOME PATCHES AND PROBABLY NOT NITROGLYCERIN ramipril Allergy (Verified 03/24/18 23:32) Unknown Reaction Details simvastatin Allergy (Verified 03/24/18 23:32) Unknown Reaction Details PSurgHx cardiac stent x5 pacer placement cataract extraction adrenectomy SocHx: former smoker w/ ~40PYHX, mild alcohol, no recreational drugs; lives with his ; under Hospice care at home; DNR/I code status FamHx: reviewed & non-contributor to situation ROS: as above, otherwise reviewed and all were negative vitals: Vital Signs Temp 36.3 C 03/25/18 00:07 Pulse 70 03/25/18 00:07 Resp 20 03/25/18 00:23 BP 128/61 03/25/18 00:07 Pulse Ox 96 03/25/18 02:40 Intake & Output 03/24/18 03/24/18 03/25/18 11:59 23:59 11:59 Output Total 150 Balance -150 Weight 98.067 kg Output: Urine 150 Constitutional: NAD, normally developed, obese elderly white male HEENM: atraumatic; sclera/conjunctiva: anicteric/clear; hearing: clinically mildly decreased; oropharynx: clear, mucosa moist Neck: soft tissue: non-tender; thyroid: normal Pulmonary: clear to auscultation bilaterally, good aeration, no accessory muscle use CV: RR/RR, normal S1S2, no carotid bruit, no jugular venous distention, 2+ B DP/ PT, 1+ BLE edema Abdominal: soft, non-distended, non-tender, no rebound/guarding/rigidity, normoactive bowel sounds, no hepatosplenomegaly or masses, no costovertebral angle tenderness Musculoskeletal: general: grossly intact, non-tender to palpation Integumental: normal appearance and texture of exposed skin Psychiatric orientation: AA&O to PPS affect: somnolent, but arouses and answers questions easily mood: cooperative eye contact: poor content: mostly reliable at this time, but family reports short-term memory is poor responses: timely insight: fair to poor Testing: Lab Results 03/24/18 03/24/18 Range/Units 15:57 23:39 POC Glucose (mg/dL) 74 95 (70-100) mg/dL CT brain WO, personally reviewed: IMPRESSION: No intracranial mass or hemorrhage is noted. CT L-spine WO, personally reviewed: IMPRESSION: Mild compression of the L1 vertebra superior endplate with comminuted fracture of less than 25% loss of height involving the anterior column. No retropulsed fragment is noted. Impression: 87M HX dementia, DM2, ITP, CAD, AFIB, PRETTY, COPD, CKD, SSS s/p pacer , HTN, HLD presenting with acute L1 compression FX 2nd mechanical fall DIAGNOSIS & PLAN Primary acute L1 compression FX w/ intractable pain 2nd mechanical fall : pain control : PT evaluation : supportive care Secondary dementia : continue donepezil DM2 : update A1c : continue glargine : basal/bolus/correctional insulin ITP : no acute issues CAD : continue aspirin AFIB : continue carvedilol, diltiazem, & digoxin COPD : continue albuterol/ipratropium & prednisone CKD stg 4 : no acute issues SSS s/p pacer : no acute issues HTN : continue carvedilol & diltiazem HLD : low fat diet Admission Rational: observation for pain control DVTp: SCDs, heparin SQ Code Status: DNR/I HCP: , Alexis Puente, & son, Jimmy Puente
--- NOTE | 2018-03-24 21:33 | ED ---
Duncan Otero Thomas, scribed for Zurdo Giraldo MD on 03/24/18 at 1509 . Head Injury - HPI Summary HPI Summary: The patient is an 87 year old male with a history of CHF on hospice. He is brought in the emergency department complaining of back pain after he had an accidental fall. He struck his head on the wall. He denies head pain and loss of consciousness. He is on ASA 81. - History Of Current Complaint Chief Complaint: EDBackInjuryPain Stated Complaint: WEAKNESS/SOB Time Seen by Provider: 03/24/18 14:30 Hx Obtained From: Patient Mechanism Of Injury: Fall From A Standing Position Onset/Duration: Still Present Severity Initially: Mild Aggravating Factor(s): Other: - Nothing Alleviating Factor(s): Other: - Nothing Associated Signs And Symptoms: Other: - Back pain; NEGATIVE: head pain, LOC Anticoagulant Therapy: ASA - 81 - Allergies/Home Medications Allergies/Adverse Reactions: Allergies Allergy/AdvReac Type Severity Reaction Status Date / Time Adhesive Tape Allergy Mild Itching Verified 01/15/18 04:08 MS Hydralazine [Hydralazine] Allergy Unknown Unknown Verified 01/15/18 04:08 Reaction Details MS Ramipril [From Altace] Allergy Unknown Unknown Verified 01/15/18 04:08 Reaction Details MS Simvastatin [From Zocor] Allergy Unknown Unknown Verified 01/15/18 04:08 Reaction Details MS Clonidine [Clonidine] Allergy Unknown Verified 01/15/18 04:08 Reaction Details MS Clopidogrel [From Plavix] Allergy Unknown Verified 01/15/18 04:08 Reaction Details MS Latex [Latex] Allergy Rash Verified 01/15/18 04:08 MS Nitroglycerin Allergy See Comment Verified 01/15/18 04:08 [From Nitroglycerin Transdermal System] Home Medications: Home Medications Acetaminophen [Acetaminophen Extra Strength] 500 - 1,000 mg PO BID PRN 03/24/18 [History Confirmed 03/24/18] Albuterol/Ipratropium NEB.EASTON* [Duoneb (Albuterol 2.5 MG/Ipratropium 0.5 MG)] 1 neb INH Q6HR PRN 03/24/18 [History Confirmed 03/24/18] Clotrimazole [Lotrimin AF] 1 % TOPICAL BID PRN 03/24/18 [History Confirmed 03/24] Docusate CAP* [Colace Cap*] 100 mg PO BID PRN 03/24/18 [History Confirmed ] Insulin GLARGINE(*) [Lantus(*)] 55 units SUBCUT QAM 03/24/18 [History Confirmed 03/24/18] LORazepam TAB(*) [Ativan 0.5 MG TAB (*)] 0.5 mg PO Q6H PRN 03/24/18 [History Confirmed 03/24/18] Morphine ORAL.CONC BULK BOT* [Roxanol ORAL.CONC Bottle*] 5 mg PO Q3HR PRN [History Confirmed 03/24/18] Torsemide TAB* [Demadex 20 MG*] 20 mg PO DAILY 03/24/18 [History Confirmed 03/24] PMH/Surg Hx/FS Hx/Imm Hx Endocrine/Hematology History: Reports: Hx Blood Disorders - ITP, Hx Diabetes, Other Endocrine/Hematological Disorders - 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, 2001 Denies: Hx Anticoagulant Therapy, Hx Blood Transfusions, Hx Bone Marrow Disease, Hx Systemic Lupus Erythematosus, Hx Sickle Cell Disease, Hx Thyroid Disease, Hx Anemia, Hx Unexplained Bleeding Cardiovascular History: Reports: Hx Angina, Hx Angioplasty, Hx Coronary Artery Disease, Hx Hypercholesterolemia, Hx Hypertension, Hx Pacemaker/ICD, Other Cardiovascular Problems/Disorders - A-Fib Denies: Hx Aneurysm, Hx Auto Implanted Cardiovert Defib, Hx Cardiac Arrest, Hx Cardiomegaly, Hx Congenital Heart Disease, Hx Congestive Heart Failure, Hx Deep Vein Thrombosis, Hx Embolism, Hx Hypotension, Hx Peripheral Vascular Disease, Hx Rheumatic Fever, Hx Syncope, Hx Valvular Heart Disease Respiratory History: Reports: Hx Chronic Obstructive Pulmonary Disease (COPD), Hx Sleep Apnea, Other Respiratory Problems/Disorders - POSSIBLE COPD. ON HOME O2 Denies: Hx Asthma GI History: Reports: Hx Hiatal Hernia, Other GI Disorders - HIATAL HERNIA Denies: Hx Ulcer History: Reports: Hx Chronic Renal Failure - CKD stage 3, Hx Renal Disease Denies: Hx Dialysis Musculoskeletal History: Reports: Hx Gout - knee, Hx Orthopedic Injury - L ankle Fx, consequent unsteady gait Denies: Hx Arthritis, Hx Back Problems, Hx Bursitis, Hx Congenital Bone Abnormalities, Hx Fibromyalgia, Hx Osteoporosis, Hx Scoliosis, Hx Tendonitis, Other Musculoskeletal History Sensory History: Reports: Hx Cataracts - removal, Hx Contacts or Glasses Denies: Hx Eye Injury, Hx Eye Prosthesis, Hx Glaucoma, Hx Legally Blind, Hx Macular Degeneration, Hx Vision Problem, Hx Deafness, Hx Hearing Aid, Hx Hearing Problem, Other Sensory Impairments Opthamlomology History: Reports: Hx Cataracts - removal, Hx Contacts or Glasses Denies: Hx Eye Injury, Hx Eye Prosthesis, Hx Glaucoma, Hx Legally Blind, Hx Macular Degeneration, Hx Vision Problem, Other Sensory Impairments Neurological History: Reports: Hx Dementia, Other Neuro Impairments/Disorders - per family: short-term memory loss Denies: Hx Seizures Psychiatric History: Reports: Hx Eating Disorder Denies: Hx Substance Abuse - Cancer History Cancer Type, Location and Year: 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 5 cardiac stents, cataract surgery, pacer/ICD implant Hx Anesthesia Reactions: No - Immunization History Date of Tetanus Vaccine: unk Date of Influenza Vaccine: unk Infectious Disease History: No Infectious Disease History: Denies: Hx Clostridium Difficile, Hx Hepatitis, Hx Human Immunodeficiency Virus (HIV), Hx of Known/Suspected MRSA, Hx Shingles, Hx Tuberculosis, Hx Known/ Suspected VRE, Hx Known/Suspected VRSA, History Other Infectious Disease, Traveled Outside the [place] in Last 30 Days - Family History Known Family History: Positive: Cardiac Disease, Hypertension, Diabetes - Social History Alcohol Use: Occasionally Substance Use Type: Reports: None Hx Tobacco Use: Yes Smoking Status (MU): Former Smoker Type: Cigarettes Amount Used/How Often: 3 PPD X 40 YEARS Have You Smoked in the Last Year: No Review of Systems Negative: Fever Neurological: Other - Head injury; NEGATIVE: head pain, LOC All Other Systems Reviewed And Are Negative: Yes Physical Exam - Summary Physical Exam Summary: Appearance: The patient is well-nourished in no acute distress and in no acute pain. Skin: The skin is warm and dry and skin color reflects adequate perfusion. HEENT: The head is normocephalic and atraumatic. The pupils are equal and reactive. The conjunctivae are clear and without drainage. Nares are patent and without drainage. Mouth reveals moist mucous membranes and the throat is without erythema and exudate. The external ears are intact. The ear canals are patent and without drainage. The tympanic membranes are intact. Neck: the neck is supple with full range of motion and non-tender. There are no carotid bruits. There is no neck vein distension. Respiratory: Chest is non-tender. He has pursed lip breathing. Lungs are clear to auscultation and breath sounds are symmetrical and equal. Cardiovascular: Heart is regular rate and rhythm. There is no murmur or rub auscultated. There is pitting edema. The pulses are symmetrical and equal. Abdomen: The abdomen is soft and non-tender. There are normal bowel sounds heard in all four quadrants and there is no organomegaly palpated. Musculoskeletal: There is no back tenderness noted. Extremities are non-tender with full range of motion. There is good capillary refill. There is pitting edema. There is not any calf tenderness elicited. Neurological: Patient is alert and oriented to person, place and time. The patient has symmetrical motor strength in all four extremities. Cranial nerves are grossly intact. Deep tendon reflexes are symmetrical and equal in all four extremities. Psychiatric: The patient has an appropriate affect and does not exhibit any anxiety or depression. Triage Information Reviewed: Yes Vital Signs On Initial Exam: Initial Vitals Temp Pulse Resp BP Pulse Ox 97.5 F 70 26 130/92 97 03/24/18 14:27 03/24/18 14:27 03/24/18 14:27 03/24/18 14:27 03/24/18 14:27 Vital Signs Reviewed: Yes Diagnostics - Vital Signs Vital Signs Temp Pulse Resp BP Pulse Ox 03/24/18 14:27 97.5 F 70 26 130/92 97 - Laboratory Lab Results: Lab Results 03/24/18 Range/Units 15:57 POC Glucose (mg/dL) 74 (70-100) mg/dL Lab Statement: Any lab studies that have been ordered have been reviewed, and results considered in the medical decision making process. - CT CT Brain CT Interpretation: No Acute Changes - IMPRESSION: No intracranial mass or hemorrhage is noted. Dr. Giraldo has reviewed this report. CT Interpretation Completed By: Radiologist CT L-Spine CT Interpretation: Positive (See Comments) - IMPRESSION: Mild compression of the L1 vertebra superior endplate with comminuted fracture of less than 25% loss of height involving the anterior column. No retropulsed fragment is noted. Dr. Giraldo has reviewed this report. CT Interpretation Completed By: Radiologist Head Injury Course/Dx Course Of Treatment: Mr. Puente fell and sustained a new L1 compression fracture today. He is in too much pain for his family to take care of at this time and the hospitalist service is admitting him. - Diagnoses Provider Diagnoses: Intractable pain, Compression fracture of L1 lumbar vertebra - Physician Notifications Discussed Care Of Patient With: Brendno Dominique Time Discussed With Above Provider: 18:39 Instructed by Provider To: Admit As Inpatient Discharge - Sign-Out/Discharge Documenting (check all that apply): Discharge/Admit/Transfer - Discharge Plan Condition: Stable Disposition: ADMITTED TO [facility] Referrals: Ngozi Fuentes MD [Primary Care Provider] - - Billing Disposition and Condition Condition: STABLE [place] [place] The documentation as recorded by the Duncan webb Thomas accurately reflects the service I personally performed and the decisions made by , Zurdo Giraldo MD.
[2018-03-24] MEDS ORDERED: Morphine INJ* 2 MG/ML 1 ML CARPUJECT IV ONE (22:27)
[2018-03-24] MEDS ORDERED: oxyCODONE TAB* 5 MG TAB PO PRN (22:29)
[2018-03-24] MEDS ORDERED: traMADol TAB* 50 MG PO PRN (22:29)
[2018-03-24] MEDS ORDERED: Ondansetron INJ* 2 MG/ML VIAL IV PRN (22:29)
[2018-03-24] MEDS ORDERED: Albuterol 2.5 MG/3 ML NEB.SOL* (0.083%) INH PRN (22:29)
[2018-03-24] MEDS ORDERED: Morphine VIAL* 4 MG/ML VIAL (1 ml vial) IV PRN (22:29)
[2018-03-24] MEDS ORDERED: CMCS: Melatonin (NF) 3 MG TAB PO PRN (22:29)
[2018-03-24] MEDS ORDERED: Acetaminophen TAB* 325 MG PO PRN (22:29)
[2018-03-24] MEDS ORDERED: Dextrose 50% Syringe 50 ML* 25 GM/50 ML SYRINGE ONE (23:13)
[2018-03-24] MEDS: Dextrose 50% Syringe 50 ML* 25 GM/50 ML SYRINGE IV PUSH PRN (23:27)
[2018-03-25] MEDS ORDERED: Morphine ORAL CONCENTRATE* 5 MG/0.25 ML ORAL.SYRIN PO PRN (04:16)
[2018-03-25] MEDS ORDERED: Clotrimazole 1% CREAM* 30 GM TOPICAL PRN (04:16)
[2018-03-25] MEDS ORDERED: LORazepam TAB(*) 0.5 MG PO PRN (04:16)
[2018-03-25] MEDS ORDERED: Omeprazole CAP* 20 MG PO SCH (06:00)
[2018-03-25] MEDS: Insulin LISPRO* 1 UNITS UNIT SUBCUT SCH ×7 (08:10→21:33)
[2018-03-25] MEDS ORDERED: Docusate CAP* 100 MG PO PRN (08:16)
--- NOTE | 2018-03-25 08:26 | PN ---
Subjective Date of Service: 03/25/18 Interval History: He offers no c/o. He denies pain, likely coud not remember recent pain. Objective Active Medications: Acetaminophen (Tylenol Tab*) 650 mg PO Q6H PRN PRN Reason: FEVER/PAIN Albuterol (Ventolin 2.5 Mg/3 Ml Neb.Suha*) 2.5 mg INH Q2H PRN PRN Reason: SOB/WHEEZING Aspirin (Aspirin Ec Tab*) 81 mg PO BEDTIME PRICILLA Carvedilol (Coreg Tab*) 25 mg PO BID PRICILLA Clotrimazole (Clotrimazole 1%*) 1 applic TOPICAL BID PRN; Protocol PRN Reason: ITCHING Dextrose (D50w Syringe 50 Ml*) 12.5 gm IV PUSH ONCE PRN PRN Reason: FS < 60 Last Admin: 03/24/18 23:27 Dose: 12.5 gm Digoxin (Lanoxin Tab*) 0.125 mg PO [id number]@0900 PRICILLA Diltiazem HCl (Cardizem Cd Cap*) 120 mg PO BID PRICILLA Donepezil HCl (Aricept Tab*) 10 mg PO BEDTIME PRICILLA Insulin Human Lispro (Humalog*) 0 units SUBCUT AC PRICILLA PRN Reason: Protocol Last Admin: 03/25/18 08:10 Dose: Not Given Insulin Human Lispro (Humalog*) 0 units SUBCUT ACHS PRICILLA PRN Reason: Protocol Last Admin: 03/25/18 08:11 Dose: Not Given Lorazepam (Ativan Tab(*)) 0.5 mg PO Q6H PRN PRN Reason: ANXIETY Morphine Sulfate (Morphine Oral Concentrate*) 5 mg PO Q3HR PRN PRN Reason: SHORTNESS OF BREATH Nitroglycerin (Nitroglycerin 5 Mg Patch*) 2 patch TRANSDERM DAILY [facility] Ondansetron HCl (Zofran Inj*) 4 mg IV Q6H PRN PRN Reason: NAUSEA Oxycodone HCl (Roxycodone Tab*) 2.5 mg PO Q4H PRN PRN Reason: PAIN Prednisone (Deltasone Tab*) 5 mg PO DAILY [facility] Torsemide (Demadex*) 20 mg PO DAILY PRICILLA Tramadol HCl (Ultram*) 50 mg PO Q6H PRN PRN Reason: PAIN Vital Signs - 8 hr 03/25/18 03/25/18 03/25/18 00:23 02:40 03:59 Temperature Pulse Rate 89 Respiratory 20 18 Rate Blood Pressure 123/58 (mmHg) O2 Sat by Pulse 96 82 Oximetry 03/25/18 03/25/18 04:02 07:35 Temperature 97.7 F Pulse Rate 72 Respiratory 20 Rate Blood Pressure 153/60 (mmHg) O2 Sat by Pulse 93 96 Oximetry Oxygen Devices in Use Now: None, OxyMask Appearance: Alert, partly up in bed. Neutral affect. Looks comfortable at rest. Eyes: No Scleral Icterus Neck: NL Appearance and Movements; NL JVP, No Thyroid Enlargement, Masses Respiratory: Symmetrical Chest Expansion and Respiratory Effort, Clear to Auscultation, Clear to Percussion Cardiovascular: NL Sounds; No Murmurs; No JVD, RRR, No Edema, - Extremities: No Edema, No Clubbing, Cyanosis, - Skin: No Rash or Ulcers, No Nodules or Sclerosis, - Neurological: NL Sensation - Passive, cooperative. He gave his age as 47. He remembers he moved to [place] in [address] but doesn't know what [address] he lives on. Additional Lab and Data: Lab Results 03/24/18 Range/Units 15:57 POC Glucose (mg/dL) 74 (70-100) mg/dL Assess/Plan/Problems-Billing Assessment: - Patient Problems (1) Vertebral compression fracture Current Visit: Yes Status: Acute Code(s): M48.50XA - COLLAPSED VERTEBRA, NEC , SITE UNSP, INIT SNOMED Code(s): 08750205 Comment: L1. PO oxycodone/SL morphine PRN pain. PT eval. (2) Dementia Current Visit: No Status: Chronic Code(s): F03.90 - UNSPECIFIED DEMENTIA WITHOUT BEHAVIORAL DISTURBANCE SNOMED Code(s): 67707163 Comment: - Supportive care. (3) Hospice care Current Visit: Yes Status: Acute Comment: Disposition will depend on his ability to ambulate and his family's resources. (4) Diabetes mellitus type 2 Current Visit: No Status: Chronic Code(s): E11.9 - TYPE 2 DIABETES MELLITUS WITHOUT COMPLICATIONS SNOMED Code(s): 35232703 Comment: Reduce lantus to 30 U daily 03/25, continue lispro SS with BG AC and HS. (5) Atrial fibrillation Current Visit: No Status: Chronic Code(s): I48.91 - UNSPECIFIED ATRIAL FIBRILLATION SNOMED Code(s): 00146494 Comment: - Rate controlled. Continue digoxin, diltiazem. - No AC due to ITP and anemia. (6) Immune thrombocytopenic purpura Current Visit: No Status: Acute Code(s): D69.3 - IMMUNE THROMBOCYTOPENIC PURPURA SNOMED Code(s): 75940740 Comment: Continue prednisone 5 mg daily. - No chemical DVT prophylaxis. Not monitored due to his Hospice status.
[2018-03-25] MEDS: Carvedilol TAB* 25 MG PO SCH ×2 (08:42→21:29)
[2018-03-25] MEDS: Diltiazem CD CAP* 120 MG PO SCH ×2 (08:42→21:29)
[2018-03-25] MEDS: Torsemide TAB* 20 MG PO SCH (08:42)
[2018-03-25] MEDS: Nitroglycerin 0.2 MG/HR PATCH* (5 MG) TRANSDERM SCH (08:43)
[2018-03-25] MEDS: Digoxin TAB* 0.125 MG PO SCH (08:48)
[2018-03-25] MEDS ORDERED: predniSONE TAB* 5 MG PO SCH (09:00)
[2018-03-25] MEDS ORDERED: Docusate CAP* 100 MG PO SCH (09:00)
[2018-03-25] MEDS ORDERED: Insulin GLARGINE(*) 1 UNITS UNIT SUBCUT SCH ×2 (09:00)
[2018-03-25] MEDS ORDERED: Morphine ORAL CONCENTRATE* 5 MG/0.25 ML ORAL.SYRIN SL PRN (12:54)
[2018-03-25] MEDS ORDERED: fentaNYL PATCH 12 MCG/HR TRANSDERM SCH (20:00)
[2018-03-25] MEDS ORDERED: Nicotine Patch Removal NOTE PATCH OFF SCH (21:00)
[2018-03-25] MEDS ORDERED: Aspirin EC TAB* 81 MG TAB.EC PO SCH (21:00)
[2018-03-25] MEDS ORDERED: Nitro Patch/OINT Remove TOPICAL SCH (21:00)
[2018-03-25] MEDS ORDERED: Donepezil TAB* 5 MG PO SCH (21:00)
[2018-03-26] MEDS ORDERED: fentaNYL Patch Check Q Shift 1 NOTE SCH (07:00)
[2018-03-26] MEDS: Dextrose 50% Syringe 50 ML* 25 GM/50 ML SYRINGE IV PUSH PRN (07:44)
[2018-03-26] MEDS: Insulin LISPRO* 1 UNITS UNIT SUBCUT SCH ×2 (08:17→08:18)
[2018-03-26 08:24] VITALS: BP 138/70
[2018-03-26] MEDS: Carvedilol TAB* 25 MG PO SCH (08:25)
[2018-03-26] MEDS: Diltiazem CD CAP* 120 MG PO SCH (08:25)
[2018-03-26] MEDS: Torsemide TAB* 20 MG PO SCH (08:25)
[2018-03-26] MEDS: Nitroglycerin 0.2 MG/HR PATCH* (5 MG) TRANSDERM SCH (08:32)
[2018-03-26] MEDS: Digoxin TAB* 0.125 MG PO SCH (08:32)
[2018-03-26] MEDS ORDERED: Insulin GLARGINE(*) 1 UNITS UNIT SUBCUT SCH (09:00)
== END 2018-03-26 09:10 | disposition expired | DRG 347 ==
LOC: ED 14:19 → MED 21:08 → OBSVTOIN 22:45
PROVIDERS: ADMIT Hospitalist; ATTEND Internal Medicine
PROC: 5A09357 Assistance with Respiratory Ventilation, Less than 24 Consecutive Hours, Continuous Positive Airway Pressure (ICD-10-PCS; principal; 2018-03-24)
DX: S32.019A Unspecified fracture of first lumbar vertebra, initial encounter for closed fracture (principal); D69.3 Immune thrombocytopenic purpura; N18.4 Chronic kidney disease, stage 4 (severe); I13.0 Hypertensive heart and chronic kidney disease with heart failure and stage 1 through stage 4 chronic kidney disease, or unspecified chronic kidney disease; F03.90 Unspecified dementia, unspecified severity, without behavioral disturbance, psychotic disturbance, mood disturbance, and anxiety; I25.10 Atherosclerotic heart disease of native coronary artery without angina pectoris; I48.91 Unspecified atrial fibrillation; G47.33 Obstructive sleep apnea (adult) (pediatric); J44.9 Chronic obstructive pulmonary disease, unspecified; E11.22 Type 2 diabetes mellitus with diabetic chronic kidney disease; E78.5 Hyperlipidemia, unspecified; Z66 Do not resuscitate; E66.9 Obesity, unspecified; F50.9 Eating disorder, unspecified; Z51.5 Encounter for palliative care; I50.9 Heart failure, unspecified; M10.9 Gout, unspecified; W18.30XA Fall on same level, unspecified, initial encounter; Y92.9 Unspecified place or not applicable; Z88.8 Allergy status to other drugs, medicaments and biological substances; Z95.0 Presence of cardiac pacemaker; Z91.040 Latex allergy status; Z95.5 Presence of coronary angioplasty implant and graft; Z87.891 Personal history of nicotine dependence; Z72.89 Other problems related to lifestyle; Z98.42 Cataract extraction status, left eye; Z98.41 Cataract extraction status, right eye; Z85.828 Personal history of other malignant neoplasm of skin; Z82.49 Family history of ischemic heart disease and other diseases of the circulatory system; Z83.3 Family history of diabetes mellitus; Z68.33 Body mass index [BMI] 33.0-33.9, adult
CPT/HCPCS: 36415; 70450; 72131; 83036; 94660; 94760; 99285; A9270-GY; G8978-GP-CJ; G8979-GP-CH; J2270; J7512